=== PATIENT | female | born 1965 | race Caucasian/White ===

== ENCOUNTER → 2018-03-20 | Outpatient (CLI) | payer MEDICAID | LOC: RAD 13:14 | PROVIDERS: ATTEND Nurse Practitioner Primary Care | DX: Z12.31 Encounter for screening mammogram for malignant neoplasm of breast (principal) ==

== ENCOUNTER → 2019-02-23 | Outpatient (CLI) | payer MEDICAID ==
[2019-02-23 11:13] LABS: ABG BASE EXCESS 1.2 MMOL/L (-2.5-2.5); ABG OXYGEN SATURATION 97 % (94-100); ABG PCO2 44 MMHG (35-45); ABG PH 7.38 (7.37-7.43); ABG PO2 76 MMHG (79-93); ABG TCO2 26.9 MMOL/L (21.0-31.0)
[2019-02-23 11:16] LABS: ALLENS TEST YES-POS; INSPIRED O2 ROOM AIR; PATIENT TEMP 99.2; VENTILATOR NO
== END ==
LOC: RT 10:48
PROVIDERS: ATTEND Nurse Practitioner Family
DX: J45.909 Unspecified asthma, uncomplicated (principal); J42 Unspecified chronic bronchitis; G47.34 Idiopathic sleep related nonobstructive alveolar hypoventilation; K76.89 Other specified diseases of liver; G47.50 Parasomnia, unspecified; F17.200 Nicotine dependence, unspecified, uncomplicated
CPT/HCPCS: 36600; 82805

== ENCOUNTER → 2019-04-16 | Outpatient (CLI) | payer MEDICAID ==
[~2019-04-16] MED LIST: RT-ALBUTEROL SULF 2.5 MG/3 ML PRE-MIX VIAL INH ONE; RT-ALBUTEROL SULF 2.5 MG/3 ML PRE-MIX VIAL ONE
--- NOTE | 2019-04-16 15:05 | Diagnostic Imaging Report ---
INDICATION: Chronic low back pain. FINDINGS: AP and lateral views of the lumbar spine are obtained. There is slight left convexity curvature of the upper lumbar spine. There is mild disc space narrowing at the L1-L2 level with associated endplate spurring. Otherwise, vertebral body heights are maintained. There is no evidence of an acute fracture or subluxation. Sclerosis is noted about the L4-L5 and L5-S1 facets. IMPRESSION: Localized L1-L2 degenerative disc disease without other evidence of acute abnormality seen in the lumbar spine. There is mild degenerative facet arthropathy at L4-L5 and L5-S1. Dictated by: Dictated on workstation # [id number]
== END ==
LOC: RT 13:47
PROVIDERS: ATTEND Surgery
DX: Z02.71 Encounter for disability determination (principal); M51.36 Other intervertebral disc degeneration, lumbar region; M46.97 Unspecified inflammatory spondylopathy, lumbosacral region
CPT/HCPCS: 72100; 94060

== ENCOUNTER 2019-12-17 15:35 | Emergency (ER) | payer MEDICAID ==
[~2019-12-17] VITALS: Ht 170 cm; Wt 89.8 kg
--- NOTE | 2019-12-17 15:50 | ED Dyspnea ---
General Stated Complaint: SOB Source of Information: Patient History of Present Illness Date Seen by Provider: Dec 17, 2019 Time Seen by Provider: 15:45 Initial Comments 54-year-old female presents with chest pain and shortness of breath. She reports that is on and off for at least a week. She is complaining of some generalized malaise and fatigue. She denies any chest pain at this time. She denies any nausea or vomiting. She denies any cough. Patient reports she has a history of "angina" and takes nitroglycerin. Patient will not elaborate on this diagnosis and states she was diagnosed in [place] prior to moving here. She will not elaborate how long ago that was or if she has ever had a heart catheter. Patient symptoms with the very vague with no reports of fever or chills. She does complain of some occasional nausea but not at this time. Allergies and Home Medications Allergies Coded Allergies: No Allergy Information Available (Unverified , 02/13/18) Patient Home Medication List Home Medication List Reviewed: Yes Review of Systems Review of Systems Constitutional: No chills, No fever; malaise, weakness EENTM: no symptoms reported Respiratory: short of breath Cardiovascular: chest pain Gastrointestinal: no symptoms reported, abdominal pain; No nausea, No vomiting Musculoskeletal: no symptoms reported Skin: no symptoms reported Psychiatric/Neurological: No Symptoms Reported Endocrine: No Symptoms Reported Past Uryztdg-Enczgu-Inkhyq Hx Past Med/Social Hx: Reviewed Nursing Past Med/Soc Hx Physical Exam Vital Signs Vital Signs - First Documented 12/17/19 15:45 Temp 36.6 Pulse 71 Resp 12 B/P (MAP) 117/71 (86) Pulse Ox 96 O2 Delivery Room Air Capillary Refill : Height, Weight, BMI Height: '" Weight: lbs. oz. 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 Norm as Tested Skin: Normal Color, Warm/Dry Lymphatic: No Adenopathy Progress/Results/Core Measures Results/Orders Lab Results Laboratory Tests Test 12/17/19 15:45 Range/Units White Blood Count 8.3 4.3-11.0 10^3/uL Red Blood Count 5.11 4.35-5.85 10^6/uL Hemoglobin 16.0 11.5-16.0 G/DL Hematocrit 47 35-52 % Mean Corpuscular Volume 92 80-99 FL Mean Corpuscular Hemoglobin 31 25-34 PG Mean Corpuscular Hemoglobin Concent 34 32-36 G/DL Red Cell Distribution Width 12.6 10.0-14.5 % Platelet Count 270 130-400 10^3/uL Mean Platelet Volume 9.5 7.4-10.4 FL Neutrophils (%) (Auto) 60 42-75 % Lymphocytes (%) (Auto) 34 12-44 % Monocytes (%) (Auto) 5 0-12 % Eosinophils (%) (Auto) 1 0-10 % Basophils (%) (Auto) 0 0-10 % Neutrophils # (Auto) 5.0 1.8-7.8 X 10^3 Lymphocytes # (Auto) 2.8 1.0-4.0 X 10^3 Monocytes # (Auto) 0.4 0.0-1.0 X 10^3 Eosinophils # (Auto) 0.1 0.0-0.3 10^3/uL Basophils # (Auto) 0.0 0.0-0.1 10^3/uL Prothrombin Time 13.4 12.2-14.7 SEC INR Comment 1.0 0.8-1.4 Activated Partial Thromboplast Time 31 24-35 SEC D-Dimer < 0.27 0.00-0.49 UG/ML Sodium Level 139 135-145 MMOL/L Potassium Level 4.0 3.6-5.0 MMOL/L Chloride Level 102 98-107 MMOL/L Carbon Dioxide Level 25 21-32 MMOL/L Anion Gap 12 5-14 MMOL/L Blood Urea Nitrogen 5 L 7-18 MG/DL Creatinine 0.85 0.60-1.30 MG/DL Estimat Glomerular Filtration Rate > 60 BUN/Creatinine Ratio 6 Glucose Level 104 70-105 MG/DL Calcium Level 10.2 H 8.5-10.1 MG/DL Corrected Calcium 9.9 8.5-10.1 MG/DL Magnesium Level 2.3 1.6-2.4 MG/DL Total Bilirubin 0.3 0.1-1.0 MG/DL Aspartate Amino Transf (AST/SGOT) 9 5-34 U/L Alanine Aminotransferase (ALT/SGPT) 10 0-55 U/L Alkaline Phosphatase 115 40-136 U/L Myoglobin 31.1 10.0-92.0 NG/ML Troponin I < 0.028 <0.028 NG/ML B-Type Natriuretic Peptide 22.5 <100.0 PG/ML Total Protein 7.4 6.4-8.2 GM/DL Albumin 4.4 3.2-4.5 GM/DL Lipase 47 8-78 U/L My Orders Orders - PRICE,DAMON L DO Cbc With Automated Diff (12/17/19 15:57) Magnesium (12/17/19 15:57) Chest 1 View, Ap/Pa Only (12/17/19 15:57) Ekg Tracing (12/17/19 15:57) Comprehensive Metabolic Panel (12/17/19 15:57) Myoglobin Serum (12/17/19 15:57) Protime With Inr (12/17/19 15:57) Partial Thromboplastin Time (12/17/19 15:57) Monitor-Rhythm Ecg Trace Only (12/17/19 15:57) Ed Iv/Invasive Line Start (12/17/19 15:57) Lipase (12/17/19 15:57) BNP (12/17/19 15:57) Fibrin Degradation Products (12/17/19 15:57) Troponin I (12/17/19 15:57) Aspirin Chewable Tablet (Baby Aspirin Ch (12/17/19 16:00) Medications Given in ED Current Medications Medications Dose Ordered Sig/Zulema Route Start Time Stop Time Status Last Admin Dose Admin Aspirin 324 mg ONCE ONCE PO 12/17/19 16:00 12/17/19 16:01 DC 12/17/19 16:11 324 MG Vital Signs/I&O 12/17/19 12/17/19 12/17/19 12/17/19 15:45 15:45 16:54 17:08 Temp 36.6 36.9 Pulse 71 66 73 Resp 12 20 14 B/P (MAP) 117/71 (86) 130/78 (95) 130/74 Pulse Ox 96 94 95 O2 Delivery Room Air Room Air Room Air Room Air Progress Progress Note : Time: 16:59 Progress Note Patient with normal EKG, chest x-ray, troponin, d-dimer and other lab evaluation. Patient with no acute findings on physical exam. I discussed with her that I suspect she likely has a viral illness. I recommended she use Tylenol and ibuprofen as needed, get plenty of rest, drink plenty of fluids. She also should follow-up with her primary care provider to arrange an outpatient cardiology evaluation due to her stated a history of angina. Patient is otherwise stable and will be discharged home Initial ECG Impression Date: Dec 17, 2019 Initial ECG Impression Time: 15:33 Initial ECG Rate: 65 Initial ECG Rhythm: Normal Sinus Initial ECG Intervals: Normal Initial ECG Impression: Nonspecific Changes Diagnostic Imaging Diagonstic Imaging: Xray Plain Films/CT/US/NM/MRI: chest Comments [facility] [place] NAME: PAZ GLASS [facility] REC#: [id number] PT STATUS: REG ER : 1965 PHYSICIAN: DAMON PRICE DO ADMIT DATE: 12/17/19/ER Signed Date of Exam:12/17/19 CHEST 1 VIEW, AP/PA ONLY INDICATION: Chest pain. COMPARISON: CT chest is 02/13/2018. EXAMINATION: Portable chest. FINDINGS: The lungs are well-aerated and clear. The heart is mildly enlarged. There is no pulmonary edema. No hilar adenopathy. No pneumothorax. IMPRESSION: Cardiomegaly without acute changes. Departure Impression Primary Impression: Viral syndrome Disposition: 01 HOME, SELF-CARE Condition: Stable Departure-Patient Inst. Referrals: [facility] (PCP) Primary Care Physician DEVEN MCKEON (Family) Primary Care Physician Patient Instructions: Viral Syndrome (DC), Chest Pain That Is Not Caused by the Heart (DC) Add. Discharge Instructions: Please follow-up with your primary care provider in 2-3 days for reevaluation, they can also help arrange an outpatient cardiology evaluation due to year history of angina. Return to the ER as needed Emergency department focuses on treating and ruling out life-threatening diseases. Whenever possible, a diagnosis is given. However, most patients are given an impression based on their history, physical exam, and workup during your brief time in the ER. Information about probable diagnosis and other educational material has been provided. Please take the time to read and understand this information. It is very important that you follow up with a physician as discussed during the visit today. Failure to adhere to your follow-up instructions may lead to severe disability, injury, or so please make sure to keep your appointments or obtain one as requested. Please keep in mind the emergency department is not designed to your primary care or "family doctor" and nonurgent issues are best evaluated by an outpatient physician DAMON PRICE DO Dec 17, 2019 15:50
[2019-12-17] MEDS ORDERED: ASPIRIN 81 MG CHEW (CHILDREN'S ASA) PO ONE (16:00)
[2019-12-17 16:06] LABS: BASOPHILS % (AUTO) 0 % (0-10); EOSINOPHILS # (AUTO) 0.1 10^3/uL (0.0-0.3); EOSINOPHILS % (AUTO) 1 % (0-10); HEMATOCRIT 47 % (35-52); LYMPHOCYTES # (AUTO) 2.8 X 10^3 (1.0-4.0); LYMPHOCYTES % (AUTO) 34 % (12-44); MEAN CORPUSCULAR HEMOGLOBIN 31 PG (25-34); MEAN CORPUSCULAR HGB CONC 34 G/DL (32-36); MEAN CORPUSCULAR VOLUME 92 FL (80-99); MEAN PLATELET VOLUME 9.5 FL (7.4-10.4); MONOCYTES # (AUTO) 0.4 X 10^3 (0.0-1.0); MONOCYTES % (AUTO) 5 % (0-12); NEUTROPHILS % (AUTO) 60 % (42-75); PLATELET COUNT 270 10^3/uL (130-400); RED CELL DISTRIBUTION WIDTH 12.6 % (10.0-14.5); WHITE BLOOD COUNT 8.3 10^3/uL (4.3-11.0)
--- OUTSIDE RECORDS SUMMARY | 2019-12-17 16:07 | XMS REPORT ---
Author Author Pepper MCKEON Organization [facility] Address [address] [place] [address] Care Team Providers Care Checking Department Supervisor Name Role Phone DEVEN MCKEON Unavailable PROBLEMS Type Condition ICD9-CM Code [id number] Code Onset Dates Condition S tatus SNOMED Code Problem Panlobular emphysema J43.1 Active 5664856 Problem Functional constipation K59.04 Active 540487749 Problem Lumbago with sciatica, right side M54.41 Active 181076547062370 Problem Lumbago with sciatica, left side M54.42 Active 767870954 Problem Acute right-sided low back pain with right-sided sciatica M54.41 Active 934483647 Problem Other chronic pain G89.29 Active 8 7294638 Problem Stable angina pectoris I20.8 Active 781580843 Problem Chronic fatigue R53.82 Active 8422 9001 Problem Hypertension, benign I10 Active 28891276 Problem Tremor, essential G25.0 Active 60 0775505 Problem COPD exacerbation J44.1 Active 29 2076282303789 Problem Hypothyroidism (acquired) E03.9 Acti ve 98433602 Problem Anxiety F41.9 Active 19212167 Problem 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 [id number] [address] [place] [phone] Sep, [facility] [address] [facility] [id number] [address] [place] [phone] Aug, [facility] [address] [facility] [id number] [address] [place] [id number] Aug, Acute non-recurrent maxillar y sinusitis J01.00 [facility] [address] [id number] [address] [place] [id number] Jul, [facility] [address] [id number] [address] [place] [id number] Jul, Acute non-recurrent maxillar y sinusitis J01.00 [facility] [address] [facility] [id number] [address] [place] [id number] Jun, [facility] [address] [id number] [address] [place] [id number] Jun, Acute non-recurrent maxillar y sinusitis J01.00 [facility] [address] [id number] [address] [place] [id number] May, Acute non-recurrent maxillar y sinusitis J01.00 [facility] [address] [id number] [address] [place] [id number] Apr, Acute non-recurrent maxillar y sinusitis J01.00 [facility] [address] [id number] [address] [place] [phone] Mar, [facility] [address] [facility] [id number] [address] [place] [id number] Mar, Acute non-recurrent maxillar y sinusitis J01.00 [facility] [address] [facility] [id number] [address] [place] [id number] Mar, Acute frontal sinusitis J01. 10 and Pain, dental K08.89 [facility] [address] [facility] [id number] [address] [place] [id number] Mar, Breast mass, right N63.10 [facility] [address] [facility] [id number] [address] [place] [id number] Mar, Screening for breast cancer Z12.31 [facility] [address] [facility] [id number] [address] [place] [id number] Feb, Anxiety F41.9 ; Tremor, esse ntial G25.0 ; Other chronic pain G89.29 and Pain in right hip M25.551 [place] [address] [address] Feb, Acute non-recurrent maxillar y sinusitis J01.00 and Thoracic neuritis M54.14 [place] [address] [address] Feb, [place] [address] [id number] 17 Feb, 2018 Screening for breast cancer Z12.31 and Screening for colon cancer Z12.11 [place] [address] [address] Feb, [place] [address] [address] Feb, [place] [address] [address] Jan, Breast lump N63.0 [place] [address] [address] Jan, Hypothyroidism (acquired) E0 3.9 [place] [address] [address] Jan, Acute non-recurrent maxillar y sinusitis J01.00 [place] [address] [id number] Jan, Benign head tremor G25.0 and Tick bite, initial encounter W57.XXXA [place] [address] [address] Jan, [place] [address] [address] Dec, Thoracic neuritis M54.14 ; B reast lump N63.0 and Tinea corporis B35.4 [place] [address] [id number] [address] [place] [id number] Dec, Acute non-recurrent maxillar y sinusitis J01.00 [facility] [address] [id number] [address] [place] [phone] Dec, [facility] [address] [id number] [address] [place] [phone] Dec, [facility] [address] [id number] [address] [place] [id number] Dec, [facility] [address] [id number] [address] [place] [phone] Dec, Panlobular emphysema J43.1 [facility] [address] [id number] [address] [place] [id number] Nov, [facility] [address] [id number] [address] [place] [id number] Nov, Acute non-recurrent maxillar y sinusitis J01.00 [facility] [address] [id number] [address] [place] [phone] Nov, [facility] [address] [id number] [address] [place] [address] Nov, Thoracic neuritis M54.14 ; A cute pain of right shoulder M25.511 ; Mood disorder F39 ; Pain in right ankle and joints of right foot M25.571 and Other chronic pain G89.29 [facility] [address] [id number] [address] [place] [id number] Nov, [facility] [address] [id number] [address] [place] [id number] Nov, Injury of right shoulder, in itial encounter S49.91XA [facility] [address] [id number] [address] [place] [address] Nov, Panlobular emphysema J43.1 [facility] [address] [id number] [address] [place] [id number] Nov, Acute non-recurrent maxillar y sinusitis J01.00 [facility] [address] [facility] [id number] [address] [place] [id number] October, Acute non-recurrent maxillar y sinusitis J01.00 [facility] [address] [id number] [address] [place] [id number] Sep, Contusion of right upper ext remity, initial encounter S40.021A [facility] [address] [id number] [address] [place] [id number] Sep, Right forearm pain M79.631 [facility] [address] [facility] [id number] [address] [place] [id number] Sep, Acute non-recurrent maxillar y sinusitis J01.00 [facility] [address] [facility] [id number] [address] [place] [id number] Aug, Stable angina pectoris I20.8 [facility] [address] [id number] [address] [place] [id number] Aug, Chronic fatigue R53.82 [facility] [address] [facility] [id number] [address] [place] [id number] Aug, [facility] [address] [facility] [id number] [address] [place] [id number] Aug, Stable angina pectoris I20.8 and Chronic fatigue R53.82 [facility] [address] [facility] [id number] [address] [place] [id number] Aug, Acute non-recurrent maxillar y sinusitis J01.00 [facility] [address] [facility] [id number] [address] [place] [id number] Jul, Chronic fatigue R53.82 ; Hyp ertension, benign I10 ; Family history of early CAD Z82.49 and Coronary artery disease of [place] artery of [place] heart with stable angina pectoris I25.118 [facility] [address] [id number] [address] [place] [id number] Jul, Family history of early CAD Z82.49 [facility] [address] [facility] [id number] [address] [place] [id number] 16 Jul, 2017 Family history of early CAD Z82.49 [facility] [address] [facility] [id number] [address] [place] [id number] Jul, Chronic fatigue R53.82 ; Hyp ertension, benign I10 ; Family history of early CAD Z82.49 and Coronary artery disease of [place] artery of [place] heart with stable angina pectoris I25.118 [facility] [address] [facility] [id number] [address] [place] [id number] 15 Jul, 2017 Chronic fatigue R53.82 [facility] [address] [facility] [id number] [address] [place] [id number] 15 Jul, 2017 Chronic fatigue R53.82 ; Hyp ertension, benign I10 ; Family history of early CAD Z82.49 and Coronary artery disease of [place] artery of [place] heart with stable angina pectoris I25.118 [facility] [address] [id number] [address] [place] [id number] Jul, Dental examination Z01.20 an d Dental caries K02.9 [facility] [address] [facility] [id number] [address] [place] [phone] Jul, [facility] [address] [facility] [id number] [address] [place] [phone] Jul, [facility] [address] [facility] [id number] [address] [place] [id number] Jul, Acute non-recurrent maxillar y sinusitis J01.00 [facility] [address] [facility] [id number] [address] [place] [id number] Jul, [facility] [address] [facility] [id number] [address] [place] [id number] Jun, [facility] [id number] [place] [id number] 16 Jun, 2017 [facility] [address] [place] [id number] [address] [place] [phone] Jun, Acute non-recurrent maxillar y sinusitis J01.00 [facility] [address] [place] [id number] [address] [place] [id number] Jun, Anxiety F41.9 ; Bronchitis J 40 ; Tobacco abuse Z72.0 ; Tobacco abuse counseling Z71.6 and Acute left ankle pain M25.572 [facility] [address] [place] [id number] [address] [place] [id number] 30 May, 2017 Cough R05 and COPD exacerbat ion J44.1 [facility] [address] [id number] 15 May, 2017 [place] [address] [address] May, [facility] [address] [address] May, Acute non-recurrent maxillar y sinusitis J01.00 [place] [address] [place] [id number] [place] [id number] 17 Apr, 2017 Acute non-recurrent maxillar y sinusitis J01.00 ; Anxiety F41.9 ; Acute right-sided low back pain with right-sided sciatica M54.41 and Thoracic neuritis M54.14 IMMUNIZATIONS No Known Immunizations SOCIAL HISTORY Never Assessed REASON FOR VISIT Requests return call PLAN OF CARE VITAL SIGNS MEDICATIONS Unknown Medications RESULTS No Results PROCEDURES No Known procedures INSTRUCTIONS MEDICATIONS ADMINISTERED No Known Medications MEDICAL (GENERAL) HISTORY Type Description Date Medical History COPD Surgical History mass removed from right breast Hospitalization History No know Hospitalization history
--- OUTSIDE RECORDS SUMMARY | 2019-12-17 16:07 | XMS REPORT ---
Author Author Pepper MCKEON Organization [facility] Address [address] [place] [address] Care Team Providers Care Ice Crusher Name Role Phone DEVEN MCKEON Unavailable PROBLEMS Type Condition ICD9-CM Code [id number] Code Onset Dates Condition S tatus SNOMED Code Problem Panlobular emphysema J43.1 Active 8362068 Problem Functional constipation K59.04 Active 421713697 Problem Lumbago with sciatica, right side M54.41 Active 091318746809259 Problem Lumbago with sciatica, left side M54.42 Active 673746972 Problem Acute right-sided low back pain with right-sided sciatica M54.41 Active 635115191 Problem Other chronic pain G89.29 Active 8 4814443 Problem Stable angina pectoris I20.8 Active 103726455 Problem Chronic fatigue R53.82 Active 8422 9001 Problem Hypertension, benign I10 Active 33472360 Problem Tremor, essential G25.0 Active 60 2690632 Problem COPD exacerbation J44.1 Active 29 4282459465637 Problem Hypothyroidism (acquired) E03.9 Acti ve 48606103 Problem Anxiety F41.9 Active 40410569 Problem 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 Active 435009542878 7 Problem Injury of right shoulder, initial encounter S49.91 XA Active 158253846 Problem Mood disorder F39 Active 492864 05 Problem Benign head tremor G25.0 Active 6 07010952 ALLERGIES No Information ENCOUNTERS Encounter Location Date Diagnosis [facility] [address] [facility] [id number] [address] [place] [address] Sep, [facility] [address] [facility] [id number] [address] [place] [address] Aug, [facility] [address] [facility] [id number] [address] [place] [address] Aug, Acute non-recurrent maxillar y sinusitis J01.00 [facility] [address] [id number] [address] [place] [address] Jul, [facility] [address] [id number] [address] [place] [address] Jul, Acute non-recurrent maxillar y sinusitis J01.00 [facility] [address] [facility] [id number] [address] [place] [address] Jun, [facility] [address] [id number] [address] [place] [address] Jun, Acute non-recurrent maxillar y sinusitis J01.00 [facility] [address] [id number] [address] [place] [address] May, Acute non-recurrent maxillar y sinusitis J01.00 [facility] [address] [id number] [address] [place] [address] Apr, Acute non-recurrent maxillar y sinusitis J01.00 [facility] [address] [id number] [address] [place] [address] Mar, [facility] [address] [facility] [id number] [address] [place] [address] Mar, Acute non-recurrent maxillar y sinusitis J01.00 [facility] [address] [facility] [id number] [address] [place] [address] Mar, Acute frontal sinusitis J01. 10 and Pain, dental K08.89 [facility] [address] [facility] [id number] [address] [place] [address] Mar, Breast mass, right N63.10 [facility] [address] [facility] [id number] [address] [place] [address] Mar, Screening for breast cancer Z12.31 [facility] [address] [facility] [id number] [address] [place] [address] Feb, Anxiety F41.9 ; Tremor, esse ntial G25.0 ; Other chronic pain G89.29 and Pain in right hip M25.551 [place] [address] [address] Feb, Acute non-recurrent maxillar y sinusitis J01.00 and Thoracic neuritis M54.14 [place] [address] [address] Feb, [place] [address] [address] 17 Feb, 2018 Screening for breast cancer Z12.31 and Screening for colon cancer Z12.11 [place] [address] [address] Feb, [place] [address] [address] Feb, [place] [address] [address] Jan, Breast lump N63.0 [place] [address] [address] Jan, Hypothyroidism (acquired) E0 3.9 [place] [address] [address] Jan, Acute non-recurrent maxillar y sinusitis J01.00 [place] [address] [address] Jan, Benign head tremor G25.0 and Tick bite, initial encounter W57.XXXA [place] [address] [address] Jan, [place] [address] [address] Dec, Thoracic neuritis M54.14 ; B reast lump N63.0 and Tinea corporis B35.4 [place] [address] [id number] [address] [place] [address] Dec, Acute non-recurrent maxillar y sinusitis J01.00 [facility] [address] [id number] [address] [place] [address] Dec, [facility] [address] [id number] [address] [place] [address] Dec, [facility] [address] [id number] [address] [place] [address] Dec, [facility] [address] [id number] [address] [place] [address] Dec, Panlobular emphysema J43.1 [facility] [address] [id number] [address] [place] [address] Nov, [facility] [address] [id number] [address] [place] [address] Nov, Acute non-recurrent maxillar y sinusitis J01.00 [facility] [address] [id number] [address] [place] [address] Nov, [facility] [address] [id number] [address] [place] [address] Nov, Thoracic neuritis M54.14 ; A cute pain of right shoulder M25.511 ; Mood disorder F39 ; Pain in right ankle and joints of right foot M25.571 and Other chronic pain G89.29 [facility] [address] [id number] [address] [place] [address] Nov, [facility] [address] [id number] [address] [place] [address] Nov, Injury of right shoulder, in itial encounter S49.91XA [facility] [address] [id number] [address] [place] [address] Nov, Panlobular emphysema J43.1 [facility] [address] [id number] [address] [place] [address] Nov, Acute non-recurrent maxillar y sinusitis J01.00 [facility] [address] [facility] [id number] [address] [place] [address] October, Acute non-recurrent maxillar y sinusitis J01.00 [facility] [address] [id number] [address] [place] [address] Sep, Contusion of right upper ext remity, initial encounter S40.021A [facility] [address] [id number] [address] [place] [address] Sep, Right forearm pain M79.631 [facility] [address] [facility] [id number] [address] [place] [address] Sep, Acute non-recurrent maxillar y sinusitis J01.00 [facility] [address] [facility] [id number] [address] [place] [address] Aug, Stable angina pectoris I20.8 [facility] [address] [id number] [address] [place] [address] Aug, Chronic fatigue R53.82 [facility] [address] [facility] [id number] [address] [place] [phone] Aug, [facility] [address] [facility] [id number] [address] [place] [address] Aug, Stable angina pectoris I20.8 and Chronic fatigue R53.82 [facility] [address] [facility] [id number] [address] [place] [address] Aug, Acute non-recurrent maxillar y sinusitis J01.00 [facility] [address] [facility] [id number] [address] [place] [address] Jul, Chronic fatigue R53.82 ; Hyp ertension, benign I10 ; Family history of early CAD Z82.49 and 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.118 [facility] [address] [id number] [address] [place] [address] Jul, Family history of early CAD Z82.49 [facility] [address] [facility] [id number] [address] [place] [address] 16 Jul, 2017 Family history of early CAD Z82.49 [facility] [address] [facility] [id number] [address] [place] [address] Jul, Chronic fatigue R53.82 ; Hyp ertension, benign I10 ; Family history of early CAD Z82.49 and 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.118 [facility] [address] [facility] [id number] [address] [place] [address] 15 Jul, 2017 Chronic fatigue R53.82 [facility] [address] [facility] [id number] [address] [place] [address] 15 Jul, 2017 Chronic fatigue R53.82 ; Hyp ertension, benign I10 ; Family history of early CAD Z82.49 and 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.118 [facility] [address] [id number] [address] [place] [id number] Jul, Dental examination Z01.20 an d Dental caries K02.9 [facility] [address] [facility] [id number] [address] [place] [address] Jul, [facility] [address] [facility] [id number] [address] [place] [address] Jul, [facility] [address] [facility] [id number] [address] [place] [address] Jul, Acute non-recurrent maxillar y sinusitis J01.00 [facility] [address] [facility] [id number] [address] [place] [address] Jul, [facility] [address] [facility] [id number] [address] [place] [address] Jun, [facility] [address] [place] [id number] [address] [place] [address] Jun, [facility] [address] [place] [id number] [address] [place] [address] Jun, Acute non-recurrent maxillar y sinusitis J01.00 [facility] [address] [place] [id number] [address] [place] [address] Jun, Anxiety F41.9 ; Bronchitis J 40 ; Tobacco abuse Z72.0 ; Tobacco abuse counseling Z71.6 and Acute left ankle pain M25.572 [facility] [address] [place] [id number] [address] [place] [address] May, Cough R05 and COPD exacerbat ion J44.1 [place] [address] [place] [id number] [address] [place] [address] May, [place] [address] [address] May, [place] [address] [place] [id number] [address] [place] [address] May, Acute non-recurrent maxillar y sinusitis J01.00 [place] [address] [place] [id number] [address] [place] [address] Apr, Acute non-recurrent maxillar y sinusitis J01.00 ; Anxiety F41.9 ; Acute right-sided low back pain with right-sided sciatica M54.41 and Thoracic neuritis M54.14 IMMUNIZATIONS No Known Immunizations SOCIAL HISTORY Never Assessed REASON FOR VISIT Controlled 08/27 PLAN OF CARE VITAL SIGNS MEDICATIONS Medication Instructions Dosage Frequency Start Date End Date Duration S tatus Hydrocodone-Acetaminophen 10-325 MG Orally every 6 hrs 1 tablet as needed 6h Aug, 28 days Active Xanax 0.5 MG Orally Twice a day 1 tablet 12h 28 days Active RESULTS No Results PROCEDURES No Known procedures INSTRUCTIONS MEDICATIONS ADMINISTERED No Known Medications MEDICAL (GENERAL) HISTORY Type Description Date Medical History COPD Surgical History mass removed from right breast Hospitalization History No know Hospitalization history
--- OUTSIDE RECORDS SUMMARY | 2019-12-17 16:08 | XMS REPORT ---
Author Author Pepper DEL ROSARIO [facility] Address [address] [place] [address] Care Team Providers Care Associate Merchandiser Name Role Phone JERAMY DEL ROSARIO Unavailable PROBLEMS Type Condition ICD9-CM Code BEC61-TV Code Onset Dates Condition S tatus SNOMED Code Problem Stable angina pectoris I20.8 Active 204387644 Problem Hypertension, benign I10 Active 34993720 Problem Chronic fatigue R53.82 Active 8422 9001 Problem Hypothyroidism (acquired) E03.9 Acti ve 06741370 Problem Tremor, essential G25.0 Active 60 3636512 Problem Injury of right shoulder, initial encounter S49.91 XA Active 251349210 Problem Coronary artery disease of n ative artery of [place] heart with stable angina pectoris I25.118 Active 301406782423 7 Problem Benign head tremor G25.0 Active 6 87374075 Problem Mood disorder F39 Active 072568 05 Problem Functional constipation K59.04 Active 506243155 Problem Panlobular emphysema J43.1 Active 4868664 Problem Other chronic pain G89.29 Active 8 3017415 Problem Acute right-sided low back pain with right-sided sciatica M54.41 Active 704978669 Problem Lumbago with sciatica, left side M54.42 Active 621008952 Problem Anxiety F41.9 Active 55750044 Problem Lumbago with sciatica, right side M54.41 Active 536791580166280 Problem COPD exacerbation J44.1 Active 29 [id number] ALLERGIES Substance Reaction Event Type Date Status PredniSONE Unknown Drug Allergy Feb, Active Lyrica Unknown Drug Allergy Feb, Active ENCOUNTERS Encounter Location Date Diagnosis [facility] [address] [facility] [id number] [address] [place] [phone] Mar, Breast mass, right N63.10 [facility] [address] [facility] [id number] [address] [place] [phone] Mar, Screening for breast cancer Z12.31 [facility] [address] [id number] [address] [place] [phone] Feb, Anxiety F41.9 ; Tremor, esse ntial G25.0 ; Other chronic pain G89.29 and Pain in right hip M25.551 [place] [address] [facility] [id number] [address] [place] [address] Feb, Acute non-recurrent maxillar y sinusitis J01.00 and Thoracic neuritis M54.14 [place] [address] [id number] [address] [place] [phone] Feb, [place] [address] [facility] [id number] [address] [place] [phone] Feb, Screening for breast cancer Z12.31 and Screening for colon cancer Z12.11 [place] [address] [facility] [id number] [address] [place] [phone] Feb, [place] [address] [facility] [id number] [address] [place] [phone] Feb, [place] [address] [place] [id number] [address] [place] [phone] Jan, Breast lump N63.0 [place] [address] [place] [id number] [address] [place] [id number] Jan, Hypothyroidism (acquired) E0 3.9 [place] [address] [facility] [id number] [address] [place] [phone] Jan, Acute non-recurrent maxillar y sinusitis J01.00 [place] [address] [facility] [id number] [address] [place] [id number] Jan, Benign head tremor G25.0 and Tick bite, initial encounter W57.XXXA [place] [address] [place] [id number] [address] [place] [phone] Jan, [place] [address] [place] [id number] [address] [place] [phone] Dec, Thoracic neuritis M54.14 ; B reast lump N63.0 and Tinea corporis B35.4 [facility] [address] [facility] [id number] [address] [place] [phone] Dec, Acute non-recurrent maxillar y sinusitis J01.00 [facility] [address] [facility] [id number] [address] [place] [phone] Dec, [facility] [address] [facility] [id number] [address] [place] [phone] Dec, [facility] [address] [facility] [id number] [place] [phone] Dec, [facility] [address] [place] [id number] [place] [phone] Dec, Panlobular emphysema J43.1 [facility] [address] [place] [id number] [address] [place] [phone] Nov, [facility] [address] [facility] [id number] [address] [place] [id number] Nov, Acute non-recurrent maxillar y sinusitis J01.00 [facility] [address] [facility] [id number] [address] [place] [phone] Nov, [facility] [address] [place] [id number] [place] [phone] Nov, Thoracic neuritis M54.14 ; A cute pain of right shoulder M25.511 ; Mood disorder F39 ; Pain in right ankle and joints of right foot M25.571 and Other chronic pain G89.29 [facility] [address] [facility] [id number] [address] [place] [phone] Nov, [facility] [address] [facility] [id number] [address] [place] [address] Nov, Injury of right shoulder, in itial encounter S49.91XA [facility] [address] [id number] [address] [place] [phone] Nov, Panlobular emphysema J43.1 [facility] [address] [facility] [id number] [address] [place] [phone] Nov, Acute non-recurrent maxillar y sinusitis J01.00 [facility] [address] [facility] [id number] [address] [place] [phone] October, Acute non-recurrent maxillar y sinusitis J01.00 [facility] [address] [id number] [address] [place] [phone] Sep, Contusion of right upper ext remity, initial encounter S40.021A [facility] [address] [facility] [id number] [address] [place] [address] Sep, Right forearm pain M79.631 [place] [address] [facility] [id number] [address] [place] [phone] Sep, Acute non-recurrent maxillar y sinusitis J01.00 [facility] [address] [id number] [address] [place] [phone] Aug, Stable angina pectoris I20.8 [facility] [address] [facility] [id number] [address] [place] [id number] Aug, Chronic fatigue R53.82 [facility] [address] [facility] [id number] [address] [place] [phone] Aug, [facility] [address] [facility] [id number] [address] [place] [phone] Aug, Stable angina pectoris I20.8 and Chronic fatigue R53.82 [facility] [address] [facility] [id number] [address] [place] [phone] Aug, Acute non-recurrent maxillar y sinusitis J01.00 [facility] [address] [facility] [id number] [address] [place] [phone] Jul, Chronic fatigue R53.82 ; Hyp ertension, benign I10 ; Family history of early CAD Z82.49 and Coronary artery disease of [place] artery of [place] heart with stable angina pectoris I25.118 [place] [address] [address] [facility] [id number] [address] [place] [id number] 26 Jul, 2017 Family history of early CAD Z82.49 [place] [address] [facility] [id number] [address] [place] [id number] 16 Jul, 2017 Family history of early CAD Z82.49 [place] [address] [id number] [address] [place] [id number] 16 Jul, 2017 Chronic fatigue R53.82 ; Hyp ertension, benign I10 ; Family history of early CAD Z82.49 and Coronary artery disease of [place] artery of [place] heart with stable angina pectoris I25.118 [place] [address] [facility] [id number] [address] [place] [phone] 15 Jul, 2017 Chronic fatigue R53.82 [place] [address] [facility] [id number] [address] [place] [id number] 15 Jul, 2017 Chronic fatigue R53.82 ; Hyp ertension, benign I10 ; Family history of early CAD Z82.49 and Coronary artery disease of [place] artery of [place] heart with stable angina pectoris I25.118 [facility] [address] [id number] [address] [place] [id number] 12 Jul, 2017 Dental examination Z01.20 an d Dental caries K02.9 [place] [address] [facility] [id number] [address] [place] [phone] Jul, [place] [address] [facility] [id number] [address] [place] [phone] Jul, [place] [address] [facility] [id number] [address] [place] [phone] Jul, Acute non-recurrent maxillar y sinusitis J01.00 [place] [address] [facility] [id number] [address] [place] [id number] Jul, [facility] [address] [place] [id number] [address] [place] [phone] Jun, [facility] [address] [address] Jun, [facility] [address] [address] Jun, Acute non-recurrent maxillar y sinusitis J01.00 [facility] [address] [address] Jun, Anxiety F41.9 ; Bronchitis J 40 ; Tobacco abuse Z72.0 ; Tobacco abuse counseling Z71.6 and Acute left ankle pain M25.572 [facility] [address] [address] May, Cough R05 and COPD exacerbat ion J44.1 [facility] [address] [phone] May, [place] [address] [address] May, [place] [address] [phone] May, Acute non-recurrent maxillar y sinusitis J01.00 [place] [address] [address] Apr, Acute non-recurrent maxillar y sinusitis J01.00 ; Anxiety F41.9 ; Acute right-sided low back pain with right-sided sciatica M54.41 and Thoracic neuritis M54.14 IMMUNIZATIONS No Known Immunizations SOCIAL HISTORY Never Assessed REASON FOR VISIT Breast exam-[facility] PLAN OF CARE Activity Details Follow Up prn with PCP Reason: Pending Test COLOGUARD (OUTSIDE ORDER) VITAL SIGNS Height 67 in 2018-03-09 Weight 184 lbs 2018-03-09 Temperature 97.1 degrees Fahrenheit 2018-03-09 Heart Rate 81 bpm 2018-03-09 Respiratory Rate 20 2018-03-09 BMI 28.82 kg/m2 2018-03-09 Blood pressure systolic 118 mmHg 2018-03-09 Blood pressure diastolic 72 mmHg 2018-03-09 MEDICATIONS Medication Instructions Dosage Frequency Start Date End Date Duration S evelyne Terbinafine HCl 1 % Externally Twice a day 1 application to affecte d area 12h Dec, Active Hydrocodone-Acetaminophen 10-325 MG Orally every 6 hrs 1 tablet as needed 6h Jan, 28 days Active Ibuprofen 600 MG Orally 4 times a day 1 tablet with food or milk as needed 6h Nov, Active Albuterol Sulfate (2.5 MG/3ML) 0.083% IN GARCIA 1 VIAL VIA NEBULIZER EVERY 6 HOURS NEEDED 12 Active Cyanocobalamin 1000 MCG/ML Injection once monthly 1 ml Aug, 30 day(s) Active Advair Diskus 250-50 MCG/DOSE Inhalation Twice a day 1 puff 12h Active Levothyroxine Sodium 50 mcg Orally Once a day 1 tablet on an empty stomach in the morning 24h Jan, 30 day(s) Active Spiriva HandiHaler 18 MCG Inhalation Once a day 1 capsule 24h Nov Active Zanaflex 4 MG Orally 2 times a day 1 tablet as needed 12h 28 Active Xanax 0.5 MG Orally Twice a day 1 tablet 12h 28 days Active Baclofen 20 mg Orally 2 times a day 1 tablet with food or milk 12h Dec, Active Prozac 20 mg Orally Once a day 1 capsule in the morning 24h 25 2017 30 day(s) Active ProAir HFA 108 (90 Base) MCG/ACT Inhalation every 6 hrs 2 puffs as needed 6h May, Active Sinemet 25-100 MG Orally Once a day 1 tablet 24h Jan, 30 day(s) Active Nitroglycerin 0.4 MG Sublingual Once a day prn, m ay repeat every 5 minutes until resolution. if taken 3 doses report to er immediately. 1 tablet Active RESULTS No Results PROCEDURES No Known procedures INSTRUCTIONS MEDICATIONS ADMINISTERED No Known Medications MEDICAL (GENERAL) HISTORY Type Description Date Medical History COPD Surgical History mass removed from right breast Hospitalization History No know Hospitalization history
--- OUTSIDE RECORDS SUMMARY | 2019-12-17 16:08 | XMS REPORT ---
Author Author Pepper MCKEON Organization [facility] Address [address] [place] [address] Care Team Providers Care Oiler Helper Name Role Phone MIKE DEVEN Unavailable PROBLEMS Type Condition ICD9-CM Code PDT33-GV Code Onset Dates Condition S tatus SNOMED Code Problem Stable angina pectoris I20.8 Active 903627123 Problem Hypertension, benign I10 Active 03917611 Problem Chronic fatigue R53.82 Active 8422 9001 Problem Hypothyroidism (acquired) E03.9 Acti ve 58496167 Problem Tremor, essential G25.0 Active 60 2107891 Problem Injury of right shoulder, initial encounter S49.91 XA Active 605024805 Problem 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 Active 618990691336 7 Problem Benign head tremor G25.0 Active 6 80527390 Problem Mood disorder F39 Active 812062 05 Problem Functional constipation K59.04 Active 593109187 Problem Panlobular emphysema J43.1 Active 1545373 Problem Other chronic pain G89.29 Active 8 5503405 Problem Acute right-sided low back pain with right-sided sciatica M54.41 Active 236155882 Problem Lumbago with sciatica, left side M54.42 Active 944773166 Problem Anxiety F41.9 Active 90051765 Problem Lumbago with sciatica, right side M54.41 Active 046644421359414 Problem COPD exacerbation J44.1 Active 29 [id number] ALLERGIES No Information ENCOUNTERS Encounter Location Date Diagnosis [facility] [address] [facility] [id number] [address] [place] [id number] Mar, Breast mass, right N63.10 [facility] [address] [facility] [id number] [address] [place] [address] Mar, Screening for breast cancer Z12.31 [facility] [address] [place] [id number] [address] [place] [phone] Feb, Anxiety F41.9 ; Tremor, esse ntial G25.0 ; Other chronic pain G89.29 and Pain in right hip M25.551 [place] [place] [id number] [address] [place] [address] Feb, Acute non-recurrent maxillar y sinusitis J01.00 and Thoracic neuritis M54.14 [place] [id number] [place] [phone] Feb, [place] [address] [address] 17 Feb, 2018 Screening for breast cancer Z12.31 and Screening for colon cancer Z12.11 [place] [address] [place] [id number] [place] [phone] Feb, [place] [address] [address] Feb, [place] [address] [address] Jan, Breast lump N63.0 [place] [address] [address] Jan, Hypothyroidism (acquired) E0 3.9 [place] [address] [place] [id number] [place] [address] Jan, Acute non-recurrent maxillar y sinusitis J01.00 [place] [address] [place] [id number] [address] [place] [id number] Jan, Benign head tremor G25.0 and Tick bite, initial encounter W57.XXXA [place] [address] [place] [id number] [address] [place] [phone] Jan, [place] [address] [place] [id number] [address] [place] [address] Dec, Thoracic neuritis M54.14 ; B reast lump N63.0 and Tinea corporis B35.4 [facility] [address] [id number] [address] [place] [id number] Dec, Acute non-recurrent maxillar y sinusitis J01.00 [facility] [address] [id number] [address] [place] [id number] Dec, [facility] [address] [facility] [id number] [address] [place] [id number] Dec, [facility] [address] [id number] [address] [place] [phone] Dec, [facility] [address] [facility] [id number] [address] [place] [id number] Dec, Panlobular emphysema J43.1 [facility] [address] [facility] [id number] [address] [place] [phone] Nov, [facility] [address] [id number] [address] [place] [id number] Nov, Acute non-recurrent maxillar y sinusitis J01.00 [facility] [address] [facility] [id number] [address] [place] [id number] Nov, [facility] [address] [facility] [id number] [address] [place] [id number] Nov, Thoracic neuritis M54.14 ; A cute pain of right shoulder M25.511 ; Mood disorder F39 ; Pain in right ankle and joints of right foot M25.571 and Other chronic pain G89.29 [facility] [address] [facility] [id number] [address] [place] [id number] Nov, [facility] [address] [facility] [id number] [address] [place] [id number] Nov, Injury of right shoulder, in itial encounter S49.91XA [facility] [address] [facility] [id number] [address] [place] [phone] Nov, Panlobular emphysema J43.1 [facility] [address] [id number] [address] [place] [phone] Nov, Acute non-recurrent maxillar y sinusitis J01.00 [facility] [address] [id number] [address] [place] [id number] October, Acute non-recurrent maxillar y sinusitis J01.00 [facility] [address] [id number] [address] [place] [address] Sep, Contusion of right upper ext remity, initial encounter S40.021A [facility] [address] [id number] [address] [place] [id number] Sep, Right forearm pain M79.631 [facility] [address] [id number] [address] [place] [id number] Sep, Acute non-recurrent maxillar y sinusitis J01.00 [facility] [address] [id number] [address] [place] [address] Aug, Stable angina pectoris I20.8 [facility] [address] [id number] [address] [place] [address] Aug, Chronic fatigue R53.82 [facility] [address] [id number] [address] [place] [id number] Aug, [facility] [address] [id number] [address] [place] [id number] Aug, Stable angina pectoris I20.8 and Chronic fatigue R53.82 [facility] [address] [id number] [address] [place] [id number] Aug, Acute non-recurrent maxillar y sinusitis J01.00 [facility] [address] [id number] [address] [place] [id number] Jul, Chronic fatigue R53.82 ; Hyp ertension, benign I10 ; Family history of early CAD Z82.49 and Coronary artery disease of [place] artery of [place] heart with stable angina pectoris I25.118 [facility] [address] [facility] [id number] [address] [place] [id number] 26 Jul, 2017 Family history of early CAD Z82.49 [facility] [address] [facility] [id number] [address] [place] [id number] 16 Jul, 2017 Family history of early CAD Z82.49 [facility] [address] [facility] [id number] [address] [place] [id number] 16 Jul, 2017 Chronic fatigue R53.82 ; Hyp ertension, benign I10 ; Family history of early CAD Z82.49 and Coronary artery disease of [place] artery of [place] heart with stable angina pectoris I25.118 [place] [address] [facility] [id number] [address] [place] [id number] 15 Jul, 2017 Chronic fatigue R53.82 [place] [address] [facility] [id number] [address] [place] [phone] 15 Jul, 2017 Chronic fatigue R53.82 ; Hyp ertension, benign I10 ; Family history of early CAD Z82.49 and Coronary artery disease of [place] artery of [place] heart with stable angina pectoris I25.118 [facility] [address] [id number] [address] [place] [id number] 12 Jul, 2017 Dental examination Z01.20 an d Dental caries K02.9 [place] [address] [facility] [id number] [address] [place] [id number] Jul, [facility] [address] [facility] [id number] [address] [place] [id number] Jul, [facility] [address] [facility] [id number] [address] [place] [id number] Jul, Acute non-recurrent maxillar y sinusitis J01.00 [facility] [address] [facility] [id number] [address] [place] [phone] Jul, [facility] [address] [place] [id number] [address] [place] [phone] Jun, [facility] [address] [facility] [id number] [address] [place] [id number] Jun, [facility] [address] [facility] [id number] [address] [place] [id number] Jun, Acute non-recurrent maxillar y sinusitis J01.00 [facility] [address] [facility] [id number] [address] [place] [address] Jun, Anxiety F41.9 ; Bronchitis J 40 ; Tobacco abuse Z72.0 ; Tobacco abuse counseling Z71.6 and Acute left ankle pain M25.572 [facility] [address] [facility] [id number] [address] [place] [phone] May, Cough R05 and COPD exacerbat ion J44.1 [facility] [address] [facility] [id number] [address] [place] [id number] 15 May, 2017 [facility] [address] [facility] [id number] [address] [place] [id number] May, [facility] [address] [facility] [id number] [address] [place] [id number] May, Acute non-recurrent maxillar y sinusitis J01.00 [facility] [address] [facility] [id number] [address] [place] [id number] Apr, Acute non-recurrent maxillar y sinusitis J01.00 ; Anxiety F41.9 ; Acute right-sided low back pain with right-sided sciatica M54.41 and Thoracic neuritis M54.14 IMMUNIZATIONS No Known Immunizations SOCIAL HISTORY Never Assessed REASON FOR VISIT Controlled Med Refill PLAN OF CARE VITAL SIGNS MEDICATIONS Medication Instructions Dosage Frequency Start Date End Date Duration S tatus Hydrocodone-Acetaminophen 10-325 MG Orally every 6 hrs 1 tablet as needed 6h Feb, 28 days Active Zanaflex 4 mg Orally 2 times a day 1 tablet as needed 12h 28 Active Baclofen 20 mg Orally 2 times a day 1 tablet with food or milk 12h Dec, Active Xanax 0.5 MG Orally Twice a day 1 tablet 12h 28 days Active RESULTS No Results PROCEDURES No Known procedures INSTRUCTIONS MEDICATIONS ADMINISTERED No Known Medications MEDICAL (GENERAL) HISTORY Type Description Date Medical History COPD Surgical History mass removed from right breast Hospitalization History No know Hospitalization history
--- OUTSIDE RECORDS SUMMARY | 2019-12-17 16:08 | XMS REPORT ---
Author Author Pepper DEL ROSARIO [facility] Address [address] [place] [address] Care Team Providers Care Supervisor Electronics Inspection Name Role Phone JERAMY DEL ROSARIO Unavailable PROBLEMS Type Condition ICD9-CM Code DJN07-LX Code Onset Dates Condition S tatus SNOMED Code Problem Stable angina pectoris I20.8 Active 771515800 Problem Hypertension, benign I10 Active 22461867 Problem Chronic fatigue R53.82 Active 8422 9001 Problem Hypothyroidism (acquired) E03.9 Acti ve 33366087 Problem Tremor, essential G25.0 Active 60 2391363 Problem Injury of right shoulder, initial encounter S49.91 XA Active 670982435 Problem 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 Active 191960853395 7 Problem Benign head tremor G25.0 Active 6 03441841 Problem Mood disorder F39 Active 635905 05 Problem Functional constipation K59.04 Active 332375421 Problem Panlobular emphysema J43.1 Active 4171664 Problem Other chronic pain G89.29 Active 8 9057588 Problem Acute right-sided low back pain with right-sided sciatica M54.41 Active 480814094 Problem Lumbago with sciatica, left side M54.42 Active 125213970 Problem Anxiety F41.9 Active 91037250 Problem Lumbago with sciatica, right side M54.41 Active 086656198523392 Problem COPD exacerbation J44.1 Active 29 [id number] ALLERGIES No Information ENCOUNTERS Encounter Location Date Diagnosis [facility] [address] [facility] [id number] [address] [place] [id number] Mar, Breast mass, right N63.10 [facility] [address] [facility] [id number] [address] [place] [id number] Mar, Screening for breast cancer Z12.31 [place] [address] [id number] [address] [place] [id number] 26 Feb, 2018 Anxiety F41.9 ; Tremor, esse ntial G25.0 ; Other chronic pain G89.29 and Pain in right hip M25.551 [place] [address] [id number] [address] [place] [id number] 19 Feb, 2018 Acute non-recurrent maxillar y sinusitis J01.00 and Thoracic neuritis M54.14 [place] [address] [id number] [address] [place] [id number] Feb, [place] [address] [facility] [id number] [address] [place] [id number] 17 Feb, 2018 Screening for breast cancer Z12.31 and Screening for colon cancer Z12.11 [place] [address] [facility] [id number] [address] [place] [phone] Feb, [place] [address] [facility] [id number] [address] [place] [phone] Feb, [place] [address] [facility] [id number] [address] [place] [phone] Jan, Breast lump N63.0 [place] [address] [facility] [id number] [address] [place] [id number] Jan, Hypothyroidism (acquired) E0 3.9 [place] [address] [facility] [id number] [address] [place] [id number] Jan, Acute non-recurrent maxillar y sinusitis J01.00 [place] [address] [facility] [id number] [address] [place] [address] Jan, Benign head tremor G25.0 and Tick bite, initial encounter W57.XXXA [place] [address] [facility] [id number] [address] [place] [phone] Jan, [place] [address] [facility] [id number] [address] [place] [address] Dec, Thoracic neuritis M54.14 ; B reast lump N63.0 and Tinea corporis B35.4 [facility] [address] [id number] [address] [place] [id number] Dec, Acute non-recurrent maxillar y sinusitis J01.00 [facility] [address] [id number] [address] [place] [id number] Dec, [facility] [address] [facility] [id number] [address] [place] [phone] Dec, [facility] [address] [id number] [address] [place] [id number] Dec, [facility] [address] [facility] [id number] [address] [place] [id number] Dec, Panlobular emphysema J43.1 [facility] [address] [facility] [id number] [address] [place] [phone] Nov, [facility] [address] [id number] [address] [place] [id number] Nov, Acute non-recurrent maxillar y sinusitis J01.00 [facility] [address] [facility] [id number] [address] [place] [address] Nov, [facility] [address] [facility] [id number] [address] [place] [address] Nov, Thoracic neuritis M54.14 ; A cute pain of right shoulder M25.511 ; Mood disorder F39 ; Pain in right ankle and joints of right foot M25.571 and Other chronic pain G89.29 [facility] [address] [id number] [address] [place] [phone] Nov, [facility] [address] [facility] [id number] [address] [place] [address] Nov, Injury of right shoulder, in itial encounter S49.91XA [facility] [address] [place] [id number] [address] [place] [address] Nov, Panlobular emphysema J43.1 [facility] [address] [id number] [address] [place] [address] Nov, Acute non-recurrent maxillar y sinusitis J01.00 [facility] [address] [id number] [address] [place] [id number] October, Acute non-recurrent maxillar y sinusitis J01.00 [facility] [address] [id number] [address] [place] [address] Sep, Contusion of right upper ext remity, initial encounter S40.021A [facility] [address] [id number] [address] [place] [address] Sep, Right forearm pain M79.631 [facility] [address] [facility] [id number] [address] [place] [id number] Sep, Acute non-recurrent maxillar y sinusitis J01.00 [facility] [address] [id number] [address] [place] [address] Aug, Stable angina pectoris I20.8 [place] [address] [id number] [address] [place] [address] Aug, Chronic fatigue R53.82 [facility] [address] [facility] [id number] [address] [place] [id number] Aug, [facility] [address] [id number] [address] [place] [address] Aug, Stable angina pectoris I20.8 and Chronic fatigue R53.82 [facility] [address] [id number] [address] [place] [id number] Aug, Acute non-recurrent maxillar y sinusitis J01.00 [facility] [address] [id number] [address] [place] [phone] Jul, Chronic fatigue R53.82 ; Hyp ertension, benign I10 ; Family history of early CAD Z82.49 and Coronary artery disease of [place] artery of [place] heart with stable angina pectoris I25.118 [facility] [address] [facility] [id number] [address] [place], [place] [address] 26 Jul, 2017 Family history of early CAD Z82.49 [facility] [address] [facility] [id number] [address] [place] [address] 16 Jul, 2017 Family history of early CAD Z82.49 [facility] [address] [facility] [id number] [address] [place] [id number] 16 Jul, 2017 Chronic fatigue R53.82 ; Hyp ertension, benign I10 ; Family history of early CAD Z82.49 and Coronary artery disease of [place] artery of [place] heart with stable angina pectoris I25.118 [place] [address] [facility] [id number] [address] [place] [address] 15 Jul, 2017 Chronic fatigue R53.82 [place] [address] [facility] [id number] [address] [place], [place] [address] 15 Jul, 2017 Chronic fatigue R53.82 ; Hyp ertension, benign I10 ; Family history of early CAD Z82.49 and Coronary artery disease of [place] artery of [place] heart with stable angina pectoris I25.118 [facility] [address] [id number] [address] [place] [id number] 12 Jul, 2017 Dental examination Z01.20 an d Dental caries K02.9 [facility] [address] [facility] [id number] [address] [place] [phone] Jul, [facility] [address] [facility] [id number] [address] [place] [id number] Jul, [place] [address] [place] [id number] [address] [place] [phone] Jul, Acute non-recurrent maxillar y sinusitis J01.00 [facility] [address] [facility] [id number] [address] [place] [id number] Jul, [facility] [address] [facility] [id number] [address] [place] [phone] Jun, [facility] [address] [place] [id number] [address] [place] [phone] Jun, [facility] [address] [place] [id number] [place] [address] Jun, Acute non-recurrent maxillar y sinusitis J01.00 [facility] [address] [address] Jun, Anxiety F41.9 ; Bronchitis J 40 ; Tobacco abuse Z72.0 ; Tobacco abuse counseling Z71.6 and Acute left ankle pain M25.572 [facility] [address] [address] May, Cough R05 and COPD exacerbat ion J44.1 [place] [address] [address] May, [facility] [address] [address] May, [place] [address] [address] May, Acute non-recurrent maxillar y sinusitis J01.00 [facility] [address] [address] Apr, Acute non-recurrent maxillar y sinusitis J01.00 ; Anxiety F41.9 ; Acute right-sided low back pain with right-sided sciatica M54.41 and Thoracic neuritis M54.14 IMMUNIZATIONS No Known Immunizations SOCIAL HISTORY Never Assessed REASON FOR VISIT Corrected Mammogram Order PLAN OF CARE VITAL SIGNS MEDICATIONS Unknown Medications RESULTS No Results PROCEDURES No Known procedures INSTRUCTIONS MEDICATIONS ADMINISTERED No Known Medications MEDICAL (GENERAL) HISTORY Type Description Date Medical History COPD Surgical History mass removed from right breast Hospitalization History No know Hospitalization history
--- OUTSIDE RECORDS SUMMARY | 2019-12-17 16:08 | XMS REPORT ---
Author Author Pepper MCKEON Organization [facility] Address [address] [place] [address] Care Team Providers Care Driving Teacher Name Role Phone DEVEN MCKEON Unavailable PROBLEMS Type Condition ICD9-CM Code TZK77-CP Code Onset Dates Condition S tatus SNOMED Code Problem Stable angina pectoris I20.8 Active 318430445 Problem Hypertension, benign I10 Active 07634280 Problem Chronic fatigue R53.82 Active 8422 9001 Problem Hypothyroidism (acquired) E03.9 Acti ve 16672838 Problem Tremor, essential G25.0 Active 60 0662530 Problem Injury of right shoulder, initial encounter S49.91 XA Active 649515973 Problem 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 Active 762141524630 7 Problem Benign head tremor G25.0 Active 6 88699776 Problem Mood disorder F39 Active 580104 05 Problem Functional constipation K59.04 Active 711505708 Problem Panlobular emphysema J43.1 Active 5232362 Problem Other chronic pain G89.29 Active 8 6322188 Problem Acute right-sided low back pain with right-sided sciatica M54.41 Active 973536330 Problem Lumbago with sciatica, left side M54.42 Active 588008914 Problem Anxiety F41.9 Active 63901034 Problem Lumbago with sciatica, right side M54.41 Active 669481634841581 Problem COPD exacerbation J44.1 Active 29 [id number] ALLERGIES No Information ENCOUNTERS Encounter Location Date Diagnosis [facility] [address] [facility] [id number] [address] [place] [phone] Mar, [facility] [address] [facility] [id number] [address] [place] [phone] 16 Mar, 2018 Acute non-recurrent maxillar y sinusitis J01.00 [facility] [address] [facility] [id number] [address] [place] [phone] 14 Mar, 2018 Acute frontal sinusitis J01. 10 and Pain, dental K08.89 [place] [address] [place] [id number] [place] [phone] 03 Mar, 2018 Breast mass, right N63.10 [place] [address] [place] [id number] [place] [phone] 01 Mar, 2018 Screening for breast cancer Z12.31 [place] [address] [place] [id number] [place] [phone] 26 Feb, 2018 Anxiety F41.9 ; Tremor, esse ntial G25.0 ; Other chronic pain G89.29 and Pain in right hip M25.551 [place] [address] [place] [id number] [place] [phone] 19 Feb, 2018 Acute non-recurrent maxillar y sinusitis J01.00 and Thoracic neuritis M54.14 [place] [address] [place] [phone] Feb, [place] [address] [place] [id number] [place] [phone] 17 Feb, 2018 Screening for breast cancer Z12.31 and Screening for colon cancer Z12.11 [place] [address] [place] [id number] [address] [place] [phone] Feb, [place] [address] [place] [id number] [address] [place] [phone] Feb, [place] [address] [place] [id number] [address] [place] [phone] Jan, Breast lump N63.0 [place] [address] [place] [id number] [address] [place] [phone] Jan, Hypothyroidism (acquired) E0 3.9 [place] [address] [place] [id number] [address] [place] [phone] Jan, Acute non-recurrent maxillar y sinusitis J01.00 [facility] [address] [id number] [address] [place] [phone] Jan, Benign head tremor G25.0 and Tick bite, initial encounter W57.XXXA [facility] [address] [id number] [address] [place] [phone] Jan, [facility] [address] [facility] [id number] [address] [place] [phone] Dec, Thoracic neuritis M54.14 ; B reast lump N63.0 and Tinea corporis B35.4 [facility] [address] [id number] [address] [place] [phone] Dec, Acute non-recurrent maxillar y sinusitis J01.00 [facility] [address] [id number] [address] [place] [phone] Dec, [facility] [address] [facility] [id number] [address] [place] [phone] Dec, [facility] [address] [id number] [address] [place] [phone] Dec, [facility] [address] [id number] [address] [place] [phone] Dec, Panlobular emphysema J43.1 [facility] [address] [id number] [address] [place] [phone] Nov, [facility] [address] [id number] [address] [place] [phone] Nov, Acute non-recurrent maxillar y sinusitis J01.00 [facility] [address] [id number] [address] [place] [phone] Nov, [facility] [address] [facility] [id number] [address] [place] [phone] Nov, Thoracic neuritis M54.14 ; A cute pain of right shoulder M25.511 ; Mood disorder F39 ; Pain in right ankle and joints of right foot M25.571 and Other chronic pain G89.29 [facility] [address] [id number] [address] [place] [phone] Nov, [facility] [address] [id number] [address] [place] [phone] Nov, Injury of right shoulder, in itial encounter S49.91XA [facility] [address] [id number] [address] [place] [phone] Nov, Panlobular emphysema J43.1 [place] [address] [id number] [address] [place] [phone] Nov, Acute non-recurrent maxillar y sinusitis J01.00 [place] [address] [id number] [address] [place] [phone] October, Acute non-recurrent maxillar y sinusitis J01.00 [place] [address] [id number] [address] [place] [phone] Sep, Contusion of right upper ext remity, initial encounter S40.021A [facility] [address] [id number] [address] [place] [phone] Sep, Right forearm pain M79.631 [place] [address] [id number] [address] [place] [phone] Sep, Acute non-recurrent maxillar y sinusitis J01.00 [facility] [address] [id number] [address] [place] [phone] Aug, Stable angina pectoris I20.8 [place] [address] [id number] [address] [place] [phone] Aug, Chronic fatigue R53.82 [facility] [address] [id number] [address] [place] [phone] Aug, [facility] [address] [facility] [id number] [address] [place] [phone] Aug, Stable angina pectoris I20.8 and Chronic fatigue R53.82 [facility] [address] [facility] [id number] [address] [place] [phone] 09 Aug, 2017 Acute non-recurrent maxillar y sinusitis J01.00 [facility] [address] [facility] [id number] [address] [place] [phone] 26 Jul, 2017 Chronic fatigue R53.82 ; Hyp ertension, benign I10 ; Family history of early CAD Z82.49 and Coronary artery disease of [place] artery of [place] heart with stable angina pectoris I25.118 [place] [address] [facility] [id number] [address] [place] [phone] 26 Jul, 2017 Family history of early CAD Z82.49 [place] [address] [facility] [id number] [address] [place] [id number] 16 Jul, 2017 Family history of early CAD Z82.49 [place] [address] [facility] [id number] [address] [place] [phone] 16 Jul, 2017 Chronic fatigue R53.82 ; Hyp ertension, benign I10 ; Family history of early CAD Z82.49 and Coronary artery disease of [place] artery of [place] heart with stable angina pectoris I25.118 [place] [address] [place] [id number] [address] [place] [phone] 15 Jul, 2017 Chronic fatigue R53.82 [place] [address] [facility] [id number] [address] [place] [phone] 15 Jul, 2017 Chronic fatigue R53.82 ; Hyp ertension, benign I10 ; Family history of early CAD Z82.49 and Coronary artery disease of [place] artery of [place] heart with stable angina pectoris I25.118 [facility] [address] [id number] [address] [place] [id number] 12 Jul, 2017 Dental examination Z01.20 an d Dental caries K02.9 [facility] [address] [facility] [id number] [address] [place] [phone] Jul, [place] [address] [place] [id number] [address] [place] [phone] Jul, [facility] [address] [facility] [id number] [address] [place] [phone] Jul, Acute non-recurrent maxillar y sinusitis J01.00 [facility] [address] [facility] [id number] [address] [place] [phone] Jul, [facility] [address] [place] [id number] [place] [phone] Jun, [facility] [address] [facility] [id number] [address] [place] [phone] Jun, [facility] [address] [place] [id number] [place] [phone] Jun, Acute non-recurrent maxillar y sinusitis J01.00 [facility] [address] [address] Jun, Anxiety F41.9 ; Bronchitis J 40 ; Tobacco abuse Z72.0 ; Tobacco abuse counseling Z71.6 and Acute left ankle pain M25.572 [facility] [address] [place] [id number] [address] [place] [phone] May, Cough R05 and COPD exacerbat ion J44.1 [facility] [address] [place] [id number] [address] [place] [phone] May, [facility] [address] [place] [id number] [address] [place] [phone] May, [facility] [address] [place] [phone] May, Acute non-recurrent maxillar y sinusitis J01.00 [facility] [address] [place] [id number] [address] [place] [phone] Apr, Acute non-recurrent maxillar y sinusitis J01.00 ; Anxiety F41.9 ; Acute right-sided low back pain with right-sided sciatica M54.41 and Thoracic neuritis M54.14 IMMUNIZATIONS No Known Immunizations SOCIAL HISTORY Never Assessed REASON FOR VISIT Medication question PLAN OF CARE VITAL SIGNS MEDICATIONS Unknown Medications RESULTS No Results PROCEDURES No Known procedures INSTRUCTIONS MEDICATIONS ADMINISTERED No Known Medications MEDICAL (GENERAL) HISTORY Type Description Date Medical History COPD Surgical History mass removed from right breast Hospitalization History No know Hospitalization history
--- OUTSIDE RECORDS SUMMARY | 2019-12-17 16:08 | XMS REPORT ---
Author Author Pepper MCKEON Organization 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 Active 064964409667 7 Problem Hypertension, benign I10 Active 81407092 Problem Mood disorder F39 Active 238987 05 Problem Injury of right shoulder, initial encounter S49.91 XA Active 740770833 Problem Functional constipation K59.04 Active 770988439 Problem Lumbago with sciatica, right side M54.41 Active 743234160365652 Problem Other chronic pain G89.29 Active 8 8177893 Problem Panlobular emphysema J43.1 Active 8139613 Problem Acute right-sided low back pain with right-sided sciatica M54.41 Active 404968843 Problem Lumbago with sciatica, left side M54.42 Active 304612392 Problem Anxiety F41.9 Active 57898843 ALLERGIES No Information ENCOUNTERS Encounter Location Date Diagnosis [facility] [address] [facility] [id number] [address] [place] [phone] Feb, [facility] [address] [facility] [id number] [address] [place] [phone] Feb, Acute non-recurrent maxillar y sinusitis J01.[address]itis M54.14 [facility] [address] [facility] [id number] [address] [place] [phone] Feb, [facility] [address] [facility] [id number] [address] [place] [phone] 17 Feb, 2018 Screening for breast cancer Z12.31 and Screening for colon cancer Z12.11 [facility] [address] [facility] [id number] [address] [place] [phone] Feb, [facility] [address] [facility] [id number] [address] [place] [phone] Feb, [facility] [address] [facility] [id number] [address] [place] [phone] Jan, Breast lump N63.0 [place] [address] [facility] [id number] [address] [place] [phone] Jan, Hypothyroidism (acquired) E0 3.9 [place] [address] [place] [id number] [address] [place] [phone] Jan, Acute non-recurrent maxillar y sinusitis J01.00 [place] [address] [facility] [id number] [address] [place] [phone] Jan, Benign head tremor G25.0 and Tick bite, initial encounter W57.XXXA [place] [address] [facility] [id number] [address] [place] [phone] Jan, [place] [address] [facility] [id number] [address] [place] [phone] Dec, Thoracic neuritis M54.14 ; B reast lump N63.[address] [facility] [address] [facility] [id number] [address] [place] [phone] Dec, Acute non-recurrent maxillar y sinusitis J01.00 [facility] [address] [facility] [id number] [address] [place] [phone] Dec, [facility] [address] [facility] [id number] [address] [place] [phone] Dec, [place] [address] [id number] [address] [place] [phone] Dec, [facility] [address] [id number] [address] [place] [phone] Dec, Panlobular emphysema J43.1 [facility] [address] [facility] [id number] [address] [place] [phone] Nov, [facility] [address] [id number] [address] [place] [phone] Nov, Acute non-recurrent maxillar y sinusitis J01.00 [place] [address] [facility] [id number] [address] [place] [phone] Nov, [facility] [address] [facility] [id number] [address] [place] [phone] Nov, Thoracic neuritis M54.14 ; A cute pain of right shoulder M25.511 ; Mood disorder F39 ; Pain in right ankle and joints of right foot M25.571 and Other chronic pain G89.29 [facility] [address] [facility] [id number] [address] [place] [phone] Nov, [facility] [address] [facility] [id number] [address] [place] [phone] Nov, Injury of right shoulder, in itial encounter S49.91XA [facility] [address] [facility] [id number] [address] [place] [phone] Nov, Panlobular emphysema J43.1 [facility] [address] [facility] [id number] [address] [place] [phone] Nov, Acute non-recurrent maxillar y sinusitis J01.00 [facility] [address] [facility] [id number] [address] [place] [phone] October, Acute non-recurrent maxillar y sinusitis J01.00 [facility] [address] [facility] [id number] [address] [place] [phone] Sep, Contusion of right upper ext remity, initial encounter S40.021A [facility] [address] [id number] [address] [place] [phone] Sep, Right forearm pain M79.631 [facility] [address] [id number] [address] [place] [phone] Sep, Acute non-recurrent maxillar y sinusitis J01.00 [facility] [address] [id number] [address] [place] [phone] Aug, Stable angina pectoris I20.8 [facility] [address] [id number] [address] [place] [phone] Aug, Chronic fatigue R53.82 [facility] [address] [facility] [id number] [address] [place] [phone] Aug, [facility] [address] [facility] [id number] [address] [place] [phone] Aug, Stable angina pectoris I20.8 and Chronic fatigue R53.82 [facility] [address] [facility] [id number] [address] [place] [phone] Aug, Acute non-recurrent maxillar y sinusitis J01.00 [facility] [address] [facility] [id number] [address] [place] [phone] Jul, Chronic fatigue R53.82 ; Hyp ertension, benign I10 ; Family history of early CAD Z82.49 and Coronary artery disease of [place] artery of [place] heart with stable angina pectoris I25.118 [facility] [address] [facility] [id number] [address] [place] [phone] Jul, Family history of early CAD Z82.49 [facility] [address] [facility] [id number] [address] [place] [address] Jul, Family history of early CAD Z82.49 [facility] [address] [facility] [id number] [address] [place] [phone] Jul, Chronic fatigue R53.82 ; Hyp ertension, benign I10 ; Family history of early CAD Z82.49 and Coronary artery disease of [place] artery of [place] heart with stable angina pectoris I25.118 [facility] [address] [id number] [address] [place] [id number] 15 Jul, [address] [facility] [address] [id number] [address] [place] [phone] 15 Jul, 2017 Chronic fatigue R53.82 ; Hyp ertension, benign I10 ; Family history of early CAD Z82.49 and Coronary artery disease of [place] artery of [place] heart with stable angina pectoris I25.118 [facility] [address] [id number] [address] [place] [id number] 12 Jul, 2017 Dental examination Z01.20 an d Dental caries K02.9 [facility] [address] [id number] [address] [place] [phone] Jul, [facility] [address] [facility] [id number] [address] [place] [phone] Jul, [facility] [address] [id number] [address] [place] [phone] Jul, Acute non-recurrent maxillar y sinusitis J01.00 [facility] [address] [id number] [address] [place] [phone] Jul, [facility] [address] [id number] [address] [place] [phone] Jun, [facility] [address] [id number] [address] [place] [phone] Jun, [facility] [address] [facility] [id number] [address] [place] [phone] Jun, Acute non-recurrent maxillar y sinusitis J01.00 [facility] [address] [facility] [id number] [address] [place] [phone] Jun, Anxiety F41.9 ; Bronchitis J 40 ; Tobacco abuse Z72.0 ; Tobacco abuse counseling Z71.6 and Acute left ankle pain M25.572 [facility] [address] [place] [phone] May, Cough R05 and COPD exacerbat ion J44.1 [facility] [address] [place] [phone] May, [facility] [address] [address] May, [facility] [address] [place] [id number] [address] [place] [address] May, Acute non-recurrent maxillar y sinusitis J01.00 [facility] [address] [place] [address] Apr, Acute non-recurrent maxillar y sinusitis J01.00 ; Anxiety F41.9 ; Acute right-sided low back pain with right-sided sciatica M54.41 and Thoracic neuritis M54.14 IMMUNIZATIONS No Known Immunizations SOCIAL HISTORY Never Assessed REASON FOR VISIT note for disbility PLAN OF CARE VITAL SIGNS MEDICATIONS Unknown Medications RESULTS No Results PROCEDURES No Known procedures INSTRUCTIONS MEDICATIONS ADMINISTERED No Known Medications MEDICAL (GENERAL) HISTORY Type Description Date Medical History COPD Surgical History mass removed from right breast Hospitalization History No Hospitalization history informati on
--- OUTSIDE RECORDS SUMMARY | 2019-12-17 16:08 | XMS REPORT ---
Author Author Pepper DEL ROSARIO [facility] Address [address] [place] [address] Care Team Providers Care Vehicle Service Attendant Name Role Phone JERAMY DEL ROSARIO Unavailable PROBLEMS Type Condition ICD9-CM Code RMU23-UG Code Onset Dates Condition S tatus SNOMED Code Problem Stable angina pectoris I20.8 Active 472507628 Problem Hypertension, benign I10 Active 60911053 Problem Chronic fatigue R53.82 Active 8422 9001 Problem Hypothyroidism (acquired) E03.9 Acti ve 68152930 Problem Tremor, essential G25.0 Active 60 8190246 Problem Injury of right shoulder, initial encounter S49.91 XA Active 350801430 Problem 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 Active 093370655522 7 Problem Benign head tremor G25.0 Active 6 30290812 Problem Mood disorder F39 Active 923328 05 Problem Functional constipation K59.04 Active 582948696 Problem Panlobular emphysema J43.1 Active 1798451 Problem Other chronic pain G89.29 Active 8 2972838 Problem Acute right-sided low back pain with right-sided sciatica M54.41 Active 677666940 Problem Lumbago with sciatica, left side M54.42 Active 555264971 Problem Anxiety F41.9 Active 88155261 Problem Lumbago with sciatica, right side M54.41 Active 849803904366543 Problem COPD exacerbation J44.1 Active 29 [id number] ALLERGIES No Information ENCOUNTERS Encounter Location Date Diagnosis [facility] [address] [facility] [id number] [address] [place] [address] Mar, Breast mass, right N63.10 [facility] [address] [facility] [id number] [address] [place] [address] Mar, Screening for breast cancer Z12.31 [place] [address] [id number] [address] [place] [address] 26 Feb, 2018 Anxiety F41.9 ; Tremor, esse ntial G25.0 ; Other chronic pain G89.29 and Pain in right hip M25.551 [place] [address] [id number] [address] [place] [id number] 19 Feb, 2018 Acute non-recurrent maxillar y sinusitis J01.00 and Thoracic neuritis M54.14 [place] [address] [id number] [address] [place] [phone] Feb, [place] [address] [facility] [id number] [address] [place] [id number] 17 Feb, 2018 Screening for breast cancer Z12.31 and Screening for colon cancer Z12.11 [place] [address] [facility] [id number] [address] [place] [phone] Feb, [place] [address] [facility] [id number] [address] [place] [address] Feb, [place] [address] [facility] [id number] [address] [place] [phone] Jan, Breast lump N63.0 [place] [address] [facility] [id number] [address] [place] [address] Jan, Hypothyroidism (acquired) E0 3.9 [place] [address] [facility] [id number] [address] [place] [address] Jan, Acute non-recurrent maxillar y sinusitis J01.00 [place] [address] [facility] [id number] [address] [place] [address] Jan, Benign head tremor G25.0 and Tick bite, initial encounter W57.XXXA [place] [address] [facility] [id number] [address] [place] [address] Jan, [place] [address] [facility] [id number] [address] [place] [address] Dec, Thoracic neuritis M54.14 ; B reast lump N63.0 and Tinea corporis B35.4 [facility] [address] [id number] [address] [place] [id number] Dec, Acute non-recurrent maxillar y sinusitis J01.00 [facility] [address] [id number] [address] [place] [phone] Dec, [facility] [address] [facility] [id number] [address] [place] [phone] Dec, [facility] [address] [id number] [address] [place] [phone] Dec, [facility] [address] [facility] [id number] [address] [place] [phone] Dec, Panlobular emphysema J43.1 [facility] [address] [facility] [id number] [address] [place] [address] Nov, [facility] [address] [id number] [address] [place] [address] Nov, Acute non-recurrent maxillar y sinusitis J01.00 [facility] [address] [facility] [id number] [address] [place] [address] Nov, [facility] [address] [facility] [id number] [address] [place] [address] Nov, Thoracic neuritis M54.14 ; A cute pain of right shoulder M25.511 ; Mood disorder F39 ; Pain in right ankle and joints of right foot M25.571 and Other chronic pain G89.29 [facility] [address] [id number] [address] [place] [address] Nov, [facility] [address] [facility] [id number] [address] [place] [address] Nov, Injury of right shoulder, in itial encounter S49.91XA [facility] [address] [place] [id number] [address] [place] [address] Nov, Panlobular emphysema J43.1 [facility] [address] [id number] [address] [place] [address] Nov, Acute non-recurrent maxillar y sinusitis J01.00 [facility] [address] [id number] [address] [place] [address] October, Acute non-recurrent maxillar y sinusitis J01.00 [facility] [address] [id number] [address] [place] [address] Sep, Contusion of right upper ext remity, initial encounter S40.021A [facility] [address] [id number] [address] [place] [address] Sep, Right forearm pain M79.631 [facility] [address] [facility] [id number] [address] [place] [address] Sep, Acute non-recurrent maxillar y sinusitis J01.00 [facility] [address] [id number] [address] [place] [address] Aug, Stable angina pectoris I20.8 [place] [address] [id number] [address] [place] [phone] Aug, Chronic fatigue R53.82 [facility] [address] [facility] [id number] [address] [place] [address] Aug, [facility] [address] [id number] [address] [place] [address] Aug, Stable angina pectoris I20.8 and Chronic fatigue R53.82 [facility] [address] [id number] [address] [place] [address] Aug, Acute non-recurrent maxillar y sinusitis J01.00 [facility] [address] [id number] [address] [place] [phone] Jul, Chronic fatigue R53.82 ; Hyp ertension, benign I10 ; Family history of early CAD Z82.49 and Coronary artery disease of [place] artery of [place] heart with stable angina pectoris I25.118 [facility] [address] [facility] [id number] [address] [place], [place] [address] 26 Jul, 2017 Family history of early CAD Z82.49 [facility] [address] [facility] [id number] [address] [place] [address] 16 Jul, 2017 Family history of early CAD Z82.49 [facility] [address] [facility] [id number] [address] [place] [id number] 16 Jul, 2017 Chronic fatigue R53.82 ; Hyp ertension, benign I10 ; Family history of early CAD Z82.49 and Coronary artery disease of [place] artery of [place] heart with stable angina pectoris I25.118 [place] [address] [facility] [id number] [address] [place] [address] 15 Jul, 2017 Chronic fatigue R53.82 [place] [address] [facility] [id number] [address] [place] [address] 15 Jul, 2017 Chronic fatigue R53.82 ; Hyp ertension, benign I10 ; Family history of early CAD Z82.49 and Coronary artery disease of [place] artery of [place] heart with stable angina pectoris I25.118 [facility] [address] [id number] [address] [place] [id number] 12 Jul, 2017 Dental examination Z01.20 an d Dental caries K02.9 [facility] [address] [facility] [id number] [address] [place] [phone] Jul, [facility] [address] [facility] [id number] [address] [place] [address] Jul, [place] [address] [place] [id number] [address] [place] [address] Jul, Acute non-recurrent maxillar y sinusitis J01.00 [facility] [address] [facility] [id number] [address] [place] [phone] Jul, [facility] [address] [facility] [id number] [address] [place] [address] Jun, [facility] [address] [place] [id number] [address] [place] [phone] Jun, [facility] [address] [place] [id number] [place] [address] Jun, Acute non-recurrent maxillar y sinusitis J01.00 [facility] [address] [address] Jun, Anxiety F41.9 ; Bronchitis J 40 ; Tobacco abuse Z72.0 ; Tobacco abuse counseling Z71.6 and Acute left ankle pain M25.572 [facility] [address] [place] [id number] [place] [address] May, Cough R05 and COPD exacerbat ion J44.1 [place] [address] [address] May, [facility] [address] [address] May, [place] [address] [address] May, Acute non-recurrent maxillar y sinusitis J01.00 [facility] [address] [place] [id number] [address] [place] [address] Apr, Acute non-recurrent maxillar y sinusitis J01.00 ; Anxiety F41.9 ; Acute right-sided low back pain with right-sided sciatica M54.41 and Thoracic neuritis M54.14 IMMUNIZATIONS No Known Immunizations SOCIAL HISTORY Never Assessed REASON FOR VISIT Mammogram Order PLAN OF CARE Activity Details Pending Test Mammogram Dx, Bilateral VITAL SIGNS MEDICATIONS Unknown Medications RESULTS No Results PROCEDURES No Known procedures INSTRUCTIONS MEDICATIONS ADMINISTERED No Known Medications MEDICAL (GENERAL) HISTORY Type Description Date Medical History COPD Surgical History mass removed from right breast Hospitalization History No know Hospitalization history
--- OUTSIDE RECORDS SUMMARY | 2019-12-17 16:08 | XMS REPORT ---
Author Author Pepper MCKEON Organization [facility] Address [address] [place] [address] Care Team Providers Care Nursing Manager Name Role Phone MIKE DEVEN Unavailable PROBLEMS Type Condition ICD9-CM Code ZNX92-YG Code Onset Dates Condition S tatus SNOMED Code Problem Stable angina pectoris I20.8 Active 093933170 Problem Hypertension, benign I10 Active 39434584 Problem Chronic fatigue R53.82 Active 8422 9001 Problem Hypothyroidism (acquired) E03.9 Acti ve 96703343 Problem Tremor, essential G25.0 Active 60 5213617 Problem Injury of right shoulder, initial encounter S49.91 XA Active 893326726 Problem 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 Active 124329713332 7 Problem Benign head tremor G25.0 Active 6 92421134 Problem Mood disorder F39 Active 914611 05 Problem Functional constipation K59.04 Active 791064726 Problem Panlobular emphysema J43.1 Active 1178401 Problem Other chronic pain G89.29 Active 8 1318816 Problem Acute right-sided low back pain with right-sided sciatica M54.41 Active 200581781 Problem Lumbago with sciatica, left side M54.42 Active 076282023 Problem Anxiety F41.9 Active 37370673 Problem Lumbago with sciatica, right side M54.41 Active 486115972690912 Problem COPD exacerbation J44.1 Active 29 [id number] ALLERGIES No Information ENCOUNTERS Encounter Location Date Diagnosis [facility] [address] [facility] [id number] [address] [place] [phone] 14 Apr, 2018 Acute non-recurrent maxillar y sinusitis J01.00 [facility] [address] [facility] [id number] [address] [place] [phone] 23 Mar, 2018 [facility] [address] [facility] [id number] [address] [place] [address] 16 Mar, 2018 Acute non-recurrent maxillar y sinusitis J01.00 [facility] [address] [facility] [id number] [address] [place] [address] 14 Mar, 2018 Acute frontal sinusitis J01. 10 and Pain, dental K08.89 [facility] [address] [place] [id number] [address] [place] [address] 03 Mar, 2018 Breast mass, right N63.10 [facility] [address] [place] [id number] [address] [place] [address] Mar, Screening for breast cancer Z12.31 [place] [address] [place] [id number] [place] [address] 26 Feb, 2018 Anxiety F41.9 ; Tremor, esse ntial G25.0 ; Other chronic pain G89.29 and Pain in right hip M25.551 [place] [address] [place] [id number] [address] [place] [address] Feb, Acute non-recurrent maxillar y sinusitis J01.00 and Thoracic neuritis M54.14 [place] [address] [address] Feb, [facility] [address] [place] [id number] [address] [place] [address] 17 Feb, 2018 Screening for breast cancer Z12.31 and Screening for colon cancer Z12.11 [place] [address] [place] [id number] [address] [place] [address] Feb, [place] [address] [place] [id number] [address] [place] [address] Feb, [place] [address] [place] [id number] [place] [address] Jan, Breast lump N63.0 [place] [address] [place] [id number] [address] [place] [phone] Jan, Hypothyroidism (acquired) E0 3.9 [facility] [address] [id number] [address] [place] [address] Jan, Acute non-recurrent maxillar y sinusitis J01.00 [facility] [address] [facility] [id number] [address] [place] [address] Jan, Benign head tremor G25.0 and Tick bite, initial encounter W57.XXXA [facility] [address] [facility] [id number] [address] [place] [address] Jan, [facility] [address] [facility] [id number] [address] [place] [address] Dec, Thoracic neuritis M54.14 ; B reast lump N63.0 and Tinea corporis B35.4 [facility] [address] [facility] [id number] [address] [place] [address] Dec, Acute non-recurrent maxillar y sinusitis J01.00 [facility] [address] [facility] [id number] [address] [place] [address] Dec, [facility] [address] [id number] [address] [place] [address] Dec, [facility] [address] [facility] [id number] [address] [place] [address] Dec, [facility] [address] [facility] [id number] [address] [place] [address] Dec, Panlobular emphysema J43.1 [facility] [address] [id number] [address] [place] [address] Nov, [facility] [address] [id number] [address] [place] [address] Nov, Acute non-recurrent maxillar y sinusitis J01.00 [facility] [address] [facility] [id number] [address] [place] [address] Nov, [facility] [address] [facility] [id number] [address] [place] [address] Nov, Thoracic neuritis M54.14 ; A cute pain of right shoulder M25.511 ; Mood disorder F39 ; Pain in right ankle and joints of right foot M25.571 and Other chronic pain G89.29 [facility] [address] [id number] [address] [place] [address] Nov, [facility] [address] [id number] [address] [place] [address] Nov, Injury of right shoulder, in itial encounter S49.91XA [place] [address] [id number] [address] [place] [address] Nov, Panlobular emphysema J43.1 [place] [address] [facility] [id number] [address] [place] [address] Nov, Acute non-recurrent maxillar y sinusitis J01.00 [place] [address] [id number] [address] [place] [address] October, Acute non-recurrent maxillar y sinusitis J01.00 [place] [address] [facility] [id number] [address] [place] [address] Sep, Contusion of right upper ext remity, initial encounter S40.021A [facility] [address] [facility] [id number] [address] [place] [address] Sep, Right forearm pain M79.631 [place] [address] [facility] [id number] [address] [place] [address] Sep, Acute non-recurrent maxillar y sinusitis J01.00 [place] [address] [id number] [address] [place] [address] Aug, Stable angina pectoris I20.8 [place] [address] [id number] [address] [place] [address] Aug, Chronic fatigue R53.82 [place] [address] [facility] [id number] [address] [place] [address] 14 Aug, 2017 [facility] [address] [facility] [id number] [address] [place] [address] 14 Aug, 2017 Stable angina pectoris I20.8 and Chronic fatigue R53.82 [facility] [address] [facility] [id number] [address] [place] [address] 09 Aug, 2017 Acute non-recurrent maxillar y sinusitis J01.00 [place] [address] [facility] [id number] [address] [place] [address] 26 Jul, 2017 Chronic fatigue R53.82 ; Hyp ertension, benign I10 ; Family history of early CAD Z82.49 and Coronary artery disease of [place] artery of [place] heart with stable angina pectoris I25.118 [place] [address] [facility] [id number] [address] [place] [address] 26 Jul, 2017 Family history of early CAD Z82.49 [place] [address] [facility] [id number] [address] [place] [address] 16 Jul, 2017 Family history of early CAD Z82.49 [place] [address] [facility] [id number] [address] [place] [address] 16 Jul, 2017 Chronic fatigue R53.82 ; Hyp ertension, benign I10 ; Family history of early CAD Z82.49 and Coronary artery disease of [place] artery of [place] heart with stable angina pectoris I25.118 [place] [address] [facility] [id number] [address] [place] [address] 15 Jul, 2017 Chronic fatigue R53.82 [place] [address] [facility] [id number] [address] [place] [address] 15 Jul, 2017 Chronic fatigue R53.82 ; Hyp ertension, benign I10 ; Family history of early CAD Z82.49 and Coronary artery disease of [place] artery of [place] heart with stable angina pectoris I25.118 [facility] [address] [id number] [address] [place] [id number] 12 Jul, 2017 Dental examination Z01.20 an d Dental caries K02.9 [facility] [address] [id number] [address] [place] [address] Jul, [facility] [address] [facility] [id number] [address] [place] [address] Jul, [facility] [address] [facility] [id number] [address] [place] [address] Jul, Acute non-recurrent maxillar y sinusitis J01.00 [facility] [address] [facility] [id number] [address] [place] [address] Jul, [facility] [address] [facility] [id number] [address] [place] [address] Jun, [facility] [address] [facility] [id number] [address] [place] [address] Jun, [facility] [address] [facility] [id number] [address] [place] [address] Jun, Acute non-recurrent maxillar y sinusitis J01.00 [facility] [address] [facility] [id number] [address] [place] [address] Jun, Anxiety F41.9 ; Bronchitis J 40 ; Tobacco abuse Z72.0 ; Tobacco abuse counseling Z71.6 and Acute left ankle pain M25.572 [facility] [address] [facility] [id number] [address] [place] [address] May, Cough R05 and COPD exacerbat ion J44.1 [facility] [address] [facility] [id number] [address] [place] [phone] May, [facility] [address] [facility] [id number] [address] [place] [id number] 14 May, 2017 [facility] [address] [facility] [id number] [address] [place] [id number] 13 May, 2017 Acute non-recurrent maxillar y sinusitis J01.00 [facility] [address] [place] [id number] [address] [place] [id number] Apr, Acute non-recurrent maxillar y sinusitis J01.00 [...] 6 hrs 1 tablet as needed 6h Apr, 28 days Active Xanax 0.5 MG Orally Twice a day 1 tablet 12h 28 days Active RESULTS No Results PROCEDURES No Known procedures INSTRUCTIONS MEDICATIONS ADMINISTERED No Known Medications MEDICAL (GENERAL) HISTORY Type Description Date Medical History COPD Surgical History mass removed from right breast Hospitalization History No know Hospitalization history
--- OUTSIDE RECORDS SUMMARY | 2019-12-17 16:08 | XMS REPORT ---
Author Author Pepper MCKEON Organization [facility] Address [address] [place] [address] Care Team Providers Care Family Practice Physician Name Role Phone MIKE DEVEN Unavailable PROBLEMS Type Condition ICD9-CM Code WIF76-SG Code Onset Dates Condition S tatus SNOMED Code Problem Stable angina pectoris I20.8 Active 356040154 Problem Hypertension, benign I10 Active 47818661 Problem Chronic fatigue R53.82 Active 8422 9001 Problem Hypothyroidism (acquired) E03.9 Acti ve 22658178 Problem Tremor, essential G25.0 Active 60 4876132 Problem Injury of right shoulder, initial encounter S49.91 XA Active 958134594 Problem 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 Active 427608979811 7 Problem Benign head tremor G25.0 Active 6 82329925 Problem Mood disorder F39 Active 744994 05 Problem Functional constipation K59.04 Active 956182492 Problem Panlobular emphysema J43.1 Active 8905310 Problem Other chronic pain G89.29 Active 8 6889812 Problem Acute right-sided low back pain with right-sided sciatica M54.41 Active 846115393 Problem Lumbago with sciatica, left side M54.42 Active 676842475 Problem Anxiety F41.9 Active 71394223 Problem Lumbago with sciatica, right side M54.41 Active 070671398860765 Problem COPD exacerbation J44.1 Active 29 [id number] ALLERGIES No Information ENCOUNTERS Encounter Location Date Diagnosis [facility] [address] [facility] [place] [id number] [address] [place] [address] Feb, Anxiety F41.9 ; Tremor, esse ntial G25.0 ; Other chronic pain G89.29 and Pain in right hip M25.551 [facility] [address] [facility] [place] [id number] [address] [place] [address] Feb, Acute non-recurrent maxillar y sinusitis J01.00 and Thoracic neuritis M54.14 [place] [address] [address] Feb, [place] [address] [place] [id number] [address] [place] [address] Feb, Screening for breast cancer Z12.31 and Screening for colon cancer Z12.11 [place] [address] [address] Feb, [place] [address] [place] [id number] [place] [address] Feb, [place] [address] [address] Jan, Breast lump N63.0 [place] [address] [address] Jan, Hypothyroidism (acquired) E0 3.9 [place] [address] [address] Jan, Acute non-recurrent maxillar y sinusitis J01.00 [place] [address] [address] Jan, Benign head tremor G25.0 and Tick bite, initial encounter W57.XXXA [place] [address] [address] Jan, [place] [address] [address] Dec, Thoracic neuritis M54.14 ; B reast lump N63.0 and Tinea corporis B35.4 [place] [address] [place] [id number] [place] [address] Dec, Acute non-recurrent maxillar y sinusitis J01.00 [place] [address] [address] Dec, [facility] [address] [id number] [address] [place] [address] Dec, [facility] [address] [id number] [address] [place] [address] Dec, [facility] [address] [id number] [address] [place] [address] Dec, Panlobular emphysema J43.1 [facility] [address] [id number] [address] [place] [address] Nov, [facility] [address] [id number] [address] [place] [address] Nov, Acute non-recurrent maxillar y sinusitis J01.00 [place] [id number] [facility] [place] [id number] [address] [place] [address] Nov, [facility] [address] [facility] [place] [id number] [address] [place] [address] Nov, Thoracic neuritis M54.14 ; A cute pain of right shoulder M25.511 ; Mood disorder F39 ; Pain in right ankle and joints of right foot M25.571 and Other chronic pain G89.29 [facility] [address] [id number] [address] [place] [address] Nov, [facility] [address] [facility] [place] [id number] [address] [place] [address] Nov, Injury of right shoulder, in itial encounter S49.91XA [facility] [address] [id number] [address] [place] [address] Nov, Panlobular emphysema J43.1 [facility] [address] [facility] [place] [id number] [address] [place] [address] Nov, Acute non-recurrent maxillar y sinusitis J01.00 [facility] [address] [facility] [place] [id number] [address] [place] [address] October, Acute non-recurrent maxillar y sinusitis J01.00 [facility] [address] [id number] [address] [place] [address] Sep, Contusion of right upper ext remity, initial encounter S40.021A [facility] [address] [id number] [address] [place] [address] Sep, Right forearm pain M79.631 [facility] [address] [facility] [place] [id number] [address] [place] [address] Sep, Acute non-recurrent maxillar y sinusitis J01.00 [facility] [address] [facility] [place] [id number] [address] [place] [address] Aug, Stable angina pectoris I20.8 [facility] [address] [facility] [place] [id number] [address] [place] [address] Aug, Chronic fatigue R53.82 [facility] [address] [facility] [place] [id number] [address] [place] [address] Aug, [facility] [address] [facility] [place] [id number] [address] [place] [address] Aug, Stable angina pectoris I20.8 and Chronic fatigue R53.82 [place] [address] [facility] [place] [id number] [address] [place] [address] Aug, Acute non-recurrent maxillar y sinusitis J01.00 [facility] [address] [facility] [place] [id number] [address] [place] [address] Jul, Chronic fatigue R53.82 ; Hyp ertension, benign I10 ; Family history of early CAD Z82.49 and Coronary artery disease of northway artery of northway heart with stable angina pectoris I25.118 [facility] [address] [facility] [place] [id number] [address] [place] [address] Jul, Family history of early CAD Z82.49 [facility] [address] [place] [id number] [address] [place] [address] Jul, Family history of early CAD Z82.49 [facility] [address] [id number] [address] [place] [address] 16 Jul, 2017 Chronic fatigue R53.82 ; Hyp ertension, benign I10 ; Family history of early CAD Z82.49 and Coronary artery disease of northway artery of northway heart with stable angina pectoris I25.118 [facility] [address] [id number] [address] [place] [address] 15 Jul, 2017 Chronic fatigue R53.82 [facility] [address] [id number] [address] [place] [address] 15 Jul, 2017 Chronic fatigue R53.82 ; Hyp ertension, benign I10 ; Family history of early CAD Z82.49 and Coronary artery disease of northway artery of northway heart with stable angina pectoris I25.118 [facility] [address] [id number] [address] [place] [id number] 12 Jul, 2017 Dental examination Z01.20 an d Dental caries K02.9 [facility] [address] [id number] [address] [place] [address] Jul, [facility] [address] [id number] [address] [place] [address] Jul, [facility] [address] [id number] [address] [place] [address] Jul, Acute non-recurrent maxillar y sinusitis J01.00 [facility] [address] [id number] [address] [place] [address] Jul, [facility] [address] [id number] [address] [place] [address] Jun, [facility] [address] [facility] [place] [id number] [address] [place] [address] Jun, [facility] [address] [facility] [place] [id number] [address] [place] [address] Jun, Acute non-recurrent maxillar y sinusitis J01.00 [facility] [address] [place] [address] Jun, Anxiety F41.9 ; Bronchitis J 40 ; Tobacco abuse Z72.0 ; Tobacco abuse counseling Z71.6 and Acute left ankle pain M25.572 [facility] [address] [place] [id number] [address] [place] [address] May, Cough R05 and COPD exacerbat ion J44.1 [facility] [address] [address] May, [place] [address] [address] May, [place] [address] [address] May, Acute non-recurrent maxillar y sinusitis J01.00 [facility] [address] [place] [id number] [address] [place] [address] Apr, Acute non-recurrent maxillar y sinusitis J01.00 [...]
--- OUTSIDE RECORDS SUMMARY | 2019-12-17 16:08 | XMS REPORT ---
Author Author Pepper MCKEON Organization [facility] Address [address] [place] [address] Care Team Providers Care Restoration Ecologist Name Role Phone MIKE DEVEN Unavailable PROBLEMS Type Condition ICD9-CM Code GXL10-RL Code Onset Dates Condition S tatus SNOMED Code Problem Stable angina pectoris I20.8 Active 398183482 Problem Hypertension, benign I10 Active 14893762 Problem Chronic fatigue R53.82 Active 8422 9001 Problem Hypothyroidism (acquired) E03.9 Acti ve 98428173 Problem Tremor, essential G25.0 Active 60 1413198 Problem Injury of right shoulder, initial encounter S49.91 XA Active 443111350 Problem Coronary artery disease of n ative artery of diomede heart with stable angina pectoris I25.118 Active 806690191118 7 Problem Benign head tremor G25.0 Active 6 72217082 Problem Mood disorder F39 Active 977926 05 Problem Functional constipation K59.04 Active 155400225 Problem Panlobular emphysema J43.1 Active 8090730 Problem Other chronic pain G89.29 Active 8 1294873 Problem Acute right-sided low back pain with right-sided sciatica M54.41 Active 438237221 Problem Lumbago with sciatica, left side M54.42 Active 296750451 Problem Anxiety F41.9 Active 71969316 Problem Lumbago with sciatica, right side M54.41 Active 507098111534006 Problem COPD exacerbation J44.1 Active 29 [id number] ALLERGIES No Information ENCOUNTERS Encounter Location Date Diagnosis [facility] [address] [facility] [id number] [address] [place] [phone] 12 May, 2018 Acute non-recurrent maxillar y sinusitis J01.00 [facility] [address] [facility] [id number] [address] [place] [address] Apr, Acute non-recurrent maxillar y sinusitis J01.00 [facility] [address] [id number] [address] [place] [address] Mar, [facility] [address] [facility] [id number] [address] [place] [address] Mar, Acute non-recurrent maxillar y sinusitis J01.00 [facility] [address] [id number] [address] [place] [address] Mar, Acute frontal sinusitis J01. 10 and Pain, dental K08.89 [facility] [address] [id number] [address] [place] [address] Mar, Breast mass, right N63.10 [place] [address] [facility] [id number] [address] [place] [address] Mar, Screening for breast cancer Z12.31 [place] [address] [facility] [id number] [address] [place] [address] Feb, Anxiety F41.9 ; Tremor, esse ntial G25.0 ; Other chronic pain G89.29 and Pain in right hip M25.551 [place] [address] [facility] [id number] [address] [place] [address] Feb, Acute non-recurrent maxillar y sinusitis J01.00 and Thoracic neuritis M54.14 [place] [address] [facility] [id number] [address] [place] [address] Feb, [facility] [address] [facility] [id number] [address] [place] [address] 17 Feb, 2018 Screening for breast cancer Z12.31 and Screening for colon cancer Z12.11 [place] [address] [facility] [id number] [address] [place] [address] Feb, [place] [address] [facility] [id number] [address] [place] [address] Feb, [place] [address] [facility] [id number] [address] [place] [address] Jan, Breast lump N63.0 [facility] [address] [facility] [id number] [address] [place] [address] Jan, Hypothyroidism (acquired) E0 3.9 [facility] [address] [facility] [id number] [address] [place] [phone] Jan, Acute non-recurrent maxillar y sinusitis J01.00 [facility] [address] [place] [id number] [address] [place] [address] Jan, Benign head tremor G25.0 and Tick bite, initial encounter W57.XXXA [facility] [address] [facility] [id number] [place] [address] Jan, [facility] [address] [place] [id number] [place] [address] Dec, Thoracic neuritis M54.14 ; B reast lump N63.0 and Tinea corporis B35.4 [facility] [address] [facility] [id number] [address] [place] [address] Dec, Acute non-recurrent maxillar y sinusitis J01.00 [facility] [address] [facility] [id number] [address] [place] [address] Dec, [facility] [address] [place] [id number] [place] [address] Dec, [facility] [address] [place] [id number] [address] [place] [id number] Dec, [facility] [address] [facility] [id number] [address] [place] [address] Dec, Panlobular emphysema J43.1 [facility] [address] [facility] [id number] [address] [place] [address] Nov, [facility] [address] [place] [id number] [address] [place] [address] Nov, Acute non-recurrent maxillar y sinusitis J01.00 [facility] [address] [id number] [address] [place] [address] Nov, [place] [address] [id number] [address] [place] [address] Nov, Thoracic neuritis M54.14 ; A cute pain of right shoulder M25.511 ; Mood disorder F39 ; Pain in right ankle and joints of right foot M25.571 and Other chronic pain G89.29 [place] [address] [id number] [address] [place] [address] Nov, [facility] [address] [facility] [id number] [address] [place] [address] Nov, Injury of right shoulder, in itial encounter S49.91XA [place] [address] [place] [id number] [address] [place] [address] Nov, Panlobular emphysema J43.1 [place] [address] [place] [id number] [address] [place] [address] Nov, Acute non-recurrent maxillar y sinusitis J01.00 [place] [address] [place] [id number] [address] [place] [address] October, Acute non-recurrent maxillar y sinusitis J01.00 [place] [address] [place] [id number] [address] [place] [address] Sep, Contusion of right upper ext remity, initial encounter S40.021A [facility] [address] [facility] [id number] [address] [place] [address] Sep, Right forearm pain M79.631 [place] [address] [facility] [id number] [address] [place] [address] Sep, Acute non-recurrent maxillar y sinusitis J01.00 [place] [address] [facility] [id number] [address] [place] [address] Aug, Stable angina pectoris I20.8 [place] [address] [facility] [id number] [address] [place] [address] 14 Aug, 2017 Chronic fatigue R53.82 [place] [address] [place] [id number] [place] [address] 14 Aug, 2017 [place] [address] [place] [id number] [place] [address] 14 Aug, 2017 Stable angina pectoris I20.8 and Chronic fatigue R53.82 [place] [address] [place] [id number] [place] [address] 09 Aug, 2017 Acute non-recurrent maxillar y sinusitis J01.00 [place] [address] [place] [id number] [place] [address] 26 Jul, 2017 Chronic fatigue R53.82 ; Hyp ertension, benign I10 ; Family history of early CAD Z82.49 and Coronary artery disease of diomede artery of diomede heart with stable angina pectoris I25.118 [place] [address] [place] [id number] [address] [place] [address] 26 Jul, 2017 Family history of early CAD Z82.49 [place] [address] [place] [id number] [address] [place] [address] 16 Jul, 2017 Family history of early CAD Z82.49 [place] [address] [place] [id number] [address] [place] [address] 16 Jul, 2017 Chronic fatigue R53.82 ; Hyp ertension, benign I10 ; Family history of early CAD Z82.49 and Coronary artery disease of diom[place] artery of diomede heart with stable angina pectoris I25.118 [place] [address] [place] [id number] [address] [place] [address] 15 Jul, 2017 Chronic fatigue R53.82 [place] [address] [place] [id number] [place] [address] 15 Jul, 2017 Chronic fatigue R53.82 ; Hyp ertension, benign I10 ; Family history of early CAD Z82.49 and Coronary artery disease of diomede artery of diomede heart with stable angina pectoris I25.118 [facility] [address] [id number] [address] [place] [id number] Jul, Dental examination Z01.20 an d Dental caries K02.9 [facility] [address] [facility] [id number] [address] [place] [address] Jul, [facility] [address] [facility] [id number] [address] [place] [address] Jul, [facility] [address] [place] [id number] [address] [place] [address] Jul, Acute non-recurrent maxillar y sinusitis J01.00 [facility] [address] [facility] [id number] [address] [place] [phone] Jul, [facility] [address] [place] [id number] [address] [place] [address] Jun, [facility] [id number] [place] [address] Jun, [facility] [address] [place] [id number] [address] [place] [address] Jun, Acute non-recurrent maxillar y sinusitis J01.00 [facility] [address] [place] [address] Jun, Anxiety F41.9 ; Bronchitis J 40 ; Tobacco abuse Z72.0 ; Tobacco abuse counseling Z71.6 and Acute left ankle pain M25.572 [facility] [address] [facility] [id number] [address] [place] [address] May, Cough R05 and COPD exacerbat ion J44.1 [facility] [address] [place] [phone] May, [facility] [address] [facility] [id number] [address] [place] [id number] 14 May, 2017 [facility] [address] [place] [id number] [address] [place] [address] May, Acute non-recurrent maxillar y sinusitis J01.00 [facility] [address] [facility] [id number] [address] [place] [address] Apr, Acute non-recurrent maxillar y sinusitis J01.00 ; Anxiety F41.9 ; Acute right-sided low back pain with right-sided sciatica M54.41 and Thoracic neuritis M54.14 IMMUNIZATIONS No Known Immunizations SOCIAL HISTORY Never Assessed REASON FOR VISIT Controlled Med Refill 06/04/18 PLAN OF CARE VITAL SIGNS MEDICATIONS Medication Instructions Dosage Frequency Start Date End Date Duration S tatus Xanax 0.5 MG Orally Twice a day 1 tablet 12h 28 days Active Hydrocodone-Acetaminophen 10-325 MG Orally every 6 hrs 1 tablet as needed 6h May, 28 days Active RESULTS No Results PROCEDURES No Known procedures INSTRUCTIONS MEDICATIONS ADMINISTERED No Known Medications MEDICAL (GENERAL) HISTORY Type Description Date Medical History COPD Surgical History mass removed from right breast Hospitalization History No know Hospitalization history
[2019-12-17 16:09] LABS: ALBUMIN 4.4 GM/DL (3.2-4.5); CHLORIDE 102 MMOL/L (98-107); PROTHROMBIN TIME PATIENT 13.4 SEC (12.2-14.7); SODIUM 139 MMOL/L (135-145)
--- OUTSIDE RECORDS SUMMARY | 2019-12-17 16:09 | XMS REPORT ---
Author Author Pepper MCKEON Organization [facility] Address [address] [place] [address] Care Team Providers Care Broth Setter Name Role Phone DEVEN MCKEON Unavailable PROBLEMS Type Condition ICD9-CM Code RXV59-OP Code Onset Dates Condition S tatus SNOMED Code Problem COPD exacerbation J44.1 Active 29 1064355042372 Problem Chronic fatigue R53.82 Active 8422 9001 Problem Stable angina pectoris I20.8 Active 029603247 Problem Hypothyroidism (acquired) E03.9 Acti ve 74826238 Problem Benign head tremor G25.0 Active 6 54277593 Problem Coronary artery disease of n ative artery of [place] heart with stable angina pectoris I25.118 Active 464355273021 7 Problem Hypertension, benign I10 Active 50903143 Problem Mood disorder F39 Active 395152 05 Problem Injury of right shoulder, initial encounter S49.91 XA Active 132806163 Problem Functional constipation K59.04 Active 110605502 Problem Lumbago with sciatica, right side M54.41 Active 726592654794553 Problem Other chronic pain G89.29 Active 8 9350212 Problem Panlobular emphysema J43.1 Active 5585101 Problem Acute right-sided low back pain with right-sided sciatica M54.41 Active 106333230 Problem Lumbago with sciatica, left side M54.42 Active 154809360 Problem Anxiety F41.9 Active 72439042 ALLERGIES No Information ENCOUNTERS Encounter Location Date Diagnosis [facility] [address] [facility] [id number] [address] [place] [phone] Feb, [facility] [address] [facility] [id number] [address] [place] [phone] Feb, [facility] [address] [facility] [id number] [address] [place] [phone] Feb, [facility] [address] [place] [id number] [address] [place] [address] Feb, [facility] [address] [place] [id number] [place] [phone] Jan, Breast lump N63.0 [facility] [address] [place] [id number] [place] [phone] Jan, Hypothyroidism (acquired) E0 3.9 [facility] [address] [place] [id number] [place] [address] Jan, Acute non-recurrent maxillar y sinusitis J01.00 [place] [address] [address] Jan, Benign head tremor G25.0 and Tick bite, initial encounter W57.XXXA [place] [address] [address] Jan, [place] [address] [address] Dec, Thoracic neuritis M54.14 ; B reast lump N63.0 and Tinea corporis B35.4 [place] [address] [place] [id number] [place] [phone] Dec, Acute non-recurrent maxillar y sinusitis J01.00 [facility] [address] [place] [id number] [address] [place] [address] Dec, [facility] [address] [address] Dec, [facility] [address] [address] Dec, [place] [address] [address] Dec, Panlobular emphysema J43.1 [facility] [address] [address] Nov, [place] [id number] [id number] [address] [place] [address] Nov, Acute non-recurrent maxillar y sinusitis J01.00 [place] [address] [facility] [id number] [address] [place] [phone] Nov, [place] [address] [facility] [id number] [address] [place] [address] Nov, Thoracic neuritis M54.14 ; A cute pain of right shoulder M25.511 ; Mood disorder F39 ; Pain in right ankle and joints of right foot M25.571 and Other chronic pain G89.29 [place] [address] [facility] [id number] [address] [place] [phone] Nov, [facility] [address] [facility] [id number] [address] [place] [address] Nov, Injury of right shoulder, in itial encounter S49.91XA [place] [address] [facility] [id number] [address] [place] [phone] Nov, Panlobular emphysema J43.1 [place] [address] [facility] [id number] [address] [place] [phone] Nov, Acute non-recurrent maxillar y sinusitis J01.00 [place] [address] [facility] [id number] [address] [place] [address] October, Acute non-recurrent maxillar y sinusitis J01.00 [place] [address] [facility] [id number] [address] [place] [address] Sep, Contusion of right upper ext remity, initial encounter S40.021A [facility] [address] [facility] [id number] [address] [place] [phone] Sep, Right forearm pain M79.631 [place] [address] [facility] [id number] [address] [place] [address] Sep, Acute non-recurrent maxillar y sinusitis J01.00 [facility] [address] [id number] [address] [place] [phone] 19 Aug, 2017 Stable angina pectoris I20.8 [facility] [address] [id number] [address] [place] [phone] 14 Aug, 2017 Chronic fatigue R53.82 [facility] [address] [id number] [address] [place] [phone] 14 Aug, 2017 [facility] [address] [id number] [address] [place] [phone] 14 Aug, 2017 Stable angina pectoris I20.8 and Chronic fatigue R53.82 [facility] [address] [id number] [address] [place] [phone] 09 Aug, 2017 Acute non-recurrent maxillar y sinusitis J01.00 [facility] [address] [id number] [address] [place] [address] 26 Jul, 2017 Chronic fatigue R53.82 ; Hyp ertension, benign I10 ; Family history of early CAD Z82.49 and Coronary artery disease of [place] artery of [place] heart with stable angina pectoris I25.118 [place] [address] [id number] [address] [place] [phone] 26 Jul, 2017 Family history of early CAD Z82.49 [place] [address] [id number] [address] [place] [id number] 16 Jul, 2017 Family history of early CAD Z82.49 [place] [address] [id number] [address] [place] [address] 16 Jul, 2017 Chronic fatigue R53.82 ; Hyp ertension, benign I10 ; Family history of early CAD Z82.49 and Coronary artery disease of [place] artery of [place] heart with stable angina pectoris I25.118 [facility] [address] [id number] [address] [place] [phone] 15 Jul, 2017 Chronic fatigue R53.82 [facility] [address] [id number] [address] [place] [address] Jul, Chronic fatigue R53.82 ; Hyp ertension, benign I10 ; Family history of early CAD Z82.49 and Coronary artery disease of [place] artery of [place] heart with stable angina pectoris I25.118 [facility] [address] [id number] [address] [place] [phone] Jul, Dental examination Z01.20 an d Dental caries K02.9 [facility] [address] [facility] [id number] [address] [place] [phone] Jul, [facility] [address] [address] Jul, [facility] [address] [address] Jul, Acute non-recurrent maxillar y sinusitis J01.00 [facility] [address] [place] [id number] [address] [place] [phone] Jul, [facility] [address] [place] [id number] [address] [place] [phone] Jun, [facility] [address] [address] Jun, [facility] [address] [place] [id number] [address] [place] [address] Jun, Acute non-recurrent maxillar y sinusitis J01.00 [facility] [address] [place] [id number] [address] [place] [phone] Jun, Anxiety F41.9 ; Bronchitis J 40 ; Tobacco abuse Z72.0 ; Tobacco abuse counseling Z71.6 and Acute left ankle pain M25.572 [facility] [address] [place] [id number] [address] [place] [phone] May, Cough R05 and COPD exacerbat ion J44.1 [facility] [id number] [place] [phone] May, [facility] [address] [facility] [id number] [address] [place] [phone] May, [facility] [address] [facility] [id number] [address] [place] [address] May, Acute non-recurrent maxillar y sinusitis J01.00 [facility] [address] [facility] [id number] [address] [place] [address] Apr, Acute non-recurrent maxillar y sinusitis J01.00 [...]
--- OUTSIDE RECORDS SUMMARY | 2019-12-17 16:09 | XMS REPORT ---
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 Active 939553742010 7 Problem Hypertension, benign I10 Active 90109640 Problem Mood disorder F39 Active 865524 05 Problem Injury of right shoulder, initial encounter S49.91 XA Active 690452347 Problem Functional constipation K59.04 Active 429830793 Problem Lumbago with sciatica, right side M54.41 Active 241744468187936 Problem Other chronic pain G89.29 Active 8 6658495 Problem Panlobular emphysema J43.1 Active 7663689 Problem Acute right-sided low back pain with right-sided sciatica M54.41 Active 864774691 Problem Lumbago with sciatica, left side M54.42 Active 767702783 Problem Anxiety F41.9 Active 63408568 ALLERGIES No Information ENCOUNTERS Encounter Location Date Diagnosis [facility] [address] [facility] [id number] [address] [place] [phone] Feb, [facility] [address] [facility] [id number] [address] [place] [phone] Feb, Acute non-recurrent maxillar y sinusitis J01.00 and Thoracic neuritis M54.14 [facility] [address] [facility] [id number] [address] [place] [phone] Feb, [facility] [address] [facility] [id number] [address] [place] [phone] 17 Feb, 2018 Screening for breast cancer Z12.31 and Screening for colon cancer Z12.11 [facility] [address] [facility] [id number] [address] [place] [phone] Feb, [facility] [address] [facility] [id number] [address] [place] [phone] Feb, [facility] [address] [facility] [id number] [address] [place] [phone] Jan, Breast lump N63.0 [place] [address] [facility] [id number] [address] [place] [phone] Jan, Hypothyroidism (acquired) E0 3.9 [place] [address] [place] [id number] [address] [place] [address] Jan, Acute non-recurrent maxillar y sinusitis J01.00 [place] [address] [facility] [id number] [address] [place] [address] Jan, Benign head tremor G25.0 and Tick bite, initial encounter W57.XXXA [place] [address] [facility] [id number] [address] [place] [address] Jan, [place] [address] [facility] [id number] [address] [place] [address] Dec, Thoracic neuritis M54.14 ; B reast lump N63.0 and Tinea corporis B35.4 [facility] [address] [facility] [id number] [address] [place] [address] Dec, Acute non-recurrent maxillar y sinusitis J01.00 [facility] [address] [facility] [id number] [address] [place] [address] Dec, [facility] [address] [facility] [id number] [address] [place] [address] Dec, [place] [address] [id number] [address] [place] [phone] Dec, [facility] [address] [id number] [address] [place] [address] Dec, Panlobular emphysema J43.1 [facility] [address] [facility] [id number] [address] [place] [address] Nov, [facility] [address] [id number] [address] [place] [phone] Nov, Acute non-recurrent maxillar y sinusitis J01.00 [place] [address] [facility] [id number] [address] [place] [phone] Nov, [facility] [address] [facility] [id number] [address] [place] [phone] Nov, Thoracic neuritis M54.14 ; A cute pain of right shoulder M25.511 ; Mood disorder F39 ; Pain in right ankle and joints of right foot M25.571 and Other chronic pain G89.29 [facility] [address] [facility] [id number] [address] [place] [address] Nov, [facility] [address] [facility] [id number] [address] [place] [address] Nov, Injury of right shoulder, in itial encounter S49.91XA [facility] [address] [facility] [id number] [address] [place] [address] Nov, Panlobular emphysema J43.1 [facility] [address] [facility] [id number] [address] [place] [phone] Nov, Acute non-recurrent maxillar y sinusitis J01.00 [facility] [address] [facility] [id number] [address] [place] [address] October, Acute non-recurrent maxillar y sinusitis J01.00 [facility] [address] [facility] [id number] [address] [place] [phone] Sep, Contusion of right upper ext remity, initial encounter S40.021A [facility] [address] [id number] [address] [place] [address] Sep, Right forearm pain M79.631 [facility] [address] [id number] [address] [place] [address] Sep, Acute non-recurrent maxillar y sinusitis J01.00 [facility] [address] [id number] [address] [place] [address] Aug, Stable angina pectoris I20.8 [facility] [address] [id number] [address] [place] [address] Aug, Chronic fatigue R53.82 [facility] [address] [facility] [id number] [address] [place] [phone] Aug, [facility] [address] [facility] [id number] [address] [place] [phone] Aug, Stable angina pectoris I20.8 and Chronic fatigue R53.82 [facility] [address] [facility] [id number] [address] [place] [address] Aug, Acute non-recurrent maxillar y sinusitis J01.00 [facility] [address] [facility] [id number] [address] [place] [address] Jul, Chronic fatigue R53.82 ; Hyp ertension, benign I10 ; Family history of early CAD Z82.49 and Coronary artery disease of [place] artery of [place] heart with stable angina pectoris I25.118 [facility] [address] [facility] [id number] [address] [place] [address] Jul, Family history of early CAD Z82.49 [facility] [address] [facility] [id number] [address] [place] [address] Jul, Family history of early CAD Z82.49 [facility] [address] [facility] [id number] [address] [place] [address] Jul, Chronic fatigue R53.82 ; Hyp ertension, benign I10 ; Family history of early CAD Z82.49 and Coronary artery disease of [place] artery of [place] heart with stable angina pectoris I25.118 [facility] [address] [id number] [address] [place] [phone] 15 Jul, 2017 Chronic fatigue R53.82 [facility] [address] [id number] [address] [place] [phone] 15 Jul, 2017 Chronic fatigue R53.82 ; Hyp ertension, benign I10 ; Family history of early CAD Z82.49 and Coronary artery disease of [place] artery of [place] heart with stable angina pectoris I25.118 [facility] [address] [id number] [address] [place] [id number] 12 Jul, 2017 Dental examination Z01.20 an d Dental caries K02.9 [facility] [address] [id number] [address] [place] [phone] Jul, [facility] [address] [facility] [id number] [address] [place] [phone] Jul, [facility] [address] [id number] [address] [place] [address] Jul, Acute non-recurrent maxillar y sinusitis J01.00 [facility] [address] [id number] [address] [place] [phone] Jul, [facility] [address] [id number] [address] [place] [phone] Jun, [facility] [address] [id number] [address] [place] [phone] Jun, [facility] [address] [facility] [id number] [address] [place] [address] Jun, Acute non-recurrent maxillar y sinusitis J01.00 [facility] [address] [facility] [id number] [address] [place] [address] Jun, Anxiety F41.9 ; Bronchitis J 40 ; Tobacco abuse Z72.0 ; Tobacco abuse counseling Z71.6 and Acute left ankle pain M25.572 [facility] [address] [facility] [id number] [address] [place] [address] May, Cough R05 and COPD exacerbat ion J44.1 [facility] [address] [facility] [id number] [address] [place] [phone] May, [facility] [address] [facility] [id number] [address] [place] [address] May, [facility] [address] [place] [address] May, Acute non-recurrent maxillar y sinusitis J01.00 [facility] [address] [place] [address] Apr, Acute non-recurrent maxillar y sinusitis J01.00 ; Anxiety F41.9 ; Acute right-sided low back pain with right-sided sciatica M54.41 and Thoracic neuritis M54.14 IMMUNIZATIONS No Known Immunizations SOCIAL HISTORY Never Assessed REASON FOR VISIT Controlled Med Refill 02/13/18 PLAN OF CARE VITAL SIGNS MEDICATIONS Medication Instructions Dosage Frequency Start Date End Date Duration S tatus Hydrocodone-Acetaminophen 10-325 MG Orally every 6 hrs 1 tablet as needed 6h Jan, 28 days Active Xanax 0.5 MG Orally Twice a day 1 tablet 12h 28 days Active RESULTS No Results PROCEDURES No Known procedures INSTRUCTIONS MEDICATIONS ADMINISTERED No Known Medications MEDICAL (GENERAL) HISTORY Type Description Date Medical History COPD Surgical History mass removed from right breast Hospitalization History No Hospitalization history informati on
--- OUTSIDE RECORDS SUMMARY | 2019-12-17 16:09 | XMS REPORT ---
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 Active 737578097323 7 Problem Hypertension, benign I10 Active 30063023 Problem Mood disorder F39 Active 372114 05 Problem Injury of right shoulder, initial encounter S49.91 XA Active 653206469 Problem Functional constipation K59.04 Active 809753143 Problem Lumbago with sciatica, right side M54.41 Active 521543435209589 Problem Other chronic pain G89.29 Active 8 4458054 Problem Panlobular emphysema J43.1 Active 0660093 Problem Acute right-sided low back pain with right-sided sciatica M54.41 Active 391277415 Problem Lumbago with sciatica, left side M54.42 Active 172191729 Problem Anxiety F41.9 Active 42362057 ALLERGIES Substance Reaction Event Type Date Status PredniSONE Unknown Drug Allergy Jan, Active Lyrica Unknown Drug Allergy Jan, Active ENCOUNTERS Encounter Location Date Diagnosis [facility] [address] [facility] [id number] [address] [place] [address] Feb, [facility] [address] [facility] [id number] [address] [place] [address] Feb, Acute non-recurrent maxillar y sinusitis J01.00 and Thoracic neuritis M54.14 [place] [address] [place] [id number] [address] [place] [address] Feb, [place] [address] [address] Feb, Screening for breast cancer Z12.31 and Screening for colon cancer Z12.11 [place] [address] [address] Feb, [place] [address] [place] [id number] [place] [address] Feb, [place] [address] [address] Jan, Breast lump N63.0 [place] [address] [address] Jan, Hypothyroidism (acquired) E0 3.9 [place] [address] [address] Jan, Acute non-recurrent maxillar y sinusitis J01.00 [place] [address] [address] Jan, Benign head tremor G25.0 and Tick bite, initial encounter W57.XXXA [place] [address] [address] Jan, [place] [address] [address] Dec, Thoracic neuritis M54.14 ; B reast lump N63.0 and Tinea corporis B35.4 [place] [address] [address] Dec, Acute non-recurrent maxillar y sinusitis J01.00 [place] [address] [address] Dec, [place] [address] [place] [address] [place] [address] Dec, [facility] [address] [id number] [address] [place] [address] Dec, [facility] [address] [facility] [id number] [address] [place] [address] Dec, Panlobular emphysema J43.1 [facility] [address] [facility] [id number] [address] [place] [address] Nov, [facility] [address] [facility] [id number] [address] [place] [address] Nov, Acute non-recurrent maxillar y sinusitis J01.00 [place] [address] [facility] [id number] [address] [place] [address] Nov, [place] [address] [facility] [id number] [address] [place] [address] Nov, Thoracic neuritis M54.14 ; A cute pain of right shoulder M25.511 ; Mood disorder F39 ; Pain in right ankle and joints of right foot M25.571 and Other chronic pain G89.29 [facility] [address] [facility] [id number] [address] [place] [address] Nov, [facility] [address] [facility] [id number] [address] [place] [address] Nov, Injury of right shoulder, in itial encounter S49.91XA [facility] [address] [facility] [id number] [address] [place] [address] Nov, Panlobular emphysema J43.1 [facility] [address] [facility] [id number] [address] [place] [address] Nov, Acute non-recurrent maxillar y sinusitis J01.00 [facility] [address] [facility] [id number] [address] [place] [address] October, Acute non-recurrent maxillar y sinusitis J01.00 [facility] [address] [facility] [id number] [address] [place] [address] Sep, Contusion of right upper ext remity, initial encounter S40.021A [facility] [address] [facility] [id number] [address] [place] [address] Sep, Right forearm pain M79.631 [facility] [address] [facility] [id number] [address] [place] [address] Sep, Acute non-recurrent maxillar y sinusitis J01.00 [facility] [address] [facility] [id number] [address] [place] [address] Aug, Stable angina pectoris I20.8 [place] [address] [place] [id number] [address] [place] [address] Aug, Chronic fatigue R53.82 [place] [address] [place] [id number] [address] [place] [address] Aug, [facility] [address] [place] [id number] [place] [address] Aug, Stable angina pectoris I20.8 and Chronic fatigue R53.82 [place] [address] [place] [id number] [place] [address] Aug, Acute non-recurrent maxillar y sinusitis J01.00 [place] [address] [place] [id number] [address] [place] [address] Jul, Chronic fatigue R53.82 ; Hyp ertension, benign I10 ; Family history of early CAD Z82.49 and Coronary artery disease of [place] artery of [place] heart with stable angina pectoris I25.118 [place] [address] [place] [id number] [address] [place] [address] Jul, Family history of early CAD Z82.49 [place] [address] [place] [id number] [address] [place] [address] Jul, Family history of early CAD Z82.49 [place] [address] [place] [id number] [address] [place] [address] 16 Jul, 2017 Chronic fatigue R53.82 ; Hyp ertension, benign I10 ; Family history of early CAD Z82.49 and Coronary artery disease of [place] artery of [place] heart with stable angina pectoris I25.118 [facility] [address] [id number] [address] [place] [address] 15 Jul, 2017 Chronic fatigue R53.82 [facility] [address] [id number] [address] [place] [address] 15 Jul, 2017 Chronic fatigue R53.82 ; Hyp ertension, benign I10 ; Family history of early CAD Z82.49 and Coronary artery disease of [place] artery of [place] heart with stable angina pectoris I25.118 [facility] [address] [id number] [address] [place] [id number] Jul, 2017 Dental examination Z01.20 an d Dental caries K02.9 [facility] [address] [id number] [address] [place] [address] Jul, [facility] [address] [id number] [address] [place] [phone] Jul, [facility] [address] [facility] [id number] [address] [place] [address] Jul, Acute non-recurrent maxillar y sinusitis J01.00 [facility] [address] [id number] [address] [place] [phone] Jul, [facility] [address] [id number] [address] [place] [address] Jun, [facility] [address] [id number] [address] [place] [phone] Jun, [facility] [address] [facility] [id number] [address] [place] [address] Jun, Acute non-recurrent maxillar y sinusitis J01.00 [facility] [address] [facility] [id number] [address] [place] [address] Jun, Anxiety F41.9 ; Bronchitis J 40 ; Tobacco abuse Z72.0 ; Tobacco abuse counseling Z71.6 and Acute left ankle pain M25.572 [facility] [address] [place] [id number] [address] [place] [id number] 30 May, 2017 Cough R05 and COPD exacerbat ion J44.1 [facility] [address] [address] May, [facility] [address] [address] May, [facility] [address] [address] May, Acute non-recurrent maxillar y sinusitis J01.00 [facility] [address] [place] [id number] [address] [place] [address] Apr, Acute non-recurrent maxillar y sinusitis J01.00 ; Anxiety F41.9 ; Acute right-sided low back pain with right-sided sciatica M54.41 and Thoracic neuritis M54.14 IMMUNIZATIONS No Known Immunizations SOCIAL HISTORY Never Assessed REASON FOR VISIT head shaking involuntaryly, reports occuring for approc [address] ress. Has had a couple of episodes of right side of face feels like tingling and tight. 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 She reports w as seen last week. She was taken off the seravent and started on Advair. Had sev eral test done. , back hurting more, can't wear a bra because of the pain in he r back. CBrumbackRN PLAN OF CARE VITAL SIGNS Height 67 in 2018-02-12 Weight 184.4 lbs 2018-02-12 Temperature 98.0 degrees Fahrenheit 2018-02-12 Heart Rate 80 bpm 2018-02-12 Respiratory Rate 18 2018-02-12 BMI 28.88 kg/m2 2018-02-12 Blood pressure systolic 114 mmHg 2018-02-12 Blood pressure diastolic 76 mmHg 2018-02-12 MEDICATIONS Medication Instructions Dosage Frequency Start Date End Date Duration S tatus Baclofen 20 mg Orally 2 times a day 1 tablet with food or milk 12h Dec, Active Spiriva HandiHaler 18 MCG Inhalation Once a day 1 capsule 24h Nov Active Ibuprofen 200 MG Orally Three times a day 1 tablet with food or milk as needed 8h Active Sinemet 25-100 MG Orally Once a day 1 tablet 24h Jan, 30 day(s) Active Prozac 20 mg Orally Once a day 1 capsule in the morning 24h 2017 30 day(s) Active Albuterol Sulfate (2.5 MG/3ML) 0.083% IN GARCIA 1 VIAL VIA NEBULIZER EVERY 6 HOURS NEEDED 12 Active Advair Diskus 250-50 MCG/DOSE Inhalation Twice a day 1 puff 12h Active Ibuprofen 600 MG Orally 4 times a day 1 tablet with food or milk as needed 6h Nov, Active Serevent Diskus 50 MCG/DOSE Inhalation Twice a day 1 puff 12h Dec, 30 days Not-Taking Cyanocobalamin 1000 MCG/ML Injection once monthly 1 ml Aug, 30 day(s) Active Zanaflex 4 MG Orally 2 times a day 1 tablet as needed 12h 28 Active Nitroglycerin 0.4 MG Sublingual Once a day prn, m ay repeat every 5 minutes until resolution. if taken 3 doses report to er immediately. 1 tablet Not-Taking ProAir HFA 108 (90 Base) MCG/ACT Inhalation every 6 hrs 2 puffs as needed 6h 15 May, 2017 Active Hydrocodone-Acetaminophen 10-325 MG Orally every 6 hrs 1 tablet as needed 6h Dec, 28 days Active Terbinafine HCl 1 % Externally Twice a day 1 application to affecte d area 12h Dec, Active Xanax 0.5 MG Orally Twice a day 1 tablet 12h 28 days Active RESULTS No Results PROCEDURES Procedure Date Ordered Result [facility] Feb 12, 2018 INSTRUCTIONS MEDICATIONS ADMINISTERED No Known Medications MEDICAL (GENERAL) HISTORY Type Description Date Medical History COPD Surgical History mass removed from right breast Hospitalization History No Hospitalization history informati on
--- OUTSIDE RECORDS SUMMARY | 2019-12-17 16:09 | XMS REPORT ---
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 Active 069820379829 7 Problem Hypertension, benign I10 Active 74396314 Problem Mood disorder F39 Active 972178 05 Problem Injury of right shoulder, initial encounter S49.91 XA Active 287503484 Problem Functional constipation K59.04 Active 861154045 Problem Lumbago with sciatica, right side M54.41 Active 394339917977781 Problem Other chronic pain G89.29 Active 8 5541100 Problem Panlobular emphysema J43.1 Active 8571703 Problem Acute right-sided low back pain with right-sided sciatica M54.41 Active 647771215 Problem Lumbago with sciatica, left side M54.42 Active 572877258 Problem Anxiety F41.9 Active 40815498 ALLERGIES No Information ENCOUNTERS Encounter Location Date Diagnosis [facility] [address] [facility] [id number] [address] [place] [id number] Feb, [facility] [address] [facility] [id number] [address] [place] [address] Feb, [facility] [address] [facility] [id number] [address] [place] [address] Jan, Breast lump N63.0 [place] [address] [facility] [id number] [address] [place] [phone] Jan, Hypothyroidism (acquired) E0 3.9 [facility] [address] [facility] [id number] [address] [place] [address] Jan, Acute non-recurrent maxillar y sinusitis J01.00 [facility] [address] [facility] [id number] [address] [place] [address] Jan, Benign head tremor G25.0 and Tick bite, initial encounter W57.XXXA [facility] [address] [facility] [id number] [address] [place] [address] Jan, [place] [address] [facility] [id number] [address] [place] [address] Dec, Thoracic neuritis M54.14 ; B reast lump N63.0 and Tinea corporis B35.4 [place] [address] [facility] [id number] [address] [place] [address] Dec, Acute non-recurrent maxillar y sinusitis J01.00 [facility] [address] [facility] [id number] [address] [place] [address] Dec, [facility] [address] [facility] [id number] [address] [place] [address] Dec, [facility] [address] [facility] [id number] [address] [place] [address] Dec, [facility] [address] [place] [id number] [address] [place] [phone] Dec, Panlobular emphysema J43.1 [facility] [address] [facility] [id number] [address] [place] [phone] Nov, [facility] [address] [facility] [id number] [address] [place] [address] Nov, Acute non-recurrent maxillar y sinusitis J01.00 [facility] [address] [facility] [id number] [address] [place] [phone] Nov, [place] [address] [id number] [address] [place] [address] Nov, Thoracic neuritis M54.14 ; A cute pain of right shoulder M25.511 ; Mood disorder F39 ; Pain in right ankle and joints of right foot M25.571 and Other chronic pain G89.29 [place] [address] [facility] [id number] [address] [place] [address] Nov, [facility] [address] [id number] [address] [place] [address] Nov, Injury of right shoulder, in itial encounter S49.91XA [place] [address] [facility] [id number] [address] [place] [address] Nov, Panlobular emphysema J43.1 [place] [address] [place] [id number] [address] [place] [address] Nov, Acute non-recurrent maxillar y sinusitis J01.00 [place] [address] [facility] [id number] [address] [place] [address] October, Acute non-recurrent maxillar y sinusitis J01.00 [place] [address] [facility] [id number] [address] [place] [address] Sep, Contusion of right upper ext remity, initial encounter S40.021A [facility] [address] [id number] [address] [place] [address] Sep, Right forearm pain M79.631 [place] [address] [id number] [address] [place] [address] Sep, Acute non-recurrent maxillar y sinusitis J01.00 [place] [address] [facility] [id number] [address] [place] [address] Aug, Stable angina pectoris I20.8 [place] [address] [facility] [id number] [address] [place] [address] 14 Aug, 2017 Chronic fatigue R53.82 [facility] [address] [facility] [id number] [address] [place] [address] 14 Aug, 2017 [place] [address] [place] [id number] [address] [place] [address] 14 Aug, 2017 Stable angina pectoris I20.8 and Chronic fatigue R53.82 [place] [address] [place] [id number] [address] [place], [place] [address] 09 Aug, 2017 Acute non-recurrent maxillar y sinusitis J01.00 [place] [address] [facility] [id number] [address] [place] [address] 26 Jul, 2017 Chronic fatigue R53.82 ; Hyp ertension, benign I10 ; Family history of early CAD Z82.49 and Coronary artery disease of wain[place] artery of wainwright heart with stable angina pectoris I25.118 [place] [address] [place] [id number] [address] [place], [place] [address] 26 Jul, 2017 Family history of early CAD Z82.49 [place] [address] [place] [id number] [address] [place] [address] 16 Jul, 2017 Family history of early CAD Z82.49 [place] [address] [place] [id number] [address] [place] [address] 16 Jul, 2017 Chronic fatigue R53.82 ; Hyp ertension, benign I10 ; Family history of early CAD Z82.49 and Coronary artery disease of w[place] artery of [place]ain[place] heart with stable angina pectoris I25.118 [place] [address] [facility] [id number] [address] [place] [address] 15 Jul, 2017 Chronic fatigue R53.82 [place] [address] [place] [id number] [address] [place] [address] 15 Jul, 2017 Chronic fatigue R53.82 ; Hyp ertension, benign I10 ; Family history of early CAD Z82.49 and Coronary artery disease of wain[place] artery of wainwright heart with stable angina pectoris I25.118 [facility] [address] [facility] [id number] [address] [place] [id number] Jul, Dental examination Z01.20 an d Dental caries K02.9 [facility] [address] [place] [address] Jul, [facility] [address] [place] [id number] [address] [place] [address] Jul, [facility] [address] [address] Jul, Acute non-recurrent maxillar y sinusitis J01.00 [facility] [address] [place] [id number] [address] [place] [address] Jul, [facility] [address] [place] [id number] [address] [place] [address] Jun, [facility] [address] [address] Jun, [facility] [address] [place] [id number] [address] [place] [address] Jun, Acute non-recurrent maxillar y sinusitis J01.00 [facility] [address] [place] [address] Jun, Anxiety F41.9 ; Bronchitis J 40 ; Tobacco abuse Z72.0 ; Tobacco abuse counseling Z71.6 and Acute left ankle pain M25.572 [facility] [address] [place] [address] May, Cough R05 and COPD exacerbat ion J44.1 [facility] [address] [place] [address] May, [facility] [address] [place] [id number] [address] [place] [address] May, [facility] [address] [place] [address] May, Acute non-recurrent maxillar y sinusitis J01.00 [facility] [address] [facility] [id number] [address] [place] [address] 17 Apr, 2017 Acute non-recurrent maxillar y sinusitis J01.00 ; Anxiety F41.9 ; Acute right-sided low back pain with right-sided sciatica M54.41 and Thoracic neuritis M54.14 IMMUNIZATIONS No Known Immunizations SOCIAL HISTORY Never Assessed REASON FOR VISIT nebulizer machine PLAN OF CARE VITAL SIGNS MEDICATIONS Unknown Medications RESULTS No Results PROCEDURES No Known procedures INSTRUCTIONS MEDICATIONS ADMINISTERED No Known Medications MEDICAL (GENERAL) HISTORY Type Description Date Medical History COPD Surgical History mass removed from right breast
--- OUTSIDE RECORDS SUMMARY | 2019-12-17 16:09 | XMS REPORT ---
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 Active 361986321565 7 Problem Hypertension, benign I10 Active 50557086 Problem Mood disorder F39 Active 490847 05 Problem Injury of right shoulder, initial encounter S49.91 XA Active 228140941 Problem Functional constipation K59.04 Active 067571659 Problem Lumbago with sciatica, right side M54.41 Active 847026536307352 Problem Other chronic pain G89.29 Active 8 3421109 Problem Panlobular emphysema J43.1 Active 2490279 Problem Acute right-sided low back pain with right-sided sciatica M54.41 Active 748576101 Problem Lumbago with sciatica, left side M54.42 Active 077406258 Problem Anxiety F41.9 Active 07453380 ALLERGIES Substance Reaction Event Type Date Status PredniSONE Unknown Drug Allergy Dec, Active Lyrica Unknown Drug Allergy Dec, Active ENCOUNTERS Encounter Location Date Diagnosis [facility] [address] [facility] [id number] [address] [place] [address] Feb, [facility] [address] [facility] [id number] [address] [place] [address] Feb, [facility] [address] [facility] [id number] [address] [place] [address] Feb, [facility] [address] [facility] [id number] [address] [place] [address] Jan, Breast lump N63.0 [facility] [address] [facility] [id number] [address] [place] [phone] Jan, Hypothyroidism (acquired) E0 3.9 [facility] [address] [facility] [id number] [address] [place] [address] Jan, Acute non-recurrent maxillar y sinusitis J01.00 [facility] [address] [facility] [id number] [address] [place] [address] Jan, Benign head tremor G25.0 and Tick bite, initial encounter W57.XXXA [facility] [address] [place] [id number] [address] [place] [address] Jan, [facility] [address] [facility] [id number] [address] [place] [address] Dec, Thoracic neuritis M54.14 ; B reast lump N63.0 and Tinea corporis B35.4 [facility] [address] [facility] [id number] [address] [place] [address] Dec, Acute non-recurrent maxillar y sinusitis J01.00 [facility] [address] [facility] [id number] [address] [place] [address] Dec, [facility] [address] [facility] [id number] [address] [place] [address] Dec, [facility] [address] [facility] [id number] [address] [place] [address] Dec, [facility] [address] [place] [id number] [address] [place] [address] Dec, Panlobular emphysema J43.1 [facility] [address] [facility] [id number] [address] [place] [address] Nov, [facility] [address] [id number] [address] [place] [address] Nov, Acute non-recurrent maxillar y sinusitis J01.00 [facility] [address] [id number] [address] [place] [address] Nov, [facility] [address] [facility] [id number] [address] [place] [address] Nov, Thoracic neuritis M54.14 ; A cute pain of right shoulder M25.511 ; Mood disorder F39 ; Pain in right ankle and joints of right foot M25.571 and Other chronic pain G89.29 [place] [address] [facility] [id number] [address] [place] [address] Nov, [facility] [address] [facility] [id number] [address] [place] [address] Nov, Injury of right shoulder, in itial encounter S49.91XA [place] [address] [facility] [id number] [address] [place] [address] Nov, Panlobular emphysema J43.1 [place] [address] [facility] [id number] [address] [place] [address] Nov, Acute non-recurrent maxillar y sinusitis J01.00 [place] [address] [facility] [id number] [address] [place] [address] October, Acute non-recurrent maxillar y sinusitis J01.00 [place] [address] [facility] [id number] [address] [place] [address] Sep, Contusion of right upper ext remity, initial encounter S40.021A [facility] [address] [facility] [id number] [address] [place] [address] Sep, Right forearm pain M79.631 [place] [address] [facility] [id number] [address] [place] [address] Sep, Acute non-recurrent maxillar y sinusitis J01.00 [place] [address] [id number] [address] [place] [phone] 19 Aug, 2017 Stable angina pectoris I20.8 [place] [address] [facility] [id number] [address] [place] [address] 14 Aug, 2017 Chronic fatigue R53.82 [place] [address] [facility] [id number] [address] [place] [address] 14 Aug, 2017 [place] [address] [facility] [id number] [address] [place] [address] 14 Aug, 2017 Stable angina pectoris I20.8 and Chronic fatigue R53.82 [place] [address] [facility] [id number] [address] [place] [address] 09 Aug, 2017 Acute non-recurrent maxillar y sinusitis J01.00 [place] [address] [facility] [id number] [address] [place] [address] 26 Jul, 2017 Chronic fatigue R53.82 ; Hyp ertension, benign I10 ; Family history of early CAD Z82.49 and Coronary artery disease of [place] artery of [place] heart with stable angina pectoris I25.118 [place] [address] [facility] [id number] [address] [place] [address] 26 Jul, 2017 Family history of early CAD Z82.49 [place] [address] [facility] [id number] [address] [place] [address] 16 Jul, 2017 Family history of early CAD Z82.49 [place] [address] [facility] [id number] [address] [place] [address] 16 Jul, 2017 Chronic fatigue R53.82 ; Hyp ertension, benign I10 ; Family history of early CAD Z82.49 and Coronary artery disease of [place] artery of [place] heart with stable angina pectoris I25.118 [place] [address] [facility] [id number] [address] [place] [address] 15 Jul, 2017 Chronic fatigue R53.82 [place] [address] [facility] [id number] [address] [place] [address] Jul, Chronic fatigue R53.82 ; Hyp ertension, benign I10 ; Family history of early CAD Z82.49 and Coronary artery disease of [place] artery of [place] heart with stable angina pectoris I25.118 [facility] [address] [id number] [address] [place] [id number] Jul, Dental examination Z01.20 an d Dental caries K02.9 [facility] [address] [address] Jul, [facility] [address] [address] Jul, [place] [address] [address] Jul, Acute non-recurrent maxillar y sinusitis J01.00 [facility] [address] [address] Jul, [facility] [address] [address] Jun, [facility] [address] [address] Jun, [facility] [address] [address] Jun, Acute non-recurrent maxillar y sinusitis J01.00 [facility] [address] [address] Jun, Anxiety F41.9 ; Bronchitis J 40 ; Tobacco abuse Z72.0 ; Tobacco abuse counseling Z71.6 and Acute left ankle pain M25.572 [facility] [address] [address] May, Cough R05 and COPD exacerbat ion J44.1 [facility] [address] [address] May, [facility] [address] [place] [id number] [address] [place] [address] 14 May, 2017 [facility] [address] [facility] [id number] [address] [place] [address] 13 May, 2017 Acute non-recurrent maxillar y sinusitis J01.00 [facility] [address] [facility] [id number] [address] [place] [address] 17 Apr, 2017 Acute non-recurrent maxillar y sinusitis J01.00 ; Anxiety F41.9 ; Acute right-sided low back pain with right-sided sciatica M54.41 and Thoracic neuritis M54.14 IMMUNIZATIONS No Known Immunizations SOCIAL HISTORY Never Assessed REASON FOR VISIT COPD, and MRI as well as a lump located under the right arm[place] PLAN OF CARE VITAL SIGNS Height 67 in 2018-01-16 Weight 193.2 lbs 2018-01-16 Temperature 97.5 degrees Fahrenheit 2018-01-16 Heart Rate 81 bpm 2018-01-16 Respiratory Rate 18 2018-01-16 Oximetry on room air:95 % 2018-01-16 BMI 30.26 kg/m2 2018-01-16 Blood pressure systolic 104 mmHg 2018-01-16 Blood pressure diastolic 66 mmHg 2018-01-16 MEDICATIONS Medication Instructions Dosage Frequency Start Date End Date Duration S tatus Ibuprofen 600 MG Orally 4 times a day 1 tablet with food or milk as needed 6h Nov, Active Xanax 0.5 MG Orally Twice a day 1 tablet 12h 28 days Active Spiriva HandiHaler 18 MCG Inhalation Once a day 1 capsule 24h Nov Active Prozac 20 mg Orally Once a day 1 capsule in the morning 24h 2017 30 day(s) Active Hydrocodone-Acetaminophen 10-325 MG Orally every 6 hrs 1 tablet as needed 6h Dec, 28 days Active ProAir HFA 108 (90 Base) MCG/ACT Inhalation every 6 hrs 2 puffs as needed 6h May, Active Ibuprofen 200 MG Orally Three times a day 1 tablet with food or milk as needed 8h Active Terbinafine HCl 1 % Externally Twice a day 1 application to affecte d area 12h Dec, Active Albuterol Sulfate (2.5 MG/3ML) 0.083% IN GARCIA 1 VIAL VIA NEBULIZER EVERY 6 HOURS NEEDED 12 Active Zanaflex 4 MG Orally 2 times a day 1 tablet as needed 12h 28 Active Nitroglycerin 0.4 MG Sublingual Once a day prn, m ay repeat every 5 minutes until resolution. if taken 3 doses report to er immediately. 1 tablet Active Serevent Diskus 50 MCG/DOSE Inhalation Twice a day 1 puff 12h Dec, 30 days Active Cyanocobalamin 1000 MCG/ML Injection once monthly 1 ml Aug, 30 day(s) Active Baclofen 20 mg Orally 2 times a day 1 tablet with food or milk 12h Dec, Active Chantix 1 MG Orally Twice a day 1 tablet 12h Jun, 14 2017 30 day(s) Active RESULTS No Results PROCEDURES No Known procedures INSTRUCTIONS MEDICATIONS ADMINISTERED No Known Medications MEDICAL (GENERAL) HISTORY Type Description Date Medical History COPD Surgical History mass removed from right breast Hospitalization History No know Hospitalization history
--- OUTSIDE RECORDS SUMMARY | 2019-12-17 16:09 | XMS REPORT ---
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 Active 664759001859 7 Problem Hypertension, benign I10 Active 93626887 Problem Mood disorder F39 Active 352957 05 Problem Injury of right shoulder, initial encounter S49.91 XA Active 388926606 Problem Functional constipation K59.04 Active 084297220 Problem Lumbago with sciatica, right side M54.41 Active 236464959043869 Problem Other chronic pain G89.29 Active 8 2664755 Problem Panlobular emphysema J43.1 Active 8175450 Problem Acute right-sided low back pain with right-sided sciatica M54.41 Active 997755895 Problem Lumbago with sciatica, left side M54.42 Active 189294424 Problem Anxiety F41.9 Active 24284248 ALLERGIES No Information ENCOUNTERS Encounter Location Date Diagnosis [facility] [address] [facility] [id number] [address] [place] [address] Feb, [facility] [address] [facility] [id number] [address] [place] [address] Feb, Acute non-recurrent maxillar y sinusitis J01.00 and Thoracic neuritis M54.14 [facility] [address] [facility] [id number] [address] [place] [address] Feb, [facility] [address] [facility] [id number] [address] [place] [phone] 17 Feb, 2018 Screening for breast cancer Z12.31 and Screening for colon cancer Z12.11 [facility] [address] [facility] [id number] [address] [place] [phone] Feb, [facility] [address] [facility] [id number] [address] [place] [address] Feb, [facility] [address] [facility] [id number] [address] [place] [address] Jan, Breast lump N63.0 [place] [address] [facility] [id number] [address] [place] [address] Jan, Hypothyroidism (acquired) E0 3.9 [place] [address] [place] [id number] [address] [place] [address] Jan, Acute non-recurrent maxillar y sinusitis J01.00 [place] [address] [facility] [id number] [address] [place] [address] Jan, Benign head tremor G25.0 and Tick bite, initial encounter W57.XXXA [place] [address] [facility] [id number] [address] [place] [address] Jan, [place] [address] [facility] [id number] [address] [place] [address] Dec, Thoracic neuritis M54.14 ; B reast lump N63.0 and Tinea corporis B35.4 [facility] [address] [facility] [id number] [address] [place] [address] Dec, Acute non-recurrent maxillar y sinusitis J01.00 [facility] [address] [facility] [id number] [address] [place] [address] Dec, [facility] [address] [facility] [id number] [address] [place] [address] Dec, [place] [address] [id number] [address] [place] [address] Dec, [facility] [address] [id number] [address] [place] [phone] Dec, Panlobular emphysema J43.1 [facility] [address] [facility] [id number] [address] [place] [phone] Nov, [facility] [address] [id number] [address] [place] [address] Nov, Acute non-recurrent maxillar y sinusitis J01.00 [place] [address] [facility] [id number] [address] [place] [address] Nov, [facility] [address] [facility] [id number] [address] [place] [address] Nov, Thoracic neuritis M54.14 ; A cute pain of right shoulder M25.511 ; Mood disorder F39 ; Pain in right ankle and joints of right foot M25.571 and Other chronic pain G89.29 [facility] [address] [facility] [id number] [address] [place] [address] Nov, [facility] [address] [facility] [id number] [address] [place] [address] Nov, Injury of right shoulder, in itial encounter S49.91XA [facility] [address] [facility] [id number] [address] [place] [address] Nov, Panlobular emphysema J43.1 [facility] [address] [facility] [id number] [address] [place] [address] Nov, Acute non-recurrent maxillar y sinusitis J01.00 [facility] [address] [facility] [id number] [address] [place] [address] October, Acute non-recurrent maxillar y sinusitis J01.00 [facility] [address] [facility] [id number] [address] [place] [address] Sep, Contusion of right upper ext remity, initial encounter S40.021A [facility] [address] [id number] [address] [place] [address] Sep, Right forearm pain M79.631 [facility] [address] [id number] [address] [place] [address] Sep, Acute non-recurrent maxillar y sinusitis J01.00 [facility] [address] [id number] [address] [place] [address] Aug, Stable angina pectoris I20.8 [facility] [address] [id number] [address] [place] [address] Aug, Chronic fatigue R53.82 [facility] [address] [facility] [id number] [address] [place] [address] Aug, [facility] [address] [facility] [id number] [address] [place] [address] Aug, Stable angina pectoris I20.8 and Chronic fatigue R53.82 [facility] [address] [facility] [id number] [address] [place] [address] Aug, Acute non-recurrent maxillar y sinusitis J01.00 [facility] [address] [facility] [id number] [address] [place] [address] Jul, Chronic fatigue R53.82 ; Hyp ertension, benign I10 ; Family history of early CAD Z82.49 and Coronary artery disease of [place] artery of [place] heart with stable angina pectoris I25.118 [facility] [address] [facility] [id number] [address] [place] [address] Jul, Family history of early CAD Z82.49 [facility] [address] [facility] [id number] [address] [place] [phone] Jul, Family history of early CAD Z82.49 [facility] [address] [facility] [id number] [address] [place] [address] Jul, Chronic fatigue R53.82 ; Hyp ertension, benign I10 ; Family history of early CAD Z82.49 and Coronary artery disease of [place] artery of [place] heart with stable angina pectoris I25.118 [facility] [address] [id number] [address] [place] [address] 15 Jul, 2017 Chronic fatigue R53.82 [facility] [address] [id number] [address] [place] [phone] 15 Jul, 2017 Chronic fatigue R53.82 ; Hyp ertension, benign I10 ; Family history of early CAD Z82.49 and Coronary artery disease of [place] artery of [place] heart with stable angina pectoris I25.118 [facility] [address] [id number] [address] [place] [id number] Jul, 2017 Dental examination Z01.20 an d Dental caries K02.9 [facility] [address] [id number] [address] [place] [phone] Jul, [facility] [address] [facility] [id number] [address] [place] [address] Jul, [facility] [address] [id number] [address] [place] [phone] Jul, Acute non-recurrent maxillar y sinusitis J01.00 [facility] [address] [id number] [address] [place] [phone] Jul, [facility] [address] [id number] [address] [place] [phone] Jun, [facility] [address] [id number] [address] [place] [phone] Jun, [facility] [address] [facility] [id number] [address] [place] [address] Jun, Acute non-recurrent maxillar y sinusitis J01.00 [facility] [address] [facility] [id number] [address] [place] [address] Jun, Anxiety F41.9 ; Bronchitis J 40 ; Tobacco abuse Z72.0 ; Tobacco abuse counseling Z71.6 and Acute left ankle pain M25.572 [facility] [id number] [place] [address] May, Cough R05 and COPD exacerbat ion J44.1 [facility] [address] [place] [id number] [address] [place] [phone] May, [facility] [address] [place] [id number] [address] [place] [phone] May, [facility] [address] [place] [id number] [address] [place] [address] May, Acute non-recurrent maxillar y sinusitis J01.00 [facility] [id number] [place] [address] Apr, Acute non-recurrent maxillar y sinusitis J01.00 ; Anxiety F41.9 ; Acute right-sided low back pain with right-sided sciatica M54.41 and Thoracic neuritis M54.14 IMMUNIZATIONS No Known Immunizations SOCIAL HISTORY Never Assessed REASON FOR VISIT Lab results PLAN OF CARE VITAL SIGNS MEDICATIONS Medication Instructions Dosage Frequency Start Date End Date Duration S tatus Levothyroxine Sodium 50 mcg Orally Once a day 1 tablet on an empty stomach in the morning 24h Jan, 30 day(s) Active RESULTS No Results PROCEDURES No Known procedures INSTRUCTIONS MEDICATIONS ADMINISTERED No Known Medications MEDICAL (GENERAL) HISTORY Type Description Date Medical History COPD Surgical History mass removed from right breast Hospitalization History No Hospitalization history informati on
--- OUTSIDE RECORDS SUMMARY | 2019-12-17 16:09 | XMS REPORT ---
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 Active 448500421836 7 Problem Hypertension, benign I10 Active 62876991 Problem Mood disorder F39 Active 247186 05 Problem Injury of right shoulder, initial encounter S49.91 XA Active 098959633 Problem Functional constipation K59.04 Active 273204806 Problem Lumbago with sciatica, right side M54.41 Active 845865634353068 Problem Other chronic pain G89.29 Active 8 3958551 Problem Panlobular emphysema J43.1 Active 1532735 Problem Acute right-sided low back pain with right-sided sciatica M54.41 Active 782193642 Problem Lumbago with sciatica, left side M54.42 Active 443960436 Problem Anxiety F41.9 Active 56028904 ALLERGIES No Information ENCOUNTERS Encounter Location Date Diagnosis [facility] [address] [facility] [id number] [address] [place] [address] Feb, [facility] [address] [facility] [id number] [address] [place] [address] Feb, [facility] [address] [facility] [id number] [address] [place] [address] Jan, Breast lump N63.0 [place] [address] [facility] [id number] [address] [place] [address] Jan, Hypothyroidism (acquired) E0 3.9 [facility] [address] [facility] [id number] [address] [place] [address] Jan, Acute non-recurrent maxillar y sinusitis J01.00 [facility] [address] [facility] [id number] [address] [place] [address] Jan, Benign head tremor G25.0 and Tick bite, initial encounter W57.XXXA [facility] [address] [facility] [id number] [address] [place] [address] Jan, [place] [address] [facility] [id number] [address] [place] [address] Dec, Thoracic neuritis M54.14 ; B reast lump N63.0 and Tinea corporis B35.4 [place] [address] [facility] [id number] [address] [place] [address] Dec, Acute non-recurrent maxillar y sinusitis J01.00 [facility] [address] [facility] [id number] [address] [place] [address] Dec, [facility] [address] [facility] [id number] [address] [place] [address] Dec, [facility] [address] [facility] [id number] [address] [place] [address] Dec, [facility] [address] [place] [id number] [address] [place] [address] Dec, Panlobular emphysema J43.1 [facility] [address] [facility] [id number] [address] [place] [address] Nov, [facility] [address] [facility] [id number] [address] [place] [address] Nov, Acute non-recurrent maxillar y sinusitis J01.00 [facility] [address] [facility] [id number] [address] [place] [address] Nov, [place] [address] [id number] [address] [place] [address] Nov, Thoracic neuritis M54.14 ; A cute pain of right shoulder M25.511 ; Mood disorder F39 ; Pain in right ankle and joints of right foot M25.571 and Other chronic pain G89.29 [place] [address] [facility] [id number] [address] [place] [address] Nov, [facility] [address] [id number] [address] [place] [address] Nov, Injury of right shoulder, in itial encounter S49.91XA [place] [address] [facility] [id number] [address] [place] [address] Nov, Panlobular emphysema J43.1 [place] [address] [place] [id number] [address] [place] [address] Nov, Acute non-recurrent maxillar y sinusitis J01.00 [place] [address] [facility] [id number] [address] [place] [address] October, Acute non-recurrent maxillar y sinusitis J01.00 [place] [address] [facility] [id number] [address] [place] [address] Sep, Contusion of right upper ext remity, initial encounter S40.021A [facility] [address] [id number] [address] [place] [address] Sep, Right forearm pain M79.631 [place] [address] [id number] [address] [place] [address] Sep, Acute non-recurrent maxillar y sinusitis J01.00 [place] [address] [facility] [id number] [address] [place] [address] Aug, Stable angina pectoris I20.8 [place] [address] [facility] [id number] [address] [place] [address] 14 Aug, 2017 Chronic fatigue R53.82 [facility] [address] [facility] [id number] [address] [place] [address] 14 Aug, 2017 [place] [address] [place] [id number] [address] [place] [address] 14 Aug, 2017 Stable angina pectoris I20.8 and Chronic fatigue R53.82 [place] [address] [place] [id number] [address] [place], [place] [address] 09 Aug, 2017 Acute non-recurrent maxillar y sinusitis J01.00 [place] [address] [facility] [id number] [address] [place] [address] 26 Jul, 2017 Chronic fatigue R53.82 ; Hyp ertension, benign I10 ; Family history of early CAD Z82.49 and Coronary artery disease of [place] artery of [place] heart with stable angina pectoris I25.118 [place] [address] [place] [id number] [address] [place], [place] [address] 26 Jul, 2017 Family history of early CAD Z82.49 [place] [address] [place] [id number] [address] [place] [address] 16 Jul, 2017 Family history of early CAD Z82.49 [place] [address] [place] [id number] [address] [place] [address] 16 Jul, 2017 Chronic fatigue R53.82 ; Hyp ertension, benign I10 ; Family history of early CAD Z82.49 and Coronary artery disease of [place] artery of [place] heart with stable angina pectoris I25.118 [place] [address] [facility] [id number] [address] [place] [address] 15 Jul, 2017 Chronic fatigue R53.82 [place] [address] [place] [id number] [address] [place] [address] 15 Jul, 2017 Chronic fatigue R53.82 ; Hyp ertension, benign I10 ; Family history of early CAD Z82.49 and Coronary artery disease of [place] artery of [place] heart with stable angina pectoris I25.118 [facility] [address] [facility] [id number] [address] [place] [id number] Jul, Dental examination Z01.20 an d Dental caries K02.9 [facility] [address] [place] [address] Jul, [facility] [address] [place] [id number] [address] [place] [address] Jul, [facility] [address] [address] Jul, Acute non-recurrent maxillar y sinusitis J01.00 [facility] [address] [place] [id number] [address] [place] [address] Jul, [facility] [address] [place] [id number] [address] [place] [address] Jun, [facility] [address] [address] Jun, [facility] [address] [place] [id number] [address] [place] [address] Jun, Acute non-recurrent maxillar y sinusitis J01.00 [facility] [address] [place] [address] Jun, Anxiety F41.9 ; Bronchitis J 40 ; Tobacco abuse Z72.0 ; Tobacco abuse counseling Z71.6 and Acute left ankle pain M25.572 [facility] [address] [place] [address] May, Cough R05 and COPD exacerbat ion J44.1 [facility] [address] [place] [address] May, [facility] [address] [place] [id number] [address] [place] [address] May, [facility] [address] [place] [address] May, Acute non-recurrent maxillar y sinusitis J01.00 [facility] [address] [facility] [id number] [address] [place] [address] 17 Apr, 2017 Acute non-recurrent maxillar y [...]
--- OUTSIDE RECORDS SUMMARY | 2019-12-17 16:09 | XMS REPORT ---
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 Active 939096560029 7 Problem Hypertension, benign I10 Active 98353637 Problem Mood disorder F39 Active 206673 05 Problem Injury of right shoulder, initial encounter S49.91 XA Active 797271716 Problem Functional constipation K59.04 Active 298017834 Problem Lumbago with sciatica, right side M54.41 Active 739661076509387 Problem Other chronic pain G89.29 Active 8 8855147 Problem Panlobular emphysema J43.1 Active 1825092 Problem Acute right-sided low back pain with right-sided sciatica M54.41 Active 045644113 Problem Lumbago with sciatica, left side M54.42 Active 755220497 Problem Anxiety F41.9 Active 93776461 ALLERGIES No Information ENCOUNTERS Encounter Location Date Diagnosis [facility] [address] [facility] [id number] [address] [place] [address] Feb, [facility] [address] [facility] [id number] [address] [place] [address] Feb, [facility] [address] [facility] [id number] [address] [place] [address] Jan, Breast lump N63.0 [place] [id number] [facility] [id number] [address] [place] [address] Jan, Hypothyroidism (acquired) E0 3.9 [facility] [address] [facility] [id number] [address] [place] [address] Jan, Acute non-recurrent maxillar y sinusitis J01.00 [facility] [address] [facility] [id number] [address] [place] [address] Jan, Benign head tremor G25.0 and Tick bite, initial encounter W57.XXXA [facility] [address] [facility] [id number] [address] [place] [address] Jan, [place] [address] [facility] [id number] [address] [place] [address] Dec, Thoracic neuritis M54.14 ; B reast lump N63.0 and Tinea corporis B35.4 [place] [address] [facility] [id number] [address] [place] [address] Dec, Acute non-recurrent maxillar y sinusitis J01.00 [facility] [address] [facility] [id number] [address] [place] [address] Dec, [facility] [address] [facility] [id number] [address] [place] [address] Dec, [facility] [address] [facility] [id number] [address] [place] [address] Dec, [facility] [address] [place] [id number] [address] [place] [address] Dec, Panlobular emphysema J43.1 [facility] [address] [facility] [id number] [address] [place] [address] Nov, [facility] [address] [facility] [id number] [address] [place] [address] Nov, Acute non-recurrent maxillar y sinusitis J01.00 [facility] [address] [facility] [id number] [address] [place] [address] Nov, [place] [address] [id number] [address] [place] [address] Nov, Thoracic neuritis M54.14 ; A cute pain of right shoulder M25.511 ; Mood disorder F39 ; Pain in right ankle and joints of right foot M25.571 and Other chronic pain G89.29 [place] [address] [facility] [id number] [address] [place] [address] Nov, [facility] [address] [id number] [address] [place] [address] Nov, Injury of right shoulder, in itial encounter S49.91XA [place] [address] [facility] [id number] [address] [place] [address] Nov, Panlobular emphysema J43.1 [place] [address] [place] [id number] [address] [place] [address] Nov, Acute non-recurrent maxillar y sinusitis J01.00 [place] [address] [facility] [id number] [address] [place] [address] October, Acute non-recurrent maxillar y sinusitis J01.00 [place] [address] [facility] [id number] [address] [place] [address] Sep, Contusion of right upper ext remity, initial encounter S40.021A [facility] [address] [id number] [address] [place] [address] Sep, Right forearm pain M79.631 [place] [address] [id number] [address] [place] [address] Sep, Acute non-recurrent maxillar y sinusitis J01.00 [place] [address] [facility] [id number] [address] [place] [address] Aug, Stable angina pectoris I20.8 [place] [address] [facility] [id number] [address] [place] [address] 14 Aug, 2017 Chronic fatigue R53.82 [facility] [address] [facility] [id number] [address] [place] [address] 14 Aug, 2017 [place] [address] [place] [id number] [address] [place] [address] 14 Aug, 2017 Stable angina pectoris I20.8 and Chronic fatigue R53.82 [place] [address] [place] [id number] [address] [place] [address] 09 Aug, 2017 Acute non-recurrent maxillar y sinusitis J01.00 [place] [address] [facility] [id number] [address] [place] [address] 26 Jul, 2017 Chronic fatigue R53.82 ; Hyp ertension, benign I10 ; Family history of early CAD Z82.49 and Coronary artery disease of [place] artery of [place] heart with stable angina pectoris I25.118 [place] [address] [place] [id number] [address] [place] [address] 26 Jul, 2017 Family history of early CAD Z82.49 [place] [address] [place] [id number] [address] [place] [address] 16 Jul, 2017 Family history of early CAD Z82.49 [place] [address] [place] [id number] [address] [place] [address] 16 Jul, 2017 Chronic fatigue R53.82 ; Hyp ertension, benign I10 ; Family history of early CAD Z82.49 and Coronary artery disease of [place] artery of [place] heart with stable angina pectoris I25.118 [place] [address] [facility] [id number] [address] [place] [address] 15 Jul, 2017 Chronic fatigue R53.82 [place] [address] [place] [id number] [address] [place] [address] 15 Jul, 2017 Chronic fatigue R53.82 ; Hyp ertension, benign I10 ; Family history of early CAD Z82.49 and Coronary artery disease of [place] artery of [place] heart with stable angina pectoris I25.118 [facility] [address] [facility] [id number] [address] [place] [id number] Jul, Dental examination Z01.20 an d Dental caries K02.9 [facility] [address] [place] [address] Jul, [facility] [address] [place] [id number] [address] [place] [address] Jul, [facility] [address] [address] Jul, Acute non-recurrent maxillar y sinusitis J01.00 [facility] [address] [place] [id number] [address] [place] [address] Jul, [facility] [address] [place] [id number] [address] [place] [address] Jun, [facility] [address] [address] Jun, [facility] [address] [place] [id number] [address] [place] [address] Jun, Acute non-recurrent maxillar y sinusitis J01.00 [facility] [address] [place] [address] Jun, Anxiety F41.9 ; Bronchitis J 40 ; Tobacco abuse Z72.0 ; Tobacco abuse counseling Z71.6 and Acute left ankle pain M25.572 [facility] [address] [place] [address] May, Cough R05 and COPD exacerbat ion J44.1 [facility] [address] [place] [address] May, [facility] [address] [place] [id number] [address] [place] [address] May, [facility] [address] [place] [address] May, Acute non-recurrent maxillar y sinusitis J01.00 [facility] [address] [facility] [id number] [address] [place] [address] 17 Apr, 2017 Acute non-recurrent maxillar y sinusitis J01.00 ; Anxiety F41.9 ; Acute right-sided low back pain with right-sided sciatica M54.41 and Thoracic neuritis M54.14 IMMUNIZATIONS No Known Immunizations SOCIAL HISTORY Never Assessed REASON FOR VISIT Prior Authorization Request// PLAN OF CARE VITAL SIGNS MEDICATIONS Unknown Medications RESULTS No Results PROCEDURES No Known procedures INSTRUCTIONS MEDICATIONS ADMINISTERED No Known Medications MEDICAL (GENERAL) HISTORY Type Description Date Medical History COPD Surgical History mass removed from right breast
--- OUTSIDE RECORDS SUMMARY | 2019-12-17 16:09 | XMS REPORT ---
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 Active 840552069212 7 Problem Hypertension, benign I10 Active 36866683 Problem Mood disorder F39 Active 635919 05 Problem Injury of right shoulder, initial encounter S49.91 XA Active 472433261 Problem Functional constipation K59.04 Active 624480878 Problem Lumbago with sciatica, right side M54.41 Active 134782357571708 Problem Other chronic pain G89.29 Active 8 3140031 Problem Panlobular emphysema J43.1 Active 3753929 Problem Acute right-sided low back pain with right-sided sciatica M54.41 Active 174439104 Problem Lumbago with sciatica, left side M54.42 Active 124331214 Problem Anxiety F41.9 Active [id number] ALLERGIES No Information ENCOUNTERS Encounter Location Date Diagnosis [facility] [address] [facility] [id number] [address] [place] [address] Feb, [facility] [address] [facility] [id number] [address] [place] [address] Feb, [facility] [address] [facility] [id number] [address] [place] [address] Jan, Breast lump N63.0 [place] [address] [facility] [id number] [address] [place] [address] Jan, Hypothyroidism (acquired) E0 3.9 [facility] [address] [facility] [id number] [address] [place] [address] Jan, Acute non-recurrent maxillar y sinusitis J01.00 [facility] [address] [facility] [id number] [address] [place] [address] Jan, Benign head tremor G25.0 and Tick bite, initial encounter W57.XXXA [facility] [address] [facility] [id number] [address] [place] [address] Jan, [place] [address] [facility] [id number] [address] [place] [address] Dec, Thoracic neuritis M54.14 ; B reast lump N63.0 and Tinea corporis B35.4 [place] [address] [facility] [id number] [address] [place] [address] Dec, Acute non-recurrent maxillar y sinusitis J01.00 [facility] [address] [facility] [id number] [address] [place] [address] Dec, [facility] [address] [facility] [id number] [address] [place] [address] Dec, [facility] [address] [facility] [id number] [address] [place] [address] Dec, [facility] [address] [place] [id number] [address] [place] [address] Dec, Panlobular emphysema J43.1 [facility] [address] [facility] [id number] [address] [place] [address] Nov, [facility] [address] [facility] [id number] [address] [place] [address] Nov, Acute non-recurrent maxillar y sinusitis J01.00 [facility] [address] [facility] [id number] [address] [place] [address] Nov, [place] [address] [id number] [address] [place] [address] Nov, Thoracic neuritis M54.14 ; A cute pain of right shoulder M25.511 ; Mood disorder F39 ; Pain in right ankle and joints of right foot M25.571 and Other chronic pain G89.29 [place] [address] [facility] [id number] [address] [place] [address] Nov, [facility] [address] [id number] [address] [place] [address] Nov, Injury of right shoulder, in itial encounter S49.91XA [place] [address] [facility] [id number] [address] [place] [address] Nov, Panlobular emphysema J43.1 [place] [address] [place] [id number] [address] [place] [address] Nov, Acute non-recurrent maxillar y sinusitis J01.00 [place] [address] [facility] [id number] [address] [place] [address] October, Acute non-recurrent maxillar y sinusitis J01.00 [place] [address] [facility] [id number] [address] [place] [address] Sep, Contusion of right upper ext remity, initial encounter S40.021A [facility] [address] [id number] [address] [place] [address] Sep, Right forearm pain M79.631 [place] [address] [id number] [address] [place] [address] Sep, Acute non-recurrent maxillar y sinusitis J01.00 [place] [address] [facility] [id number] [address] [place] [address] Aug, Stable angina pectoris I20.8 [place] [address] [facility] [id number] [address] [place] [address] 14 Aug, 2017 Chronic fatigue R53.82 [facility] [address] [facility] [id number] [address] [place] [address] 14 Aug, 2017 [place] [address] [facility] [id number] [address] [place] [address] 14 Aug, 2017 Stable angina pectoris I20.8 and Chronic fatigue R53.82 [place] [address] [facility] [id number] [address] [place] [address] 09 Aug, 2017 Acute non-recurrent maxillar y sinusitis J01.00 [place] [address] [facility] [id number] [address] [place] [address] 26 Jul, 2017 Family history of early CAD Z82.49 [place] [address] [place] [id number] [address] [place] [address] 26 Jul, 2017 Chronic fatigue R53.82 ; Hyp ertension, benign I10 ; Family history of early CAD Z82.49 and Coronary artery disease of [place] artery of [place] heart with stable angina pectoris I25.118 [place] [address] [facility] [id number] [address] [place] [address] 16 Jul, 2017 Family history of early CAD Z82.49 [place] [address] [place] [id number] [address] [place] [address] 16 Jul, 2017 Chronic fatigue R53.82 ; Hyp ertension, benign I10 ; Family history of early CAD Z82.49 and Coronary artery disease of [place] artery of [place] heart with stable angina pectoris I25.118 [place] [address] [facility] [id number] [address] [place] [address] 15 Jul, 2017 Chronic fatigue R53.82 [place] [address] [facility] [id number] [address] [place] [address] 15 Jul, 2017 Chronic fatigue R53.82 ; Hyp ertension, benign I10 ; Family history of early CAD Z82.49 and Coronary artery disease of [place] artery of [place] heart with stable angina pectoris I25.118 [facility] [address] [facility] [id number] [address] [place] [id number] Jul, Dental examination Z01.20 an d Dental caries K02.9 [facility] [address] [place] [address] Jul, [facility] [address] [place] [id number] [address] [place] [address] Jul, [facility] [address] [address] Jul, Acute non-recurrent maxillar y sinusitis J01.00 [facility] [address] [place] [id number] [address] [place] [address] Jul, [facility] [address] [place] [id number] [address] [place] [address] Jun, [facility] [address] [address] Jun, [facility] [address] [place] [id number] [address] [place] [address] Jun, Acute non-recurrent maxillar y sinusitis J01.00 [facility] [address] [place] [address] Jun, Anxiety F41.9 ; Bronchitis J 40 ; Tobacco abuse Z72.0 ; Tobacco abuse counseling Z71.6 and Acute left ankle pain M25.572 [facility] [address] [place] [address] May, Cough R05 and COPD exacerbat ion J44.1 [facility] [address] [place] [address] May, [facility] [address] [place] [id number] [address] [place] [address] May, [facility] [address] [place] [address] May, Acute non-recurrent maxillar y sinusitis J01.[address] [facility] [address] [facility] [id number] [address] [place] [address] Apr, Acute non-recurrent maxillar y sinusitis J01.00 ; Anxiety F41.9 ; Acute right-sided low back pain with right-sided sciatica M54.41 and Thoracic neuritis M54.14 IMMUNIZATIONS No Known Immunizations SOCIAL HISTORY Never Assessed REASON FOR VISIT Controlled Med Refill 01/16/18 PLAN OF CARE VITAL SIGNS MEDICATIONS Medication Instructions Dosage Frequency Start Date End Date Duration S tatus Hydrocodone-Acetaminophen 10-325 MG Orally every 6 hrs 1 tablet as needed 6h Dec, 28 days Active Xanax 0.5 MG Orally Twice a day 1 tablet 12h 28 days Active RESULTS No Results PROCEDURES No Known procedures INSTRUCTIONS MEDICATIONS ADMINISTERED No Known Medications MEDICAL (GENERAL) HISTORY Type Description Date Medical History COPD Surgical History mass removed from right breast Hospitalization History No know Hospitalization history
[2019-12-17 16:10] LABS: CALCIUM 10.2 MG/DL (8.5-10.1)
--- OUTSIDE RECORDS SUMMARY | 2019-12-17 16:10 | XMS REPORT ---
Author Author Pepper MCKEON Organization [facility] [facility] Address [address] [place] [address] Care Team Providers Care Coding Technician Name Role Phone DEVEN MCKEON Unavailable PROBLEMS Type Condition ICD9-CM Code SWO11-QT Code Onset Dates Condition S tatus SNOMED Code Problem Acute right-sided low back pain with right-sided sciatica M54.41 Active 492983554 Problem COPD exacerbation J44.1 Active 29 6955377392722 Problem Anxiety F41.9 Active 31412939 Problem Mood disorder F39 Active 489285 05 Problem Injury of right shoulder, initial encounter S49.91 XA Active 767823874 Problem Chronic fatigue R53.82 Active 8422 9001 Problem Stable angina pectoris I20.8 Active 240614754 Problem 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 Active 960361966430 7 Problem Hypertension, benign I10 Active 04398826 Problem Panlobular emphysema J43.1 Active 1414084 Problem Lumbago with sciatica, left side M54.42 Active 460533403 Problem Lumbago with sciatica, right side M54.41 Active 868829033578378 Problem Functional constipation K59.04 Active 004654331 Problem Other chronic pain G89.29 Active 8 [id number] ALLERGIES No Information ENCOUNTERS Encounter Location Date Diagnosis [facility] [facility] [address] [facility] [id number] [address] [place] [address] Jan, [facility] [facility] [address] [facility] [id number] [address] [place] [address] Jan, [facility] [facility] [address] [place] [id number] [address] [place] [address] Dec, Thoracic neuritis M54.14 ; B reast lump N63.0 and Tinea corporis B35.4 [facility] [facility] [address] [id number] [address] [place] [address] Dec, Acute non-recurrent maxillar y sinusitis J01.00 [facility] [facility] [address] [id number] [address] [place] [address] Dec, [facility] [facility] [address] [id number] [address] [place] [address] Dec, [facility] [facility] [address] [id number] [address] [place] [address] Dec, [facility] [facility] [address] [id number] [address] [place] [address] Dec, Panlobular emphysema J43.1 [facility] [facility] [address] [id number] [address] [place] [address] Nov, [facility] [facility] [address] [id number] [address] [place] [address] Nov, Acute non-recurrent maxillar y sinusitis J01.00 [facility] [facility] [address] [id number] [address] [place] [address] Nov, [facility] [facility] [address] [id number] [address] [place] [address] Nov, Thoracic neuritis M54.14 ; A cute pain of right shoulder M25.511 ; Mood disorder F39 ; Pain in right ankle and joints of right foot M25.571 and Other chronic pain G89.29 [facility] [facility] [address] [id number] [address] [place] [address] Nov, [facility] [address] [id number] [address] [place] [address] Nov, Injury of right shoulder, in itial encounter S49.91XA [facility] [facility] [address] [facility] [id number] [address] [place] [address] Nov, Panlobular emphysema J43.1 [facility] [facility] [address] [id number] [address] [place] [address] Nov, Acute non-recurrent maxillar y sinusitis J01.00 [facility] [facility] [address] [id number] [address] [place] [address] October, Acute non-recurrent maxillar y sinusitis J01.00 [facility] [address] [id number] [address] [place] [address] Sep, Contusion of right upper ext remity, initial encounter S40.021A [facility] [address] [id number] [address] [place] [address] Sep, Right forearm pain M79.631 [facility] [address] [facility] [id number] [address] [place] [address] Sep, Acute non-recurrent maxillar y sinusitis J01.00 [facility] [address] [id number] [address] [place] [address] Aug, Stable angina pectoris I20.8 [facility] [address] [id number] [address] [place] [address] Aug, Chronic fatigue R53.82 [facility] [address] [id number] [address] [place] [address] Aug, [facility] [address] [facility] [id number] [address] [place] [address] Aug, Stable angina pectoris I20.8 and Chronic fatigue R53.82 [facility] [address] [facility] [id number] [address] [place] [address] Aug, Acute non-recurrent maxillar y sinusitis J01.00 [facility] [facility] [address] [facility] [id number] [address] [place] [address] Jul, Family history of early CAD Z82.49 [facility] [facility] [address] [facility] [id number] [address] [place] [address] Jul, Chronic fatigue R53.82 ; Hyp ertension, benign I10 ; Family history of early CAD Z82.49 and Coronary artery disease of [place] artery of [place] heart with stable angina pectoris I25.118 [facility] [address] [id number] [address] [place] [address] 16 Jul, 2017 Family history of early CAD Z82.49 [facility] [address] [id number] [address] [place] [address] 16 Jul, 2017 Chronic fatigue R53.82 ; Hyp ertension, benign I10 ; Family history of early CAD Z82.49 and Coronary artery disease of [place] artery of [place] heart with stable angina pectoris I25.118 [facility] [address] [facility] [id number] [address] [place] [address] 15 Jul, 2017 Chronic fatigue R53.82 [facility] [address] [facility] [id number] [address] [place] [address] 15 Jul, 2017 Chronic fatigue R53.82 ; Hyp ertension, benign I10 ; Family history of early CAD Z82.49 and Coronary artery disease of [place] artery of [place] heart with stable angina pectoris I25.118 [facility] [address] [id number] [address] [place] [id number] Jul, Dental examination Z01.20 an d Dental caries K02.9 [facility] [address] [facility] [id number] [address] [place] [address] Jul, [facility] [address] [facility] [id number] [address] [place] [address] Jul, [facility] [address] [facility] [id number] [address] [place] [address] Jul, Acute non-recurrent maxillar y sinusitis J01.00 [facility] [address] [facility] [id number] [address] [place] [address] Jul, [facility] [address] [facility] [id number] [address] [place] [address] Jun, [facility] [address] [facility] [id number] [address] [place] [address] Jun, [facility] [address] [place] [id number] [address] [place] [address] Jun, Acute non-recurrent maxillar y sinusitis J01.00 [facility] [address] [place] [id number] [address] [place] [address] Jun, Anxiety F41.9 ; Bronchitis J 40 ; Tobacco abuse Z72.0 ; Tobacco abuse counseling Z71.6 and Acute left ankle pain M25.572 [facility] [address] [facility] [id number] [address] [place] [address] May, Cough R05 and COPD exacerbat ion J44.1 [place] [address] [place] [id number] [address] [place] [address] May, [place] [address] [address] May, [place] [address] [place] [id number] [address] [place] [address] May, Acute non-recurrent maxillar y sinusitis J01.00 [place] [address] [place] [id number] [address] [place] [address] Apr, Acute non-recurrent maxillar y sinusitis J01.00 ; Anxiety F41.9 ; Acute right-sided low back pain with right-sided sciatica M54.41 and Thoracic neuritis M54.14 IMMUNIZATIONS No Known Immunizations SOCIAL HISTORY Never Assessed REASON FOR VISIT Controlled Med Refill 11/24/17 PLAN OF CARE VITAL SIGNS MEDICATIONS Medication Instructions Dosage Frequency Start Date End Date Duration S tatus Hydrocodone-Acetaminophen 10-325 MG Orally every 6 hrs 1 tablet as needed 6h Nov, 28 days Active Xanax 0.5 MG Orally Twice a day 1 tablet 12h 28 days Active RESULTS No Results PROCEDURES No Known procedures INSTRUCTIONS MEDICATIONS ADMINISTERED No Known Medications MEDICAL (GENERAL) HISTORY Type Description Date Medical History COPD Surgical History mass removed from right breast
--- OUTSIDE RECORDS SUMMARY | 2019-12-17 16:10 | XMS REPORT ---
Author Author Pepper MCKEON Organization [facility] Address [address] [place] [address] Care Team Providers Care Chief Engineer Waterworks Name Role Phone DEVEN MCKEON Unavailable PROBLEMS Type Condition ICD9-CM Code VPI77-AD Code Onset Dates Condition S tatus SNOMED Code Problem COPD exacerbation J44.1 Active 29 [id number] Problem Chronic fatigue R53.82 Active 8422 9001 Problem Stable angina pectoris I20.8 Active 947414669 Problem Hypothyroidism (acquired) E03.9 Acti ve 36481192 Problem Benign head tremor G25.0 Active 6 88647437 Problem Coronary artery disease of n ative artery of chilkat heart with stable angina pectoris I25.118 Active 691014640805 7 Problem Hypertension, benign I10 Active 68408837 Problem Mood disorder F39 Active 729768 05 Problem Injury of right shoulder, initial encounter S49.91 XA Active 882454169 Problem Functional constipation K59.04 Active 208336531 Problem Lumbago with sciatica, right side M54.41 Active 293036049398763 Problem Other chronic pain G89.29 Active 8 4852346 Problem Panlobular emphysema J43.1 Active 8894788 Problem Acute right-sided low back pain with right-sided sciatica M54.41 Active 674073342 Problem Lumbago with sciatica, left side M54.42 Active 434171997 Problem Anxiety F41.9 Active 13216468 ALLERGIES Substance Reaction Event Type Date Status PredniSONE Unknown Drug Allergy Dec, Active Lyrica Unknown Drug Allergy Dec, Active ENCOUNTERS Encounter Location Date Diagnosis [facility] [address] [facility] [id number] [address] [place] [phone] Feb, [facility] [address] [facility] [id number] [address] [place] [phone] Feb, [facility] [address] [facility] [id number] [address] [place] [address] Jan, Breast lump N63.0 [facility] [address] [facility] [id number] [address] [place] [address] Jan, Hypothyroidism (acquired) E0 3.9 [facility] [address] [facility] [id number] [address] [place] [address] Jan, Acute non-recurrent maxillar y sinusitis J01.00 [facility] [address] [facility] [id number] [address] [place] [address] Jan, Benign head tremor G25.0 and Tick bite, initial encounter W57.XXXA [place] [address] [place] [id number] [place] [address] Jan, [place] [address] [place] [id number] [place] [address] Dec, Thoracic neuritis M54.14 ; B reast lump N63.0 and Tinea corporis B35.4 [place] [address] [facility] [id number] [address] [place] [address] Dec, Acute non-recurrent maxillar y sinusitis J01.00 [place] [address] [facility] [id number] [address] [place] [phone] Dec, [facility] [address] [facility] [id number] [address] [place] [phone] Dec, [facility] [address] [facility] [id number] [address] [place] [phone] Dec, [facility] [address] [facility] [id number] [address] [place] [address] Dec, Panlobular emphysema J43.1 [facility] [address] [facility] [id number] [address] [place] [phone] Nov, [facility] [address] [facility] [id number] [address] [place] [address] Nov, Acute non-recurrent maxillar y sinusitis J01.00 [place] [address] [facility] [id number] [address] [place] [address] Nov, [place] [address] [facility] [id number] [address] [place] [address] Nov, Thoracic neuritis M54.14 ; A cute pain of right shoulder M25.511 ; Mood disorder F39 ; Pain in right ankle and joints of right foot M25.571 and Other chronic pain G89.29 [place] [address] [facility] [id number] [address] [place] [address] Nov, [facility] [address] [facility] [id number] [address] [place] [address] Nov, Injury of right shoulder, in itial encounter S49.91XA [place] [address] [place] [id number] [address] [place] [phone] Nov, Panlobular emphysema J43.1 [place] [address] [place] [id number] [address] [place] [address] Nov, Acute non-recurrent maxillar y sinusitis J01.00 [place] [address] [facility] [id number] [address] [place] [address] October, Acute non-recurrent maxillar y sinusitis J01.00 [place] [address] [facility] [id number] [address] [place] [address] Sep, Contusion of right upper ext remity, initial encounter S40.021A [facility] [address] [facility] [id number] [address] [place] [address] Sep, Right forearm pain M79.631 [place] [address] [facility] [id number] [address] [place] [address] Sep, Acute non-recurrent maxillar y sinusitis J01.00 [place] [address] [facility] [id number] [address] [place] [phone] Aug, Stable angina pectoris I20.8 [place] [address] [facility] [id number] [address] [place] [phone] 14 Aug, 2017 Chronic fatigue R53.82 [place] [address] [facility] [id number] [address] [place] [phone] 14 Aug, 2017 [place] [address] [place] [id number] [place] [address] 14 Aug, 2017 Stable angina pectoris I20.8 and Chronic fatigue R53.82 [place] [address] [facility] [id number] [address] [place] [address] 09 Aug, 2017 Acute non-recurrent maxillar y sinusitis J01.00 [place] [address] [facility] [id number] [address] [place] [address] 26 Jul, 2017 Chronic fatigue R53.82 ; Hyp ertension, benign I10 ; Family history of early CAD Z82.49 and Coronary artery disease of chilkat artery of chilkat heart with stable angina pectoris I25.118 [place] [address] [place] [id number] [address] [place] [phone] 26 Jul, 2017 Family history of early CAD Z82.49 [place] [address] [facility] [id number] [address] [place] [phone] 16 Jul, 2017 Family history of early CAD Z82.49 [place] [address] [facility] [id number] [address] [place] [phone] 16 Jul, 2017 Chronic fatigue R53.82 ; Hyp ertension, benign I10 ; Family history of early CAD Z82.49 and Coronary artery disease of chilkat artery of chilkat heart with stable angina pectoris I25.118 [place] [address] [facility] [id number] [address] [place] [phone] 15 Jul, 2017 Chronic fatigue R53.82 [place] [address] [facility] [id number] [address] [place] [phone] 15 Jul, 2017 Chronic fatigue R53.82 ; Hyp ertension, benign I10 ; Family history of early CAD Z82.49 and Coronary artery disease of chilkat artery of chilkat heart with stable angina pectoris I25.118 [facility] [address] [id number] [address] [place] [phone] Jul, Dental examination Z01.20 an d Dental caries K02.9 [facility] [address] [facility] [id number] [address] [place] [phone] Jul, [facility] [address] [phone] Jul, [facility] [address] [address] Jul, Acute non-recurrent maxillar y sinusitis J01.00 [facility] [address] [place] [id number] [address] [place] [phone] Jul, [facility] [address] [address] Jun, [facility] [address] [place] [id number] [address] [place] [address] Jun, [facility] [address] [address] Jun, Acute non-recurrent maxillar y sinusitis J01.00 [facility] [address] [place] [id number] [address] [place] [address] Jun, Anxiety F41.9 ; Bronchitis J 40 ; Tobacco abuse Z72.0 ; Tobacco abuse counseling Z71.6 and Acute left ankle pain M25.572 [facility] [address] [facility] [id number] [address] [place] [address] May, Cough R05 and COPD exacerbat ion J44.1 [facility] [address] [place] [id number] [address] [place] [phone] May, [facility] [address] [place] [id number] [address] [place] [phone] May, [facility] [address] [place] [id number] [address] [place] [phone] May, Acute non-recurrent maxillar y sinusitis J01.00 [facility] [address] [facility] [id number] [address] [place] [phone] Apr, Acute non-recurrent maxillar y sinusitis J01.00 ; Anxiety F41.9 ; Acute right-sided low back pain with right-sided sciatica M54.41 and Thoracic neuritis M54.14 IMMUNIZATIONS No Known Immunizations SOCIAL HISTORY Never Assessed REASON FOR VISIT breathing problems/ PLAN OF CARE VITAL SIGNS MEDICATIONS Medication Instructions Dosage Frequency Start Date End Date Duration S tatus Serevent Diskus 50 MCG/DOSE Inhalation Twice a day 1 puff 12h Dec, 30 days Active RESULTS No Results PROCEDURES No Known procedures INSTRUCTIONS MEDICATIONS ADMINISTERED No Known Medications MEDICAL (GENERAL) HISTORY Type Description Date Medical History COPD Surgical History mass removed from right breast
--- OUTSIDE RECORDS SUMMARY | 2019-12-17 16:10 | XMS REPORT ---
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 Active 890009210418 7 Problem Hypertension, benign I10 Active 15492107 Problem Mood disorder F39 Active 311109 05 Problem Injury of right shoulder, initial encounter S49.91 XA Active 233924460 Problem Functional constipation K59.04 Active 696215641 Problem Lumbago with sciatica, right side M54.41 Active 768746613225933 Problem Other chronic pain G89.29 Active 8 7512387 Problem Panlobular emphysema J43.1 Active 2987519 Problem Acute right-sided low back pain with right-sided sciatica M54.41 Active 027702778 Problem Lumbago with sciatica, left side M54.42 Active 087410601 Problem Anxiety F41.9 Active 83477390 ALLERGIES Substance Reaction Event Type Date Status PredniSONE Unknown Drug Allergy Nov, Active Lyrica Unknown Drug Allergy Nov, Active ENCOUNTERS Encounter Location Date Diagnosis [facility] [address] [facility] [id number] [address] [place] [phone] Feb, [facility] [address] [facility] [id number] [address] [place] [phone] Feb, [facility] [address] [facility] [id number] [address] [place] [phone] Jan, Breast lump N63.0 [facility] [address] [facility] [id number] [address] [place] [address] Jan, Hypothyroidism (acquired) E0 3.9 [facility] [address] [facility] [id number] [address] [place] [address] Jan, Acute non-recurrent maxillar y sinusitis J01.00 [facility] [address] [facility] [id number] [address] [place] [address] Jan, Benign head tremor G25.0 and Tick bite, initial encounter W57.XXXA [place] [address] [place] [id number] [place] [phone] Jan, [place] [address] [place] [id number] [place] [phone] Dec, Thoracic neuritis M54.14 ; B reast lump N63.0 and Tinea corporis B35.4 [place] [address] [facility] [id number] [address] [place] [address] Dec, Acute non-recurrent maxillar y sinusitis J01.00 [place] [address] [facility] [id number] [address] [place] [phone] Dec, [facility] [address] [facility] [id number] [address] [place] [address] Dec, [facility] [address] [facility] [id number] [address] [place] [phone] Dec, [facility] [address] [facility] [id number] [address] [place] [address] Dec, Panlobular emphysema J43.1 [facility] [address] [facility] [id number] [address] [place] [address] Nov, [facility] [address] [facility] [id number] [address] [place] [address] Nov, Acute non-recurrent maxillar y sinusitis J01.00 [place] [address] [facility] [id number] [address] [place] [address] Nov, [place] [address] [facility] [id number] [address] [place] [address] Nov, Thoracic neuritis M54.14 ; A cute pain of right shoulder M25.511 ; Mood disorder F39 ; Pain in right ankle and joints of right foot M25.571 and Other chronic pain G89.29 [place] [address] [facility] [id number] [address] [place] [address] Nov, [facility] [address] [facility] [id number] [address] [place] [address] Nov, Injury of right shoulder, in itial encounter S49.91XA [place] [address] [place] [id number] [address] [place] [address] Nov, Panlobular emphysema J43.1 [place] [address] [place] [id number] [address] [place] [address] Nov, Acute non-recurrent maxillar y sinusitis J01.00 [place] [address] [facility] [id number] [address] [place] [address] October, Acute non-recurrent maxillar y sinusitis J01.00 [place] [address] [facility] [id number] [address] [place] [address] Sep, Contusion of right upper ext remity, initial encounter S40.021A [facility] [address] [facility] [id number] [address] [place] [address] Sep, Right forearm pain M79.631 [place] [address] [facility] [id number] [address] [place] [address] Sep, Acute non-recurrent maxillar y sinusitis J01.00 [place] [address] [facility] [id number] [address] [place] [address] Aug, Stable angina pectoris I20.8 [place] [address] [facility] [id number] [address] [place] [address] 14 Aug, 2017 Chronic fatigue R53.82 [place] [address] [facility] [id number] [address] [place] [address] 14 Aug, 2017 [place] [address] [place] [id number] [place] [address] 14 Aug, 2017 Stable angina pectoris I20.8 and Chronic fatigue R53.82 [place] [address] [facility] [id number] [address] [place] [address] 09 Aug, 2017 Acute non-recurrent maxillar y sinusitis J01.00 [place] [address] [facility] [id number] [address] [place] [address] 26 Jul, 2017 Chronic fatigue R53.82 ; Hyp ertension, benign I10 ; Family history of early CAD Z82.49 and Coronary artery disease of [place] artery of [place] heart with stable angina pectoris I25.118 [place] [address] [place] [id number] [address] [place] [address] 26 Jul, 2017 Family history of early CAD Z82.49 [place] [address] [facility] [id number] [address] [place] [address] 16 Jul, 2017 Family history of early CAD Z82.49 [place] [address] [facility] [id number] [address] [place] [address] 16 Jul, 2017 Chronic fatigue R53.82 ; Hyp ertension, benign I10 ; Family history of early CAD Z82.49 and Coronary artery disease of [place] artery of [place] heart with stable angina pectoris I25.118 [place] [address] [facility] [id number] [address] [place] [address] 15 Jul, 2017 Chronic fatigue R53.82 [place] [address] [facility] [id number] [address] [place] [address] 15 Jul, 2017 Chronic fatigue R53.82 ; Hyp ertension, benign I10 ; Family history of early CAD Z82.49 and Coronary artery disease of [place] artery of [place] heart with stable angina pectoris I25.118 [facility] [address] [id number] [address] [place] [id number] Jul, Dental examination Z01.20 an d Dental caries K02.9 [facility] [address] [facility] [id number] [address] [place] [address] Jul, [facility] [address] [address] Jul, [facility] [address] [address] Jul, Acute non-recurrent maxillar y sinusitis J01.00 [facility] [address] [place] [id number] [address] [place] [address] Jul, [facility] [address] [address] Jun, [facility] [address] [place] [id number] [address] [place] [address] Jun, [facility] [address] [address] Jun, Acute non-recurrent maxillar y sinusitis J01.00 [facility] [address] [place] [id number] [address] [place] [address] Jun, Anxiety F41.9 ; Bronchitis J 40 ; Tobacco abuse Z72.0 ; Tobacco abuse counseling Z71.6 and Acute left ankle pain M25.572 [facility] [address] [facility] [id number] [address] [place] [address] May, Cough R05 and COPD exacerbat ion J44.1 [facility] [address] [place] [id number] [address] [place] [address] May, [facility] [address] [place] [id number] [address] [place] [address] May, [facility] [address] [place] [id number] [address] 13 May, 2017 Acute non-recurrent maxillar y sinusitis J01.00 [facility] [address] [facility] [id number] [address] [address] 17 Apr, 2017 Acute non-recurrent maxillar y sinusitis J01.00 ; Anxiety F41.9 ; Acute right-sided low back pain with right-sided sciatica M54.41 and Thoracic neuritis M54.14 IMMUNIZATIONS No Known Immunizations SOCIAL HISTORY Never Assessed REASON FOR VISIT shoulder pain f/u-Dennis GODWIN PLAN OF CARE Activity Details Follow Up 4 Weeks Reason:depression VITAL SIGNS Height 67 in 2017-12-15 Weight 190.1 lbs 2017-12-15 Temperature 97.8 degrees Fahrenheit 2017-12-15 Heart Rate 76 bpm 2017-12-15 Respiratory Rate 18 2017-12-15 BMI 29.77 kg/m2 2017-12-15 Blood pressure systolic 126 mmHg 2017-12-15 Blood pressure diastolic 72 mmHg 2017-12-15 MEDICATIONS Medication Instructions Dosage Frequency Start Date End Date Duration S tatus Prozac 20 mg Orally Once a day 1 capsule in the morning 24h 2017 30 day(s) Active Linzess 290 MCG Orally Once a day 1 capsule 24h Aug, Dec, 30 day(s) Active Spiriva HandiHaler 18 MCG Inhalation Once a day 1 capsule 24h Nov Active Cyanocobalamin 1000 MCG/ML Injection once monthly 1 ml Aug, 30 day(s) Active Nitroglycerin 0.4 MG Sublingual Once a day prn, m ay repeat every 5 minutes until resolution. if taken 3 doses report to er immediately. 1 tablet Active Xanax 0.5 MG Orally Twice a day 1 tablet 12h 28 days Active Hydrocodone-Acetaminophen 10-325 MG Orally every 6 hrs 1 tablet as needed 6h Nov, 28 days Active Albuterol Sulfate (2.5 MG/3ML) 0.083% IN GARCIA 1 VIAL VIA NEBULIZER EVERY 6 HOURS NEEDED 12 Active ProAir HFA 108 (90 Base) MCG/ACT Inhalation every 6 hrs 2 puffs as needed 6h May, Active Chantix 1 MG Orally Twice a day 1 tablet 12h Jun,2017 30 day(s) Active Stiolto Respimat 2.5-2.5 MCG/ACT Inhalation Once a day 2 puffs 24h 08 Nov, 2017 30 days Active Ibuprofen 600 MG Orally 4 times a day 1 tablet with food or milk as needed 6h Nov, Active Zanaflex 4 MG Orally 2 times a day 1 tablet as needed 12h 28 Active Ibuprofen 200 MG Orally Three times a day 1 tablet with food or milk as needed 8h Active RESULTS Name Result Date Reference Range Xray : Ankle, Right 2 views (IN HOUSE) 2017-11-22 5 PROCEDURES Procedure Date Ordered Result Body Site X-RAY EXAM OF ANKLE December 15, 2017 INSTRUCTIONS MEDICATIONS ADMINISTERED No Known Medications MEDICAL (GENERAL) HISTORY Type Description Date Medical History COPD Surgical History mass removed from right breast
--- OUTSIDE RECORDS SUMMARY | 2019-12-17 16:10 | XMS REPORT ---
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 of tribal heart with stable angina pectoris I25.118 Active 059946201832 7 Problem Hypertension, benign I10 Active 98219932 Problem Mood disorder F39 Active 219156 05 Problem Injury of right shoulder, initial encounter S49.91 XA Active 720812385 Problem Functional constipation K59.04 Active 086337915 Problem Lumbago with sciatica, right side M54.41 Active 100513499331049 Problem Other chronic pain G89.29 Active 8 9777952 Problem Panlobular emphysema J43.1 Active 4183746 Problem Acute right-sided low back pain with right-sided sciatica M54.41 Active 237322302 Problem Lumbago with sciatica, left side M54.42 Active 909019028 Problem Anxiety F41.9 Active 58970617 ALLERGIES No Information ENCOUNTERS Encounter Location Date Diagnosis [facility] [address] [facility] [id number] [address] [place] [address] Feb, [facility] [address] [facility] [id number] [address] [place] [address] Feb, [facility] [address] [facility] [id number] [address] [place] [address] Jan, Breast lump N63.0 [place] [address] [facility] [id number] [address] [place] [address] Jan, Hypothyroidism (acquired) E0 3.9 [facility] [address] [facility] [id number] [address] [place] [address] Jan, Acute non-recurrent maxillar y sinusitis J01.00 [facility] [address] [facility] [id number] [address] [place] [address] Jan, Benign head tremor G25.0 and Tick bite, initial encounter W57.XXXA [facility] [address] [facility] [id number] [address] [place] [address] Jan, [place] [address] [facility] [id number] [address] [place] [address] Dec, Thoracic neuritis M54.14 ; B reast lump N63.0 and Tinea corporis B35.4 [place] [address] [facility] [id number] [address] [place] [address] Dec, Acute non-recurrent maxillar y sinusitis J01.00 [facility] [address] [facility] [id number] [address] [place] [address] Dec, [facility] [address] [facility] [id number] [address] [place] [phone] Dec, [facility] [address] [facility] [id number] [address] [place] [address] Dec, [facility] [address] [place] [id number] [address] [place] [address] Dec, Panlobular emphysema J43.1 [facility] [address] [facility] [id number] [address] [place] [address] Nov, [facility] [address] [facility] [id number] [address] [place] [address] Nov, Acute non-recurrent maxillar y sinusitis J01.00 [facility] [address] [facility] [id number] [address] [place] [address] Nov, [place] [address] [id number] [address] [place] [address] Nov, Thoracic neuritis M54.14 ; A cute pain of right shoulder M25.511 ; Mood disorder F39 ; Pain in right ankle and joints of right foot M25.571 and Other chronic pain G89.29 [place] [address] [facility] [id number] [address] [place] [address] Nov, [facility] [address] [id number] [address] [place] [address] Nov, Injury of right shoulder, in itial encounter S49.91XA [place] [address] [facility] [id number] [address] [place] [address] Nov, Panlobular emphysema J43.1 [place] [address] [place] [id number] [address] [place] [address] Nov, Acute non-recurrent maxillar y sinusitis J01.00 [place] [address] [facility] [id number] [address] [place] [address] October, Acute non-recurrent maxillar y sinusitis J01.00 [place] [address] [facility] [id number] [address] [place] [address] Sep, Contusion of right upper ext remity, initial encounter S40.021A [facility] [address] [id number] [address] [place] [address] Sep, Right forearm pain M79.631 [place] [address] [id number] [address] [place] [address] Sep, Acute non-recurrent maxillar y sinusitis J01.00 [place] [address] [facility] [id number] [address] [place] [address] Aug, Stable angina pectoris I20.8 [place] [address] [facility] [id number] [address] [place] [address] 14 Aug, 2017 Chronic fatigue R53.82 [facility] [address] [facility] [id number] [address] [place] [address] 14 Aug, 2017 [place] [address] [place] [id number] [address] [place] [address] 14 Aug, 2017 Stable angina pectoris I20.8 and Chronic fatigue R53.82 [place] [address] [place] [id number] [address] [place] [address] 09 Aug, 2017 Acute non-recurrent maxillar y sinusitis J01.00 [place] [address] [facility] [id number] [address] [place] [address] 26 Jul, 2017 Chronic fatigue R53.82 ; Hyp ertension, benign I10 ; Family history of early CAD Z82.49 and Coronary artery disease of tribal artery of tribal heart with stable angina pectoris I25.118 [place] [address] [place] [id number] [address] [place] [address] 26 Jul, 2017 Family history of early CAD Z82.49 [place] [address] [place] [id number] [address] [place] [address] 16 Jul, 2017 Family history of early CAD Z82.49 [place] [address] [place] [id number] [address] [place] [address] 16 Jul, 2017 Chronic fatigue R53.82 ; Hyp ertension, benign I10 ; Family history of early CAD Z82.49 and Coronary artery disease of tribal artery of tribal heart with stable angina pectoris I25.118 [place] [address] [facility] [id number] [address] [place] [address] 15 Jul, 2017 Chronic fatigue R53.82 [place] [address] [place] [id number] [address] [place] [address] 15 Jul, 2017 Chronic fatigue R53.82 ; Hyp ertension, benign I10 ; Family history of early CAD Z82.49 and Coronary artery disease of tribal artery of tribal heart with stable angina pectoris I25.118 [facility] [address] [facility] [id number] [address] [place] [id number] Jul, Dental examination Z01.20 an d Dental caries K02.9 [facility] [address] [place] [address] Jul, [facility] [address] [place] [id number] [address] [place] [address] Jul, [facility] [address] [address] Jul, Acute non-recurrent maxillar y sinusitis J01.00 [facility] [address] [place] [id number] [address] [place] [address] Jul, [facility] [address] [place] [id number] [address] [place] [address] Jun, [facility] [address] [address] Jun, [facility] [address] [place] [id number] [address] [place] [address] Jun, Acute non-recurrent maxillar y sinusitis J01.00 [facility] [address] [place] [address] Jun, Anxiety F41.9 ; Bronchitis J 40 ; Tobacco abuse Z72.0 ; Tobacco abuse counseling Z71.6 and Acute left ankle pain M25.572 [facility] [address] [place] [address] May, Cough R05 and COPD exacerbat ion J44.1 [facility] [address] [place] [address] May, [facility] [address] [place] [id number] [address] [place] [address] May, [facility] [address] [place] [address] May, Acute non-recurrent maxillar y sinusitis J01.00 [facility] [address] [facility] [id number] [address] [place] [address] Apr, Acute non-recurrent maxillar y sinusitis J01.00 ; Anxiety F41.9 ; Acute right-sided low back pain with right-sided sciatica M54.41 and Thoracic neuritis M54.14 IMMUNIZATIONS No Known Immunizations SOCIAL HISTORY Never Assessed REASON FOR VISIT Controlled Med Refill 12/19/17 PLAN OF CARE VITAL SIGNS MEDICATIONS Medication Instructions Dosage Frequency Start Date End Date Duration S tatus Xanax 0.5 MG Orally Twice a day 1 tablet 12h 28 days Active Hydrocodone-Acetaminophen 10-325 MG Orally every 6 hrs 1 tablet as needed 6h Nov, 28 days Active RESULTS No Results PROCEDURES No Known procedures INSTRUCTIONS MEDICATIONS ADMINISTERED No Known Medications MEDICAL (GENERAL) HISTORY Type Description Date Medical History COPD Surgical History mass removed from right breast
--- OUTSIDE RECORDS SUMMARY | 2019-12-17 16:10 | XMS REPORT ---
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 Active 893757847069 7 Problem Hypertension, benign I10 Active 67927060 Problem Mood disorder F39 Active 522953 05 Problem Injury of right shoulder, initial encounter S49.91 XA Active 581408310 Problem Functional constipation K59.04 Active 206045975 Problem Lumbago with sciatica, right side M54.41 Active 873870695981387 Problem Other chronic pain G89.29 Active 8 1190816 Problem Panlobular emphysema J43.1 Active 8409563 Problem Acute right-sided low back pain with right-sided sciatica M54.41 Active 548851979 Problem Lumbago with sciatica, left side M54.42 Active 999669828 Problem Anxiety F41.9 Active 61273732 ALLERGIES Substance Reaction Event Type Date Status PredniSONE Unknown Drug Allergy Nov, Active Lyrica Unknown Drug Allergy Nov, Active ENCOUNTERS Encounter Location Date Diagnosis [facility] [address] [facility] [id number] [address] [place] [address] Feb, [facility] [address] [facility] [id number] [address] [place] [address] Feb, [facility] [address] [facility] [id number] [address] [place] [address] Jan, Breast lump N63.0 [facility] [address] [facility] [id number] [address] [place] [address] Jan, Hypothyroidism (acquired) E0 3.9 [facility] [address] [facility] [id number] [address] [place] [address] Jan, Acute non-recurrent maxillar y sinusitis J01.00 [facility] [address] [facility] [id number] [address] [place] [address] Jan, Benign head tremor G25.0 and Tick bite, initial encounter W57.XXXA [facility] [address] [place] [id number] [address] [place] [address] Jan, [facility] [address] [place] [id number] [place] [address] Dec, Thoracic neuritis M54.14 ; B reast lump N63.0 and Tinea corporis B35.4 [facility] [address] [place] [id number] [address] [place] [address] Dec, Acute non-recurrent maxillar y sinusitis J01.00 [facility] [address] [facility] [id number] [address] [place] [address] Dec, [facility] [address] [facility] [id number] [address] [place] [address] Dec, [facility] [address] [place] [id number] [address] [place] [address] Dec, [facility] [address] [facility] [id number] [address] [place] [address] Dec, Panlobular emphysema J43.1 [facility] [address] [facility] [id number] [address] [place] [address] Nov, [facility] [address] [place] [id number] [address] [place] [address] Nov, Acute non-recurrent maxillar y sinusitis J01.00 [facility] [address] [id number] [address] [place] [address] Nov, [place] [address] [facility] [id number] [address] [place] [address] Nov, Thoracic neuritis M54.14 ; A cute pain of right shoulder M25.511 ; Mood disorder F39 ; Pain in right ankle and joints of right foot M25.571 and Other chronic pain G89.29 [place] [address] [id number] [address] [place] [address] Nov, [facility] [address] [facility] [id number] [address] [place] [address] Nov, Injury of right shoulder, in itial encounter S49.91XA [place] [address] [facility] [id number] [address] [place] [address] Nov, Panlobular emphysema J43.1 [place] [address] [facility] [id number] [address] [place] [address] Nov, Acute non-recurrent maxillar y sinusitis J01.00 [place] [address] [facility] [id number] [address] [place] [address] October, Acute non-recurrent maxillar y sinusitis J01.00 [place] [address] [facility] [id number] [address] [place] [address] Sep, Contusion of right upper ext remity, initial encounter S40.021A [facility] [address] [id number] [address] [place] [address] Sep, Right forearm pain M79.631 [place] [address] [facility] [id number] [address] [place] [address] Sep, Acute non-recurrent maxillar y sinusitis J01.00 [place] [address] [facility] [id number] [address] [place] [address] Aug, Stable angina pectoris I20.8 [place] [id number] [facility] [id number] [address] [place] [address] 14 Aug, 2017 Chronic fatigue R53.82 [facility] [address] [facility] [id number] [address] [place] [address] 14 Aug, 2017 [facility] [address] [facility] [id number] [address] [place] [address] Aug, Stable angina pectoris I20.8 and Chronic fatigue R53.82 [place] [address] [facility] [id number] [address] [place] [address] 09 Aug, 2017 Acute non-recurrent maxillar y sinusitis J01.00 [place] [address] [facility] [id number] [address] [place] [address] 26 Jul, 2017 Chronic fatigue R53.82 ; Hyp ertension, benign I10 ; Family history of early CAD Z82.49 and Coronary artery disease of eklutna artery of eklutna heart with stable angina pectoris I25.118 [place] [address] [facility] [id number] [address] [place] [address] 26 Jul, 2017 Family history of early CAD Z82.49 [place] [address] [facility] [id number] [address] [place] [address] 16 Jul, 2017 Family history of early CAD Z82.49 [place] [address] [facility] [id number] [address] [place] [address] 16 Jul, 2017 Chronic fatigue R53.82 ; Hyp ertension, benign I10 ; Family history of early CAD Z82.49 and Coronary artery disease of eklutna artery of eklutna heart with stable angina pectoris I25.118 [place] [address] [facility] [id number] [address] [place] [address] 15 Jul, 2017 Chronic fatigue R53.82 [place] [address] [facility] [id number] [address] [place] [address] 15 Jul, 2017 Chronic fatigue R53.82 ; Hyp ertension, benign I10 ; Family history of early CAD Z82.49 and Coronary artery disease of eklutna artery of eklutna heart with stable angina pectoris I25.118 [facility] [address] [id number] [address] [place] [id number] Jul, Dental examination Z01.20 an d Dental caries K02.9 [facility] [address] [facility] [id number] [address] [place] [phone] Jul, [facility] [address] [facility] [id number] [address] [place] [address] Jul, [facility] [address] [place] [id number] [address] [place] [address] Jul, Acute non-recurrent maxillar y sinusitis J01.00 [facility] [address] [facility] [id number] [address] [place] [address] Jul, [facility] [address] [place] [id number] [address] [place] [phone] Jun, [facility] [address] [facility] [id number] [address] [place] [address] Jun, [facility] [address] [address] Jun, Acute non-recurrent maxillar y sinusitis J01.00 [facility] [address] [place] [id number] [address] [place] [address] Jun, Anxiety F41.9 ; Bronchitis J 40 ; Tobacco abuse Z72.0 ; Tobacco abuse counseling Z71.6 and Acute left ankle pain M25.572 [facility] [address] [facility] [id number] [address] [place] [address] May, Cough R05 and COPD exacerbat ion J44.1 [facility] [address] [facility] [id number] [address] [place] [address] May, [facility] [address] [place] [id number] [place] [address] May, [facility] [address] [facility] [id number] [place] [address] May, Acute non-recurrent maxillar y sinusitis J01.00 [facility] [address] [facility] [id number] [address] [place] [address] Apr, Acute non-recurrent maxillar y sinusitis J01.00 ; Anxiety F41.9 ; Acute right-sided low back pain with right-sided sciatica M54.41 and Thoracic neuritis M54.14 IMMUNIZATIONS Vaccine Route Administration Date Status TORADOL (IM) 60 MG/2ML (UP TO 15 MG) IM Intramuscular December 10 018 Administered SOCIAL HISTORY Never Assessed REASON FOR VISIT Right neck/shoulder pain started after a fall today JStrasserRN PLAN OF CARE Activity Details Follow Up 1 Week, prn, pending bernice baltazar w/PCP Reason:right shoulder injury VITAL SIGNS Height 67 in 2017-12-10 Weight 187.6 lbs 2017-12-10 Temperature 97.8 degrees Fahrenheit 2017-12-10 Heart Rate 80 bpm 2017-12-10 Respiratory Rate 20 2017-12-10 BMI 29.38 kg/m2 2017-12-10 Blood pressure systolic 110 mmHg 2017-12-10 Blood pressure diastolic 70 mmHg 2017-12-10 MEDICATIONS Medication Instructions Dosage Frequency Start Date End Date Duration S tatus Ibuprofen 200 MG Orally Three times a day 1 tablet with food or milk as needed 8h Active Stiolto Respimat 2.5-2.5 MCG/ACT Inhalation Once a day 2 puffs 24h Nov, 30 days Active Hydrocodone-Acetaminophen 10-325 MG Orally every 6 hrs 1 tablet as needed 6h Nov, 28 days Active Zanaflex 4 MG Orally 2 times a day 1 tablet as needed 12h 28 Active ProAir HFA 108 (90 Base) MCG/ACT Inhalation every 6 hrs 2 puffs as needed 6h May, Active Albuterol Sulfate (2.5 MG/3ML) 0.083% IN GARCIA 1 VIAL VIA NEBULIZER EVERY 6 HOURS NEEDED 12 Active Xanax 0.5 MG Orally Twice a day 1 tablet 12h 28 days Active Chantix 1 MG Orally Twice a day 1 tablet 12h Jun, 14 2017 30 day(s) Active Cyanocobalamin 1000 MCG/ML Injection once monthly 1 ml Aug, 30 day(s) Active Diclofenac Sodium 75 MG Orally Twice a day 1 tablet with food or mi lk 12h Sep, Dec, 30 day(s) Active Linzess 290 MCG Orally Once a day 1 capsule 24h Aug, Dec, 30 day(s) Active Nitroglycerin 0.4 MG Sublingual Once a day prn, m ay repeat every 5 minutes until resolution. if taken 3 doses report to er immediately. 1 tablet Active RESULTS Name Result Date Reference Range Xray : Shoulder, Right 2 view (IN HOUSE) 2017-11 PROCEDURES Procedure Date Ordered Result Body Site X-RAY EXAM OF SHOULDER December 10, 2017 TORADOL (IM) 60 MG/2ML (UP TO 15 MG) December 10, 2017 THER/PROPH/DIAG INJ, SC/IM December 10, 2017 INSTRUCTIONS MEDICATIONS ADMINISTERED No Known Medications MEDICAL (GENERAL) HISTORY Type Description Date Medical History COPD Surgical History mass removed from right breast
--- OUTSIDE RECORDS SUMMARY | 2019-12-17 16:10 | XMS REPORT ---
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 Name Role Phone DEVEN MCKEON Unavailable PROBLEMS Type Condition ICD9-CM Code QQP43-GG Code Onset Dates Condition S tatus SNOMED Code Problem COPD exacerbation J44.1 Active 29 6558089112329 Problem Chronic fatigue R53.82 Active 8422 9001 Problem Stable angina pectoris I20.8 Active 106536072 Problem Hypothyroidism (acquired) E03.9 Acti ve 68932824 Problem Benign head tremor G25.0 Active 6 12248341 Problem Coronary artery disease of n ative artery of [place] heart with stable angina pectoris I25.118 Active 341028005539 7 Problem Hypertension, benign I10 Active 30178027 Problem Mood disorder F39 Active 196428 05 Problem Injury of right shoulder, initial encounter S49.91 XA Active 320075430 Problem Functional constipation K59.04 Active 424837478 Problem Lumbago with sciatica, right side M54.41 Active 998004983160163 Problem Other chronic pain G89.29 Active 8 0741165 Problem Panlobular emphysema J43.1 Active 6966896 Problem Acute right-sided low back pain with right-sided sciatica M54.41 Active 947109797 Problem Lumbago with sciatica, left side M54.42 Active 229776587 Problem Anxiety F41.9 Active 78952610 ALLERGIES No Information ENCOUNTERS Encounter Location Date Diagnosis [facility] [address] [facility] [id number] [address] [place] [phone] Feb, [facility] [address] [facility] [id number] [address] [place] [phone] Feb, [facility] [address] [facility] [id number] [address] [place] [phone] Jan, Breast lump N63.0 [place] [id number] [facility] [id number] [address] [place] [address] Jan, Hypothyroidism (acquired) E0 3.9 [facility] [address] [facility] [id number] [address] [place] [address] Jan, Acute non-recurrent maxillar y sinusitis J01.00 [facility] [address] [facility] [id number] [address] [place] [id number] Jan, Benign head tremor G25.0 and Tick bite, initial encounter W57.XXXA [facility] [address] [facility] [id number] [address] [place] [address] Jan, [place] [address] [facility] [id number] [address] [place] [phone] Dec, Thoracic neuritis M54.14 ; B reast lump N63.0 and Tinea corporis B35.4 [place] [address] [facility] [id number] [address] [place] [phone] Dec, Acute non-recurrent maxillar y sinusitis J01.00 [facility] [address] [facility] [id number] [address] [place] [phone] Dec, [facility] [address] [facility] [id number] [address] [place] [phone] Dec, [facility] [address] [facility] [id number] [address] [place] [phone] Dec, [facility] [address] [place] [id number] [address] [place] [phone] Dec, Panlobular emphysema J43.1 [facility] [address] [facility] [id number] [address] [place] [id number] Nov, [facility] [address] [facility] [id number] [address] [place] [address] Nov, Acute non-recurrent maxillar y sinusitis J01.00 [facility] [address] [facility] [id number] [address] [place] [phone] Nov, [place] [address] [id number] [address] [place] [address] Nov, Thoracic neuritis M54.14 ; A cute pain of right shoulder M25.511 ; Mood disorder F39 ; Pain in right ankle and joints of right foot M25.571 and Other chronic pain G89.29 [place] [address] [facility] [id number] [address] [place] [address] Nov, [facility] [address] [id number] [address] [place] [address] Nov, Injury of right shoulder, in itial encounter S49.91XA [place] [address] [facility] [id number] [address] [place] [address] Nov, Panlobular emphysema J43.1 [place] [address] [place] [id number] [address] [place] [address] Nov, Acute non-recurrent maxillar y sinusitis J01.00 [place] [address] [facility] [id number] [address] [place] [address] October, Acute non-recurrent maxillar y sinusitis J01.00 [place] [address] [facility] [id number] [address] [place] [address] Sep, Contusion of right upper ext remity, initial encounter S40.021A [facility] [address] [id number] [address] [place] [address] Sep, Right forearm pain M79.631 [place] [address] [id number] [address] [place] [address] Sep, Acute non-recurrent maxillar y sinusitis J01.00 [place] [address] [facility] [id number] [address] [place] [address] Aug, Stable angina pectoris I20.8 [place] [address] [facility] [id number] [address] [place] [address] 14 Aug, 2017 Chronic fatigue R53.82 [facility] [address] [facility] [id number] [address] [place] [phone] 14 Aug, 2017 [place] [address] [place] [id number] [address] [place] [address] 14 Aug, 2017 Stable angina pectoris I20.8 and Chronic fatigue R53.82 [place] [address] [place] [id number] [address] [place] [address] 09 Aug, 2017 Acute non-recurrent maxillar y sinusitis J01.00 [place] [address] [facility] [id number] [address] [place] [address] 26 Jul, 2017 Chronic fatigue R53.82 ; Hyp ertension, benign I10 ; Family history of early CAD Z82.49 and Coronary artery disease of [place] artery of [place] slough heart with stable angina pectoris I25.118 [place] [address] [place] [id number] [address] [place] [address] 26 Jul, 2017 Family history of early CAD Z82.49 [place] [address] [place] [id number] [address] [place] [id number] 16 Jul, 2017 Family history of early CAD Z82.49 [place] [address] [place] [id number] [address] [place] [address] 16 Jul, 2017 Chronic fatigue R53.82 ; Hyp ertension, benign I10 ; Family history of early CAD Z82.49 and Coronary artery disease of [place] artery of [place] slough heart with stable angina pectoris I25.118 [place] [address] [facility] [id number] [address] [place] [address] 15 Jul, 2017 Chronic fatigue R53.82 [place] [address] [place] [id number] [address] [place] [address] 15 Jul, 2017 Chronic fatigue R53.82 ; Hyp ertension, benign I10 ; Family history of early CAD Z82.49 and Coronary artery disease of [place] artery of [place] slough heart with stable angina pectoris I25.118 [facility] [address] [facility] [id number] [address] [place] [id number] Jul, Dental examination Z01.20 an d Dental caries K02.9 [facility] [id number] [place] [address] Jul, [facility] [address] [place] [id number] [address] [place] [address] Jul, [facility] [address] [address] Jul, Acute non-recurrent maxillar y sinusitis J01.00 [facility] [address] [place] [id number] [address] [place] [address] Jul, [facility] [address] [place] [id number] [address] [place] [phone] Jun, [facility] [address] [address] Jun, [facility] [address] [place] [id number] [address] [place] [address] Jun, Acute non-recurrent maxillar y sinusitis J01.00 [facility] [address] [place] [address] Jun, Anxiety F41.9 ; Bronchitis J 40 ; Tobacco abuse Z72.0 ; Tobacco abuse counseling Z71.6 and Acute left ankle pain M25.572 [facility] [address] [place] [address] May, Cough R05 and COPD exacerbat ion J44.1 [facility] [address] [place] [phone] May, [facility] [address] [place] [id number] [address] [place] [address] May, [facility] [address] [place] [address] May, Acute non-recurrent maxillar y sinusitis J01.00 [facility] [address] [facility] [id number] [address] [place] [address] 17 Apr, 2017 Acute non-recurrent maxillar y [...]
--- OUTSIDE RECORDS SUMMARY | 2019-12-17 16:10 | XMS REPORT ---
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 Name Role Phone DEVEN MCKEON Unavailable PROBLEMS Type Condition ICD9-CM Code LHS00-XU Code Onset Dates Condition S tatus SNOMED Code Problem COPD exacerbation J44.1 Active 29 4338681354179 Problem Chronic fatigue R53.82 Active 8422 9001 Problem Stable angina pectoris I20.8 Active 794885536 Problem Hypothyroidism (acquired) E03.9 Acti ve 65375747 Problem Benign head tremor G25.0 Active 6 35191325 Problem Coronary artery disease of n ative artery of [place] heart with stable angina pectoris I25.118 Active 351644593112 7 Problem Hypertension, benign I10 Active 29610562 Problem Mood disorder F39 Active 513310 05 Problem Injury of right shoulder, initial encounter S49.91 XA Active 476949539 Problem Functional constipation K59.04 Active 407836072 Problem Lumbago with sciatica, right side M54.41 Active 612400711294680 Problem Other chronic pain G89.29 Active 8 5202225 Problem Panlobular emphysema J43.1 Active 3583547 Problem Acute right-sided low back pain with right-sided sciatica M54.41 Active 717349284 Problem Lumbago with sciatica, left side M54.42 Active 077893249 Problem Anxiety F41.9 Active 14697091 ALLERGIES No Information ENCOUNTERS Encounter Location Date Diagnosis [facility] [address] [facility] [id number] [address] [place] [phone] Feb, [facility] [address] [facility] [id number] [address] [place] [phone] Jan, Hypothyroidism (acquired) E0 3.9 [facility] [address] [facility] [id number] [address] [place] [address] Jan, Acute non-recurrent maxillar y sinusitis J01.00 [facility] [address] [id number] [address] [place] [address] Jan, Benign head tremor G25.0 and Tick bite, initial encounter W57.XXXA [facility] [address] [id number] [address] [place] [phone] Jan, [facility] [address] [facility] [id number] [address] [place] [phone] Dec, Thoracic neuritis M54.14 ; B reast lump N63.0 and Tinea corporis B35.4 [facility] [address] [id number] [address] [place] [phone] Dec, Acute non-recurrent maxillar y sinusitis J01.00 [facility] [address] [facility] [id number] [address] [place] [address] Dec, [facility] [address] [facility] [id number] [address] [place] [phone] Dec, [facility] [address] [id number] [address] [place] [phone] Dec, [facility] [address] [facility] [id number] [address] [place] [address] Dec, Panlobular emphysema J43.1 [facility] [address] [facility] [id number] [address] [place] [address] Nov, [facility] [address] [id number] [address] [place] [phone] Nov, Acute non-recurrent maxillar y sinusitis J01.00 [facility] [address] [id number] [address] [place] [address] Nov, [facility] [address] [facility] [id number] [address] [place] [address] Nov, Thoracic neuritis M54.14 ; A cute pain of right shoulder M25.511 ; Mood disorder F39 ; Pain in right ankle and joints of right foot M25.571 and Other chronic pain G89.29 [facility] [address] [id number] [address] [place] [phone] Nov, [facility] [address] [id number] [address] [place] [address] Nov, Injury of right shoulder, in itial encounter S49.91XA [facility] [address] [id number] [address] [place] [address] Nov, Panlobular emphysema J43.1 [place] [address] [id number] [address] [place] [phone] Nov, Acute non-recurrent maxillar y sinusitis J01.00 [place] [address] [id number] [address] [place] [address] October, Acute non-recurrent maxillar y sinusitis J01.00 [facility] [address] [id number] [address] [place] [address] Sep, Contusion of right upper ext remity, initial encounter S40.021A [facility] [address] [id number] [address] [place] [address] Sep, Right forearm pain M79.631 [place] [address] [id number] [address] [place] [address] Sep, Acute non-recurrent maxillar y sinusitis J01.00 [facility] [address] [id number] [address] [place] [phone] Aug, Stable angina pectoris I20.8 [place] [address] [id number] [address] [place] [phone] Aug, Chronic fatigue R53.82 [facility] [address] [id number] [address] [place] [phone] Aug, [facility] [address] [facility] [id number] [address] [place] [phone] 14 Aug, 2017 Stable angina pectoris I20.8 and Chronic fatigue R53.82 [place] [address] [facility] [id number] [address] [place] [address] 09 Aug, 2017 Acute non-recurrent maxillar y sinusitis J01.00 [facility] [address] [facility] [id number] [address] [place] [address] 26 Jul, 2017 Chronic fatigue R53.82 ; Hyp ertension, benign I10 ; Family history of early CAD Z82.49 and Coronary artery disease of [place] artery of [place] heart with stable angina pectoris I25.118 [place] [address] [facility] [id number] [address] [place] [address] 26 Jul, 2017 Family history of early CAD Z82.49 [place] [address] [facility] [id number] [address] [place] [address] 16 Jul, 2017 Family history of early CAD Z82.49 [place] [address] [facility] [id number] [address] [place] [address] 16 Jul, 2017 Chronic fatigue R53.82 ; Hyp ertension, benign I10 ; Family history of early CAD Z82.49 and Coronary artery disease of [place] artery of [place] heart with stable angina pectoris I25.118 [place] [address] [facility] [id number] [address] [place] [address] 15 Jul, 2017 Chronic fatigue R53.82 [place] [address] [facility] [id number] [address] [place] [address] 15 Jul, 2017 Chronic fatigue R53.82 ; Hyp ertension, benign I10 ; Family history of early CAD Z82.49 and Coronary artery disease of [place] artery of [place] heart with stable angina pectoris I25.118 [facility] [address] [id number] [address] [place] [id number] 12 Jul, 2017 Dental examination Z01.20 an d Dental caries K02.9 [place] [address] [facility] [id number] [address] [place] [address] Jul, [facility] [address] [facility] [id number] [address] [place] [phone] Jul, [facility] [address] [place] [id number] [place] [address] Jul, Acute non-recurrent maxillar y sinusitis J01.00 [facility] [address] [place] [id number] [address] [place] [address] Jul, [facility] [address] [place] [id number] [place] [address] Jun, [facility] [address] [facility] [id number] [place] [phone] Jun, [facility] [address] [address] Jun, Acute non-recurrent maxillar y sinusitis J01.00 [facility] [address] [address] Jun, Anxiety F41.9 ; Bronchitis J 40 ; Tobacco abuse Z72.0 ; Tobacco abuse counseling Z71.6 and Acute left ankle pain M25.572 [facility] [address] [place] [id number] [address] [place] [address] May, Cough R05 and COPD exacerbat ion J44.1 [facility] [address] [address] May, [facility] [address] [phone] May, [facility] [address] [address] May, Acute non-recurrent maxillar y sinusitis J01.00 [facility] [address] [place] [id number] [address] [place] [phone] Apr, Acute non-recurrent maxillar y sinusitis J01.00 ; Anxiety F41.9 ; Acute right-sided low back pain with right-sided sciatica M54.41 and Thoracic neuritis M54.14 IMMUNIZATIONS No Known Immunizations SOCIAL HISTORY Never Assessed REASON FOR VISIT PLAN OF CARE VITAL SIGNS MEDICATIONS Unknown Medications RESULTS No Results PROCEDURES No Known procedures INSTRUCTIONS MEDICATIONS ADMINISTERED No Known Medications MEDICAL (GENERAL) HISTORY Type Description Date Medical History COPD Surgical History mass removed from right breast
--- OUTSIDE RECORDS SUMMARY | 2019-12-17 16:10 | XMS REPORT ---
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 Active 121393833308 7 Problem Hypertension, benign I10 Active 80343143 Problem Mood disorder F39 Active 990862 05 Problem Injury of right shoulder, initial encounter S49.91 XA Active 505145021 Problem Functional constipation K59.04 Active 916430567 Problem Lumbago with sciatica, right side M54.41 Active 782796958214046 Problem Other chronic pain G89.29 Active 8 3426208 Problem Panlobular emphysema J43.1 Active 0483103 Problem Acute right-sided low back pain with right-sided sciatica M54.41 Active 199687083 Problem Lumbago with sciatica, left side M54.42 Active 581565976 Problem Anxiety F41.9 Active 52583609 ALLERGIES No Information ENCOUNTERS Encounter Location Date Diagnosis [facility] [address] [facility] [id number] [address] [place] [phone] Feb, [facility] [address] [facility] [id number] [address] [place] [phone] Feb, [facility] [address] [facility] [id number] [address] [place] [address] Jan, Breast lump N63.0 [place] [address] [facility] [id number] [address] [place] [address] Jan, Hypothyroidism (acquired) E0 3.9 [facility] [address] [facility] [id number] [address] [place] [address] Jan, Acute non-recurrent maxillar y sinusitis J01.00 [facility] [address] [facility] [id number] [address] [place] [address] Jan, Benign head tremor G25.0 and Tick bite, initial encounter W57.XXXA [facility] [address] [facility] [id number] [address] [place] [address] Jan, [place] [address] [facility] [id number] [address] [place] [address] Dec, Thoracic neuritis M54.14 ; B reast lump N63.0 and Tinea corporis B35.4 [place] [address] [facility] [id number] [address] [place] [address] Dec, Acute non-recurrent maxillar y sinusitis J01.00 [facility] [address] [facility] [id number] [address] [place] [phone] Dec, [facility] [address] [facility] [id number] [address] [place] [phone] Dec, [facility] [address] [facility] [id number] [address] [place] [phone] Dec, [facility] [address] [place] [id number] [address] [place] [phone] Dec, Panlobular emphysema J43.1 [facility] [address] [facility] [id number] [address] [place] [phone] Nov, [facility] [address] [facility] [id number] [address] [place] [phone] Nov, Acute non-recurrent maxillar y sinusitis J01.00 [facility] [address] [facility] [id number] [address] [place] [phone] Nov, [place] [address] [id number] [address] [place] [phone] Nov, Thoracic neuritis M54.14 ; A cute pain of right shoulder M25.511 ; Mood disorder F39 ; Pain in right ankle and joints of right foot M25.571 and Other chronic pain G89.29 [place] [address] [facility] [id number] [address] [place] [phone] Nov, [facility] [address] [id number] [address] [place] [address] Nov, Injury of right shoulder, in itial encounter S49.91XA [place] [address] [facility] [id number] [address] [place] [phone] Nov, Panlobular emphysema J43.1 [place] [address] [place] [id number] [address] [place] [address] Nov, Acute non-recurrent maxillar y sinusitis J01.00 [place] [address] [facility] [id number] [address] [place] [phone] October, Acute non-recurrent maxillar y sinusitis J01.00 [place] [address] [facility] [id number] [address] [place] [phone] Sep, Contusion of right upper ext remity, initial encounter S40.021A [facility] [address] [id number] [address] [place] [address] Sep, Right forearm pain M79.631 [place] [address] [id number] [address] [place] [address] Sep, Acute non-recurrent maxillar y sinusitis J01.00 [place] [address] [facility] [id number] [address] [place] [phone] Aug, Stable angina pectoris I20.8 [place] [address] [facility] [id number] [address] [place] [phone] 14 Aug, 2017 Chronic fatigue R53.82 [facility] [address] [facility] [id number] [address] [place] [address] 14 Aug, 2017 [place] [address] [place] [id number] [address] [place] [address] 14 Aug, 2017 Stable angina pectoris I20.8 and Chronic fatigue R53.82 [place] [address] [place] [id number] [address] [place] [address] 09 Aug, 2017 Acute non-recurrent maxillar y sinusitis J01.00 [place] [address] [facility] [id number] [address] [place] [address] 26 Jul, 2017 Chronic fatigue R53.82 ; Hyp ertension, benign I10 ; Family history of early CAD Z82.49 and Coronary artery disease of pok[place] artery of pokagon heart with stable angina pectoris I25.118 [place] [address] [place] [id number] [address] [place] [address] 26 Jul, 2017 Family history of early CAD Z82.49 [place] [address] [place] [id number] [address] [place] [address] 16 Jul, 2017 Family history of early CAD Z82.49 [place] [address] [place] [id number] [address] [place] [address] 16 Jul, 2017 Chronic fatigue R53.82 ; Hyp ertension, benign I10 ; Family history of early CAD Z82.49 and Coronary artery disease of pok[place] artery of pokagon heart with stable angina pectoris I25.118 [place] [address] [facility] [id number] [address] [place] [address] 15 Jul, 2017 Chronic fatigue R53.82 [place] [address] [place] [id number] [address] [place] [address] 15 Jul, 2017 Chronic fatigue R53.82 ; Hyp ertension, benign I10 ; Family history of early CAD Z82.49 and Coronary artery disease of pok[place] artery of pokagon heart with stable angina pectoris I25.118 [facility] [address] [facility] [id number] [address] [place] [id number] Jul, Dental examination Z01.20 an d Dental caries K02.9 [facility] [address] [place] [phone] Jul, [facility] [address] [place] [id number] [address] [place] [address] Jul, [facility] [address] [address] Jul, Acute non-recurrent maxillar y sinusitis J01.00 [facility] [address] [place] [id number] [address] [place] [address] Jul, [facility] [address] [place] [id number] [address] [place] [address] Jun, [facility] [address] [address] Jun, [facility] [address] [place] [id number] [address] [place] [address] Jun, Acute non-recurrent maxillar y sinusitis J01.00 [facility] [address] [place] [address] Jun, Anxiety F41.9 ; Bronchitis J 40 ; Tobacco abuse Z72.0 ; Tobacco abuse counseling Z71.6 and Acute left ankle pain M25.572 [facility] [address] [place] [address] May, Cough R05 and COPD exacerbat ion J44.1 [facility] [address] [place] [address] May, [facility] [address] [place] [id number] [address] [place] [address] May, [facility] [address] [place] [address] May, Acute non-recurrent maxillar y sinusitis J01.00 [facility] [address] [facility] [id number] [address] [place] [address] 17 Apr, 2017 Acute non-recurrent maxillar y sinusitis J01.00 ; Anxiety F41.9 ; Acute right-sided low back pain with right-sided sciatica M54.41 and Thoracic neuritis M54.14 IMMUNIZATIONS No Known Immunizations SOCIAL HISTORY Never Assessed REASON FOR VISIT nebulizer correction PLAN OF CARE VITAL SIGNS MEDICATIONS Unknown Medications RESULTS No Results PROCEDURES No Known procedures INSTRUCTIONS MEDICATIONS ADMINISTERED No Known Medications MEDICAL (GENERAL) HISTORY Type Description Date Medical History COPD Surgical History mass removed from right breast
--- OUTSIDE RECORDS SUMMARY | 2019-12-17 16:10 | XMS REPORT ---
Author Author Pepper MCKEON Organization [facility] Address [address] [place] [address] Care Team Providers Care Applications Scientist Name Role Phone DEVEN MCKEON Unavailable PROBLEMS Type Condition ICD9-CM Code KPQ21-LV Code Onset Dates Condition S tatus SNOMED Code Problem COPD exacerbation J44.1 Active 29 [id number] Problem Chronic fatigue R53.82 Active 8422 9001 Problem Stable angina pectoris I20.8 Active 213969612 Problem Hypothyroidism (acquired) E03.9 Acti ve 54753640 Problem Benign head tremor G25.0 Active 6 80899743 Problem Coronary artery disease of n ative artery of [place] heart with stable angina pectoris I25.118 Active 743756250797 7 Problem Hypertension, benign I10 Active 11823866 Problem Mood disorder F39 Active 578044 05 Problem Injury of right shoulder, initial encounter S49.91 XA Active 580701669 Problem Functional constipation K59.04 Active 399350372 Problem Lumbago with sciatica, right side M54.41 Active 508800910072041 Problem Other chronic pain G89.29 Active 8 1730301 Problem Panlobular emphysema J43.1 Active 4397682 Problem Acute right-sided low back pain with right-sided sciatica M54.41 Active 888920997 Problem Lumbago with sciatica, left side M54.42 Active 873520340 Problem Anxiety F41.9 Active 50257631 ALLERGIES No Information ENCOUNTERS Encounter Location Date Diagnosis [facility] [address] [facility] [id number] [address] [place] [phone] Feb, [facility] [address] [facility] [id number] [address] [place] [phone] Feb, [facility] [address] [facility] [id number] [address] [place] [phone] Jan, Breast lump N63.0 [place] [address] [facility] [id number] [address] [place] [phone] Jan, Hypothyroidism (acquired) E0 3.9 [facility] [address] [facility] [id number] [address] [place] [address] Jan, Acute non-recurrent maxillar y sinusitis J01.00 [facility] [address] [facility] [id number] [address] [place] [phone] Jan, Benign head tremor G25.0 and Tick bite, initial encounter W57.XXXA [facility] [address] [facility] [id number] [address] [place] [address] Jan, [place] [address] [facility] [id number] [address] [place] [address] Dec, Thoracic neuritis M54.14 ; B reast lump N63.0 and Tinea corporis B35.4 [place] [address] [facility] [id number] [address] [place] [address] Dec, Acute non-recurrent maxillar y sinusitis J01.00 [facility] [address] [facility] [id number] [address] [place] [phone] Dec, [facility] [address] [facility] [id number] [address] [place] [phone] Dec, [facility] [address] [facility] [id number] [address] [place] [phone] Dec, [facility] [address] [place] [id number] [address] [place] [phone] Dec, Panlobular emphysema J43.1 [facility] [address] [facility] [id number] [address] [place] [phone] Nov, [facility] [address] [facility] [id number] [address] [place] [phone] Nov, Acute non-recurrent maxillar y sinusitis J01.00 [facility] [address] [facility] [id number] [address] [place] [phone] Nov, [place] [address] [id number] [address] [place] [address] Nov, Thoracic neuritis M54.14 ; A cute pain of right shoulder M25.511 ; Mood disorder F39 ; Pain in right ankle and joints of right foot M25.571 and Other chronic pain G89.29 [place] [address] [facility] [id number] [address] [place] [phone] Nov, [facility] [address] [id number] [address] [place] [phone] Nov, Injury of right shoulder, in itial encounter S49.91XA [place] [address] [facility] [id number] [address] [place] [phone] Nov, Panlobular emphysema J43.1 [place] [address] [place] [id number] [address] [place] [phone] Nov, Acute non-recurrent maxillar y sinusitis J01.00 [place] [address] [facility] [id number] [address] [place] [phone] October, Acute non-recurrent maxillar y sinusitis J01.00 [place] [address] [facility] [id number] [address] [place] [address] Sep, Contusion of right upper ext remity, initial encounter S40.021A [facility] [address] [id number] [address] [place] [address] Sep, Right forearm pain M79.631 [place] [address] [id number] [address] [place] [address] Sep, Acute non-recurrent maxillar y sinusitis J01.00 [place] [address] [facility] [id number] [address] [place] [phone] Aug, Stable angina pectoris I20.8 [place] [address] [facility] [id number] [address] [place] [phone] 14 Aug, [address] [facility] [address] [facility] [id number] [address] [place] [phone] 14 Aug, 2017 [place] [address] [place] [id number] [address] [place] [address] 14 Aug, 2017 Stable angina pectoris I20.8 and Chronic fatigue R53.82 [place] [address] [place] [id number] [address] [place] [address] 09 Aug, 2017 Acute non-recurrent maxillar y sinusitis J01.00 [place] [address] [facility] [id number] [address] [place] [address] 26 Jul, 2017 Chronic fatigue R53.82 ; Hyp ertension, benign I10 ; Family history of early CAD Z82.49 and Coronary artery disease of [place] artery of [place] heart with stable angina pectoris I25.118 [place] [address] [place] [id number] [address] [place] [address] 26 Jul, 2017 Family history of early CAD Z82.49 [place] [address] [place] [id number] [address] [place] [address] 16 Jul, 2017 Family history of early CAD Z82.49 [place] [address] [place] [id number] [address] [place] [address] 16 Jul, 2017 Chronic fatigue R53.82 ; Hyp ertension, benign I10 ; Family history of early CAD Z82.49 and Coronary artery disease of [place] artery of [place] heart with stable angina pectoris I25.118 [place] [address] [facility] [id number] [address] [place] [address] 15 Jul, 2017 Chronic fatigue R53.82 [place] [address] [place] [id number] [address] [place] [address] 15 Jul, 2017 Chronic fatigue R53.82 ; Hyp ertension, benign I10 ; Family history of early CAD Z82.49 and Coronary artery disease of [place] artery of [place] heart with stable angina pectoris I25.118 [facility] [address] [facility] [id number] [address] [place] [id number] Jul, Dental examination Z01.20 an d Dental caries K02.9 [facility] [address] [place] [phone] Jul, [facility] [address] [place] [id number] [address] [place] [address] Jul, [facility] [address] [address] Jul, Acute non-recurrent maxillar y sinusitis J01.00 [facility] [address] [place] [id number] [address] [place] [address] Jul, [facility] [address] [place] [id number] [address] [place] [address] Jun, [facility] [address] [address] Jun, [facility] [address] [place] [id number] [address] [place] [phone] Jun, Acute non-recurrent maxillar y sinusitis J01.00 [facility] [address] [place] [address] Jun, Anxiety F41.9 ; Bronchitis J 40 ; Tobacco abuse Z72.0 ; Tobacco abuse counseling Z71.6 and Acute left ankle pain M25.572 [facility] [address] [place] [address] May, Cough R05 and COPD exacerbat ion J44.1 [facility] [address] [place] [phone] May, [facility] [address] [place] [id number] [address] [place] [address] May, [facility] [address] [place] [address] May, Acute non-recurrent maxillar y sinusitis J01.00 [facility] [address] [facility] [id number] [address] [place] [address] 17 Apr, 2017 Acute non-recurrent maxillar y sinusitis J01.00 ; Anxiety F41.9 ; Acute right-sided low back pain with right-sided sciatica M54.41 and Thoracic neuritis M54.14 IMMUNIZATIONS No Known Immunizations SOCIAL HISTORY Never Assessed REASON FOR VISIT Prior Authorization Request PLAN OF CARE VITAL SIGNS MEDICATIONS Unknown Medications RESULTS No Results PROCEDURES No Known procedures INSTRUCTIONS MEDICATIONS ADMINISTERED No Known Medications MEDICAL (GENERAL) HISTORY Type Description Date Medical History COPD Surgical History mass removed from right breast
--- OUTSIDE RECORDS SUMMARY | 2019-12-17 16:10 | XMS REPORT ---
Author Author Pepper MCKEON Organization [facility] Address [address] [place] [address] Care Team Providers Care Data Management Specialist Name Role Phone DEVEN MCKEON Unavailable PROBLEMS Type Condition ICD9-CM Code PGS89-OL Code Onset Dates Condition S tatus SNOMED Code Problem COPD exacerbation J44.1 Active 29 5728596085325 Problem Chronic fatigue R53.82 Active 8422 9001 Problem Stable angina pectoris I20.8 Active 190662695 Problem Hypothyroidism (acquired) E03.9 Acti ve 80258494 Problem Benign head tremor G25.0 Active 6 00997678 Problem Coronary artery disease of n ative artery of [place] heart with stable angina pectoris I25.118 Active 827948293431 7 Problem Hypertension, benign I10 Active 07642588 Problem Mood disorder F39 Active 966179 05 Problem Injury of right shoulder, initial encounter S49.91 XA Active 981214969 Problem Functional constipation K59.04 Active 562682355 Problem Lumbago with sciatica, right side M54.41 Active 509147955562068 Problem Other chronic pain G89.29 Active 8 1758805 Problem Panlobular emphysema J43.1 Active 6814417 Problem Acute right-sided low back pain with right-sided sciatica M54.41 Active 864701036 Problem Lumbago with sciatica, left side M54.42 Active 875380971 Problem Anxiety F41.9 Active 87881463 ALLERGIES Substance Reaction Event Type Date Status PredniSONE Unknown Drug Allergy Nov, Active Lyrica Unknown Drug Allergy Nov, Active ENCOUNTERS Encounter Location Date Diagnosis [facility] [address] [facility] [id number] [address] [place] [phone] Feb, [facility] [address] [facility] [id number] [address] [place] [address] Jan, Hypothyroidism (acquired) E0 3.9 [facility] [address] [facility] [id number] [address] [place] [address] Jan, Acute non-recurrent maxillar y sinusitis J01.00 [facility] [address] [facility] [id number] [address] [place] [address] Jan, Benign head tremor G25.0 and Tick bite, initial encounter W57.XXXA [facility] [address] [facility] [id number] [address] [place] [address] Jan, [facility] [address] [facility] [id number] [address] [place] [address] Dec, Thoracic neuritis M54.14 ; B reast lump N63.0 and Tinea corporis B35.4 [facility] [address] [facility] [id number] [address] [place] [address] Dec, Acute non-recurrent maxillar y sinusitis J01.00 [facility] [address] [facility] [id number] [address] [place] [phone] Dec, [facility] [address] [facility] [id number] [address] [place] [phone] Dec, [facility] [address] [facility] [id number] [address] [place] [phone] Dec, [facility] [address] [facility] [id number] [address] [place] [address] Dec, Panlobular emphysema J43.1 [facility] [address] [facility] [id number] [address] [place] [phone] Nov, [facility] [address] [facility] [id number] [address] [place] [address] Nov, Acute non-recurrent maxillar y sinusitis J01.00 [facility] [address] [facility] [id number] [address] [place] [phone] Nov, [facility] [address] [facility] [id number] [address] [place] [address] Nov, Thoracic neuritis M54.14 ; A cute pain of right shoulder M25.511 ; Mood disorder F39 ; Pain in right ankle and joints of right foot M25.571 and Other chronic pain G89.29 [place] [address] [facility] [id number] [address] [place] [address] Nov, [facility] [address] [facility] [id number] [address] [place] [address] Nov, Injury of right shoulder, in itial encounter S49.91XA [place] [address] [facility] [id number] [address] [place] [address] Nov, Panlobular emphysema J43.1 [place] [address] [facility] [id number] [address] [place] [address] Nov, Acute non-recurrent maxillar y sinusitis J01.00 [place] [address] [place] [id number] [address] [place] [address] October, Acute non-recurrent maxillar y sinusitis J01.00 [place] [address] [facility] [id number] [address] [place] [address] Sep, Contusion of right upper ext remity, initial encounter S40.021A [facility] [address] [facility] [id number] [address] [place] [address] Sep, Right forearm pain M79.631 [place] [address] [facility] [id number] [address] [place] [address] Sep, Acute non-recurrent maxillar y sinusitis J01.00 [place] [address] [facility] [id number] [address] [place] [address] Aug, Stable angina pectoris I20.8 [place] [address] [facility] [id number] [address] [place] [address] Aug, Chronic fatigue R53.82 [place] [address] [facility] [id number] [address] [place] [address] Aug, [place] [address] [facility] [id number] [address] [place] [address] 14 Aug, 2017 Stable angina pectoris I20.8 and Chronic fatigue R53.82 [place] [address] [place] [id number] [address] [place] [address] 09 Aug, 2017 Acute non-recurrent maxillar y sinusitis J01.00 [place] [address] [place] [id number] [place] [address] 26 Jul, 2017 Chronic fatigue R53.82 ; Hyp ertension, benign I10 ; Family history of early CAD Z82.49 and Coronary artery disease of [place] artery of [place] heart with stable angina pectoris I25.118 [place] [address] [place] [id number] [place] [address] 26 Jul, 2017 Family history of early CAD Z82.49 [place] [address] [address] 16 Jul, 2017 Family history of early CAD Z82.49 [place] [address] [place] [id number] [address] [place] [address] 16 Jul, 2017 Chronic fatigue R53.82 ; Hyp ertension, benign I10 ; Family history of early CAD Z82.49 and Coronary artery disease of [place] artery of [place] heart with stable angina pectoris I25.118 [place] [address] [place] [id number] [address] [place] [address] 15 Jul, 2017 Chronic fatigue R53.82 [place] [address] [facility] [id number] [address] [place] [address] 15 Jul, 2017 Chronic fatigue R53.82 ; Hyp ertension, benign I10 ; Family history of early CAD Z82.49 and Coronary artery disease of [place] artery of [place] heart with stable angina pectoris I25.118 [facility] [address] [id number] [address] [place] [id number] 12 Jul, 2017 Dental examination Z01.20 an d Dental caries K02.9 [place] [id number] [place] [phone] Jul, [facility] [address] [id number] [address] [place] [address] Jul, [facility] [address] [facility] [id number] [address] [place] [address] Jul, Acute non-recurrent maxillar y sinusitis J01.00 [facility] [address] [facility] [id number] [address] [place] [phone] Jul, [facility] [address] [facility] [id number] [address] [place] [phone] Jun, [facility] [address] [facility] [id number] [address] [place] [phone] Jun, [facility] [address] [facility] [id number] [address] [place] [address] Jun, Acute non-recurrent maxillar y sinusitis J01.00 [facility] [address] [facility] [id number] [address] [place] [address] Jun, Anxiety F41.9 ; Bronchitis J 40 ; Tobacco abuse Z72.0 ; Tobacco abuse counseling Z71.6 and Acute left ankle pain M25.572 [facility] [address] [facility] [id number] [address] [place] [phone] May, Cough R05 and COPD exacerbat ion J44.1 [facility] [address] [facility] [id number] [address] [place] [phone] May, [facility] [address] [facility] [id number] [address] [place] [phone] May, [facility] [address] [facility] [id number] [address] [place] [address] May, Acute non-recurrent maxillar y sinusitis J01.00 [facility] [address] [facility] [id number] [address] [place] [phone] 17 Nov, 2017 Acute non-recurrent maxillar y sinusitis J01.00 ; Anxiety F41.9 ; Acute right-sided low back pain with right-sided sciatica M54.41 and Thoracic neuritis M54.14 IMMUNIZATIONS No Known Immunizations SOCIAL HISTORY Never Assessed REASON FOR VISIT Requests return call/ PLAN OF CARE VITAL SIGNS MEDICATIONS Medication Instructions Dosage Frequency Start Date End Date Duration S tat Stiolto Respimat 2.5-2.5 MCG/ACT Inhalation Once a day 2 puffs 24h Nov, 30 days Active RESULTS No Results PROCEDURES No Known procedures INSTRUCTIONS MEDICATIONS ADMINISTERED No Known Medications MEDICAL (GENERAL) HISTORY Type Description Date Medical History COPD Surgical History mass removed from right breast
[2019-12-17 16:11] LABS: GLUCOSE 104 MG/DL (70-105); TOTAL PROTEIN 7.4 GM/DL (6.4-8.2)
--- OUTSIDE RECORDS SUMMARY | 2019-12-17 16:11 | XMS REPORT ---
Author Author Pepper MCKEON Organization [facility] Address [address] [place] [address] Care Team Providers Care Chief Digital Officer Name Role Phone DEVEN MCKEON Unavailable PROBLEMS Type Condition ICD9-CM Code XYU08-AC Code Onset Dates Condition S tatus SNOMED Code Problem Acute right-sided low back pain with right-sided sciatica M54.41 Active 766199761 Problem COPD exacerbation J44.1 Active 29 7587996928560 Problem Anxiety F41.9 Active 00344655 Problem Mood disorder F39 Active 337199 05 Problem Injury of right shoulder, initial encounter S49.91 XA Active 524226345 Problem Chronic fatigue R53.82 Active 8422 9001 Problem Stable angina pectoris I20.8 Active 910226165 Problem 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 Active 540713102518 7 Problem Hypertension, benign I10 Active 28469493 Problem Panlobular emphysema J43.1 Active 7582995 Problem Lumbago with sciatica, left side M54.42 Active 697560208 Problem Lumbago with sciatica, right side M54.41 Active 865255398995444 Problem Functional constipation K59.04 Active 320300252 Problem Other chronic pain G89.29 Active 8 8897530 ALLERGIES No Information ENCOUNTERS Encounter Location Date Diagnosis [facility] [address] [facility] [id number] [address] [place] [phone] Dec, [facility] [address] [facility] [id number] [address] [place] [address] Dec, [facility] [address] [facility] [id number] [address] [place] [address] Dec, [facility] [address] [facility] [id number] [address] [place] [address] Dec, [facility] [address] [facility] [id number] [address] [place] [address] Dec, Panlobular emphysema J43.1 [place] [address] [id number] [address] [place] [address] Nov, [place] [address] [facility] [id number] [address] [place] [address] Nov, Acute non-recurrent maxillar y sinusitis J01.00 [place] [address] [facility] [id number] [address] [place] [address] Nov, [place] [address] [facility] [id number] [address] [place] [address] Nov, Thoracic neuritis M54.14 ; A cute pain of right shoulder M25.511 ; Mood disorder F39 ; Pain in right ankle and joints of right foot M25.571 and Other chronic pain G89.29 [place] [address] [facility] [id number] [address] [place] [phone] Nov, [facility] [address] [facility] [id number] [address] [place] [address] Nov, Injury of right shoulder, in itial encounter S49.91XA [place] [address] [facility] [id number] [address] [place] [address] Nov, Panlobular emphysema J43.1 [place] [address] [facility] [id number] [address] [place] [address] Nov, Acute non-recurrent maxillar y sinusitis J01.00 [place] [address] [facility] [id number] [address] [place] [address] October, Acute non-recurrent maxillar y sinusitis J01.00 [place] [address] [facility] [id number] [address] [place] [address] Sep, Contusion of right upper ext remity, initial encounter S40.021A [facility] [address] [facility] [id number] [address] [place] [address] Sep, Right forearm pain M79.631 [place] [address] [id number] [address] [place] [address] Sep, Acute non-recurrent maxillar y sinusitis J01.00 [facility] [address] [id number] [address] [place] [address] Aug, Stable angina pectoris I20.8 [place] [address] [id number] [address] [place] [address] Aug, Chronic fatigue R53.82 [place] [address] [id number] [address] [place] [address] Aug, [place] [address] [facility] [id number] [address] [place] [address] Aug, Stable angina pectoris I20.8 and Chronic fatigue R53.82 [place] [address] [facility] [id number] [address] [place] [address] Aug, Acute non-recurrent maxillar y sinusitis J01.00 [place] [address] [facility] [id number] [address] [place] [address] Jul, Family history of early CAD Z82.49 [place] [address] [facility] [id number] [address] [place] [address] Jul, Chronic fatigue R53.82 ; Hyp ertension, benign I10 ; Family history of early CAD Z82.49 and Coronary artery disease of [place] artery of [place] heart with stable angina pectoris I25.118 [place] [address] [id number] [address] [place] [address] Jul, Family history of early CAD Z82.49 [place] [address] [facility] [id number] [address] [place] [address] Jul, Chronic fatigue R53.82 ; Hyp ertension, benign I10 ; Family history of early CAD Z82.49 and Coronary artery disease of [place] artery of [place] heart with stable angina pectoris I25.118 [facility] [address] [facility] [id number] [address] [place] [address] 15 Jul, 2017 Chronic fatigue R53.82 [facility] [address] [facility] [id number] [address] [place] [address] 15 Jul, 2017 Chronic fatigue R53.82 ; Hyp ertension, benign I10 ; Family history of early CAD Z82.49 and Coronary artery disease of [place] artery of [place] heart with stable angina pectoris I25.118 [facility] [address] [id number] [address] [place] [id number] 12 Jul, 2017 Dental examination Z01.20 an d Dental caries K02.9 [facility] [address] [facility] [id number] [address] [place] [address] Jul, [facility] [address] [facility] [id number] [address] [place] [address] Jul, [facility] [address] [facility] [id number] [address] [place] [address] Jul, Acute non-recurrent maxillar y sinusitis J01.00 [facility] [address] [facility] [id number] [address] [place] [address] Jul, [facility] [address] [place] [id number] [address] [place] [address] Jun, [facility] [address] [facility] [id number] [address] [place] [address] Jun, [facility] [address] [facility] [id number] [address] [place] [address] Jun, Acute non-recurrent maxillar y sinusitis J01.00 [facility] [address] [facility] [id number] [address] [place] [address] Jun, Anxiety F41.9 ; Bronchitis J 40 ; Tobacco abuse Z72.0 ; Tobacco abuse counseling Z71.6 and Acute left ankle pain M25.572 [facility] [address] [place] [id number] [address] [place] [address] 30 May, 2017 Cough R05 and COPD exacerbat ion J44.1 [place] [address] [place] [id number] [address] [place] [address] 15 May, 2017 [place] [address] [place] [id number] [address] [place] [address] 14 May, 2017 [place] [address] [address] May, Acute non-recurrent maxillar y sinusitis J01.00 [place] [address] [place] [id number] [address] [place] [address] Apr, Acute non-recurrent maxillar y sinusitis J01.00 ; Anxiety F41.9 ; Acute right-sided low back pain with right-sided sciatica M54.41 and Thoracic neuritis M54.14 IMMUNIZATIONS No Known Immunizations SOCIAL HISTORY Never Assessed REASON FOR VISIT Lab PLAN OF CARE VITAL SIGNS MEDICATIONS Unknown Medications RESULTS No Results PROCEDURES Procedure Date Ordered Result Body Site LAB NOT BILLED BY [facility] September 08, 2017 INSTRUCTIONS MEDICATIONS ADMINISTERED No Known Medications MEDICAL (GENERAL) HISTORY Type Description Date Medical History COPD Surgical History mass removed from right breast
--- OUTSIDE RECORDS SUMMARY | 2019-12-17 16:11 | XMS REPORT ---
Author Author Pepper MCKEON Organization [facility] Address [address] [place] [address] Care Team Providers Care Mattress And Foundation Sewer Name Role Phone DEVEN MCKEON Unavailable PROBLEMS Type Condition ICD9-CM Code [id number] Code Onset Dates Condition S tatus SNOMED Code Problem Other chronic pain G89.29 Active 8 5108701 Problem Anxiety F41.9 Active 04931528 Problem Acute right-sided low back pain with right-sided sciatica M54.41 Active 490234168 Problem Functional constipation K59.04 Active 064245058 Problem Panlobular emphysema J43.1 Active 5559229 Problem Lumbago with sciatica, left side M54.42 Active 533327786 Problem Lumbago with sciatica, right side M54.41 Active 314670103675814 Problem Injury of right shoulder, initial encounter S49.91 XA Active 483676417 Problem 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 [id number] [address] [place] [address] Dec, [facility] [address] [facility] [id number] [address] [place] [address] Nov, Injury of right shoulder, in itial encounter S49.91XA [facility] [address] [facility] [id number] [address] [place] [address] Nov, Panlobular emphysema J43.1 [facility] [address] [facility] [id number] [address] [place] [address] Nov, Acute non-recurrent maxillar y sinusitis J01.00 [facility] [address] [id number] [address] [place] [address] October, Acute non-recurrent maxillar y sinusitis J01.00 [facility] [address] [id number] [address] [place] [address] Sep, Contusion of right upper ext remity, initial encounter S40.021A [facility] [address] [id number] [address] [place] [address] Sep, Right forearm pain M79.631 [facility] [address] [id number] [address] [place] [address] Sep, Acute non-recurrent maxillar y sinusitis J01.00 [facility] [address] [id number] [address] [place] [address] Aug, Stable angina pectoris I20.8 [facility] [address] [id number] [address] [place] [address] Aug, Chronic fatigue R53.82 [facility] [address] [facility] [id number] [address] [place] [address] Aug, [facility] [address] [id number] [address] [place] [address] Aug, Stable angina pectoris I20.8 and Chronic fatigue R53.82 [facility] [address] [facility] [id number] [address] [place] [phone] Aug, Acute non-recurrent maxillar y sinusitis J01.00 [facility] [address] [id number] [address] [place] [address] Jul, Chronic fatigue R53.82 ; Hyp ertension, benign I10 ; Family history of early CAD Z82.49 and Coronary artery disease of [place] artery of [place] heart with stable angina pectoris I25.118 [facility] [address] [facility] [id number] [address] [place] [address] Jul, Family history of early CAD Z82.49 [facility] [address] [id number] [address] [place] [address] Jul, Family history of early CAD Z82.49 [facility] [address] [id number] [address] [place] [id number] 16 Jul, 2017 Chronic fatigue R53.82 ; Hyp ertension, benign I10 ; Family history of early CAD Z82.49 and Coronary artery disease of [place] artery of [place] heart with stable angina pectoris I25.118 [facility] [address] [facility] [id number] [address] [place] [id number] 15 Jul, 2017 Chronic fatigue R53.82 [facility] [address] [facility] [id number] [address] [place] [address] 15 Jul, 2017 Chronic fatigue R53.82 ; Hyp ertension, benign I10 ; Family history of early CAD Z82.49 and Coronary artery disease of [place] artery of [place] heart with stable angina pectoris I25.118 [facility] [address] [id number] [address] [place] [id number] Jul, Dental examination Z01.20 an d Dental caries K02.9 [facility] [address] [facility] [id number] [address] [place] [phone] Jul, [facility] [address] [facility] [id number] [address] [place] [phone] Jul, [facility] [address] [facility] [id number] [address] [place] [address] Jul, Acute non-recurrent maxillar y sinusitis J01.00 [facility] [address] [facility] [id number] [address] [place] [phone] Jul, [facility] [address] [facility] [id number] [address] [place] [address] Jun, [facility] [address] [facility] [id number] [address] [place] [address] Jun, [facility] [id number] [place] [address] Jun, Acute non-recurrent maxillar y sinusitis J01.00 [facility] [address] [place] [address] Jun, Anxiety F41.9 ; Bronchitis J 40 ; Tobacco abuse Z72.0 ; Tobacco abuse counseling Z71.6 and Acute left ankle pain M25.572 [facility] [address] [place] [id number] [address] [place] [address] 30 May, 2017 Cough R05 and COPD exacerbat ion J44.1 [place] [address] [address] May, [place] [address] [address] May, [place] [address] [address] May, Acute non-recurrent maxillar y sinusitis J01.00 [place] [address] [address] Apr, Acute non-recurrent maxillar y sinusitis J01.00 ; Anxiety F41.9 ; Acute right-sided low back pain with right-sided sciatica M54.41 and Thoracic neuritis M54.14 IMMUNIZATIONS No Known Immunizations SOCIAL HISTORY Never Assessed REASON FOR VISIT PLAN OF CARE VITAL SIGNS MEDICATIONS Medication Instructions Dosage Frequency Start Date End Date Duration S tatus Spiriva HandiHaler 18 MCG Inhalation Once a day 1 capsule 24h Jun Active RESULTS No Results PROCEDURES No Known procedures INSTRUCTIONS MEDICATIONS ADMINISTERED No Known Medications MEDICAL (GENERAL) HISTORY Type Description Date Medical History COPD Surgical History mass removed from right breast
--- OUTSIDE RECORDS SUMMARY | 2019-12-17 16:11 | XMS REPORT ---
Author Author Pepper MCKEON Organization [facility] Address [address] [place] [address] Care Team Providers Care Program/Music Director Name Role Phone DEVEN MCKEON Unavailable PROBLEMS Type Condition ICD9-CM Code [id number] Code Onset Dates Condition S tatus SNOMED Code Problem Acute right-sided low back pain with right-sided sciatica M54.41 Active 302324753 Problem COPD exacerbation J44.1 Active 29 2447305606467 Problem Anxiety F41.9 Active 69840025 Problem Mood disorder F39 Active 953997 05 Problem Injury of right shoulder, initial encounter S49.91 XA Active 081109680 Problem Chronic fatigue R53.82 Active 8422 9001 Problem Stable angina pectoris I20.8 Active 215341685 Problem 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 Active 189581763078 7 Problem Hypertension, benign I10 Active 24747936 Problem Panlobular emphysema J43.1 Active 3179150 Problem Lumbago with sciatica, left side M54.42 Active 612221208 Problem Lumbago with sciatica, right side M54.41 Active 816134180170134 Problem Functional constipation K59.04 Active 863929992 Problem Other chronic pain G89.29 Active 8 1392170 ALLERGIES Substance Reaction Event Type Date Status PredniSONE Unknown Drug Allergy Aug, Active Lyrica Unknown Drug Allergy Aug, Active ENCOUNTERS Encounter Location Date Diagnosis [facility] [address] [facility] [id number] [address] [place] [phone] Dec, [facility] [address] [facility] [id number] [address] [place] [address] Dec, [facility] [address] [facility] [id number] [address] [place] [address] Dec, [facility] [address] [facility] [id number] [address] [place] [address] Dec, Panlobular emphysema J43.1 [place] [address] [facility] [id number] [address] [place] [address] Nov, [place] [address] [facility] [id number] [address] [place] [address] Nov, Acute non-recurrent maxillar y sinusitis J01.00 [place] [address] [place] [id number] [address] [place] [address] Nov, [place] [address] [place] [id number] [place] [address] Nov, Thoracic neuritis M54.14 ; A cute pain of right shoulder M25.511 ; Mood disorder F39 ; Pain in right ankle and joints of right foot M25.571 and Other chronic pain G89.29 [place] [address] [address] Nov, [facility] [address] [place] [id number] [place] [address] Nov, Injury of right shoulder, in itial encounter S49.91XA [place] [address] [place] [id number] [address] [place] [address] Nov, Panlobular emphysema J43.1 [place] [address] [place] [id number] [address] [place] [address] Nov, Acute non-recurrent maxillar y sinusitis J01.00 [place] [address] [place] [id number] [address] [place] [address] October, Acute non-recurrent maxillar y sinusitis J01.00 [place] [address] [place] [id number] [address] [place] [address] Sep, Contusion of right upper ext remity, initial encounter S40.021A [facility] [address] [place] [id number] [address] [place] [address] Sep, Right forearm pain M79.631 [facility] [address] [id number] [address] [place] [phone] Sep, Acute non-recurrent maxillar y sinusitis J01.00 [facility] [address] [id number] [address] [place] [address] Aug, Stable angina pectoris I20.8 [place] [address] [id number] [address] [place] [address] Aug, Chronic fatigue R53.82 [place] [address] [id number] [address] [place] [address] Aug, [place] [address] [facility] [id number] [address] [place] [address] Aug, Stable angina pectoris I20.8 and Chronic fatigue R53.82 [place] [address] [facility] [id number] [address] [place] [address] Aug, Acute non-recurrent maxillar y sinusitis J01.00 [facility] [address] [id number] [address] [place] [address] Jul, Family history of early CAD Z82.49 [place] [address] [facility] [id number] [address] [place] [address] Jul, Chronic fatigue R53.82 ; Hyp ertension, benign I10 ; Family history of early CAD Z82.49 and Coronary artery disease of [place] artery of [place] heart with stable angina pectoris I25.118 [place] [id number] [id number] [address] [place] [address] 16 Jul, 2017 Family history of early CAD Z82.49 [place] [address] [facility] [id number] [address] [place] [address] 16 Jul, 2017 Chronic fatigue R53.82 ; Hyp ertension, benign I10 ; Family history of early CAD Z82.49 and Coronary artery disease of [place] artery of [place] heart with stable angina pectoris I25.118 [facility] [address] [facility] [id number] [address] [place] [address] 15 Jul, 2017 Chronic fatigue R53.82 [facility] [address] [facility] [id number] [address] [place] [address] Jul, Chronic fatigue R53.82 ; Hyp ertension, benign I10 ; Family history of early CAD Z82.49 and Coronary artery disease of [place] artery of [place] heart with stable angina pectoris I25.118 [facility] [address] [id number] [address] [place] [id number] 12 Jul, 2017 Dental examination Z01.20 an d Dental caries K02.9 [facility] [address] [address] Jul, [facility] [address] [address] Jul, [facility] [address] [address] Jul, Acute non-recurrent maxillar y sinusitis J01.00 [facility] [address] [place] [id number] [address] [place] [address] Jul, [facility] [address] [place] [id number] [address] [place] [address] Jun, [facility] [address] [place] [id number] [address] [place] [address] Jun, [facility] [address] [place] [id number] [address] [place] [address] Jun, Acute non-recurrent maxillar y sinusitis J01.00 [facility] [address] [address] Jun, Anxiety F41.9 ; Bronchitis J 40 ; Tobacco abuse Z72.0 ; Tobacco abuse counseling Z71.6 and Acute left ankle pain M25.572 [facility] [address] [place] [id number] [address] [place] [address] May, Cough R05 and COPD exacerbat ion J44.1 [place] [address] [facility] [id number] [address] [place] [address] 15 May, 2017 [facility] [address] [facility] [id number] [address] [place] [address] May, [place] [address] [facility] [id number] [address] [place] [address] May, Acute non-recurrent maxillar y sinusitis J01.00 [place] [address] [facility] [id number] [address] [place] [address] Apr, Acute non-recurrent maxillar y sinusitis J01.00 ; Anxiety F41.9 ; Acute right-sided low back pain with right-sided sciatica M54.41 and Thoracic neuritis M54.14 IMMUNIZATIONS No Known Immunizations SOCIAL HISTORY Never Assessed REASON FOR VISIT BP, Last night PY felt as if she had a knot in her chest with sever chest pain t he dropped her to the floor with sweats. PT felt completly drained after wards a nd BP was 182/98 an hour after-[place] MA PLAN OF CARE VITAL SIGNS Height 67 in 2017-09-03 Weight 186.7 lbs 2017-09-03 Temperature 98.3 degrees Fahrenheit 2017-09-03 Heart Rate 78 bpm 2017-09-03 Respiratory Rate 20 2017-09-03 BMI 29.24 kg/m2 2017-09-03 Blood pressure systolic 100 mmHg 2017-09-03 Blood pressure diastolic 70 mmHg 2017-09-03 MEDICATIONS Medication Instructions Dosage Frequency Start Date End Date Duration S tatus Linzess 290 MCG Orally Once a day 1 capsule 24h 14 Aug, 2017 Dec, 30 day(s) Active Zanaflex 4 MG Orally 2 times a day 1 tablet as needed 12h 30 Active Albuterol Sulfate (2.5 MG/3ML) 0.083% Inhalation every 6 hrs 3 ml a s needed 6h 30 May, 2017 0 days Active Nitroglycerin 0.4 MG Sublingual Once a day prn, m ay repeat every 5 minutes until resolution. if taken 3 doses report to er immediately. 1 tablet Active Chantix 1 MG Orally Twice a day 1 tablet 12h 04 Jun, 2017 14 Au g, 2017 30 day(s) Active Detrol LA 4 MG Orally Once a day 1 capsule 24h 14 Aug, 2017 12 J un2017 30 day(s) Active ProAir HFA 108 (90 Base) MCG/ACT Inhalation every 6 hrs 2 puffs as needed 6h 15 May, 2017 Active Hydrocodone-Acetaminophen 10-325 MG Orally every 6 hrs 1 tablet as needed 6h 12 Aug, 2017 28 days Active Xanax 0.5 MG Orally Twice a day 1 tablet 12h 28 days Active RESULTS Name Result Date Reference Range Xray : Chest 2 View (IN HOUSE) 2017-09-03 PROCEDURES Procedure Date Ordered Result Body Site EKG, TRACING (IN-HOUSE) 2017-09-03 Normal X-RAY EXAM CHEST 2 VIEWS September 03, 2017 ELECTROCARDIOGRAM, TRACING September 03, 2017 LAB NOT BILLED BY [facility] September 03, 2017 INSTRUCTIONS MEDICATIONS ADMINISTERED No Known Medications MEDICAL (GENERAL) HISTORY Type Description Date Medical History COPD Surgical History mass removed from right breast
--- OUTSIDE RECORDS SUMMARY | 2019-12-17 16:11 | XMS REPORT ---
Author Author Pepper MCKEON Organization [facility] Address [address] [place] [address] Care Team Providers Care Hair Dresser Name Role Phone DEVEN MCKEON Unavailable PROBLEMS Type Condition ICD9-CM Code [id number] Code Onset Dates Condition S tatus SNOMED Code Problem Acute right-sided low back pain with right-sided sciatica M54.41 Active 575958367 Problem COPD exacerbation J44.1 Active 29 0812385255727 Problem Anxiety F41.9 Active 81544363 Problem Mood disorder F39 Active 298743 05 Problem Injury of right shoulder, initial encounter S49.91 XA Active 696914887 Problem Chronic fatigue R53.82 Active 8422 9001 Problem Stable angina pectoris I20.8 Active 300919680 Problem 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 Active 297397701426 7 Problem Hypertension, benign I10 Active 60320475 Problem Panlobular emphysema J43.1 Active 5115594 Problem Lumbago with sciatica, left side M54.42 Active 789344763 Problem Lumbago with sciatica, right side M54.41 Active 733163152635625 Problem Functional constipation K59.04 Active 306381596 Problem Other chronic pain G89.29 Active 8 9375151 ALLERGIES Substance Reaction Event Type Date Status PredniSONE Unknown Drug Allergy Aug, Active Lyrica Unknown Drug Allergy Aug, Active ENCOUNTERS Encounter Location Date Diagnosis [facility] [address] [facility] [id number] [address] [place] [phone] Dec, [facility] [address] [facility] [id number] [address] [place] [phone] Dec, [facility] [address] [facility] [id number] [address] [place] [phone] Dec, [facility] [address] [facility] [id number] [address] [place] [phone] Dec, Panlobular emphysema J43.1 [place] [address] [facility] [id number] [address] [place] [phone] Nov, [place] [address] [facility] [id number] [address] [place] [phone] Nov, Acute non-recurrent maxillar y sinusitis J01.00 [place] [address] [place] [id number] [address] [place] [phone] Nov, [place] [address] [place] [id number] [place] [phone] Nov, Thoracic neuritis M54.14 ; A cute pain of right shoulder M25.511 ; Mood disorder F39 ; Pain in right ankle and joints of right foot M25.571 and Other chronic pain G89.29 [place] [address] [phone] Nov, [facility] [address] [place] [id number] [place] [phone] Nov, Injury of right shoulder, in itial encounter S49.91XA [place] [address] [place] [id number] [address] [place] [phone] Nov, Panlobular emphysema J43.1 [place] [address] [place] [id number] [address] [place] [phone] Nov, Acute non-recurrent maxillar y sinusitis J01.00 [place] [address] [place] [id number] [address] [place] [phone] October, Acute non-recurrent maxillar y sinusitis J01.00 [place] [address] [place] [id number] [address] [place] [address] Sep, Contusion of right upper ext remity, initial encounter S40.021A [facility] [address] [place] [id number] [address] [place] [phone] Sep, Right forearm pain M79.631 [facility] [address] [id number] [address] [place] [phone] Sep, Acute non-recurrent maxillar y sinusitis J01.00 [facility] [address] [id number] [address] [place] [phone] Aug, Stable angina pectoris I20.8 [place] [address] [id number] [address] [place] [phone] Aug, Chronic fatigue R53.82 [place] [address] [id number] [address] [place] [phone] Aug, [place] [address] [facility] [id number] [address] [place] [phone] Aug, Stable angina pectoris I20.8 and Chronic fatigue R53.82 [place] [address] [facility] [id number] [address] [place] [phone] Aug, Acute non-recurrent maxillar y sinusitis J01.00 [place] [address] [id number] [address] [place] [phone] Jul, Chronic fatigue R53.82 ; Hyp ertension, benign I10 ; Family history of early CAD Z82.49 and Coronary artery disease of [place] artery of [place] tribe heart with stable angina pectoris I25.118 [place] [address] [facility] [id number] [address] [place] [phone] Jul, Family history of early CAD Z82.49 [place] [address] [facility] [id number] [address] [place] [id number] 16 Jul, 2017 Family history of early CAD Z82.49 [place] [address] [facility] [id number] [address] [place] [phone] 16 Jul, 2017 Chronic fatigue R53.82 ; Hyp ertension, benign I10 ; Family history of early CAD Z82.49 and Coronary artery disease of [place] artery of [place] heart with stable angina pectoris I25.118 [facility] [address] [facility] [id number] [address] [place] [phone] 15 Jul, 2017 Chronic fatigue R53.82 [facility] [address] [facility] [id number] [address] [place] [address] Jul, Chronic fatigue R53.82 ; Hyp ertension, benign I10 ; Family history of early CAD Z82.49 and Coronary artery disease of [place] tribe artery of [place] tribe heart with stable angina pectoris I25.118 [facility] [address] [id number] [address] [place] [id number] Jul, 2017 Dental examination Z01.20 an d Dental caries K02.9 [facility] [address] [phone] Jul, [facility] [address] [address] Jul, [facility] [address] [phone] Jul, Acute non-recurrent maxillar y sinusitis J01.00 [facility] [address] [place] [id number] [address] [place] [phone] Jul, [facility] [address] [place] [id number] [address] [place] [phone] Jun, [facility] [address] [place] [id number] [address] [place] [phone] Jun, [facility] [address] [place] [id number] [address] [place] [phone] Jun, Acute non-recurrent maxillar y sinusitis J01.00 [facility] [address] [address] Jun, Anxiety F41.9 ; Bronchitis J 40 ; Tobacco abuse Z72.0 ; Tobacco abuse counseling Z71.6 and Acute left ankle pain M25.572 [facility] [address] [place] [id number] [address] [place] [phone] May, Cough R05 and COPD exacerbat ion J44.1 [facility] [address] [facility] [id number] [address] [place] [phone] May, [facility] [address] [facility] [id number] [address] [place] [phone] May, [place] [address] [facility] [id number] [address] [place] [phone] May, Acute non-recurrent maxillar y sinusitis J01.00 [place] [address] [facility] [id number] [address] [place] [phone] Apr, Acute non-recurrent maxillar y sinusitis J01.00 ; Anxiety F41.9 ; Acute right-sided low back pain with right-sided sciatica M54.41 and Thoracic neuritis M54.14 IMMUNIZATIONS No Known Immunizations SOCIAL HISTORY Never Assessed REASON FOR VISIT B12 question PLAN OF CARE VITAL SIGNS MEDICATIONS Medication Instructions Dosage Frequency Start Date End Date Duration S tatus Cyanocobalamin 1000 MCG/ML Injection once monthly 1 ml Aug, 30 day(s) Active RESULTS No Results PROCEDURES No Known procedures INSTRUCTIONS MEDICATIONS ADMINISTERED No Known Medications MEDICAL (GENERAL) HISTORY Type Description Date Medical History COPD Surgical History mass removed from right breast
--- OUTSIDE RECORDS SUMMARY | 2019-12-17 16:11 | XMS REPORT ---
Author Author Pepper MCKEON Organization [facility] Address [address] [place] [address] Care Team Providers Care Medical Driver Name Role Phone DEVEN MCKEON Unavailable PROBLEMS Type Condition ICD9-CM Code AFG37-FS Code Onset Dates Condition S tatus SNOMED Code Problem Acute right-sided low back pain with right-sided sciatica M54.41 Active 316041619 Problem COPD exacerbation J44.1 Active 29 8029534907987 Problem Anxiety F41.9 Active 05099773 Problem Mood disorder F39 Active 256814 05 Problem Injury of right shoulder, initial encounter S49.91 XA Active 016771959 Problem Chronic fatigue R53.82 Active 8422 9001 Problem Stable angina pectoris I20.8 Active 422304300 Problem 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 [id number] [address] [place] [phone] Dec, [facility] [address] [facility] [id number] [address] [place] [phone] Dec, [facility] [address] [facility] [id number] [address] [place] [phone] Dec, [facility] [address] [facility] [id number] [address] [place] [phone] Dec, Panlobular emphysema J43.1 [facility] [address] [id number] [address] [place] [phone] Nov, [facility] [address] [facility] [id number] [address] [place] [phone] Nov, Acute non-recurrent maxillar y sinusitis J01.00 [facility] [address] [facility] [id number] [address] [place] [phone] Nov, [facility] [address] [facility] [id number] [address] [place] [address] Nov, Thoracic neuritis M54.14 ; A cute pain of right shoulder M25.511 ; Mood disorder F39 ; Pain in right ankle and joints of right foot M25.571 and Other chronic pain G89.29 [place] [address] [place] [id number] [address] [place] [phone] Nov, [facility] [address] [facility] [id number] [address] [place] [phone] Nov, Injury of right shoulder, in itial encounter S49.91XA [place] [address] [place] [id number] [address] [place] [phone] Nov, Panlobular emphysema J43.1 [place] [address] [place] [id number] [address] [place] [phone] Nov, Acute non-recurrent maxillar y sinusitis J01.00 [facility] [address] [facility] [id number] [address] [place] [phone] October, Acute non-recurrent maxillar y sinusitis J01.00 [place] [address] [facility] [id number] [address] [place] [phone] Sep, Contusion of right upper ext remity, initial encounter S40.021A [facility] [address] [facility] [id number] [address] [place] [address] Sep, Right forearm pain M79.631 [place] [address] [facility] [id number] [address] [place] [phone] Sep, Acute non-recurrent maxillar y sinusitis J01.00 [place] [address] [facility] [id number] [address] [place] [phone] Aug, Stable angina pectoris I20.8 [place] [address] [facility] [id number] [address] [place] [phone] 14 Aug, 2017 Chronic fatigue R53.82 [place] [address] [facility] [id number] [address] [place] [phone] Aug, [place] [address] [facility] [id number] [address] [place] [address] Aug, Stable angina pectoris I20.8 and Chronic fatigue R53.82 [place] [address] [facility] [id number] [address] [place] [phone] Aug, Acute non-recurrent maxillar y sinusitis J01.00 [place] [address] [facility] [id number] [address] [place] [address] 26 Jul, 2017 Family history of early CAD Z82.49 [place] [address] [place] [id number] [address] [place] [phone] 26 Jul, 2017 Chronic fatigue R53.82 ; Hyp ertension, benign I10 ; Family history of early CAD Z82.49 and Coronary artery disease of [place] artery of [place] heart with stable angina pectoris I25.118 [place] [address] [facility] [id number] [address] [place] [address] 16 Jul, 2017 Family history of early CAD Z82.49 [place] [address] [facility] [id number] [address] [place] [address] 16 Jul, 2017 Chronic fatigue R53.82 ; Hyp ertension, benign I10 ; Family history of early CAD Z82.49 and Coronary artery disease of [place] artery of [place] heart with stable angina pectoris I25.118 [place] [address] [place] [id number] [address] [place] [address] Jul, Chronic fatigue R53.82 [facility] [address] [facility] [id number] [address] [place] [address] Jul, Chronic fatigue R53.82 ; Hyp ertension, benign I10 ; Family history of early CAD Z82.49 and Coronary artery disease of [place] artery of [place] heart with stable angina pectoris I25.118 [facility] [address] [id number] [address] [place] [id number] Jul, Dental examination Z01.20 an d Dental caries K02.9 [facility] [address] [facility] [id number] [address] [place] [address] Jul, [facility] [address] [facility] [id number] [address] [place] [phone] Jul, [facility] [address] [facility] [id number] [address] [place] [phone] Jul, Acute non-recurrent maxillar y sinusitis J01.00 [facility] [address] [facility] [id number] [address] [place] [phone] Jul, [facility] [address] [facility] [id number] [address] [place] [phone] Jun, [facility] [address] [facility] [id number] [address] [place] [phone] Jun, [facility] [address] [place] [id number] [address] [place] [address] Jun, Acute non-recurrent maxillar y sinusitis J01.00 [facility] [address] [facility] [id number] [address] [place] [phone] Jun, Anxiety F41.9 ; Bronchitis J 40 ; Tobacco abuse Z72.0 ; Tobacco abuse counseling Z71.6 and Acute left ankle pain M25.572 [facility] [address] [facility] [id number] [address] [place] [address] May, Cough R05 and COPD exacerbat ion J44.1 [facility] [address] [facility] [id number] [address] [place] [phone] 15 May, 2017 [facility] [address] [facility] [id number] [address] [place] [phone] 14 May, 2017 [facility] [address] [facility] [id number] [address] [place] [phone] May, Acute non-recurrent maxillar y sinusitis J01.00 [facility] [address] [facility] [id number] [address] [place] [phone] Apr, Acute non-recurrent maxillar y sinusitis J01.00 [...]
--- OUTSIDE RECORDS SUMMARY | 2019-12-17 16:11 | XMS REPORT ---
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 Name Role Phone DEVEN MCKEON Unavailable PROBLEMS Type Condition ICD9-CM Code [id number] Code Onset Dates Condition S tatus SNOMED Code Problem Acute right-sided low back pain with right-sided sciatica M54.41 Active 704395276 Problem COPD exacerbation J44.1 Active 29 1178659705629 Problem Anxiety F41.9 Active 34575432 Problem Mood disorder F39 Active 937631 05 Problem Injury of right shoulder, initial encounter S49.91 XA Active 458853184 Problem Chronic fatigue R53.82 Active 8422 9001 Problem Stable angina pectoris I20.8 Active 421600123 Problem 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 Active 597536014546 7 Problem Hypertension, benign I10 Active 73442880 Problem Panlobular emphysema J43.1 Active 2661863 Problem Lumbago with sciatica, left side M54.42 Active 270538335 Problem Lumbago with sciatica, right side M54.41 Active 106819353002297 Problem Functional constipation K59.04 Active 318659306 Problem Other chronic pain G89.29 Active 8 3681133 ALLERGIES No Information ENCOUNTERS Encounter Location Date Diagnosis [facility] [address] [facility] [id number] [address] [place] [phone] Dec, [facility] [address] [facility] [id number] [address] [place] [phone] Dec, [facility] [address] [facility] [id number] [address] [place] [phone] Dec, [facility] [address] [facility] [id number] [address] [place] [phone] Dec, [facility] [address] [id number] [address] [place] [phone] Dec, [facility] [address] [id number] [address] [place] [phone] Dec, Panlobular emphysema J43.1 [facility] [address] [id number] [address] [place] [phone] Nov, [facility] [address] [id number] [address] [place] [phone] Nov, Acute non-recurrent maxillar y sinusitis J01.00 [facility] [address] [id number] [address] [place] [phone] Nov, [facility] [address] [id number] [address] [place] [phone] Nov, Thoracic neuritis M54.14 ; A cute pain of right shoulder M25.511 ; Mood disorder F39 ; Pain in right ankle and joints of right foot M25.571 and Other chronic pain G89.29 [facility] [address] [id number] [address] [place] [phone] Nov, [facility] [address] [facility] [id number] [address] [place] [phone] Nov, Injury of right shoulder, in itial encounter S49.91XA [facility] [address] [facility] [id number] [address] [place] [phone] Nov, Panlobular emphysema J43.1 [facility] [address] [id number] [address] [place] [phone] Nov, Acute non-recurrent maxillar y sinusitis J01.00 [facility] [address] [facility] [id number] [address] [place] [phone] October, Acute non-recurrent maxillar y sinusitis J01.00 [facility] [address] [facility] [id number] [address] [place] [phone] Sep, Contusion of right upper ext remity, initial encounter S40.021A [facility] [address] [id number] [address] [place] [phone] Sep, Right forearm pain M79.631 [facility] [address] [id number] [address] [place] [phone] Sep, Acute non-recurrent maxillar y sinusitis J01.00 [facility] [address] [id number] [address] [place] [phone] Aug, Stable angina pectoris I20.8 [place] [address] [id number] [address] [place] [phone] Aug, Chronic fatigue R53.82 [facility] [address] [id number] [address] [place] [phone] Aug, [facility] [address] [facility] [id number] [address] [place] [phone] Aug, Stable angina pectoris I20.8 and Chronic fatigue R53.82 [place] [address] [facility] [id number] [address] [place] [phone] Aug, Acute non-recurrent maxillar y sinusitis J01.00 [facility] [address] [id number] [address] [place] [phone] Jul, Family history of early CAD Z82.49 [facility] [address] [facility] [id number] [address] [place] [phone] Jul, Chronic fatigue R53.82 ; Hyp ertension, benign I10 ; Family history of early CAD Z82.49 and Coronary artery disease of [place] artery of [place] heart with stable angina pectoris I25.118 [place] [address] [id number] [address] [place] [phone] Jul, Family history of early CAD Z82.49 [facility] [address] [facility] [id number] [address] [place] [phone] Jul, Chronic fatigue R53.82 ; Hyp ertension, benign I10 ; Family history of early CAD Z82.49 and Coronary artery disease of [place] artery of [place] heart with stable angina pectoris I25.118 [facility] [address] [id number] [address] [place] [phone] 15 Jul, 2017 Chronic fatigue R53.82 [facility] [address] [id number] [address] [place] [id number] 15 Jul, 2017 Chronic fatigue R53.82 ; Hyp ertension, benign I10 ; Family history of early CAD Z82.49 and Coronary artery disease of [place] artery of [place] heart with stable angina pectoris I25.118 [facility] [address] [id number] [address] [place] [id number] 12 Jul, 2017 Dental examination Z01.20 an d Dental caries K02.9 [facility] [address] [id number] [address] [place] [phone] Jul, [facility] [address] [facility] [id number] [address] [place] [phone] Jul, [facility] [address] [id number] [address] [place] [phone] Jul, Acute non-recurrent maxillar y sinusitis J01.00 [facility] [address] [id number] [address] [place] [phone] Jul, [facility] [address] [id number] [address] [place] [phone] Jun, [facility] [address] [id number] [address] [place] [phone] Jun, [facility] [address] [facility] [id number] [address] [place] [phone] Jun, Acute non-recurrent maxillar y sinusitis J01.00 [facility] [address] [facility] [id number] [address] [place] [phone] Jun, Anxiety F41.9 ; Bronchitis J 40 ; Tobacco abuse Z72.0 ; Tobacco abuse counseling Z71.6 and Acute left ankle pain M25.572 [facility] [address] [facility] [id number] [address] [place] [phone] May, Cough R05 and COPD exacerbat ion J44.1 [facility] [address] [facility] [id number] [address] [place] [phone] May, [facility] [address] [facility] [id number] [address] [place] [phone] May, [facility] [address] [facility] [id number] [address] [place] [phone] May, Acute non-recurrent maxillar y sinusitis J01.00 [facility] [address] [facility] [id number] [address] [place] [phone] Apr, Acute non-recurrent maxillar y sinusitis J01.00 ; Anxiety F41.9 ; Acute right-sided low back pain with right-sided sciatica M54.41 and Thoracic neuritis M54.14 IMMUNIZATIONS No Known Immunizations SOCIAL HISTORY Never Assessed REASON FOR VISIT Controlled Med Refill 09/29 PLAN OF CARE VITAL SIGNS MEDICATIONS Medication Instructions Dosage Frequency Start Date End Date Duration S tatus Zanaflex 4 MG Orally 2 times a day 1 tablet as needed 12h 28 days Active Hydrocodone-Acetaminophen 10-325 MG Orally every 6 hrs 1 tablet as needed 6h Sep, 28 days Active Xanax 0.5 MG Orally Twice a day 1 tablet 12h 28 days Active RESULTS No Results PROCEDURES No Known procedures INSTRUCTIONS MEDICATIONS ADMINISTERED No Known Medications MEDICAL (GENERAL) HISTORY Type Description Date Medical History COPD Surgical History mass removed from right breast
--- OUTSIDE RECORDS SUMMARY | 2019-12-17 16:11 | XMS REPORT ---
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 Name Role Phone DEVEN MCKEON Unavailable PROBLEMS Type Condition ICD9-CM Code [id number] Code Onset Dates Condition S tatus SNOMED Code Problem Acute right-sided low back pain with right-sided sciatica M54.41 Active 370396438 Problem COPD exacerbation J44.1 Active 29 5024495772429 Problem Anxiety F41.9 Active 09095585 Problem Mood disorder F39 Active 075263 05 Problem Injury of right shoulder, initial encounter S49.91 XA Active 708190404 Problem Chronic fatigue R53.82 Active 8422 9001 Problem Stable angina pectoris I20.8 Active 075698154 Problem 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 Active 146210930116 7 Problem Hypertension, benign I10 Active 97347729 Problem Panlobular emphysema J43.1 Active 5446150 Problem Lumbago with sciatica, left side M54.42 Active 246281239 Problem Lumbago with sciatica, right side M54.41 Active 473162227639821 Problem Functional constipation K59.04 Active 989674614 Problem Other chronic pain G89.29 Active 8 8001569 ALLERGIES Substance Reaction Event Type Date Status PredniSONE Unknown Drug Allergy Sep, Active Lyrica Unknown Drug Allergy Sep, Active ENCOUNTERS Encounter Location Date Diagnosis [facility] [address] [facility] [id number] [address] [place] [phone] Dec, Thoracic neuritis M54.14 ; B reast lump N63.0 and Tinea corporis B35.4 [facility] [address] [facility] [id number] [address] [place] [address] Dec, Acute non-recurrent maxillar y sinusitis J01.00 [facility] [address] [place] [id number] [address] [place] [phone] Dec, [facility] [address] [id number] [address] [place] [phone] Dec, [facility] [address] [id number] [address] [place] [phone] Dec, [facility] [address] [id number] [address] [place] [phone] Dec, Panlobular emphysema J43.1 [facility] [address] [id number] [address] [place] [phone] Nov, [facility] [address] [id number] [address] [place] [phone] Nov, Acute non-recurrent maxillar y sinusitis J01.00 [place] [address] [facility] [id number] [address] [place] [address] Nov, [facility] [address] [facility] [id number] [address] [place] [address] Nov, Thoracic neuritis M54.14 ; A cute pain of right shoulder M25.511 ; Mood disorder F39 ; Pain in right ankle and joints of right foot M25.571 and Other chronic pain G89.29 [facility] [address] [facility] [id number] [address] [place] [address] Nov, [facility] [address] [id number] [address] [place] [address] Nov, Injury of right shoulder, in itial encounter S49.91XA [facility] [address] [facility] [id number] [address] [place] [phone] Nov, Panlobular emphysema J43.1 [facility] [address] [facility] [id number] [address] [place] [address] Nov, Acute non-recurrent maxillar y sinusitis J01.00 [facility] [address] [id number] [address] [place] [address] October, Acute non-recurrent maxillar y sinusitis J01.00 [facility] [address] [id number] [address] [place] [address] Sep, Contusion of right upper ext remity, initial encounter S40.021A [facility] [address] [id number] [address] [place] [address] Sep, Right forearm pain M79.631 [facility] [address] [id number] [address] [place] [address] Sep, Acute non-recurrent maxillar y sinusitis J01.00 [facility] [address] [id number] [address] [place] [address] Aug, Stable angina pectoris I20.8 [place] [address] [facility] [id number] [address] [place] [address] Aug, Chronic fatigue R53.82 [facility] [address] [id number] [address] [place] [address] Aug, [place] [address] [facility] [id number] [address] [place] [address] Aug, Stable angina pectoris I20.8 and Chronic fatigue R53.82 [place] [address] [facility] [id number] [address] [place] [address] Aug, Acute non-recurrent maxillar y sinusitis J01.00 [facility] [address] [id number] [address] [place] [address] Jul, Chronic fatigue R53.82 ; Hyp ertension, benign I10 ; Family history of early CAD Z82.49 and Coronary artery disease of [place] artery of [place] heart with stable angina pectoris I25.118 [place] [address] [id number] [address] [place] [address] Jul, Family history of early CAD Z82.49 [place] [address] [facility] [id number] [address] [place] [address] 16 Jul, 2017 Family history of early CAD Z82.49 [facility] [address] [facility] [id number] [address] [place] [phone] 16 Jul, 2017 Chronic fatigue R53.82 ; Hyp ertension, benign I10 ; Family history of early CAD Z82.49 and Coronary artery disease of [place] artery of [place] heart with stable angina pectoris I25.118 [facility] [address] [facility] [id number] [address] [place] [address] 15 Jul, 2017 Chronic fatigue R53.82 [facility] [address] [facility] [id number] [address] [place] [address] 15 Jul, 2017 Chronic fatigue R53.82 ; Hyp ertension, benign I10 ; Family history of early CAD Z82.49 and Coronary artery disease of [place] artery of [place] heart with stable angina pectoris I25.118 [facility] [address] [place] [id number] [place] [id number] 12 Jul, 2017 Dental examination Z01.20 an d Dental caries K02.9 [facility] [address] [place] [id number] [address] [place] [address] Jul, [facility] [address] [place] [id number] [address] [place] [address] 09 Jul, 2017 [facility] [address] [place] [id number] [address] [place] [address] Jul, Acute non-recurrent maxillar y sinusitis J01.00 [facility] [address] [facility] [id number] [address] [place] [address] Jul, [facility] [address] [place] [id number] [address] [place] [phone] Jun, [facility] [address] [facility] [id number] [address] [place] [address] Jun, [facility] [address] [place] [id number] [address] [place] [address] Jun, Acute non-recurrent maxillar y sinusitis J01.00 [facility] [address] [place] [id number] [address] [place] [address] Jun, Anxiety F41.9 ; Bronchitis J 40 ; Tobacco abuse Z72.0 ; Tobacco abuse counseling Z71.6 and Acute left ankle pain M25.572 [facility] [id number] [place] [address] May, Cough R05 and COPD exacerbat ion J44.1 [facility] [address] [place] [id number] [address] [place] [address] May, [place] [address] [address] May, [place] [address] [address] May, Acute non-recurrent maxillar y sinusitis J01.00 [facility] [address] [address] Apr, Acute non-recurrent maxillar y sinusitis J01.00 ; Anxiety F41.9 ; Acute right-sided low back pain with right-sided sciatica M54.41 and Thoracic neuritis M54.14 IMMUNIZATIONS No Known Immunizations SOCIAL HISTORY Never Assessed REASON FOR VISIT f/u injured right arm WB-MA, Sharp pain has not gone away PLAN OF CARE VITAL SIGNS Height 67 in 2017-10-20 Weight 187 lbs 2017-10-20 Temperature 97.9 degrees Fahrenheit 2017-10-20 Heart Rate 78 bpm 2017-10-20 Respiratory Rate 20 2017-10-20 BMI 29.29 kg/m2 2017-10-20 Blood pressure systolic 122 mmHg 2017-10-20 Blood pressure diastolic 80 mmHg 2017-10-20 MEDICATIONS Medication Instructions Dosage Frequency Start Date End Date Duration S tatus Chantix 1 MG Orally Twice a day 1 tablet 12h Jun, 14 Au , 2017 30 day(s) Active ProAir HFA 108 (90 Base) MCG/ACT Inhalation every 6 hrs 2 puffs as needed 6h 15 May, 2017 Active Zanaflex 4 MG Orally 2 times a day 1 tablet as needed 12h 28 days Active Cyanocobalamin 1000 MCG/ML Injection once monthly 1 ml Aug, 30 day(s) Active Hydrocodone-Acetaminophen 10-325 MG Orally every 6 hrs 1 tablet as needed 6h Sep, 28 days Active Xanax 0.5 MG Orally Twice a day 1 tablet 12h 28 days Active Nitroglycerin 0.4 MG Sublingual Once a day prn, m ay repeat every 5 minutes until resolution. if taken 3 doses report to er immediately. 1 tablet Active Detrol LA 4 MG Orally Once a day 1 capsule 24h Aug,2017 30 day(s) Active Albuterol Sulfate (2.5 MG/3ML) 0.083% Inhalation every 6 hrs 3 ml a s needed 6h May, 0 days Active Linzess 290 MCG Orally Once a day 1 capsule 24h Aug, Dec, 30 day(s) Active Diclofenac Sodium 75 MG Orally Twice a day 1 tablet with food or mi lk 12h Sep, Dec, 30 day(s) Active RESULTS No Results PROCEDURES No Known procedures INSTRUCTIONS MEDICATIONS ADMINISTERED No Known Medications MEDICAL (GENERAL) HISTORY Type Description Date Medical History COPD Surgical History mass removed from right breast
--- OUTSIDE RECORDS SUMMARY | 2019-12-17 16:11 | XMS REPORT ---
Author Author Pepper URBINA [facility] Address [address] [place] [address] Care Team Providers Care Conference Producer Name Role Phone ISHMAEL URBINA Unavailable PROBLEMS Type Condition ICD9-CM Code [id number] Code Onset Dates Condition S tatus SNOMED Code Problem Acute right-sided low back pain with right-sided sciatica M54.41 Active 735707636 Problem COPD exacerbation J44.1 Active 29 7061793325932 Problem Anxiety F41.9 Active 18987852 Problem Mood disorder F39 Active 225507 05 Problem Injury of right shoulder, initial encounter S49.91 XA Active 930549741 Problem Chronic fatigue R53.82 Active 8422 9001 Problem Stable angina pectoris I20.8 Active 396921190 Problem 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 [id number] [address] [place] [phone] Dec, Thoracic neuritis M54.14 ; B reast lump N63.0 and Tinea corporis B35.4 [facility] [address] [facility] [id number] [address] [place] [address] Dec, Acute non-recurrent maxillar y sinusitis J01.00 [facility] [address] [id number] [address] [place] [address] Dec, [facility] [address] [id number] [address] [place] [phone] Dec, [facility] [address] [id number] [address] [place] [phone] Dec, [facility] [address] [id number] [address] [place] [address] Dec, Panlobular emphysema J43.1 [facility] [address] [id number] [address] [place] [address] Nov, [facility] [address] [id number] [address] [place] [address] Nov, Acute non-recurrent maxillar y sinusitis J01.00 [facility] [address] [facility] [id number] [address] [place] [address] Nov, [facility] [address] [id number] [address] [place] [address] Nov, Thoracic neuritis M54.14 ; A cute pain of right shoulder M25.511 ; Mood disorder F39 ; Pain in right ankle and joints of right foot M25.571 and Other chronic pain G89.29 [facility] [address] [facility] [id number] [address] [place] [address] Nov, [facility] [address] [facility] [id number] [address] [place] [address] Nov, Injury of right shoulder, in itial encounter S49.91XA [facility] [address] [facility] [id number] [address] [place] [address] Nov, Panlobular emphysema J43.1 [facility] [address] [facility] [id number] [address] [place] [address] Nov, Acute non-recurrent maxillar y sinusitis J01.00 [facility] [address] [id number] [address] [place] [address] October, Acute non-recurrent maxillar y sinusitis J01.00 [facility] [address] [id number] [address] [place] [address] Sep, Contusion of right upper ext remity, initial encounter S40.021A [facility] [address] [id number] [address] [place] [address] Sep, Right forearm pain M79.631 [facility] [address] [id number] [address] [place] [address] Sep, Acute non-recurrent maxillar y sinusitis J01.00 [facility] [address] [id number] [address] [place] [address] Aug, Stable angina pectoris I20.8 [place] [address] [facility] [id number] [address] [place] [address] Aug, Chronic fatigue R53.82 [facility] [address] [facility] [id number] [address] [place] [address] Aug, [facility] [address] [facility] [id number] [address] [place] [address] Aug, Stable angina pectoris I20.8 and Chronic fatigue R53.82 [place] [address] [facility] [id number] [address] [place] [address] Aug, Acute non-recurrent maxillar y sinusitis J01.00 [facility] [address] [facility] [id number] [address] [place] [address] Jul, Chronic fatigue R53.82 ; Hyp ertension, benign I10 ; Family history of early CAD Z82.49 and Coronary artery disease of [place] artery of [place] heart with stable angina pectoris I25.118 [facility] [address] [facility] [id number] [address] [place] [address] Jul, Family history of early CAD Z82.49 [facility] [address] [facility] [id number] [address] [place] [address] 16 Jul, 2017 Family history of early CAD Z82.49 [facility] [address] [facility] [id number] [address] [place] [address] 16 Jul, 2017 Chronic fatigue R53.82 ; Hyp ertension, benign I10 ; Family history of early CAD Z82.49 and Coronary artery disease of [place] artery of [place] heart with stable angina pectoris I25.118 [facility] [address] [facility] [id number] [address] [place] [phone] 15 Jul, 2017 Chronic fatigue R53.82 [facility] [address] [facility] [id number] [address] [place] [address] 15 Jul, 2017 Chronic fatigue R53.82 ; Hyp ertension, benign I10 ; Family history of early CAD Z82.49 and Coronary artery disease of [place] artery of [place] heart with stable angina pectoris I25.118 [facility] [id number] [place] [id number] 12 Jul, 2017 Dental examination Z01.20 an d Dental caries K02.9 [facility] [address] [place] [id number] [address] [place] [phone] Jul, [facility] [address] [place] [id number] [address] [place] [address] Jul, [facility] [address] [place] [id number] [address] [place] [address] Jul, Acute non-recurrent maxillar y sinusitis J01.00 [facility] [address] [facility] [id number] [address] [place] [phone] Jul, [facility] [address] [facility] [id number] [address] [place] [phone] Jun, [facility] [address] [facility] [id number] [address] [place] [address] Jun, [facility] [address] [place] [id number] [address] [place] [address] Jun, Acute non-recurrent maxillar y sinusitis J01.00 [facility] [address] [address] Jun, Anxiety F41.9 ; Bronchitis J 40 ; Tobacco abuse Z72.0 ; Tobacco abuse counseling Z71.6 and Acute left ankle pain M25.572 [facility] [address] [address] May, Cough R05 and COPD exacerbat ion J44.1 [facility] [address] [address] May, [place] [address] [address] May, [place] [address] [address] May, Acute non-recurrent maxillar y sinusitis J01.00 [facility] [address] [address] Apr, Acute non-recurrent maxillar y sinusitis J01.00 ; Anxiety F41.9 ; Acute right-sided low back pain with right-sided sciatica M54.41 and Thoracic neuritis M54.14 IMMUNIZATIONS Vaccine Route Administration Date Status TORADOL (IM) 60 MG/2ML (UP TO 15 MG) IM Intramuscular October 10, 2017 Administered SOCIAL HISTORY Never Assessed REASON FOR VISIT was at home et trying to flip a mattress...having trouble...stepped on box sprin g...foot went thru it...she fell backwards and hurt RFA...thinks she broke it. d enies hitting head and / or LOC. [email or web address] PLAN OF CARE Activity Details Follow Up prn Reason: VITAL SIGNS Height 67 in 2017-10-10 Weight 187.6 lbs 2017-10-10 Temperature 98.0 degrees Fahrenheit 2017-10-10 Heart Rate 80 bpm 2017-10-10 Respiratory Rate 2017-10-10 BMI 29.38 kg/m2 2017-10-10 Blood pressure systolic 112 mmHg 2017-10-10 Blood pressure diastolic 76 mmHg 2017-10-10 MEDICATIONS Medication Instructions Dosage Frequency Start Date End Date Duration S tatus Albuterol Sulfate (2.5 MG/3ML) 0.083% Inhalation every 6 hrs 3 ml a s needed 6h 30 May, 2017 0 days Active Chantix 1 MG Orally Twice a day 1 tablet 12h Jun, 14 Au g2017 30 day(s) Active Detrol LA 4 MG Orally Once a day 1 capsule 24h Aug, 12 J un2017 30 day(s) Active Cyanocobalamin 1000 MCG/ML Injection once monthly 1 ml Aug, 30 day(s) Active ProAir HFA 108 (90 Base) MCG/ACT Inhalation every 6 hrs 2 puffs as needed 6h May, Active Zanaflex 4 MG Orally 2 times a day 1 tablet as needed 12h 28 days Active Hydrocodone-Acetaminophen 10-325 MG Orally every 6 hrs 1 tablet as needed 6h Sep, 28 days Active Nitroglycerin 0.4 MG Sublingual Once a day prn, m ay repeat every 5 minutes until resolution. if taken 3 doses report to er immediately. 1 tablet Active Xanax 0.5 MG Orally Twice a day 1 tablet 12h 28 days Active Linzess 290 MCG Orally Once a day 1 capsule 24h Aug, Dec, 30 day(s) Active RESULTS Name Result Date Reference Range Xray : Forearm, Right 2 views (IN HOUSE) 2017-09 PROCEDURES Procedure Date Ordered Result Body Site X-RAY EXAM OF FOREARM October 10, 2017 TORADOL (IM) 60 MG/2ML (UP TO 15 MG) October 10, 2017 THER/PROPH/DIAG INJ, SC/IM October 10, 2017 INSTRUCTIONS MEDICATIONS ADMINISTERED No Known Medications MEDICAL (GENERAL) HISTORY Type Description Date Medical History COPD Surgical History mass removed from right breast
--- OUTSIDE RECORDS SUMMARY | 2019-12-17 16:11 | XMS REPORT ---
Author Author Pepper BRYAN Organization [facility] Address [address] [place] [address] Care Team Providers Care Septic Technician Name Role Phone IRVIN, MARTA Unavailable PROBLEMS Type Condition ICD9-CM Code [id number] Code Onset Dates Condition S tatus SNOMED Code Problem Acute right-sided low back pain with right-sided sciatica M54.41 Active 664787078 Problem COPD exacerbation J44.1 Active 29 3567685267765 Problem Anxiety F41.9 Active 18475575 Problem Mood disorder F39 Active 634699 05 Problem Injury of right shoulder, initial encounter S49.91 XA Active 475700747 Problem Chronic fatigue R53.82 Active 8422 9001 Problem Stable angina pectoris I20.8 Active 870136248 Problem 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 Active 019805445806 7 Problem Hypertension, benign I10 Active 29297536 Problem Panlobular emphysema J43.1 Active 6861328 Problem Lumbago with sciatica, left side M54.42 Active 511718050 Problem Lumbago with sciatica, right side M54.41 Active 507760425980205 Problem Functional constipation K59.04 Active 230461982 Problem Other chronic pain G89.29 Active 8 7153034 ALLERGIES Substance Reaction Event Type Date Status PredniSONE Unknown Drug Allergy Jul, Active Lyrica Unknown Drug Allergy Jul, Active ENCOUNTERS Encounter Location Date Diagnosis [facility] [address] [facility] [id number] [address] [place] [phone] Dec, [facility] [address] [facility] [id number] [address] [place] [phone] Dec, [facility] [address] [facility] [id number] [address] [place] [phone] Dec, [facility] [address] [id number] [address] [place] [phone] Dec, [facility] [address] [id number] [address] [place] [phone] Dec, Panlobular emphysema J43.1 [facility] [address] [id number] [address] [place] [phone] Nov, [facility] [address] [id number] [address] [place] [phone] Nov, Acute non-recurrent maxillar y sinusitis J01.00 [facility] [address] [id number] [address] [place] [address] Nov, [facility] [address] [facility] [id number] [address] [place] [address] Nov, Thoracic neuritis M54.14 ; A cute pain of right shoulder M25.511 ; Mood disorder F39 ; Pain in right ankle and joints of right foot M25.571 and Other chronic pain G89.29 [facility] [address] [facility] [id number] [address] [place] [address] Nov, [facility] [address] [facility] [id number] [address] [place] [address] Nov, Injury of right shoulder, in itial encounter S49.91XA [facility] [address] [facility] [id number] [address] [place] [address] Nov, Panlobular emphysema J43.1 [facility] [address] [id number] [address] [place] [phone] Nov, Acute non-recurrent maxillar y sinusitis J01.00 [facility] [address] [facility] [id number] [address] [place] [address] October, Acute non-recurrent maxillar y sinusitis J01.00 [facility] [address] [facility] [id number] [address] [place] [phone] Sep, Contusion of right upper ext remity, initial encounter S40.021A [facility] [address] [id number] [address] [place] [address] Sep, Right forearm pain M79.631 [facility] [place] [address] [id number] [address] [place] [address] Sep, Acute non-recurrent maxillar y sinusitis J01.00 [facility] [place] [address] [id number] [address] [place] [phone] Aug, Stable angina pectoris I20.8 [facility] [address] [id number] [address] [place] [address] Aug, Chronic fatigue R53.82 [facility] [address] [facility] [id number] [address] [place] [phone] Aug, [facility] [address] [facility] [id number] [address] [place] [address] Aug, Stable angina pectoris I20.8 and Chronic fatigue R53.82 [facility] [address] [facility] [id number] [address] [place] [address] Aug, Acute non-recurrent maxillar y sinusitis J01.00 [facility] [address] [facility] [id number] [address] [place] [address] Jul, Chronic fatigue R53.82 ; Hyp ertension, benign I10 ; Family history of early CAD Z82.49 and Coronary artery disease of [place] artery of [place] heart with stable angina pectoris I25.118 [facility] [address] [id number] [address] [place] [address] Jul, Family history of early CAD Z82.49 [facility] [place] [address] [facility] [id number] [address] [place] [address] Jul, Family history of early CAD Z82.49 [facility] [place] [address] [facility] [id number] [address] [place] [address] Jul, Chronic fatigue R53.82 ; Hyp ertension, benign I10 ; Family history of early CAD Z82.49 and Coronary artery disease of [place] artery of [place] heart with stable angina pectoris I25.118 [facility] [place] [address] [id number] [address] [place] [phone] 15 Jul, 2017 Chronic fatigue R53.82 [facility] [address] [id number] [address] [place] [phone] 15 Jul, 2017 Chronic fatigue R53.82 ; Hyp ertension, benign I10 ; Family history of early CAD Z82.49 and Coronary artery disease of [place] artery [place] heart with stable angina pectoris I25.118 [facility] [address] [id number] [address] [place] [id number] 12 Jul, 2017 Dental examination Z01.20 an d Dental caries K02.9 [facility] [address] [id number] [address] [place] [phone] Jul, [facility] [address] [facility] [id number] [address] [place] [phone] Jul, [facility] [address] [id number] [address] [place] [id number] Jul, Acute non-recurrent maxillar y sinusitis J01.00 [facility] [address] [id number] [address] [place] [phone] Jul, [facility] [address] [id number] [address] [place] [phone] Jun, [facility] [address] [id number] [address] [place] [phone] Jun, [facility] [address] [facility] [id number] [address] [place] [id number] Jun, Acute non-recurrent maxillar y sinusitis J01.00 [facility] [place] [address] [facility] [id number] [address] [place] [phone] Jun, Anxiety F41.9 ; Bronchitis J 40 ; Tobacco abuse Z72.0 ; Tobacco abuse counseling Z71.6 and Acute left ankle pain M25.572 [facility] [address] [facility] [id number] [address] [place] [id number] 30 May, 2017 Cough R05 and COPD exacerbat ion J44.1 [facility] [place] [address] [facility] [id number] [address] [place] [phone] 15 May, 2017 [facility] [address] [facility] [id number] [address] [place] [phone] 14 May, 2017 [facility] [id number] [place] [id number] 13 May, 2017 Acute non-recurrent maxillar y sinusitis J01.00 [facility] [address] [facility] [id number] [address] [place] [id number] 17 Apr, 2017 Acute non-recurrent maxillar y sinusitis J01.00 ; Anxiety F41.9 ; Acute right-sided low back pain with right-sided sciatica M54.41 and Thoracic neuritis M54.14 IMMUNIZATIONS No Known Immunizations SOCIAL HISTORY Never Assessed REASON FOR VISIT [place] PLAN OF CARE Activity Details Follow Up prn Reason: VITAL SIGNS Height 67 in 2017-08-04 Blood pressure systolic 133 mmHg 2017-08-04 Blood pressure diastolic 91 mmHg 2017-08-04 MEDICATIONS Medication Instructions Dosage Frequency Start Date End Date Duration S tatus Chantix 1 MG Orally Twice a day 1 tablet 12h Jun, 3 Dec, 201 8 30 day(s) Active Albuterol Sulfate (2.5 MG/3ML) 0.083% Inhalation every 6 hrs 3 ml a s needed 6h 30 May, 2017 0 days Active ProAir HFA 108 (90 Base) MCG/ACT Inhalation every 6 hrs 2 puffs as needed 6h 15 May, 2017 Active Hydrocodone-Acetaminophen 10-325 MG Orally every 6 hrs 1 tablet as needed 6h 12 Jul, 2017 28 days Active Xanax 0.5 MG Orally Twice a day 1 tablet 12h 28 days Active Zanaflex 4 MG Orally 2 times a day 1 tablet as needed 12h 30 Active Spiriva HandiHaler 18 MCG Inhalation Once a day 1 capsule 24h 16 Jun Active Nitroglycerin Active RESULTS No Results PROCEDURES Procedure Date Ordered Result Body Site LTD ORAL EVALUATION - PROBLEM FOCUS Aug 04, 2017 INTRAORL-PERIAPICAL 1 FILM [id number] Aug 04, 2017 EXTRAC ERUPTED TOOTH/EXPOSED ROOT Aug 04, 2017 INTRAORL-PERIAPICAL EA ADD FILM Aug 04, 2017 EXTRAC ERUPTED TOOTH/EXPOSED ROOT Aug 04, 2017 EXTRAC ERUPTED TOOTH/EXPOSED ROOT Aug 04, 2017 INSTRUCTIONS MEDICATIONS ADMINISTERED No Known Medications MEDICAL (GENERAL) HISTORY Type Description Date Medical History COPD Surgical History mass removed from right breast
--- OUTSIDE RECORDS SUMMARY | 2019-12-17 16:11 | XMS REPORT ---
Author Author Pepper MCKEON Organization [facility] Address [address] [place] [address] Care Team Providers Care Sticker On Name Role Phone DEVEN MCKEON Unavailable PROBLEMS Type Condition ICD9-CM Code [id number] Code Onset Dates Condition S tatus SNOMED Code Problem Acute right-sided low back pain with right-sided sciatica M54.41 Active 938263662 Problem COPD exacerbation J44.1 Active 29 [id number] Problem Anxiety F41.9 Active 88383376 Problem Mood disorder F39 Active 687867 05 Problem Injury of right shoulder, initial encounter S49.91 XA Active 302183904 Problem Chronic fatigue R53.82 Active 8422 9001 Problem Stable angina pectoris I20.8 Active 411790453 Problem Coronary artery disease of n ative artery of apache heart with stable angina pectoris I25.118 Active 915582692941 7 Problem Hypertension, benign I10 Active 32809741 Problem Panlobular emphysema J43.1 Active 9043539 Problem Lumbago with sciatica, left side M54.42 Active 692575706 Problem Lumbago with sciatica, right side M54.41 Active 602888829441254 Problem Functional constipation K59.04 Active 213630054 Problem Other chronic pain G89.29 Active 8 0698436 ALLERGIES Substance Reaction Event Type Date Status PredniSONE Unknown Drug Allergy Aug, Active Lyrica Unknown Drug Allergy Aug, Active ENCOUNTERS Encounter Location Date Diagnosis [facility] [address] [facility] [id number] [address] [place] [phone] Dec, Thoracic neuritis M54.14 ; B reast lump N63.0 and Tinea corporis B35.4 [facility] [address] [facility] [id number] [address] [place] [phone] Dec, Acute non-recurrent maxillar y sinusitis J01.00 [facility] [address] [place] [id number] [address] [place] [phone] Dec, [facility] [address] [id number] [address] [place] [phone] Dec, [facility] [address] [id number] [address] [place] [phone] Dec, [facility] [address] [id number] [address] [place] [phone] Dec, Panlobular emphysema J43.1 [facility] [address] [id number] [address] [place] [phone] Nov, [facility] [address] [id number] [address] [place] [phone] Nov, Acute non-recurrent maxillar y sinusitis J01.00 [place] [address] [facility] [id number] [address] [place] [phone] Nov, [facility] [address] [facility] [id number] [address] [place] [phone] Nov, Thoracic neuritis M54.14 ; A cute pain of right shoulder M25.511 ; Mood disorder F39 ; Pain in right ankle and joints of right foot M25.571 and Other chronic pain G89.29 [facility] [address] [facility] [id number] [address] [place] [phone] Nov, [facility] [address] [id number] [address] [place] [phone] Nov, Injury of right shoulder, in itial encounter S49.91XA [facility] [address] [facility] [id number] [address] [place] [phone] Nov, Panlobular emphysema J43.1 [facility] [address] [facility] [id number] [address] [place] [id number] Nov, Acute non-recurrent maxillar y sinusitis J01.00 [facility] [address] [id number] [address] [place] [phone] October, Acute non-recurrent maxillar y sinusitis J01.00 [facility] [address] [id number] [address] [place] [phone] Sep, Contusion of right upper ext remity, initial encounter S40.021A [facility] [address] [id number] [address] [place] [phone] Sep, Right forearm pain M79.631 [facility] [address] [id number] [address] [place] [phone] Sep, Acute non-recurrent maxillar y sinusitis J01.00 [facility] [address] [id number] [address] [place] [phone] Aug, Stable angina pectoris I20.8 [place] [address] [facility] [id number] [address] [place] [address] Aug, Chronic fatigue R53.82 [facility] [address] [id number] [address] [place] [phone] Aug, [place] [address] [facility] [id number] [address] [place] [phone] Aug, Stable angina pectoris I20.8 and Chronic fatigue R53.82 [place] [address] [facility] [id number] [address] [place] [phone] Aug, Acute non-recurrent maxillar y sinusitis J01.00 [facility] [address] [id number] [address] [place] [address] Jul, Chronic fatigue R53.82 ; Hyp ertension, benign I10 ; Family history of early CAD Z82.49 and Coronary artery disease of apache artery of apache heart with stable angina pectoris I25.118 [place] [address] [id number] [address] [place] [address] Jul, Family history of early CAD Z82.49 [place] [address] [facility] [id number] [address] [place] [phone] 16 Jul, 2017 Family history of early CAD Z82.49 [facility] [address] [facility] [id number] [address] [place] [phone] 16 Jul, 2017 Chronic fatigue R53.82 ; Hyp ertension, benign I10 ; Family history of early CAD Z82.49 and Coronary artery disease of apache artery of apache heart with stable angina pectoris I25.118 [facility] [address] [facility] [id number] [address] [place] [address] 15 Jul, 2017 Chronic fatigue R53.82 [facility] [address] [facility] [id number] [address] [place] [phone] 15 Jul, 2017 Chronic fatigue R53.82 ; Hyp ertension, benign I10 ; Family history of early CAD Z82.49 and Coronary artery disease of apache artery of apache heart with stable angina pectoris I25.118 [facility] [address] [place] [id number] [place] [id number] 12 Jul, 2017 Dental examination Z01.20 an d Dental caries K02.9 [facility] [address] [place] [id number] [address] [place] [phone] Jul, [facility] [address] [place] [id number] [address] [place] [phone] 09 Jul, 2017 [facility] [address] [place] [id number] [address] [place] [address] Jul, Acute non-recurrent maxillar y sinusitis J01.00 [facility] [address] [facility] [id number] [address] [place] [phone] Jul, [facility] [address] [place] [id number] [address] [place] [phone] Jun, [facility] [address] [facility] [id number] [address] [place] [phone] Jun, [facility] [address] [place] [id number] [address] [place] [phone] Jun, Acute non-recurrent maxillar y sinusitis J01.00 [facility] [address] [place] [id number] [address] [place] [address] Jun, Anxiety F41.9 ; Bronchitis J 40 ; Tobacco abuse Z72.0 ; Tobacco abuse counseling Z71.6 and Acute left ankle pain M25.572 [facility] [address] [place] [phone] May, Cough R05 and COPD exacerbat ion J44.1 [place] [address] [place] [id number] [address] [place] [phone] May, [place] [address] [address] May, [place] [address] [address] May, Acute non-recurrent maxillar y sinusitis J01.00 [facility] [address] [place] [id number] [address] [place] [address] Apr, Acute non-recurrent maxillar y sinusitis J01.00 ; Anxiety F41.9 ; Acute right-sided low back pain with right-sided sciatica M54.41 and Thoracic neuritis M54.14 IMMUNIZATIONS No Known Immunizations SOCIAL HISTORY Never Assessed REASON FOR VISIT Prior Authorization Request PLAN OF CARE VITAL SIGNS MEDICATIONS No Known Medications RESULTS No Results PROCEDURES No Known procedures INSTRUCTIONS MEDICATIONS ADMINISTERED No Known Medications MEDICAL (GENERAL) HISTORY Type Description Date Medical History COPD Surgical History mass removed from right breast
--- OUTSIDE RECORDS SUMMARY | 2019-12-17 16:11 | XMS REPORT ---
Author Author Pepper MCKEON Organization [facility] [place] Address [address] [place] [address] Care Team Providers Care Otolaryngology Surgeon Name Role Phone DEVEN MCKEON Unavailable PROBLEMS Type Condition ICD9-CM Code KOO21-AR Code Onset Dates Condition S tatus SNOMED Code Problem Acute right-sided low back pain with right-sided sciatica M54.41 Active 523902812 Problem COPD exacerbation J44.1 Active 29 4432316373021 Problem Anxiety F41.9 Active 33687361 Problem Mood disorder F39 Active 664711 05 Problem Injury of right shoulder, initial encounter S49.91 XA Active 289000419 Problem Chronic fatigue R53.82 Active 8422 9001 Problem Stable angina pectoris I20.8 Active 592484288 Problem 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 Active 263342037191 7 Problem Hypertension, benign I10 Active 77143331 Problem Panlobular emphysema J43.1 Active 4181451 Problem Lumbago with sciatica, left side M54.42 Active 956197073 Problem Lumbago with sciatica, right side M54.41 Active 477347702922521 Problem Functional constipation K59.04 Active 581784417 Problem Other chronic pain G89.29 Active 8 [id number] ALLERGIES No Information ENCOUNTERS Encounter Location Date Diagnosis [facility] [place] [id number] [place] [phone] Dec, Thoracic neuritis M54.14 ; B reast lump N63.0 and Tinea corporis B35.4 [place] [address] [place] [id number] [address] [place] [phone] Dec, Acute non-recurrent maxillar y sinusitis J01.00 [place] [address] [place] [id number] [address] [place] [phone] Dec, [facility] [place] [address] [id number] [address] [place] [phone] Dec, [facility] [place] [address] [id number] [address] [place] [phone] Dec, [facility] [place] [address] [id number] [address] [place] [phone] Dec, Panlobular emphysema J43.1 [facility] [place] [address] [id number] [address] [place] [phone] Nov, [facility] [place] [address] [id number] [address] [place] [phone] Nov, Acute non-recurrent maxillar y sinusitis J01.00 [place] [address] [id number] [address] [place] [phone] Nov, [facility] [place] [address] [facility] [id number] [address] [place] [phone] Nov, Thoracic neuritis M54.14 ; A cute pain of right shoulder M25.511 ; Mood disorder F39 ; Pain in right ankle and joints of right foot M25.571 and Other chronic pain G89.29 [facility] [place] [address] [id number] [address] [place] [phone] Nov, [facility] [address] [id number] [address] [place] [phone] Nov, Injury of right shoulder, in itial encounter S49.91XA [facility] [place] [address] [id number] [address] [place] [phone] Nov, Panlobular emphysema J43.1 [facility] [place] [address] [facility] [id number] [address] [place] [phone] Nov, Acute non-recurrent maxillar y sinusitis J01.00 [facility] [place] [address] [facility] [id number] [address] [place] [phone] October, Acute non-recurrent maxillar y sinusitis J01.00 [facility] [place] [address] [id number] [address] [place] [phone] Sep, Contusion of right upper ext remity, initial encounter S40.021A [facility] [address] [id number] [address] [place] [phone] Sep, Right forearm pain M79.631 [facility] [place] [address] [facility] [id number] [address] [place] [phone] Sep, Acute non-recurrent maxillar y sinusitis J01.00 [facility] [place] [address] [facility] [id number] [address] [place] [phone] Aug, Stable angina pectoris I20.8 [place] [address] [facility] [id number] [address] [place] [phone] Aug, Chronic fatigue R53.82 [facility] [place] [address] [facility] [id number] [address] [place] [phone] Aug, [facility] [place] [address] [facility] [id number] [address] [place] [phone] Aug, Stable angina pectoris I20.8 and Chronic fatigue R53.82 [place] [address] [facility] [id number] [address] [place] [phone] Aug, Acute non-recurrent maxillar y sinusitis J01.00 [facility] [place] [address] [facility] [id number] [address] [place] [phone] Jul, Chronic fatigue R53.82 ; Hyp ertension, benign I10 ; Family history of early CAD Z82.49 and Coronary artery disease of [place] artery of [place] heart with stable angina pectoris I25.118 [place] [address] [facility] [id number] [address] [place] [phone] Jul, Family history of early CAD Z82.49 [facility] [place] [address] [facility] [id number] [address] [place] [phone] 16 Jul, 2017 Family history of early CAD Z82.49 [facility] [place] [address] [id number] [address] [place] [phone] 16 Jul, 2017 Chronic fatigue R53.82 ; Hyp ertension, benign I10 ; Family history of early CAD Z82.49 and Coronary artery disease of [place] artery of [place] heart with stable angina pectoris I25.118 [facility] [place] [address] [id number] [address] [place] [phone] 15 Jul, 2017 Chronic fatigue R53.82 [facility] [place] [address] [id number] [address] [place] [phone] 15 Jul, 2017 Chronic fatigue R53.82 ; Hyp ertension, benign I10 ; Family history of early CAD Z82.49 and Coronary artery disease of [place] artery of [place] heart with stable angina pectoris I25.118 [facility] [address] [id number] [address] [place] [id number] 12 Jul, 2017 Dental examination Z01.20 an d Dental caries K02.9 [facility] [place] [address] [id number] [address] [place] [phone] Jul, [facility] [place] [address] [facility] [id number] [address] [place] [phone] Jul, [facility] [place] [address] [id number] [address] [place] [phone] Jul, Acute non-recurrent maxillar y sinusitis J01.00 [facility] [place] [address] [id number] [address] [place] [phone] Jul, [facility] [place] [address] [facility] [id number] [address] [place] [phone] Jun, [facility] [place] [address] [facility] [id number] [address] [place] [phone] Jun, [facility] [place] [address] [facility] [id number] [address] [place] [phone] Jun, Acute non-recurrent maxillar y sinusitis J01.00 [facility] [place] [address] [place] [id number] [address] [place] [phone] Jun, Anxiety F41.9 ; Bronchitis J 40 ; Tobacco abuse Z72.0 ; Tobacco abuse counseling Z71.6 and Acute left ankle pain M25.572 [facility] [address] [place] [phone] May, Cough R05 and COPD exacerbat ion J44.1 [facility] [place] [address] [phone] May, [place] [address] [phone] May, [place] [address] [phone] May, Acute non-recurrent maxillar y sinusitis J01.00 [facility] [place] [address] [phone] Apr, Acute non-recurrent maxillar y sinusitis J01.00 ; Anxiety F41.9 ; Acute right-sided low back pain with right-sided sciatica M54.41 and Thoracic neuritis M54.14 IMMUNIZATIONS No Known Immunizations SOCIAL HISTORY Never Assessed REASON FOR VISIT Controlled Med Refill 10/27/17 PLAN OF CARE VITAL SIGNS MEDICATIONS Medication Instructions Dosage Frequency Start Date End Date Duration S tatus Hydrocodone-Acetaminophen 10-325 MG Orally every 6 hrs 1 tablet as needed 6h October, 28 days Active Xanax 0.5 MG Orally Twice a day 1 tablet 12h 28 days Active RESULTS No Results PROCEDURES No Known procedures INSTRUCTIONS MEDICATIONS ADMINISTERED No Known Medications MEDICAL (GENERAL) HISTORY Type Description Date Medical History COPD Surgical History mass removed from right breast
[2019-12-17 16:12] LABS: CARBON DIOXIDE 25 MMOL/L (21-32)
--- OUTSIDE RECORDS SUMMARY | 2019-12-17 16:12 | XMS REPORT ---
Author Author Pepper MCKEON Organization [facility] Address [address] [place] [address] Care Team Providers Care Associate Professor Of Surgery Name Role Phone DEVEN MCKEON Unavailable PROBLEMS Type Condition ICD9-CM Code QEC01-JI Code Onset Dates Condition S tatus SNOMED Code Problem Lumbago with sciatica, right side M54.41 Active 007495466479994 Problem Acute right-sided low back pain with right-sided sciatica M54.41 Active 995117854 Problem Other chronic pain G89.29 Active 8 5120948 Problem Functional constipation K59.04 Active 964434138 Problem Panlobular emphysema J43.1 Active 4378518 Problem Lumbago with sciatica, left side M54.42 Active 164387626 Problem Hypertension, benign I10 Active 86661677 Problem Chronic fatigue R53.82 Active 8422 9001 Problem COPD exacerbation J44.1 Active 29 1623538685919 Problem Anxiety F41.9 Active 16283729 Problem 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 [address] [facility] [id number] [address] [place] [phone] Dec, [facility] [address] [facility] [id number] [address] [place] [phone] Nov, Panlobular emphysema J43.1 [facility] [address] [facility] [id number] [address] [place] [phone] Nov, Acute non-recurrent maxillar y sinusitis J01.00 [facility] [address] [facility] [id number] [address] [place] [phone] October, Acute non-recurrent maxillar y sinusitis J01.00 [facility] [address] [id number] [address] [place] [phone] Sep, Contusion of right upper ext remity, initial encounter S40.021A [facility] [address] [id number] [address] [place] [phone] Sep, Right forearm pain M79.631 [facility] [address] [id number] [address] [place] [phone] Sep, Acute non-recurrent maxillar y sinusitis J01.00 [facility] [address] [facility] [id number] [address] [place] [phone] Aug, Stable angina pectoris I20.8 [place] [address] [facility] [id number] [address] [place] [phone] Aug, Chronic fatigue R53.82 [facility] [address] [facility] [id number] [address] [place] [phone] Aug, [facility] [address] [facility] [id number] [address] [place] [phone] Aug, Stable angina pectoris I20.8 and Chronic fatigue R53.82 [place] [address] [facility] [id number] [address] [place] [phone] Aug, Acute non-recurrent maxillar y sinusitis J01.00 [facility] [address] [facility] [id number] [address] [place] [phone] Jul, Chronic fatigue R53.82 ; Hyp ertension, benign I10 ; Family history of early CAD Z82.49 and Coronary artery disease of [place] artery of [place]grath heart with stable angina pectoris I25.118 [facility] [address] [facility] [id number] [address] [place] [phone] Jul, Family history of early CAD Z82.49 [place] [address] [facility] [id number] [address] [place] [phone] 16 Jul, 2017 Family history of early CAD Z82.49 [facility] [address] [id number] [address] [place] [phone] 16 Jul, 2017 Chronic fatigue R53.82 ; Hyp ertension, benign I10 ; Family history of early CAD Z82.49 and Coronary artery disease of [place] artery of [place]grath heart with stable angina pectoris I25.118 [facility] [address] [id number] [address] [place] [phone] 15 Jul, [address] [facility] [address] [facility] [id number] [address] [place] [phone] 15 Jul, 2017 Chronic fatigue R53.82 ; Hyp ertension, benign I10 ; Family history of early CAD Z82.49 and Coronary artery disease of [place]ath artery of [place]grath heart with stable angina pectoris I25.118 [facility] [address] [id number] [address] [place] [id number] 12 Jul, 2017 Dental examination Z01.20 an d Dental caries K02.9 [facility] [address] [facility] [id number] [address] [place] [phone] Jul, [facility] [address] [facility] [id number] [address] [place] [phone] Jul, [facility] [address] [id number] [address] [place] [phone] Jul, Acute non-recurrent maxillar y sinusitis J01.00 [facility] [address] [id number] [address] [place] [phone] Jul, [facility] [address] [facility] [id number] [address] [place] [phone] Jun, [facility] [address] [facility] [id number] [address] [place] [phone] Jun, [facility] [address] [facility] [id number] [address] [place] [phone] Jun, Acute non-recurrent maxillar y sinusitis J01.00 [facility] [address] [place] [phone] Jun, Anxiety F41.9 ; Bronchitis J 40 ; Tobacco abuse Z72.0 ; Tobacco abuse counseling Z71.6 and Acute left ankle pain M25.572 [facility] [address] [place] [id number] [address] [place] [phone] May, Cough R05 and COPD exacerbat ion J44.1 [facility] [address] [facility] [id number] [address] [place] [phone] May, [place] [address] [address] May, [place] [address] [place] [id number] [address] [place] [phone] May, Acute non-recurrent maxillar y sinusitis J01.00 [facility] [id number] [place] [address] Apr, Acute non-recurrent maxillar y sinusitis J01.00 ; Anxiety F41.9 ; Acute right-sided low back pain with right-sided sciatica M54.41 and Thoracic neuritis M54.14 IMMUNIZATIONS No Known Immunizations SOCIAL HISTORY Never Assessed REASON FOR VISIT Lumbago/Sciatica-[facility] has been seen here for cold symptoms but still h as symptoms PLAN OF CARE VITAL SIGNS Height 67 in 2017-06-26 Weight 184.9 lbs 2017-06-26 Temperature 98.4 degrees Fahrenheit 2017-06-26 Heart Rate 81 bpm 2017-06-26 Respiratory Rate 20 2017-06-26 BMI 28.96 kg/m2 2017-06-26 Blood pressure systolic 126 mmHg 2017-06-26 Blood pressure diastolic 72 mmHg 2017-06-26 MEDICATIONS Medication Instructions Dosage Frequency Start Date End Date Duration S tatus Xanax 0.5 MG Orally Twice a day 1 tablet 12h Active Chantix 1 MG Orally Twice a day 1 tablet 12h Jun, 3 Dec, 201 8 30 day(s) Active Promethazine-Codeine 6.25-10 MG/5ML Orally every 6 hrs 5 ml as need ed 6h 30 May, 2017 9 Jun, 2017 05 days Active Hydrocodone-Acetaminophen 10-325 MG Orally every 6 hrs 1 tablet as needed 6h 14 May, 2017 Active Doxycycline Hyclate 100 mg Orally every 12 hrs 1 capsule 12h Jun, Jun, 10 days Active Zanaflex 4 MG Orally 2 times a day 1 tablet as needed 12h 17 Apr, Active ProAir HFA 108 (90 Base) MCG/ACT Inhalation every 6 hrs 2 puffs as needed 6h 15 May, 2017 Active Albuterol Sulfate (2.5 MG/3ML) 0.083% Inhalation every 6 hrs 3 ml a s needed 6h May, 0 days Active Anoro Ellipta 62.5-25 MCG/INH Inhalation Once a day 1 puff 24h 15 D 2016 Active RESULTS Name Result Date Reference Range Xray : Ankle, Left, 3 views (IN HOUSE) 4 AMERITOX 2017-06-26 PROCEDURES Procedure Date Ordered Result Body Site No Charge Jun 26, 2017 X-RAY EXAM OF ANKLE Jun 26, 2017 INSTRUCTIONS MEDICATIONS ADMINISTERED No Known Medications MEDICAL (GENERAL) HISTORY Type Description Date Medical History COPD Surgical History mass removed from right breast
--- OUTSIDE RECORDS SUMMARY | 2019-12-17 16:12 | XMS REPORT ---
Author Author Pepper MCKEON Organization [facility] Address [address] [place] [address] Care Team Providers Care Hydrology Technician Name Role Phone DEVEN MCKEON Unavailable PROBLEMS Type Condition ICD9-CM Code DNM14-YG Code Onset Dates Condition S tatus SNOMED Code Problem Acute right-sided low back pain with right-sided sciatica M54.41 Active 143821691 Problem COPD exacerbation J44.1 Active 29 1967084499324 Problem Anxiety F41.9 Active 82754590 Problem Mood disorder F39 Active 741352 05 Problem Injury of right shoulder, initial encounter S49.91 XA Active 350357479 Problem Chronic fatigue R53.82 Active 8422 9001 Problem Stable angina pectoris I20.8 Active 736384726 Problem 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 Active 122618269843 7 Problem Hypertension, benign I10 Active 84805997 Problem Panlobular emphysema J43.1 Active 7249963 Problem Lumbago with sciatica, left side M54.42 Active 947513355 Problem Lumbago with sciatica, right side M54.41 Active 659932758494363 Problem Functional constipation K59.04 Active 982857303 Problem Other chronic pain G89.29 Active 8 0425505 ALLERGIES No Information ENCOUNTERS Encounter Location Date Diagnosis [facility] [address] [facility] [id number] [address] [place] [phone] Dec, [facility] [address] [facility] [id number] [address] [place] [phone] Nov, [facility] [address] [facility] [id number] [address] [place] [phone] Nov, Acute non-recurrent maxillar y sinusitis J01.00 [facility] [address] [facility] [id number] [address] [place] [phone] Nov, [facility] [address] [facility] [id number] [address] [place] [phone] Nov, Thoracic neuritis M54.14 ; A cute pain of right shoulder M25.511 ; Mood disorder F39 ; Pain in right ankle and joints of right foot M25.571 and Other chronic pain G89.29 [place] [address] [facility] [id number] [address] [place] [phone] Nov, [facility] [address] [facility] [id number] [address] [place] [phone] Nov, Injury of right shoulder, in itial encounter S49.91XA [place] [address] [place] [id number] [address] [place] [phone] Nov, Panlobular emphysema J43.1 [place] [address] [place] [id number] [address] [place] [phone] Nov, Acute non-recurrent maxillar y sinusitis J01.00 [place] [address] [place] [id number] [address] [place] [phone] October, Acute non-recurrent maxillar y sinusitis J01.00 [place] [address] [place] [id number] [address] [place] [phone] Sep, Contusion of right upper ext remity, initial encounter S40.021A [facility] [address] [facility] [id number] [address] [place] [phone] Sep, Right forearm pain M79.631 [place] [address] [facility] [id number] [address] [place] [phone] Sep, Acute non-recurrent maxillar y sinusitis J01.00 [place] [address] [facility] [id number] [address] [place] [phone] Aug, Stable angina pectoris I20.8 [place] [address] [facility] [id number] [address] [place] [phone] Aug, Chronic fatigue R53.82 [facility] [address] [facility] [id number] [address] [place] [phone] 14 Aug, 2017 [facility] [address] [facility] [id number] [address] [place] [phone] 14 Aug, 2017 Stable angina pectoris I20.8 and Chronic fatigue R53.82 [facility] [address] [facility] [id number] [address] [place] [phone] 09 Aug, 2017 Acute non-recurrent maxillar y sinusitis J01.00 [facility] [address] [facility] [id number] [address] [place] [phone] 26 Jul, 2017 Chronic fatigue R53.82 ; Hyp ertension, benign I10 ; Family history of early CAD Z82.49 and Coronary artery disease of [place] artery of [place] heart with stable angina pectoris I25.118 [place] [address] [place] [phone] 26 Jul, 2017 Family history of early CAD Z82.49 [place] [address] [place] [id number] [address] [place] [phone] 16 Jul, 2017 Family history of early CAD Z82.49 [place] [address] [place] [id number] [address] [place] [address] 16 Jul, 2017 Chronic fatigue R53.82 ; Hyp ertension, benign I10 ; Family history of early CAD Z82.49 and Coronary artery disease of [place] artery of [place] heart with stable angina pectoris I25.118 [facility] [address] [facility] [id number] [address] [place] [phone] 15 Jul, 2017 Chronic fatigue R53.82 [place] [address] [facility] [id number] [address] [place] [phone] 15 Jul, 2017 Chronic fatigue R53.82 ; Hyp ertension, benign I10 ; Family history of early CAD Z82.49 and Coronary artery disease of [place] artery of [place] heart with stable angina pectoris I25.118 [facility] [address] [id number] [address] [place] [id number] Jul, Dental examination Z01.20 an d Dental caries K02.9 [facility] [address] [facility] [id number] [address] [place] [phone] Jul, [facility] [address] [facility] [id number] [address] [place] [phone] Jul, [facility] [address] [phone] Jul, Acute non-recurrent maxillar y sinusitis J01.00 [facility] [address] [facility] [id number] [address] [place] [phone] Jul, [facility] [address] [facility] [id number] [address] [place] [phone] Jun, [facility] [address] [place] [id number] [address] [place] [phone] Jun, [facility] [address] [place] [id number] [address] [place] [phone] Jun, Acute non-recurrent maxillar y sinusitis J01.00 [facility] [id number] [place] [phone] Jun, Anxiety F41.9 ; Bronchitis J 40 ; Tobacco abuse Z72.0 ; Tobacco abuse counseling Z71.6 and Acute left ankle pain M25.572 [facility] [address] [facility] [id number] [address] [place] [phone] May, Cough R05 and COPD exacerbat ion J44.1 [facility] [address] [facility] [id number] [address] [place] [phone] May, [facility] [address] [place] [phone] May, [facility] [address] [place] [id number] [address] [place] [phone] May, Acute non-recurrent maxillar y sinusitis J01.00 [facility] [address] [facility] [id number] [address] [place] [address] Apr, Acute non-recurrent maxillar y sinusitis J01.00 ; Anxiety F41.9 ; Acute right-sided low back pain with right-sided sciatica M54.41 and Thoracic neuritis M54.14 IMMUNIZATIONS No Known Immunizations SOCIAL HISTORY Never Assessed REASON FOR VISIT Lab (walk-in) PLAN OF CARE VITAL SIGNS MEDICATIONS Unknown Medications RESULTS No Results PROCEDURES Procedure Date Ordered Result Body Site LAB NOT BILLED BY [facility] Aug 08, 2017 VENCIRA, ROUTINE* Aug 08, 2017 INSTRUCTIONS MEDICATIONS ADMINISTERED No Known Medications MEDICAL (GENERAL) HISTORY Type Description Date Medical History COPD Surgical History mass removed from right breast
--- OUTSIDE RECORDS SUMMARY | 2019-12-17 16:12 | XMS REPORT ---
Author Author Pepper MCKEON Organization [facility] Address [address] [place] [address] Care Team Providers Care Actuarial Mathematician Name Role Phone DEVEN MCKEON Unavailable PROBLEMS Type Condition ICD9-CM Code NLS25-RO Code Onset Dates Condition S tatus SNOMED Code Problem Acute right-sided low back pain with right-sided sciatica M54.41 Active 250231159 Problem COPD exacerbation J44.1 Active 29 3833020249411 Problem Anxiety F41.9 Active 28262557 Problem Mood disorder F39 Active 516926 05 Problem Injury of right shoulder, initial encounter S49.91 XA Active 343985658 Problem Chronic fatigue R53.82 Active 8422 9001 Problem Stable angina pectoris I20.8 Active 661356978 Problem 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 Active 672995597057 7 Problem Hypertension, benign I10 Active 21423557 Problem Panlobular emphysema J43.1 Active 7832374 Problem Lumbago with sciatica, left side M54.42 Active 269780810 Problem Lumbago with sciatica, right side M54.41 Active 022009830693469 Problem Functional constipation K59.04 Active 650393853 Problem Other chronic pain G89.29 Active 8 [id number] ALLERGIES No Information ENCOUNTERS Encounter Location Date Diagnosis [facility] [address] [facility] [id number] [address] [place] [address] Dec, [facility] [address] [facility] [id number] [address] [place] [address] Dec, [facility] [address] [facility] [id number] [address] [place] [address] Dec, [facility] [address] [facility] [id number] [address] [place] [address] Dec, Panlobular emphysema J43.1 [facility] [address] [id number] [address] [place] [address] Nov, [facility] [address] [facility] [id number] [address] [place] [address] Nov, Acute non-recurrent maxillar y sinusitis J01.00 [facility] [address] [facility] [id number] [address] [place] [address] Nov, [facility] [address] [facility] [id number] [address] [place] [address] Nov, Thoracic neuritis M54.14 ; A cute pain of right shoulder M25.511 ; Mood disorder F39 ; Pain in right ankle and joints of right foot M25.571 and Other chronic pain G89.29 [place] [address] [address] [place] [id number] [address] [place] [address] Nov, [facility] [address] [facility] [id number] [address] [place] [address] Nov, Injury of right shoulder, in itial encounter S49.91XA [place] [address] [address] [place] [id number] [address] [place] [address] Nov, Panlobular emphysema J43.1 [place] [address] [address] [place] [id number] [address] [place] [address] Nov, Acute non-recurrent maxillar y sinusitis J01.00 [facility] [address] [facility] [id number] [address] [place] [address] October, Acute non-recurrent maxillar y sinusitis J01.00 [place] [address] [facility] [id number] [address] [place] [address] Sep, Contusion of right upper ext remity, initial encounter S40.021A [facility] [address] [facility] [id number] [address] [place] [address] Sep, Right forearm pain M79.631 [place] [address] [facility] [id number] [address] [place] [address] Sep, Acute non-recurrent maxillar y sinusitis J01.00 [facility] [address] [facility] [id number] [address] [place] [phone] 19 Aug, 2017 Stable angina pectoris I20.8 [place] [address] [address] [facility] [id number] [address] [place] [address] 14 Aug, 2017 Chronic fatigue R53.82 [place] [address] [facility] [id number] [address] [place] [address] 14 Aug, 2017 [place] [address] [facility] [id number] [address] [place] [address] Aug, Stable angina pectoris I20.8 and Chronic fatigue R53.82 [place] [address] [facility] [id number] [address] [place] [address] 09 Aug, 2017 Acute non-recurrent maxillar y sinusitis J01.00 [place] [address] [facility] [id number] [address] [place] [address] 26 Jul, 2017 Chronic fatigue R53.82 ; Hyp ertension, benign I10 ; Family history of early CAD Z82.49 and Coronary artery disease of [place] artery of [place] heart with stable angina pectoris I25.118 [place] [address] [facility] [id number] [address] [place] [address] 26 Jul, 2017 Family history of early CAD Z82.49 [place] [address] [address] [facility] [id number] [address] [place] [address] 16 Jul, 2017 Family history of early CAD Z82.49 [place] [address] [address] [facility] [id number] [address] [place] [address] 16 Jul, 2017 Chronic fatigue R53.82 ; Hyp ertension, benign I10 ; Family history of early CAD Z82.49 and Coronary artery disease of [place] artery of [place] heart with stable angina pectoris I25.118 [place] [address] [address] [facility] [id number] [address] [place] [address] Jul, Chronic fatigue R53.82 [facility] [address] [facility] [id number] [address] [place] [address] Jul, Chronic fatigue R53.82 ; Hyp ertension, benign I10 ; Family history of early CAD Z82.49 and Coronary artery disease of [place] artery of [place] heart with stable angina pectoris I25.118 [facility] [address] [id number] [address] [place] [id number] Jul, Dental examination Z01.20 an d Dental caries K02.9 [facility] [address] [facility] [id number] [address] [place] [address] Jul, [facility] [address] [facility] [id number] [address] [place] [address] Jul, [facility] [address] [facility] [id number] [address] [place] [address] Jul, Acute non-recurrent maxillar y sinusitis J01.00 [facility] [address] [facility] [id number] [address] [place] [address] Jul, [facility] [address] [facility] [id number] [address] [place] [address] Jun, [facility] [address] [facility] [id number] [address] [place] [address] Jun, [facility] [address] [place] [id number] [address] [place] [address] Jun, Acute non-recurrent maxillar y sinusitis J01.00 [facility] [address] [facility] [id number] [address] [place] [address] Jun, Anxiety F41.9 ; Bronchitis J 40 ; Tobacco abuse Z72.0 ; Tobacco abuse counseling Z71.6 and Acute left ankle pain M25.572 [facility] [address] [facility] [id number] [address] [place] [address] May, Cough R05 and COPD exacerbat ion J44.1 [facility] [address] [facility] [id number] [address] [place] [address] 15 May, 2017 [facility] [address] [facility] [id number] [address] [place] [address] 14 May, 2017 [facility] [address] [facility] [id number] [address] [place] [address] 13 May, 2017 Acute non-recurrent maxillar y sinusitis J01.00 [place] [address] [address] [facility] [id number] [address] [place] [address] 17 Apr, 2017 Acute non-recurrent maxillar y sinusitis J01.00 ; Anxiety F41.9 ; Acute right-sided low back pain with right-sided sciatica M54.41 and Thoracic neuritis M54.14 IMMUNIZATIONS No Known Immunizations SOCIAL HISTORY Never Assessed REASON FOR VISIT Detrol LA note/Med adjustment PLAN OF CARE VITAL SIGNS MEDICATIONS Medication Instructions Dosage Frequency Start Date End Date Duration S evelyne Ditropan XL 10 mg Orally Once a day 1 tablet 24h Jul, 2 October, 30 day(s) Active RESULTS No Results PROCEDURES No Known procedures INSTRUCTIONS MEDICATIONS ADMINISTERED No Known Medications MEDICAL (GENERAL) HISTORY Type Description Date Medical History COPD Surgical History mass removed from right breast
--- OUTSIDE RECORDS SUMMARY | 2019-12-17 16:12 | XMS REPORT ---
Author Author Pepper MCKEON Organization [facility] Address [address] [place] [address] Care Team Providers Care Laminator Name Role Phone DEVEN MCKEON Unavailable PROBLEMS Type Condition ICD9-CM Code KEP42-DL Code Onset Dates Condition S tatus SNOMED Code Problem Acute right-sided low back pain with right-sided sciatica M54.41 Active 454481346 Problem COPD exacerbation J44.1 Active 29 3433786978410 Problem Anxiety F41.9 Active 75460644 Problem Mood disorder F39 Active 640801 05 Problem Injury of right shoulder, initial encounter S49.91 XA Active 106334383 Problem Chronic fatigue R53.82 Active 8422 9001 Problem Stable angina pectoris I20.8 Active 419623275 Problem 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 Active 062277338661 7 Problem Hypertension, benign I10 Active 28283410 Problem Panlobular emphysema J43.1 Active 2423343 Problem Lumbago with sciatica, left side M54.42 Active 331250491 Problem Lumbago with sciatica, right side M54.41 Active 787236392752923 Problem Functional constipation K59.04 Active 531753358 Problem Other chronic pain G89.29 Active 8 [id number] ALLERGIES No Information ENCOUNTERS Encounter Location Date Diagnosis [facility] [address] [facility] [id number] [address] [place] [phone] Dec, [facility] [address] [facility] [id number] [address] [place] [address] Nov, [facility] [address] [facility] [id number] [address] [place] [address] Nov, Acute non-recurrent maxillar y sinusitis J01.00 [facility] [address] [facility] [id number] [address] [place] [address] Nov, [facility] [address] [facility] [id number] [address] [place] [address] Nov, Thoracic neuritis M54.14 ; A cute pain of right shoulder M25.511 ; Mood disorder F39 ; Pain in right ankle and joints of right foot M25.571 and Other chronic pain G89.29 [place] [address] [address] [facility] [id number] [address] [place] [address] Nov, [facility] [address] [facility] [id number] [address] [place] [address] Nov, Injury of right shoulder, in itial encounter S49.91XA [place] [address] [address] [place] [id number] [address] [place] [address] Nov, Panlobular emphysema J43.1 [place] [address] [address] [place] [id number] [address] [place] [address] Nov, Acute non-recurrent maxillar y sinusitis J01.00 [place] [address] [address] [place] [id number] [address] [place] [address] October, Acute non-recurrent maxillar y sinusitis J01.00 [place] [address] [address] [place] [id number] [address] [place] [address] Sep, Contusion of right upper ext remity, initial encounter S40.021A [facility] [address] [facility] [id number] [address] [place] [address] Sep, Right forearm pain M79.631 [place] [address] [address] [facility] [id number] [address] [place] [address] Sep, Acute non-recurrent maxillar y sinusitis J01.00 [place] [address] [address] [facility] [id number] [address] [place] [address] Aug, Stable angina pectoris I20.8 [place] [address] [address] [facility] [id number] [address] [place] [address] Aug, Chronic fatigue R53.82 [facility] [address] [facility] [id number] [address] [place] [phone] 14 Aug, 2017 [facility] [address] [facility] [id number] [address] [place] [address] 14 Aug, 2017 Stable angina pectoris I20.8 and Chronic fatigue R53.82 [facility] [address] [facility] [id number] [address] [place] [address] 09 Aug, 2017 Acute non-recurrent maxillar y sinusitis J01.00 [facility] [address] [facility] [id number] [address] [place] [address] 26 Jul, 2017 Chronic fatigue R53.82 ; Hyp ertension, benign I10 ; Family history of early CAD Z82.49 and Coronary artery disease of [place] artery of [place] heart with stable angina pectoris I25.118 [place] [address] [id number] [place] [address] 26 Jul, 2017 Family history of early CAD Z82.49 [place] [address] [place] [id number] [address] [place] [address] 16 Jul, 2017 Family history of early CAD Z82.49 [place] [address] [address] [place] [id number] [address] [place] [address] 16 Jul, 2017 Chronic fatigue R53.82 ; Hyp ertension, benign I10 ; Family history of early CAD Z82.49 and Coronary artery disease of [place] artery of [place] heart with stable angina pectoris I25.118 [facility] [address] [facility] [id number] [address] [place] [address] 15 Jul, 2017 Chronic fatigue R53.82 [place] [address] [address] [facility] [id number] [address] [place] [address] 15 Jul, 2017 Chronic fatigue R53.82 ; Hyp ertension, benign I10 ; Family history of early CAD Z82.49 and Coronary artery disease of [place] artery of [place] heart with stable angina pectoris I25.118 [facility] [address] [id number] [address] [place] [id number] Jul, Dental examination Z01.20 an d Dental caries K02.9 [facility] [address] [facility] [id number] [address] [place] [address] Jul, [facility] [address] [facility] [id number] [address] [place] [address] Jul, [facility] [address] [address] Jul, Acute non-recurrent maxillar y sinusitis J01.00 [facility] [address] [facility] [id number] [address] [place] [address] Jul, [facility] [address] [facility] [id number] [address] [place] [address] Jun, [facility] [address] [place] [id number] [address] [place] [address] Jun, [facility] [address] [place] [id number] [address] [place] [address] Jun, Acute non-recurrent maxillar y sinusitis J01.00 [facility] [address] [place] [address] Jun, Anxiety F41.9 ; Bronchitis J 40 ; Tobacco abuse Z72.0 ; Tobacco abuse counseling Z71.6 and Acute left ankle pain M25.572 [facility] [address] [facility] [id number] [address] [place] [address] May, Cough R05 and COPD exacerbat ion J44.1 [facility] [address] [facility] [id number] [address] [place] [address] May, [facility] [address] [place] [address] May, [facility] [address] [place] [id number] [address] [place] [address] May, Acute non-recurrent maxillar y sinusitis J01.00 [facility] [address] [facility] [id number] [address] [place] [address] Apr, Acute non-recurrent maxillar y sinusitis J01.00 ; Anxiety F41.9 ; Acute right-sided low back pain with right-sided sciatica M54.41 and Thoracic neuritis M54.14 IMMUNIZATIONS No Known Immunizations SOCIAL HISTORY Never Assessed REASON FOR VISIT Medication refill request PLAN OF CARE VITAL SIGNS MEDICATIONS Medication Instructions Dosage Frequency Start Date End Date Duration S tatus Xanax 0.5 MG Orally Twice a day 1 tablet 12h 28 days Active Hydrocodone-Acetaminophen 10-325 MG Orally every 6 hrs 1 tablet as needed 6h 12 Jul, 2017 28 days Active RESULTS No Results PROCEDURES No Known procedures INSTRUCTIONS MEDICATIONS ADMINISTERED No Known Medications MEDICAL (GENERAL) HISTORY Type Description Date Medical History COPD Surgical History mass removed from right breast
--- OUTSIDE RECORDS SUMMARY | 2019-12-17 16:12 | XMS REPORT ---
Author Author Pepper MCKEON Organization [facility] Address [address] [place] [address] Care Team Providers Care Flat Sheet Maker Name Role Phone DEVEN MCKEON Unavailable PROBLEMS Type Condition ICD9-CM Code [id number] Code Onset Dates Condition S tatus SNOMED Code Problem Acute right-sided low back pain with right-sided sciatica M54.41 Active 710242998 Problem COPD exacerbation J44.1 Active 29 7051302821175 Problem Anxiety F41.9 Active 90214160 Problem Mood disorder F39 Active 438574 05 Problem Injury of right shoulder, initial encounter S49.91 XA Active 279634473 Problem Chronic fatigue R53.82 Active 8422 9001 Problem Stable angina pectoris I20.8 Active 463704366 Problem Coronary artery disease of n ative artery of crow heart with stable angina pectoris I25.118 Active 180677901103 7 Problem Hypertension, benign I10 Active 76799594 Problem Panlobular emphysema J43.1 Active 6461071 Problem Lumbago with sciatica, left side M54.42 Active 350154035 Problem Lumbago with sciatica, right side M54.41 Active 446532898722172 Problem Functional constipation K59.04 Active 263389517 Problem Other chronic pain G89.29 Active 8 [id number] ALLERGIES No Information ENCOUNTERS Encounter Location Date Diagnosis [facility] [address] [facility] [id number] [address] [place] [phone] Dec, [facility] [address] [facility] [id number] [address] [place] [phone] Dec, [facility] [address] [facility] [id number] [address] [place] [phone] Dec, [facility] [address] [facility] [id number] [address] [place] [phone] Dec, Panlobular emphysema J43.1 [facility] [address] [id number] [address] [place] [phone] Nov, [facility] [address] [facility] [id number] [address] [place] [phone] Nov, Acute non-recurrent maxillar y sinusitis J01.00 [facility] [address] [facility] [id number] [address] [place] [phone] Nov, [facility] [address] [facility] [id number] [address] [place] [phone] Nov, Thoracic neuritis M54.14 ; A cute pain of right shoulder M25.511 ; Mood disorder F39 ; Pain in right ankle and joints of right foot M25.571 and Other chronic pain G89.29 [place] [address] [place] [id number] [address] [place] [phone] Nov, [facility] [address] [facility] [id number] [address] [place] [phone] Nov, Injury of right shoulder, in itial encounter S49.91XA [place] [address] [place] [id number] [address] [place] [phone] Nov, Panlobular emphysema J43.1 [place] [address] [place] [id number] [address] [place] [phone] Nov, Acute non-recurrent maxillar y sinusitis J01.00 [facility] [address] [facility] [id number] [address] [place] [phone] October, Acute non-recurrent maxillar y sinusitis J01.00 [place] [id number] [facility] [id number] [address] [place] [phone] Sep, Contusion of right upper ext remity, initial encounter S40.021A [facility] [address] [facility] [id number] [address] [place] [phone] Sep, Right forearm pain M79.631 [place] [address] [facility] [id number] [address] [place] [phone] Sep, Acute non-recurrent maxillar y sinusitis J01.00 [facility] [address] [facility] [id number] [address] [place] [phone] 19 Aug, 2017 Stable angina pectoris I20.8 [place] [address] [facility] [id number] [address] [place] [phone] 14 Aug, 2017 Chronic fatigue R53.82 [place] [address] [facility] [id number] [address] [place] [phone] 14 Aug, 2017 [place] [address] [facility] [id number] [address] [place] [phone] Aug, Stable angina pectoris I20.8 and Chronic fatigue R53.82 [place] [address] [facility] [id number] [address] [place] [phone] 09 Aug, 2017 Acute non-recurrent maxillar y sinusitis J01.00 [place] [address] [facility] [id number] [address] [place] [phone] 26 Jul, 2017 Chronic fatigue R53.82 ; Hyp ertension, benign I10 ; Family history of early CAD Z82.49 and Coronary artery disease of crow artery of crow heart with stable angina pectoris I25.118 [place] [address] [facility] [id number] [address] [place] [phone] 26 Jul, 2017 Family history of early CAD Z82.49 [place] [address] [facility] [id number] [address] [place] [phone] 16 Jul, 2017 Family history of early CAD Z82.49 [place] [address] [facility] [id number] [address] [place] [phone] 16 Jul, 2017 Chronic fatigue R53.82 ; Hyp ertension, benign I10 ; Family history of early CAD Z82.49 and Coronary artery disease of crow artery of crow heart with stable angina pectoris I25.118 [place] [address] [facility] [id number] [address] [place] [phone] Jul, Chronic fatigue R53.82 [facility] [address] [facility] [id number] [address] [place] [phone] Jul, Chronic fatigue R53.82 ; Hyp ertension, benign I10 ; Family history of early CAD Z82.49 and Coronary artery disease of crow artery of crow heart with stable angina pectoris I25.118 [facility] [address] [id number] [address] [place] [id number] Jul, Dental examination Z01.20 an d Dental caries K02.9 [facility] [address] [facility] [id number] [address] [place] [phone] Jul, [facility] [address] [facility] [id number] [address] [place] [phone] Jul, [facility] [address] [facility] [id number] [address] [place] [phone] Jul, Acute non-recurrent maxillar y sinusitis J01.00 [facility] [address] [facility] [id number] [address] [place] [phone] Jul, [facility] [address] [facility] [id number] [address] [place] [phone] Jun, [facility] [address] [facility] [id number] [address] [place] [phone] Jun, [facility] [address] [place] [id number] [address] [place] [phone] Jun, Acute non-recurrent maxillar y sinusitis J01.00 [facility] [address] [facility] [id number] [address] [place] [phone] Jun, Anxiety F41.9 ; Bronchitis J 40 ; Tobacco abuse Z72.0 ; Tobacco abuse counseling Z71.6 and Acute left ankle pain M25.572 [facility] [address] [facility] [id number] [address] [place] [phone] May, Cough R05 and COPD exacerbat ion J44.1 [facility] [address] [facility] [id number] [address] [place] [phone] 15 May, 2017 [facility] [address] [facility] [id number] [address] [place] [phone] 14 May, 2017 [facility] [address] [facility] [id number] [address] [place] [phone] 13 May, 2017 Acute non-recurrent maxillar y sinusitis J01.00 [facility] [address] [facility] [id number] [address] [place] [phone] 17 Apr, 2017 Acute non-recurrent maxillar y sinusitis J01.00 ; Anxiety F41.9 ; Acute right-sided low back pain with right-sided sciatica M54.41 and Thoracic neuritis M54.14 IMMUNIZATIONS No Known Immunizations SOCIAL HISTORY Never Assessed REASON FOR VISIT Lab (walk-in) PLAN OF CARE VITAL SIGNS MEDICATIONS Unknown Medications RESULTS No Results PROCEDURES Procedure Date Ordered Result Body Site EKG, TRACING (IN-HOUSE) 2017-08-18 Normal ELECTROCARDIOGRAM, TRACING Aug 18, 2017 INSTRUCTIONS MEDICATIONS ADMINISTERED No Known Medications MEDICAL (GENERAL) HISTORY Type Description Date Medical History COPD Surgical History mass removed from right breast
--- OUTSIDE RECORDS SUMMARY | 2019-12-17 16:12 | XMS REPORT ---
Author Author Pepper MCKEON Organization [facility] Address [address] [place] [address] Care Team Providers Care Half Sole Fitter Name Role Phone DEVEN MCKEON Unavailable PROBLEMS Type Condition ICD9-CM Code VGE77-UU Code Onset Dates Condition S tatus SNOMED Code Problem Acute right-sided low back pain with right-sided sciatica M54.41 Active 750295725 Problem COPD exacerbation J44.1 Active 29 8563127319558 Problem Anxiety F41.9 Active 17038015 Problem Mood disorder F39 Active 946591 05 Problem Injury of right shoulder, initial encounter S49.91 XA Active 358252866 Problem Chronic fatigue R53.82 Active 8422 9001 Problem Stable angina pectoris I20.8 Active 416612396 Problem 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 [address] [facility] [id number] [address] [place] [phone] Dec, [facility] [address] [facility] [id number] [address] [place] [phone] Dec, [facility] [address] [facility] [id number] [address] [place] [phone] Dec, [facility] [address] [facility] [id number] [address] [place] [phone] Dec, Panlobular emphysema J43.1 [facility] [address] [id number] [address] [place] [phone] Nov, [facility] [address] [facility] [id number] [address] [place] [phone] Nov, Acute non-recurrent maxillar y sinusitis J01.00 [facility] [address] [facility] [id number] [address] [place] [phone] Nov, [facility] [address] [facility] [id number] [address] [place] [phone] Nov, Thoracic neuritis M54.14 ; A cute pain of right shoulder M25.511 ; Mood disorder F39 ; Pain in right ankle and joints of right foot M25.571 and Other chronic pain G89.29 [place] [address] [place] [id number] [address] [place] [phone] Nov, [facility] [address] [facility] [id number] [address] [place] [phone] Nov, Injury of right shoulder, in itial encounter S49.91XA [place] [address] [place] [id number] [address] [place] [phone] Nov, Panlobular emphysema J43.1 [place] [address] [place] [id number] [address] [place] [phone] Nov, Acute non-recurrent maxillar y sinusitis J01.00 [facility] [address] [facility] [id number] [address] [place] [phone] October, Acute non-recurrent maxillar y sinusitis J01.00 [place] [address] [facility] [id number] [address] [place] [phone] Sep, Contusion of right upper ext remity, initial encounter S40.021A [facility] [address] [facility] [id number] [address] [place] [address] Sep, Right forearm pain M79.631 [place] [address] [facility] [id number] [address] [place] [address] Sep, Acute non-recurrent maxillar y sinusitis J01.00 [facility] [address] [facility] [id number] [address] [place] [phone] 19 Aug, 2017 Stable angina pectoris I20.8 [place] [address] [facility] [id number] [address] [place] [phone] 14 Aug, 2017 Chronic fatigue R53.82 [place] [address] [facility] [id number] [address] [place] [phone] 14 Aug, 2017 [place] [address] [facility] [id number] [address] [place] [phone] Aug, Stable angina pectoris I20.8 and Chronic fatigue R53.82 [place] [address] [facility] [id number] [address] [place] [phone] 09 Aug, 2017 Acute non-recurrent maxillar y sinusitis J01.00 [place] [address] [facility] [id number] [address] [place] [phone] 26 Jul, 2017 Chronic fatigue R53.82 ; Hyp ertension, benign I10 ; Family history of early CAD Z82.49 and Coronary artery disease of [place] artery of [place] heart with stable angina pectoris I25.118 [place] [address] [facility] [id number] [address] [place] [phone] 26 Jul, 2017 Family history of early CAD Z82.49 [place] [address] [facility] [id number] [address] [place] [id number] 16 Jul, 2017 Family history of early CAD Z82.49 [place] [address] [facility] [id number] [address] [place] [address] 16 Jul, 2017 Chronic fatigue R53.82 ; Hyp ertension, benign I10 ; Family history of early CAD Z82.49 and Coronary artery disease of [place] artery of [place] heart with stable angina pectoris I25.118 [place] [address] [facility] [id number] [address] [place] [phone] Jul, Chronic fatigue R53.82 [facility] [address] [facility] [id number] [address] [place] [address] Jul, Chronic fatigue R53.82 ; Hyp ertension, benign I10 ; Family history of early CAD Z82.49 and Coronary artery disease of [place] artery of [place] heart with stable angina pectoris I25.118 [facility] [address] [id number] [address] [place] [id number] Jul, Dental examination Z01.20 an d Dental caries K02.9 [facility] [address] [facility] [id number] [address] [place] [phone] Jul, [facility] [address] [facility] [id number] [address] [place] [phone] Jul, [facility] [address] [facility] [id number] [address] [place] [phone] Jul, Acute non-recurrent maxillar y sinusitis J01.00 [facility] [address] [facility] [id number] [address] [place] [phone] Jul, [facility] [address] [facility] [id number] [address] [place] [phone] Jun, [facility] [address] [facility] [id number] [address] [place] [phone] Jun, [facility] [address] [place] [id number] [address] [place] [address] Jun, Acute non-recurrent maxillar y sinusitis J01.00 [facility] [address] [facility] [id number] [address] [place] [address] Jun, Anxiety F41.9 ; Bronchitis J 40 ; Tobacco abuse Z72.0 ; Tobacco abuse counseling Z71.6 and Acute left ankle pain M25.572 [facility] [address] [facility] [id number] [address] [place] [phone] May, Cough R05 and COPD exacerbat ion J44.1 [facility] [address] [facility] [id number] [address] [place] [phone] 15 May, 2017 [facility] [address] [facility] [id number] [address] [place] [phone] 14 May, 2017 [facility] [address] [facility] [id number] [address] [place] [phone] May, Acute non-recurrent maxillar y sinusitis J01.00 [facility] [address] [facility] [id number] [address] [place] [phone] Apr, Acute non-recurrent maxillar y sinusitis J01.00 ; Anxiety F41.9 ; Acute right-sided low back pain with right-sided sciatica M54.41 and Thoracic neuritis M54.14 IMMUNIZATIONS No Known Immunizations SOCIAL HISTORY Never Assessed REASON FOR VISIT Refill request PLAN OF CARE VITAL SIGNS MEDICATIONS Unknown Medications RESULTS No Results PROCEDURES No Known procedures INSTRUCTIONS MEDICATIONS ADMINISTERED No Known Medications MEDICAL (GENERAL) HISTORY Type Description Date Medical History COPD Surgical History mass removed from right breast
--- OUTSIDE RECORDS SUMMARY | 2019-12-17 16:12 | XMS REPORT ---
Author Author Pepper MCKEON Organization [facility] Address [address] [place] [address] Care Team Providers Care Nursing Instructor Name Role Phone DEVEN MCKEON Unavailable PROBLEMS Type Condition ICD9-CM Code [id number] Code Onset Dates Condition S tatus SNOMED Code Problem Lumbago with sciatica, right side M54.41 Active 191062643637342 Problem Acute right-sided low back pain with right-sided sciatica M54.41 Active 327924558 Problem Other chronic pain G89.29 Active 8 0292100 Problem Functional constipation K59.04 Active 347099410 Problem Panlobular emphysema J43.1 Active 4688307 Problem Lumbago with sciatica, left side M54.42 Active 334312461 Problem Hypertension, benign I10 Active 75913535 Problem Chronic fatigue R53.82 Active 8422 9001 Problem COPD exacerbation J44.1 Active 29 7920259430466 Problem Anxiety F41.9 Active 75759417 Problem 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 Active 650729854922 7 Problem Stable angina pectoris I20.8 Active 566376570 ALLERGIES Substance Reaction Event Type Date Status PredniSONE Unknown Drug Allergy Apr, Active Lyrica Unknown Drug Allergy Apr, Active ENCOUNTERS Encounter Location Date Diagnosis [facility] [address] [place] [id number] [address] [place] [phone] October, Acute non-recurrent maxillar y sinusitis J01.00 [facility] [address] [id number] [address] [place] [address] Sep, Contusion of right upper ext remity, initial encounter S40.021A [facility] [address] [facility] [id number] [address] [place] [phone] Sep, Right forearm pain M79.631 [facility] [address] [id number] [address] [place] [phone] 06 Sep, 2017 Acute non-recurrent maxillar y sinusitis J01.00 [facility] [address] [id number] [address] [place] [phone] 19 Aug, 2017 Stable angina pectoris I20.8 [place] [address] [id number] [address] [place] [phone] Aug, Chronic fatigue R53.82 [place] [address] [id number] [address] [place] [phone] 14 Aug, 2017 [place] [address] [id number] [address] [place] [phone] Aug, Stable angina pectoris I20.8 and Chronic fatigue R53.82 [place] [address] [facility] [id number] [address] [place] [phone] Aug, Acute non-recurrent maxillar y sinusitis J01.00 [place] [address] [id number] [address] [place] [phone] 26 Jul, 2017 Chronic fatigue R53.82 ; Hyp ertension, benign I10 ; Family history of early CAD Z82.49 and Coronary artery disease of [place] artery of [place] heart with stable angina pectoris I25.118 [place] [address] [facility] [id number] [address] [place] [phone] 26 Jul, 2017 Family history of early CAD Z82.49 [place] [address] [id number] [address] [place] [phone] 16 Jul, 2017 Family history of early CAD Z82.49 [place] [address] [id number] [address] [place] [phone] 16 Jul, 2017 Chronic fatigue R53.82 ; Hyp ertension, benign I10 ; Family history of early CAD Z82.49 and Coronary artery disease of [place] artery of [place] heart with stable angina pectoris I25.118 [place] [address] [facility] [id number] [address] [place] [phone] Jul, Chronic fatigue R53.82 [facility] [address] [facility] [id number] [address] [place] [phone] Jul, Chronic fatigue R53.82 ; Hyp ertension, benign I10 ; Family history of early CAD Z82.49 and Coronary artery disease of [place] artery of [place] heart with stable angina pectoris I25.118 [facility] [address] [id number] [address] [place] [id number] Jul, Dental examination Z01.20 an d Dental caries K02.9 [facility] [address] [facility] [id number] [address] [place] [phone] Jul, [facility] [address] [id number] [address] [place] [phone] Jul, [facility] [address] [id number] [address] [place] [phone] Jul, Acute non-recurrent maxillar y sinusitis J01.00 [facility] [address] [facility] [id number] [address] [place] [phone] Jul, [facility] [address] [id number] [address] [place] [phone] Jun, [facility] [address] [facility] [id number] [address] [place] [phone] Jun, [facility] [address] [id number] [address] [place] [address] Jun, Acute non-recurrent maxillar y sinusitis J01.00 [facility] [address] [facility] [id number] [address] [place] [address] Jun, Anxiety F41.9 ; Bronchitis J 40 ; Tobacco abuse Z72.0 ; Tobacco abuse counseling Z71.6 and Acute left ankle pain M25.572 [facility] [address] [facility] [id number] [address] [place] [phone] May, Cough R05 and COPD exacerbat ion J44.1 [facility] [address] [facility] [id number] [address] [place] [phone] 15 May, 2017 [facility] [address] [facility] [id number] [address] [place] [phone] 14 May, 2017 [facility] [address] [facility] [id number] [address] [place] [phone] 13 May, 2017 Acute non-recurrent maxillar y sinusitis J01.00 [facility] [address] [facility] [id number] [address] [place] [address] 17 Apr, 2017 Acute non-recurrent maxillar y sinusitis J01.00 ; Anxiety F41.9 ; Acute right-sided low back pain with right-sided sciatica M54.41 and Thoracic neuritis M54.14 IMMUNIZATIONS No Known Immunizations SOCIAL HISTORY Never Assessed REASON FOR VISIT Establish Care for pain management, cough/congestion for a week--Lala Ryan MA PLAN OF CARE Activity Details Follow Up 4 Weeks Reason:lumbago with sciatica VITAL SIGNS Height 67 in 2017-05-09 Weight 186.8 lbs 2017-05-09 Temperature 97.9 degrees Fahrenheit 2017-05-09 Heart Rate 86 bpm 2017-05-09 Respiratory Rate 20 2017-05-09 BMI 29.25 kg/m2 2017-05-09 Blood pressure systolic 122 mmHg 2017-05-09 Blood pressure diastolic 78 mmHg 2017-05-09 MEDICATIONS Medication Instructions Dosage Frequency Start Date End Date Duration S tatus Xanax 0.5 MG Orally Twice a day 1 tablet 12h Active Hydrocodone-Acetaminophen 10-325 MG Orally every 6 hrs 1 tablet as needed 6h Apr, Active Amoxicillin 500 mg Orally 3 times a day 1 capsule 8h Apr,Apr, 10 day(s) Active Zanaflex 4 MG Orally 2 times a day 1 tablet as needed 12h Apr, Active RESULTS No Results PROCEDURES No Known procedures INSTRUCTIONS MEDICATIONS ADMINISTERED No Known Medications MEDICAL (GENERAL) HISTORY Type Description Date Medical History COPD Surgical History mass removed from right breast
--- OUTSIDE RECORDS SUMMARY | 2019-12-17 16:12 | XMS REPORT ---
Author Author Pepper MCKEON Organization [facility] Address [address] [place] [address] Care Team Providers Care Counting Machine Operator Name Role Phone DEVEN MCKEON Unavailable PROBLEMS Type Condition ICD9-CM Code [id number] Code Onset Dates Condition S tatus SNOMED Code Problem Acute right-sided low back pain with right-sided sciatica M54.41 Active 114140216 Problem COPD exacerbation J44.1 Active 29 1518015718364 Problem Anxiety F41.9 Active 13689332 Problem Mood disorder F39 Active 630256 05 Problem Injury of right shoulder, initial encounter S49.91 XA Active 317091200 Problem Chronic fatigue R53.82 Active 8422 9001 Problem Stable angina pectoris I20.8 Active 237652968 Problem Coronary artery disease of [place]ive artery of [place] heart with stable angina pectoris I25.118 Active 645049788390 7 Problem Hypertension, benign I10 Active 62522156 Problem Panlobular emphysema J43.1 Active 8897956 Problem Lumbago with sciatica, left side M54.42 Active 647892237 Problem Lumbago with sciatica, right side M54.41 Active 103371148824778 Problem Functional constipation K59.04 Active 012966631 Problem Other chronic pain G89.29 Active 8 5562855 ALLERGIES No Information ENCOUNTERS Encounter Location Date Diagnosis [facility] [address] [facility] [id number] [address] [place] [phone] Dec, [facility] [address] [facility] [id number] [address] [place] [phone] Nov, [facility] [address] [facility] [id number] [address] [place] [address] Nov, Acute non-recurrent maxillar y sinusitis J01.00 [facility] [address] [facility] [id number] [address] [place] [phone] Nov, [facility] [address] [facility] [id number] [address] [place] [address] Nov, Thoracic neuritis M54.14 ; A cute pain of right shoulder M25.511 ; Mood disorder F39 ; Pain in right ankle and joints of right foot M25.571 and Other chronic pain G89.29 [place] [address] [facility] [id number] [address] [place] [phone] Nov, [facility] [address] [facility] [id number] [address] [place] [address] Nov, Injury of right shoulder, in itial encounter S49.91XA [place] [address] [place] [id number] [address] [place] [address] Nov, Panlobular emphysema J43.1 [place] [address] [place] [id number] [address] [place] [phone] Nov, Acute non-recurrent maxillar y sinusitis J01.00 [place] [address] [place] [id number] [address] [place] [address] October, Acute non-recurrent maxillar y sinusitis J01.00 [place] [address] [place] [id number] [address] [place] [address] Sep, Contusion of right upper ext remity, initial encounter S40.021A [facility] [address] [facility] [id number] [address] [place] [address] Sep, Right forearm pain M79.631 [place] [address] [facility] [id number] [address] [place] [address] Sep, Acute non-recurrent maxillar y sinusitis J01.00 [place] [address] [facility] [id number] [address] [place] [phone] Aug, Stable angina pectoris I20.8 [place] [address] [facility] [id number] [address] [place] [address] Aug, Chronic fatigue R53.82 [facility] [address] [facility] [id number] [address] [place] [phone] 14 Aug, 2017 [facility] [address] [facility] [id number] [address] [place] [phone] 14 Aug, 2017 Stable angina pectoris I20.8 and Chronic fatigue R53.82 [facility] [address] [facility] [id number] [address] [place] [phone] 09 Aug, 2017 Acute non-recurrent maxillar y sinusitis J01.00 [facility] [address] [facility] [id number] [address] [place] [address] 26 Jul, 2017 Chronic fatigue R53.82 ; Hyp ertension, benign I10 ; Family history of early CAD Z82.49 and Coronary artery disease of [place] artery of [place] heart with stable angina pectoris I25.118 [place] [id number] [place] [address] 26 Jul, 2017 Family history of early CAD Z82.49 [place] [address] [place] [id number] [address] [place] [address] 16 Jul, 2017 Family history of early CAD Z82.49 [place] [address] [place] [id number] [address] [place] [address] 16 Jul, 2017 Chronic fatigue R53.82 ; Hyp ertension, benign I10 ; Family history of early CAD Z82.49 and Coronary artery disease of [place] artery of [place] heart with stable angina pectoris I25.118 [facility] [address] [facility] [id number] [address] [place] [address] 15 Jul, 2017 Chronic fatigue R53.82 [place] [address] [facility] [id number] [address] [place] [address] 15 Jul, 2017 Chronic fatigue R53.82 ; Hyp ertension, benign I10 ; Family history of early CAD Z82.49 and Coronary artery disease of [place] artery of [place] heart with stable angina pectoris I25.118 [facility] [address] [id number] [address] [place] [id number] Jul, Dental examination Z01.20 an d Dental caries K02.9 [facility] [address] [facility] [id number] [address] [place] [phone] Jul, [facility] [address] [facility] [id number] [address] [place] [phone] Jul, [facility] [address] [address] Jul, Acute non-recurrent maxillar y sinusitis J01.00 [facility] [address] [facility] [id number] [address] [place] [phone] Jul, [facility] [address] [facility] [id number] [address] [place] [phone] Jun, [facility] [address] [place] [id number] [address] [place] [address] Jun, [facility] [address] [id number] [address] [place] [address] Jun, Acute non-recurrent maxillar y sinusitis J01.00 [facility] [address] [place] [address] Jun, Anxiety F41.9 ; Bronchitis J 40 ; Tobacco abuse Z72.0 ; Tobacco abuse counseling Z71.6 and Acute left ankle pain M25.572 [facility] [address] [facility] [id number] [address] [place] [phone] May, Cough R05 and COPD exacerbat ion J44.1 [facility] [address] [facility] [id number] [address] [place] [address] May, [facility] [address] [place] [phone] May, [facility] [address] [place] [id number] [address] [place] [address] May, Acute non-recurrent maxillar y sinusitis J01.00 [facility] [address] [facility] [id number] [address] [place] [address] Apr, Acute non-recurrent maxillar y sinusitis J01.00 ; Anxiety F41.9 ; Acute right-sided low back pain with right-sided sciatica M54.41 and Thoracic neuritis M54.14 IMMUNIZATIONS No Known Immunizations SOCIAL HISTORY Never Assessed REASON FOR VISIT eye exam PLAN OF CARE VITAL SIGNS MEDICATIONS Unknown Medications RESULTS No Results PROCEDURES No Known procedures INSTRUCTIONS MEDICATIONS ADMINISTERED No Known Medications MEDICAL (GENERAL) HISTORY Type Description Date Medical History COPD Surgical History mass removed from right breast
--- OUTSIDE RECORDS SUMMARY | 2019-12-17 16:12 | XMS REPORT ---
Author Author Pepper MCKEON Organization [facility] Address [address] [place] [address] Care Team Providers Care Family Living Educator Name Role Phone DEVEN MCKEON Unavailable PROBLEMS Type Condition ICD9-CM Code [id number] Code Onset Dates Condition S tatus SNOMED Code Problem Acute right-sided low back pain with right-sided sciatica M54.41 Active 283790623 Problem COPD exacerbation J44.1 Active 29 0027532355007 Problem Anxiety F41.9 Active 69099943 Problem Mood disorder F39 Active 499891 05 Problem Injury of right shoulder, initial encounter S49.91 XA Active 004124988 Problem Chronic fatigue R53.82 Active 8422 9001 Problem Stable angina pectoris I20.8 Active 999799613 Problem 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 Active 467977203763 7 Problem Hypertension, benign I10 Active 43499377 Problem Panlobular emphysema J43.1 Active 1029595 Problem Lumbago with sciatica, left side M54.42 Active 000166373 Problem Lumbago with sciatica, right side M54.41 Active 138606697983110 Problem Functional constipation K59.04 Active 486801168 Problem Other chronic pain G89.29 Active 8 6938352 ALLERGIES Substance Reaction Event Type Date Status PredniSONE Unknown Drug Allergy Jul, Active Lyrica Unknown Drug Allergy Jul, Active ENCOUNTERS Encounter Location Date Diagnosis [facility] [address] [facility] [id number] [address] [place] [phone] Dec, [facility] [address] [facility] [id number] [address] [place] [phone] Nov, [facility] [address] [facility] [id number] [address] [place] [phone] Nov, Acute non-recurrent maxillar y sinusitis J01.00 [place] [id number] [id number] [address] [place] [phone] Nov, [place] [address] [facility] [id number] [address] [place] [phone] Nov, Thoracic neuritis M54.14 ; A cute pain of right shoulder M25.511 ; Mood disorder F39 ; Pain in right ankle and joints of right foot M25.571 and Other chronic pain G89.29 [place] [address] [facility] [id number] [address] [place] [phone] Nov, [facility] [address] [id number] [address] [place] [phone] Nov, Injury of right shoulder, in itial encounter S49.91XA [place] [address] [address] [place] [id number] [address] [place] [phone] Nov, Panlobular emphysema J43.1 [place] [address] [facility] [id number] [address] [place] [phone] Nov, Acute non-recurrent maxillar y sinusitis J01.00 [place] [address] [facility] [id number] [address] [place] [phone] October, Acute non-recurrent maxillar y sinusitis J01.00 [place] [address] [facility] [id number] [address] [place] [phone] Sep, Contusion of right upper ext remity, initial encounter S40.021A [facility] [address] [facility] [id number] [address] [place] [phone] Sep, Right forearm pain M79.631 [place] [address] [facility] [id number] [address] [place] [phone] Sep, Acute non-recurrent maxillar y sinusitis J01.00 [place] [address] [facility] [id number] [address] [place] [phone] Aug, Stable angina pectoris I20.8 [place] [address] [address] [facility] [id number] [address] [place] [phone] 14 Aug, 2017 Chronic fatigue R53.82 [place] [address] [address] [facility] [id number] [address] [place] [phone] 14 Aug, 2017 [place] [address] [facility] [id number] [address] [place] [phone] 14 Aug, 2017 Stable angina pectoris I20.8 and Chronic fatigue R53.82 [place] [address] [facility] [id number] [address] [place] [phone] 09 Aug, 2017 Acute non-recurrent maxillar y sinusitis J01.00 [place] [address] [facility] [id number] [address] [place] [phone] 26 Jul, 2017 Chronic fatigue R53.82 ; Hyp ertension, benign I10 ; Family history of early CAD Z82.49 and Coronary artery disease of [place] artery of [place] heart with stable angina pectoris I25.118 [place] [address] [address] [place] [id number] [address] [place] [phone] 26 Jul, 2017 Family history of early CAD Z82.49 [place] [address] [address] [place] [id number] [address] [place] [phone] 16 Jul, 2017 Family history of early CAD Z82.49 [place] [address] [address] [place] [id number] [address] [place] [phone] 16 Jul, 2017 Chronic fatigue R53.82 ; Hyp ertension, benign I10 ; Family history of early CAD Z82.49 and Coronary artery disease of [place] artery of [place] heart with stable angina pectoris I25.118 [place] [address] [facility] [id number] [address] [place] [phone] 15 Jul, 2017 Chronic fatigue R53.82 [place] [address] [facility] [id number] [address] [place] [phone] 15 Jul, 2017 Chronic fatigue R53.82 ; Hyp ertension, benign I10 ; Family history of early CAD Z82.49 and Coronary artery disease of [place] artery of [place] heart with stable angina pectoris I25.118 [facility] [address] [id number] [address] [place] [id number] Jul, Dental examination Z01.20 an d Dental caries K02.9 [facility] [address] [id number] [address] [place] [phone] Jul, [facility] [address] [id number] [address] [place] [phone] Jul, [facility] [address] [id number] [address] [place] [phone] Jul, Acute non-recurrent maxillar y sinusitis J01.00 [facility] [address] [id number] [address] [place] [phone] Jul, [facility] [address] [facility] [id number] [address] [place] [phone] Jun, [facility] [address] [id number] [address] [place] [phone] Jun, [facility] [address] [facility] [id number] [address] [place] [phone] Jun, Acute non-recurrent maxillar y sinusitis J01.00 [facility] [address] [facility] [id number] [address] [place] [phone] Jun, Anxiety F41.9 ; Bronchitis J 40 ; Tobacco abuse Z72.0 ; Tobacco abuse counseling Z71.6 and Acute left ankle pain M25.572 [facility] [address] [id number] [address] [place] [phone] May, Cough R05 and COPD exacerbat ion J44.1 [facility] [address] [facility] [id number] [address] [place] [phone] 15 May, 2017 [facility] [address] [facility] [id number] [address] [place] [phone] May, [facility] [address] [facility] [id number] [address] [place] [phone] 13 May, 2017 Acute non-recurrent maxillar y sinusitis J01.00 [facility] [address] [facility] [id number] [address] [place] [phone] 17 Apr, 2017 Acute non-recurrent maxillar y sinusitis J01.00 ; Anxiety F41.9 ; Acute right-sided low back pain with right-sided sciatica M54.41 and Thoracic neuritis M54.14 IMMUNIZATIONS No Known Immunizations SOCIAL HISTORY Never Assessed REASON FOR VISIT Pain mgmt. Elevated BP, PT also says she has no energy-[place] ma PLAN OF CARE Activity Details Future/Pending Procedure EKG, TRACING (IN-HOUSE) VITAL SIGNS Height 67 in 2017-08-07 Weight 185.0 lbs 2017-08-07 Temperature 98.5 degrees Fahrenheit 2017-08-07 Heart Rate 78 bpm 2017-08-07 Respiratory Rate 20 2017-08-07 BMI 28.97 kg/m2 2017-08-07 Blood pressure systolic 98 mmHg 2017-08-07 Blood pressure diastolic 62 mmHg 2017-08-07 MEDICATIONS Medication Instructions Dosage Frequency Start Date End Date Duration S tatus Zanaflex 4 MG Orally 2 times a day 1 tablet as needed 12h 30 Active Xanax 0.5 MG Orally Twice a day 1 tablet 12h 28 days Active Spiriva HandiHaler 18 MCG Inhalation Once a day 1 capsule 24h 16 Jun Not-Taking Chantix 1 MG Orally Twice a day 1 tablet 12h 04 Jun, 2017 14 Au g, 2017 30 day(s) Active Hydrocodone-Acetaminophen 10-325 MG Orally every 6 hrs 1 tablet as needed 6h 12 Jul, 2017 28 days Active Detrol [place] 4 MG Orally Once a day 1 capsule 24h 15 Jul, 2017 16 M ay, 2017 30 day(s) Active Nitroglycerin Active Albuterol Sulfate (2.5 MG/3ML) 0.083% Inhalation every 6 hrs 3 ml a s needed 6h May, 0 days Active ProAir HFA 108 (90 Base) MCG/ACT Inhalation every 6 hrs 2 puffs as needed 6h May, Active RESULTS No Results PROCEDURES Procedure Date Ordered Result Body Site ELECTROCARDIOGRAM, TRACING Aug 07, 2017 INSTRUCTIONS MEDICATIONS ADMINISTERED No Known Medications MEDICAL (GENERAL) HISTORY Type Description Date Medical History COPD Surgical History mass removed from right breast
--- OUTSIDE RECORDS SUMMARY | 2019-12-17 16:12 | XMS REPORT ---
Author Author Juan C NUNN Organization [facility] Address [address] [place] [address] Care Team Providers Care Card Room Manager Name Role Phone LAYO NUNN Unavailable PROBLEMS Type Condition ICD9-CM Code [id number] Code Onset Dates Condition S tatus SNOMED Code Problem Acute right-sided low back pain with right-sided sciatica M54.41 Active 989881119 Problem COPD exacerbation J44.1 Active 29 4060621819600 Problem Anxiety F41.9 Active 60631989 Problem Mood disorder F39 Active 129488 05 Problem Injury of right shoulder, initial encounter S49.91 XA Active 151877271 Problem Chronic fatigue R53.82 Active 8422 9001 Problem Stable angina pectoris I20.8 Active 155440282 Problem 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 Active 501779180884 7 Problem Hypertension, benign I10 Active 25569770 Problem Panlobular emphysema J43.1 Active 3479817 Problem Lumbago with sciatica, left side M54.42 Active 535885054 Problem Lumbago with sciatica, right side M54.41 Active 305417122870451 Problem Functional constipation K59.04 Active 440700129 Problem Other chronic pain G89.29 Active 8 4054330 ALLERGIES Substance Reaction Event Type Date Status PredniSONE Unknown Drug Allergy May, Active Lyrica Unknown Drug Allergy May, Active ENCOUNTERS Encounter Location Date Diagnosis [facility] [address] [facility] [id number] [address] [place] [phone] Dec, [facility] [address] [facility] [id number] [address] [place] [phone] Nov, [facility] [address] [facility] [id number] [address] [place] [phone] Nov, Acute non-recurrent maxillar y sinusitis J01.00 [facility] [address] [id number] [address] [place] [phone] Nov, [place] [address] [address] [facility] [id number] [address] [place] [phone] Nov, Thoracic neuritis M54.14 ; A cute pain of right shoulder M25.511 ; Mood disorder F39 ; Pain in right ankle and joints of right foot M25.571 and Other chronic pain G89.29 [place] [address] [id number] [address] [place] [phone] Nov, [facility] [address] [facility] [id number] [address] [place] [phone] Nov, Injury of right shoulder, in itial encounter S49.91XA [place] [address] [address] [place] [id number] [address] [place] [phone] Nov, Panlobular emphysema J43.1 [place] [address] [address] [facility] [id number] [address] [place] [phone] Nov, Acute non-recurrent maxillar y sinusitis J01.00 [place] [address] [address] [facility] [id number] [address] [place] [phone] October, Acute non-recurrent maxillar y sinusitis J01.00 [place] [address] [address] [facility] [id number] [address] [place] [phone] Sep, Contusion of right upper ext remity, initial encounter S40.021A [facility] [address] [facility] [id number] [address] [place] [phone] Sep, Right forearm pain M79.631 [place] [address] [address] [facility] [id number] [address] [place] [phone] Sep, Acute non-recurrent maxillar y sinusitis J01.00 [place] [address] [address] [facility] [id number] [address] [place] [phone] Aug, Stable angina pectoris I20.8 [place] [address] [address] [facility] [id number] [address] [place] [phone] 14 Aug, 2017 Chronic fatigue R53.82 [facility] [address] [facility] [id number] [address] [place] [phone] 14 Aug, 2017 [place] [address] [address] [facility] [id number] [address] [place] [phone] Aug, Stable angina pectoris I20.8 and Chronic fatigue R53.82 [place] [address] [address] [facility] [id number] [address] [place] [phone] 09 Aug, 2017 Acute non-recurrent maxillar y sinusitis J01.00 [place] [address] [address] [facility] [id number] [address] [place] [phone] 26 Jul, 2017 Chronic fatigue R53.82 ; Hyp ertension, benign I10 ; Family history of early CAD Z82.49 and Coronary artery disease of [place] artery of [place] heart with stable angina pectoris I25.118 [place] [id number] [place] [phone] 26 Jul, 2017 Family history of early CAD Z82.49 [place] [address] [facility] [id number] [address] [place] [phone] 16 Jul, 2017 Family history of early CAD Z82.49 [place] [address] [facility] [id number] [address] [place] [phone] 16 Jul, 2017 Chronic fatigue R53.82 ; Hyp ertension, benign I10 ; Family history of early CAD Z82.49 and Coronary artery disease of [place] artery of [place] heart with stable angina pectoris I25.118 [place] [address] [facility] [id number] [address] [place] [id number] 15 Jul, 2017 Chronic fatigue R53.82 [place] [address] [facility] [id number] [address] [place] [phone] 15 Jul, 2017 Chronic fatigue R53.82 ; Hyp ertension, benign I10 ; Family history of early CAD Z82.49 and Coronary artery disease of [place] artery of [place] heart with stable angina pectoris I25.118 [facility] [address] [id number] [address] [place] [id number] Jul, Dental examination Z01.20 an d Dental caries K02.9 [facility] [address] [facility] [id number] [address] [place] [phone] Jul, [facility] [address] [facility] [id number] [address] [place] [phone] Jul, [facility] [address] [place] [id number] [place] [phone] Jul, Acute non-recurrent maxillar y sinusitis J01.00 [facility] [address] [facility] [id number] [address] [place] [phone] Jul, [facility] [address] [place] [id number] [address] [place] [phone] Jun, [facility] [address] [facility] [id number] [address] [place] [phone] Jun, [facility] [address] [phone] Jun, Acute non-recurrent maxillar y sinusitis J01.00 [facility] [address] [place] [id number] [address] [place] [phone] Jun, Anxiety F41.9 ; Bronchitis J 40 ; Tobacco abuse Z72.0 ; Tobacco abuse counseling Z71.6 and Acute left ankle pain M25.572 [facility] [address] [facility] [id number] [address] [place] [phone] May, Cough R05 and COPD exacerbat ion J44.1 [facility] [address] [facility] [id number] [address] [place] [phone] May, [facility] [address] [place] [id number] [place] [phone] May, [facility] [address] [facility] [id number] [address] [place] [phone] May, Acute non-recurrent maxillar y sinusitis J01.00 [facility] [address] [facility] [id number] [address] [place] [phone] 17 Apr, 2017 Acute non-recurrent maxillar y sinusitis J01.00 ; Anxiety F41.9 ; Acute right-sided low back pain with right-sided sciatica M54.41 and Thoracic neuritis M54.14 IMMUNIZATIONS No Known Immunizations SOCIAL HISTORY Never Assessed REASON FOR VISIT Cough and runny nose x3 weeks- coughing spells will last about 1 hour [employer] N PLAN OF CARE Activity Details Follow Up prn Reason: VITAL SIGNS Height 67 in 2017-06-21 Weight 183 lbs 2017-06-21 Temperature 98.0 degrees Fahrenheit 2017-06-21 Heart Rate 90 bpm 2017-06-21 Respiratory Rate 20 2017-06-21 BMI 28.66 kg/m2 2017-06-21 Blood pressure systolic 122 mmHg 2017-06-21 Blood pressure diastolic 78 mmHg 2017-06-21 MEDICATIONS Medication Instructions Dosage Frequency Start Date End Date Duration S tatus Hydrocodone-Acetaminophen 10-325 MG Orally every 6 hrs 1 tablet as needed 6h 14 May, 2017 Active Anoro Ellipta 62.5-25 MCG/INH Inhalation Once a day 1 puff 24h 15 D 2016 Active Zanaflex 4 MG Orally 2 times a day 1 tablet as needed 12h 17 Apr, 17 Active Albuterol Sulfate (2.5 MG/3ML) 0.083% Inhalation every 6 hrs 3 ml a s needed 6h May, 0 days Active Xanax 0.5 MG Orally Twice a day 1 tablet 12h Active Azithromycin 250 MG Orally Once a day 2 tablets on the rst day, then 1 tablet daily for 4 days 24h May, Jun, 5 day(s) Active ProAir HFA 108 (90 Base) MCG/ACT Inhalation every 6 hrs 2 puffs as needed 6h May, Active Promethazine-Codeine 6.25-10 MG/5ML Orally every 6 hrs 5 ml as need ed 6h May, Jun, 05 days Active Bevespi Aerosphere 9-4.8 MCG/ACT Inhalation Twice a day 2 puffs 12h May, May, 0 days Active RESULTS No Results PROCEDURES No Known procedures INSTRUCTIONS MEDICATIONS ADMINISTERED No Known Medications MEDICAL (GENERAL) HISTORY Type Description Date Medical History COPD Surgical History mass removed from right breast
--- OUTSIDE RECORDS SUMMARY | 2019-12-17 16:12 | XMS REPORT ---
Author Author Pepper MCKEON Organization [facility] Address [address] [place] [address] Care Team Providers Care Supervisor Type Disk Quality Control Name Role Phone DEVEN MCKEON Unavailable PROBLEMS Type Condition ICD9-CM Code [id number] Code Onset Dates Condition S tatus SNOMED Code Problem Acute right-sided low back pain with right-sided sciatica M54.41 Active 443401931 Problem COPD exacerbation J44.1 Active 29 5946646050925 Problem Anxiety F41.9 Active 99277886 Problem Mood disorder F39 Active 222998 05 Problem Injury of right shoulder, initial encounter S49.91 XA Active 359702271 Problem Chronic fatigue R53.82 Active 8422 9001 Problem Stable angina pectoris I20.8 Active 413031875 Problem 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 Active 498498531923 7 Problem Hypertension, benign I10 Active 54536789 Problem Panlobular emphysema J43.1 Active 0471138 Problem Lumbago with sciatica, left side M54.42 Active 510609901 Problem Lumbago with sciatica, right side M54.41 Active 594304509400888 Problem Functional constipation K59.04 Active 412276252 Problem Other chronic pain G89.29 Active 8 [id number] ALLERGIES No Information ENCOUNTERS Encounter Location Date Diagnosis [facility] [address] [facility] [id number] [address] [place] [phone] Dec, [facility] [address] [facility] [id number] [address] [place] [phone] Nov, [facility] [address] [facility] [id number] [address] [place] [phone] Nov, Acute non-recurrent maxillar y sinusitis J01.00 [facility] [address] [facility] [id number] [address] [place] [phone] Nov, [facility] [address] [facility] [id number] [address] [place] [phone] Nov, Thoracic neuritis M54.14 ; A cute pain of right shoulder M25.511 ; Mood disorder F39 ; Pain in right ankle and joints of right foot M25.571 and Other chronic pain G89.29 [place] [address] [facility] [id number] [address] [place] [phone] Nov, [facility] [address] [facility] [id number] [address] [place] [phone] Nov, Injury of right shoulder, in itial encounter S49.91XA [place] [address] [place] [id number] [address] [place] [phone] Nov, Panlobular emphysema J43.1 [place] [address] [place] [id number] [address] [place] [phone] Nov, Acute non-recurrent maxillar y sinusitis J01.00 [place] [address] [place] [id number] [address] [place] [phone] October, Acute non-recurrent maxillar y sinusitis J01.00 [place] [address] [place] [id number] [address] [place] [phone] Sep, Contusion of right upper ext remity, initial encounter S40.021A [facility] [address] [facility] [id number] [address] [place] [phone] Sep, Right forearm pain M79.631 [place] [address] [facility] [id number] [address] [place] [id number] Sep, Acute non-recurrent maxillar y sinusitis J01.00 [place] [address] [facility] [id number] [address] [place] [phone] Aug, Stable angina pectoris I20.8 [place] [address] [facility] [id number] [address] [place] [phone] Aug, Chronic fatigue R53.82 [facility] [address] [facility] [id number] [address] [place] [phone] 14 Aug, 2017 [facility] [address] [facility] [id number] [address] [place] [id number] 14 Aug, 2017 Stable angina pectoris I20.8 and Chronic fatigue R53.82 [facility] [address] [facility] [id number] [address] [place] [phone] 09 Aug, 2017 Acute non-recurrent maxillar y sinusitis J01.00 [facility] [address] [facility] [id number] [address] [place] [id number] 26 Jul, 2017 Chronic fatigue R53.82 ; Hyp ertension, benign I10 ; Family history of early CAD Z82.49 and Coronary artery disease of [place] artery of [place] heart with stable angina pectoris I25.118 [place] [id number] [place] [phone] 26 Jul, 2017 Family history of early CAD Z82.49 [place] [address] [place] [id number] [address] [place] [id number] 16 Jul, 2017 Family history of early CAD Z82.49 [place] [address] [place] [id number] [address] [place] [id number] 16 Jul, 2017 Chronic fatigue R53.82 ; Hyp ertension, benign I10 ; Family history of early CAD Z82.49 and Coronary artery disease of [place] artery of [place] heart with stable angina pectoris I25.118 [facility] [address] [facility] [id number] [address] [place] [phone] 15 Jul, 2017 Chronic fatigue R53.82 [place] [address] [facility] [id number] [address] [place] [phone] 15 Jul, 2017 Chronic fatigue R53.82 ; Hyp ertension, benign I10 ; Family history of early CAD Z82.49 and Coronary artery disease of [place] artery of [place] heart with stable angina pectoris I25.118 [facility] [address] [id number] [address] [place] [id number] Jul, Dental examination Z01.20 an d Dental caries K02.9 [facility] [address] [facility] [id number] [address] [place] [phone] Jul, [facility] [address] [facility] [id number] [address] [place] [phone] Jul, [facility] [address] [phone] Jul, Acute non-recurrent maxillar y sinusitis J01.00 [facility] [address] [facility] [id number] [address] [place] [phone] Jul, [facility] [address] [facility] [id number] [address] [place] [phone] Jun, [facility] [address] [place] [id number] [address] [place] [phone] Jun, [facility] [address] [place] [id number] [address] [place] [phone] Jun, Acute non-recurrent maxillar y sinusitis J01.00 [facility] [id number] [place] [phone] Jun, Anxiety F41.9 ; Bronchitis J 40 ; Tobacco abuse Z72.0 ; Tobacco abuse counseling Z71.6 and Acute left ankle pain M25.572 [facility] [address] [facility] [id number] [address] [place] [phone] May, Cough R05 and COPD exacerbat ion J44.1 [facility] [address] [facility] [id number] [address] [place] [phone] May, [facility] [id number] [place] [phone] May, [facility] [address] [place] [id number] [address] [place] [phone] May, Acute non-recurrent maxillar y sinusitis J01.00 [facility] [address] [facility] [id number] [address] [place] [address] Apr, Acute non-recurrent maxillar y sinusitis J01.00 ; Anxiety F41.9 ; Acute right-sided low back pain with right-sided sciatica M54.41 and Thoracic neuritis M54.14 IMMUNIZATIONS No Known Immunizations SOCIAL HISTORY Never Assessed REASON FOR VISIT controlled refill request PLAN OF CARE VITAL SIGNS MEDICATIONS Unknown Medications RESULTS No Results PROCEDURES No Known procedures INSTRUCTIONS MEDICATIONS ADMINISTERED No Known Medications MEDICAL (GENERAL) HISTORY Type Description Date Medical History COPD Surgical History mass removed from right breast
--- OUTSIDE RECORDS SUMMARY | 2019-12-17 16:12 | XMS REPORT ---
Author Author Pepper MCKEON Organization [facility] Address [address] [place] [address] Care Team Providers Care Electrical Installer Name Role Phone DEVEN MCKEON Unavailable PROBLEMS Type Condition ICD9-CM Code [id number] Code Onset Dates Condition S tatus SNOMED Code Problem Acute right-sided low back pain with right-sided sciatica M54.41 Active 915879601 Problem COPD exacerbation J44.1 Active 29 4550804300570 Problem Anxiety F41.9 Active 06551358 Problem Mood disorder F39 Active 187968 05 Problem Injury of right shoulder, initial encounter S49.91 XA Active 777986269 Problem Chronic fatigue R53.82 Active 8422 9001 Problem Stable angina pectoris I20.8 Active 750905858 Problem 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 Active 097451011561 7 Problem Hypertension, benign I10 Active 74798848 Problem Panlobular emphysema J43.1 Active 1026950 Problem Lumbago with sciatica, left side M54.42 Active 627114717 Problem Lumbago with sciatica, right side M54.41 Active 077347440355560 Problem Functional constipation K59.04 Active 148619067 Problem Other chronic pain G89.29 Active 8 [id number] ALLERGIES No Information ENCOUNTERS Encounter Location Date Diagnosis [facility] [address] [facility] [id number] [address] [place] [phone] Dec, [facility] [address] [facility] [id number] [address] [place] [phone] Dec, [facility] [address] [facility] [id number] [address] [place] [phone] Dec, [facility] [address] [facility] [id number] [address] [place] [phone] Dec, Panlobular emphysema J43.1 [facility] [address] [id number] [address] [place] [phone] Nov, [facility] [address] [facility] [id number] [address] [place] [phone] Nov, Acute non-recurrent maxillar y sinusitis J01.00 [facility] [address] [facility] [id number] [address] [place] [phone] Nov, [facility] [address] [facility] [id number] [address] [place] [phone] Nov, Thoracic neuritis M54.14 ; A cute pain of right shoulder M25.511 ; Mood disorder F39 ; Pain in right ankle and joints of right foot M25.571 and Other chronic pain G89.29 [place] [address] [place] [id number] [address] [place] [phone] Nov, [facility] [address] [facility] [id number] [address] [place] [phone] Nov, Injury of right shoulder, in itial encounter S49.91XA [place] [address] [place] [id number] [address] [place] [phone] Nov, Panlobular emphysema J43.1 [place] [address] [place] [id number] [address] [place] [phone] Nov, Acute non-recurrent maxillar y sinusitis J01.00 [facility] [address] [facility] [id number] [address] [place] [phone] October, Acute non-recurrent maxillar y sinusitis J01.00 [place] [address] [facility] [id number] [address] [place] [phone] Sep, Contusion of right upper ext remity, initial encounter S40.021A [facility] [address] [facility] [id number] [address] [place] [phone] Sep, Right forearm pain M79.631 [place] [address] [facility] [id number] [address] [place] [phone] Sep, Acute non-recurrent maxillar y sinusitis J01.00 [facility] [address] [facility] [id number] [address] [place] [phone] 19 Aug, 2017 Stable angina pectoris I20.8 [place] [address] [facility] [id number] [address] [place] [phone] 14 Aug, 2017 Chronic fatigue R53.82 [place] [address] [facility] [id number] [address] [place] [phone] 14 Aug, 2017 [place] [address] [facility] [id number] [address] [place] [phone] Aug, Stable angina pectoris I20.8 and Chronic fatigue R53.82 [place] [address] [facility] [id number] [address] [place] [phone] 09 Aug, 2017 Acute non-recurrent maxillar y sinusitis J01.00 [place] [address] [facility] [id number] [address] [place] [phone] 26 Jul, 2017 Chronic fatigue R53.82 ; Hyp ertension, benign I10 ; Family history of early CAD Z82.49 and Coronary artery disease of [place] artery of [place] heart with stable angina pectoris I25.118 [place] [address] [facility] [id number] [address] [place] [phone] 26 Jul, 2017 Family history of early CAD Z82.49 [place] [address] [facility] [id number] [address] [place] [phone] 16 Jul, 2017 Family history of early CAD Z82.49 [place] [address] [facility] [id number] [address] [place] [phone] 16 Jul, 2017 Chronic fatigue R53.82 ; Hyp ertension, benign I10 ; Family history of early CAD Z82.49 and Coronary artery disease of [place] artery of [place] heart with stable angina pectoris I25.118 [place] [address] [facility] [id number] [address] [place] [phone] Jul, Chronic fatigue R53.82 [facility] [address] [facility] [id number] [address] [place] [address] Jul, Chronic fatigue R53.82 ; Hyp ertension, benign I10 ; Family history of early CAD Z82.49 and Coronary artery disease of [place] artery of [place] heart with stable angina pectoris I25.118 [facility] [address] [id number] [address] [place] [id number] Jul, Dental examination Z01.20 an d Dental caries K02.9 [facility] [address] [facility] [id number] [address] [place] [phone] Jul, [facility] [address] [facility] [id number] [address] [place] [phone] Jul, [facility] [address] [facility] [id number] [address] [place] [phone] Jul, Acute non-recurrent maxillar y sinusitis J01.00 [facility] [address] [facility] [id number] [address] [place] [phone] Jul, [facility] [address] [facility] [id number] [address] [place] [phone] Jun, [facility] [address] [facility] [id number] [address] [place] [phone] Jun, [facility] [address] [place] [id number] [address] [place] [phone] Jun, Acute non-recurrent maxillar y sinusitis J01.00 [facility] [address] [facility] [id number] [address] [place] [phone] Jun, Anxiety F41.9 ; Bronchitis J 40 ; Tobacco abuse Z72.0 ; Tobacco abuse counseling Z71.6 and Acute left ankle pain M25.572 [facility] [address] [facility] [id number] [address] [place] [phone] May, Cough R05 and COPD exacerbat ion J44.1 [facility] [address] [facility] [id number] [address] [place] [phone] 15 May, 2017 [facility] [address] [facility] [id number] [address] [place] [phone] 14 May, 2017 [facility] [address] [facility] [id number] [address] [place] [phone] 13 May, 2017 Acute non-recurrent maxillar y sinusitis J01.00 [facility] [address] [facility] [id number] [address] [place] [phone] 17 Apr, 2017 Acute non-recurrent maxillar y sinusitis J01.00 ; Anxiety F41.9 ; Acute right-sided low back pain with right-sided sciatica M54.41 and Thoracic neuritis M54.14 IMMUNIZATIONS No Known Immunizations SOCIAL HISTORY Never Assessed REASON FOR VISIT Xray (walk-in) MHill RT(R) PLAN OF CARE VITAL SIGNS MEDICATIONS Unknown Medications RESULTS Name Result Date Reference Range Xray : Chest 2 View (IN HOUSE) 2017-08-18 PROCEDURES Procedure Date Ordered Result Body Site X-RAY EXAM CHEST 2 VIEWS Aug 18, 2017 INSTRUCTIONS MEDICATIONS ADMINISTERED No Known Medications MEDICAL (GENERAL) HISTORY Type Description Date Medical History COPD Surgical History mass removed from right breast
[2019-12-17 16:13] LABS: BILIRUBIN,TOTAL 0.3 MG/DL (0.1-1.0)
--- OUTSIDE RECORDS SUMMARY | 2019-12-17 16:13 | XMS REPORT ---
Author Author Pepper MCKEON Organization [facility] Address [address] [place] [address] Care Team Providers Care Mba Internship Name Role Phone DEVEN MCKEON Unavailable PROBLEMS Type Condition ICD9-CM Code KTH58-HY Code Onset Dates Condition S tatus SNOMED Code Problem Lumbago with sciatica, right side M54.41 Active 422613582602505 Problem Acute right-sided low back pain with right-sided sciatica M54.41 Active 795882340 Problem Other chronic pain G89.29 Active 8 5377534 Problem Functional constipation K59.04 Active 622592811 Problem Panlobular emphysema J43.1 Active 6077897 Problem Lumbago with sciatica, left side M54.42 Active 300446549 Problem Hypertension, benign I10 Active 31812961 Problem Chronic fatigue R53.82 Active 8422 9001 Problem COPD exacerbation J44.1 Active 29 2430504151640 Problem Anxiety F41.9 Active 05014787 Problem 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 Active 784922307211 7 Problem Stable angina pectoris I20.8 Active 322217547 ALLERGIES No Information ENCOUNTERS Encounter Location Date Diagnosis [facility] [address] [facility] [id number] [address] [place] [phone] Dec, [facility] [address] [facility] [id number] [address] [place] [phone] Nov, Panlobular emphysema J43.1 [facility] [address] [facility] [id number] [address] [place] [phone] Nov, Acute non-recurrent maxillar y sinusitis J01.00 [facility] [address] [facility] [id number] [address] [place] [address] October, Acute non-recurrent maxillar y sinusitis J01.00 [facility] [address] [id number] [address] [place] [phone] Sep, Contusion of right upper ext remity, initial encounter S40.021A [facility] [address] [id number] [address] [place] [phone] Sep, Right forearm pain M79.631 [facility] [address] [facility] [id number] [address] [place] [phone] Sep, Acute non-recurrent maxillar y sinusitis J01.00 [facility] [address] [facility] [id number] [address] [place] [phone] Aug, Stable angina pectoris I20.8 [facility] [address] [facility] [id number] [address] [place] [phone] Aug, Chronic fatigue R53.82 [facility] [address] [place] [id number] [address] [place] [phone] Aug, [facility] [address] [facility] [id number] [address] [place] [address] Aug, Stable angina pectoris I20.8 and Chronic fatigue R53.82 [facility] [address] [facility] [id number] [address] [place] [phone] Aug, Acute non-recurrent maxillar y sinusitis J01.00 [facility] [address] [facility] [id number] [address] [place] [id number] Jul, Chronic fatigue R53.82 ; Hyp ertension, benign I10 ; Family history of early CAD Z82.49 and Coronary artery disease of [place] artery of [place] heart with stable angina pectoris I25.118 [place] [address] [facility] [id number] [address] [place] [address] Jul, Family history of early CAD Z82.49 [facility] [address] [place] [id number] [address] [place] [phone] Jul, Family history of early CAD Z82.49 [place] [address] [id number] [address] [place] [phone] 16 Jul, 2017 Chronic fatigue R53.82 ; Hyp ertension, benign I10 ; Family history of early CAD Z82.49 and Coronary artery disease of [place] artery of [place] heart with stable angina pectoris I25.118 [facility] [address] [id number] [address] [place] [phone] 15 Jul, 2017 Chronic fatigue R53.82 [facility] [address] [id number] [address] [place] [phone] 15 Jul, 2017 Chronic fatigue R53.82 ; Hyp ertension, benign I10 ; Family history of early CAD Z82.49 and Coronary artery disease of [place] artery of [place] heart with stable angina pectoris I25.118 [facility] [address] [id number] [address] [place] [id number] 12 Jul, 2017 Dental examination Z01.20 an d Dental caries K02.9 [facility] [address] [id number] [address] [place] [phone] Jul, [facility] [address] [id number] [address] [place] [phone] Jul, [facility] [address] [id number] [address] [place] [phone] Jul, Acute non-recurrent maxillar y sinusitis J01.00 [facility] [address] [id number] [address] [place] [phone] Jul, [facility] [address] [id number] [address] [place] [phone] Jun, [facility] [address] [id number] [address] [place] [phone] Jun, [facility] [address] [id number] [address] [place] [address] Jun, Acute non-recurrent maxillar y sinusitis J01.00 [facility] [id number] [place] [address] Jun, Anxiety F41.9 ; Bronchitis J 40 ; Tobacco abuse Z72.0 ; Tobacco abuse counseling Z71.6 and Acute left ankle pain M25.572 [facility] [address] [place] [id number] [address] [place] [phone] May, Cough R05 and COPD exacerbat ion J44.1 [facility] [address] [address] May, [facility] [address] [address] May, [place] [address] [address] May, Acute non-recurrent maxillar y sinusitis J01.00 [facility] [address] [address] Apr, Acute non-recurrent maxillar y sinusitis J01.00 ; Anxiety F41.9 ; Acute right-sided low back pain with right-sided sciatica M54.41 and Thoracic neuritis M54.14 IMMUNIZATIONS No Known Immunizations SOCIAL HISTORY Never Assessed REASON FOR VISIT prior auth / PLAN OF CARE VITAL SIGNS MEDICATIONS Unknown Medications RESULTS No Results PROCEDURES No Known procedures INSTRUCTIONS MEDICATIONS ADMINISTERED No Known Medications MEDICAL (GENERAL) HISTORY Type Description Date Medical History COPD Surgical History mass removed from right breast
--- OUTSIDE RECORDS SUMMARY | 2019-12-17 16:13 | XMS REPORT ---
Author Author Pepper MCKEON Organization [facility] Address [address] [place] [address] Care Team Providers Care Handbook Writer Name Role Phone DEVNE MCKEON Unavailable PROBLEMS Type Condition ICD9-CM Code KJC60-AM Code Onset Dates Condition S tatus SNOMED Code Problem Lumbago with sciatica, right side M54.41 Active 086883504470398 Problem Acute right-sided low back pain with right-sided sciatica M54.41 Active 211244295 Problem Other chronic pain G89.29 Active 8 1846910 Problem Functional constipation K59.04 Active 892297299 Problem Panlobular emphysema J43.1 Active 7942776 Problem Lumbago with sciatica, left side M54.42 Active 286491062 Problem Hypertension, benign I10 Active 04409660 Problem Chronic fatigue R53.82 Active 8422 9001 Problem COPD exacerbation J44.1 Active 29 9470789372685 Problem Anxiety F41.9 Active 76328913 Problem 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 Active 476875735091 7 Problem Stable angina pectoris I20.8 Active 386370854 ALLERGIES No Information ENCOUNTERS Encounter Location Date Diagnosis [facility] [address] [facility] [id number] [address] [place] [phone] Dec, [facility] [address] [facility] [id number] [address] [place] [phone] Nov, Panlobular emphysema J43.1 [facility] [address] [facility] [id number] [address] [place] [phone] Nov, Acute non-recurrent maxillar y sinusitis J01.00 [facility] [address] [facility] [id number] [address] [place] [phone] October, Acute non-recurrent maxillar y sinusitis J01.00 [facility] [address] [id number] [address] [place] [phone] Sep, Contusion of right upper ext remity, initial encounter S40.021A [facility] [address] [id number] [address] [place] [address] Sep, Right forearm pain M79.631 [facility] [address] [facility] [id number] [address] [place] [address] Sep, Acute non-recurrent maxillar y sinusitis J01.00 [facility] [address] [facility] [id number] [address] [place] [address] Aug, Stable angina pectoris I20.8 [facility] [address] [facility] [id number] [address] [place] [phone] Aug, Chronic fatigue R53.82 [facility] [address] [place] [id number] [address] [place] [phone] Aug, [facility] [address] [facility] [id number] [address] [place] [phone] Aug, Stable angina pectoris I20.8 and Chronic fatigue R53.82 [facility] [address] [facility] [id number] [address] [place] [address] Aug, Acute non-recurrent maxillar y sinusitis J01.00 [facility] [address] [facility] [id number] [address] [place] [id number] Jul, Chronic fatigue R53.82 ; Hyp ertension, benign I10 ; Family history of early CAD Z82.49 and Coronary artery disease of [place] artery of [place] heart with stable angina pectoris I25.118 [place] [address] [facility] [id number] [address] [place] [address] Jul, Family history of early CAD Z82.49 [facility] [address] [place] [id number] [address] [place] [phone] Jul, Family history of early CAD Z82.49 [place] [address] [id number] [address] [place] [id number] 16 Jul, 2017 Chronic fatigue R53.82 ; Hyp ertension, benign I10 ; Family history of early CAD Z82.49 and Coronary artery disease of [place] artery of [place] heart with stable angina pectoris I25.118 [facility] [address] [id number] [address] [place] [phone] 15 Jul, 2017 Chronic fatigue R53.82 [facility] [address] [id number] [address] [place] [phone] 15 Jul, 2017 Chronic fatigue R53.82 ; Hyp ertension, benign I10 ; Family history of early CAD Z82.49 and Coronary artery disease of [place] artery of [place] heart with stable angina pectoris I25.118 [facility] [address] [id number] [address] [place] [id number] 12 Jul, 2017 Dental examination Z01.20 an d Dental caries K02.9 [facility] [address] [id number] [address] [place] [phone] Jul, [facility] [address] [id number] [address] [place] [phone] Jul, [facility] [address] [id number] [address] [place] [phone] Jul, Acute non-recurrent maxillar y sinusitis J01.00 [facility] [address] [id number] [address] [place] [phone] Jul, [facility] [address] [id number] [address] [place] [phone] Jun, [facility] [address] [id number] [address] [place] [phone] Jun, [facility] [address] [id number] [address] [place] [phone] Jun, Acute non-recurrent maxillar y sinusitis J01.00 [facility] [address] [id number] [address] [place] [id number] Jun, Anxiety F41.9 ; Bronchitis J 40 ; Tobacco abuse Z72.0 ; Tobacco abuse counseling Z71.6 and Acute left ankle pain M25.572 [facility] [address] [place] [id number] [address] [place] [phone] May, Cough R05 and COPD exacerbat ion J44.1 [facility] [address] [place] [id number] [address] [place] [phone] May, [facility] [address] [address] May, [facility] [address] [place] [id number] [address] [place] [address] May, Acute non-recurrent maxillar y sinusitis J01.00 [facility] [id number] [place] [address] Apr, Acute non-recurrent maxillar y sinusitis J01.00 ; Anxiety F41.9 ; Acute right-sided low back pain with right-sided sciatica M54.41 and Thoracic neuritis M54.14 IMMUNIZATIONS No Known Immunizations SOCIAL HISTORY Never Assessed REASON FOR VISIT Controlled Med Refill 07/03 PLAN OF CARE VITAL SIGNS MEDICATIONS Medication Instructions Dosage Frequency Start Date End Date Duration S tatus Zanaflex 4 MG Orally 2 times a day 1 tablet as needed 12h 17 Apr, Active Xanax 0.5 MG Orally Twice a day 1 tablet 12h Active Hydrocodone-Acetaminophen 10-325 MG Orally every 6 hrs 1 tablet as needed 6h Jun, Active RESULTS No Results PROCEDURES No Known procedures INSTRUCTIONS MEDICATIONS ADMINISTERED No Known Medications MEDICAL (GENERAL) HISTORY Type Description Date Medical History COPD Surgical History mass removed from right breast
--- OUTSIDE RECORDS SUMMARY | 2019-12-17 16:13 | XMS REPORT | Continuity of Care Document ---
Author Organization Unknown Address Unknown Phone Unavailable Allergies Active Description Code Type Severity Reaction Onset Reported/Identified Relationship to Patient Clinical Status Yes No Allergy Information Available [id number] Drug Allergy Unknown N/A 018 Medications There is no data. Problems Date Dx Coded Attending Type Code Diagnosis Diagnosed By 02/11/2018 Ot G47.50 PAR ASOMNIA, UNSPECIFIED 02/12/2018 LIOR BARKER INGOT BUGGY OPERATOR Ot J45.909 UNSPECIFIED ASTHMA, UNCOMPLICATED 02/13/2018 GARLAND BARKERINE E INGOT BUGGY OPERATOR Ot J45.909 UNSPECIFIED ASTHMA, UNCOMPLICATED 02/13/2018 Ot G47.50 PAR ASOMNIA, UNSPECIFIED 02/17/2018 GARLAND BARKERINE E INGOT BUGGY OPERATOR Ot 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 DEPENDENCE, UNSPECIFIED, UNCOMP 02/17/2018 GARLAND BARKERINE Faizan INGOT BUGGY OPERATOR Ot J43.9 EMPHYSEMA, UNSPECIFIED 02/17/2018 MJGARLAND XAVIERINE Faizan INGOT BUGGY OPERATOR Ot J98.4 OTHER DISORDERS OF LUNG 02/26/2018 GARLAND BARKERINE Faizan INGOT BUGGY OPERATOR Ot J45.909 UNSPECIFIED ASTHMA, UNCOMPLICATED 02/26/2018 GARLAND BARKERINE Faizan INGOT BUGGY OPERATOR Ot 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 DEPENDENCE, UNSPECIFIED, UNCOMP 02/26/2018 GARLAND BARKERINE Faizan INGOT BUGGY OPERATOR Ot J43.9 EMPHYSEMA, UNSPECIFIED 02/26/2018 MJGARLAND XAVIERINE Faizan INGOT BUGGY OPERATOR Ot J98.4 OTHER DISORDERS OF LUNG 03/21/2018 JERAMY DEL ROSARIO INGOT BUGGY OPERATOR Ot Z12.31 ENCNTR SCREEN MAMMOGRAM FOR MALIGNANT NE 02/23/2019 GARLAND BARKERINE Faizan INGOT BUGGY OPERATOR Ot 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 DEPENDENCE, UNSPECIFIED, UNCOMP 02/23/2019 GARLAND BARKERINE E INGOT BUGGY OPERATOR Ot J43.9 EMPHYSEMA, UNSPECIFIED 02/23/2019 MJGARLAND XAVIERINE E INGOT BUGGY OPERATOR Ot J98.4 OTHER DISORDERS OF LUNG 02/23/2019 MJGARLAND XAVIERINE E INGOT BUGGY OPERATOR Ot J45.909 UNSPECIFIED ASTHMA, UNCOMPLICATED 02/23/2019 JERAMY DEL ROSARIO INGOT BUGGY OPERATOR Ot Z12.31 ENCNTR SCREEN MAMMOGRAM FOR MALIGNANT NE 02/25/2019 MJ, LIOR E INGOT BUGGY OPERATOR Ot 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 DEPENDENCE, UNSPECIFIED, UNCOMP 02/25/2019 MJ, LIOR E INGOT BUGGY OPERATOR Ot G47.34 IDIO SLEEP RELATED NONOBSTRUCTIVE ALVEOL 02/25/2019 MJ, LIOR E INGOT BUGGY OPERATOR Ot G47.50 PARASOMNIA, UNSPECIFIED 02/25/2019 MJ LIOR E INGOT BUGGY OPERATOR Ot J42 UNSPECIFIED CHRONIC BRONCHITIS 02/25/2019 MJ LIOR E INGOT BUGGY OPERATOR Ot J45.909 UNSPECIFIED ASTHMA, UNCOMPLICATED 02/25/2019 MJ, LIOR E INGOT BUGGY OPERATOR Ot K76.89 OTHER SPECIFIED DISEASES OF LIVER 04/16/2019 MJ LIOR E INGOT BUGGY OPERATOR Ot 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 DEPENDENCE, UNSPECIFIED, UNCOMP 04/16/2019 MJ, LIOR E INGOT BUGGY OPERATOR Ot J43.9 EMPHYSEMA, UNSPECIFIED 04/16/2019 MJ, LIOR E INGOT BUGGY OPERATOR Ot J98.4 OTHER DISORDERS OF LUNG 04/16/2019 MJ, LIOR E INGOT BUGGY OPERATOR Ot J45.909 UNSPECIFIED ASTHMA, UNCOMPLICATED 04/16/2019 JERAMY DEL ROSARIO INGOT BUGGY OPERATOR Ot Z12.31 ENCNTR SCREEN MAMMOGRAM FOR MALIGNANT NE 04/16/2019 GARLAND BARKERINE E INGOT BUGGY OPERATOR Ot 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 DEPENDENCE, UNSPECIFIED, UNCOMP 04/16/2019 MJ, LIOR E INGOT BUGGY OPERATOR Ot G47.34 IDIO SLEEP RELATED NONOBSTRUCTIVE ALVEOL 04/16/2019 MJ, LIOR E INGOT BUGGY OPERATOR Ot G47.50 PARASOMNIA, UNSPECIFIED 04/16/2019 MJ, LIOR E INGOT BUGGY OPERATOR Ot J42 UNSPECIFIED CHRONIC BRONCHITIS 04/16/2019 MJ, LIOR E INGOT BUGGY OPERATOR Ot J45.909 UNSPECIFIED ASTHMA, UNCOMPLICATED 04/16/2019 MJ, LIOR E INGOT BUGGY OPERATOR Ot K76.89 OTHER SPECIFIED DISEASES OF LIVER 04/20/2019 LEDA STEPHENS, WILVER Reeves (NELIA) Ot M46.97 UNSPECIFIED INFLAMMATORY SPONDYLOPATHY, 04/20/2019 WILVER TOMPKINS MD (NELIA) Ot M51.36 OTHER INTERVERTEBRAL DISC DEGENERATION, 04/20/2019 WILVER TOMPKINS MD (DDU) Ot Z02.71 ENCOUNTER FOR DISABILITY DETERMINATION 05/04/2019 WILVER TOMPKINS MD (DDU) Ot M46.97 UNSPECIFIED INFLAMMATORY SPONDYLOPATHY, 05/04/2019 WILVER TOMPKINS MD (DDU) Ot M51.36 OTHER INTERVERTEBRAL DISC DEGENERATION, 05/04/2019 WILVER TOMPKINS MD (DDU) Ot Z02.71 ENCOUNTER FOR DISABILITY DETERMINATION Procedures There is no data. Results Test Result Range TSH - 08/08/17 08:37 TSH 4.40 mIU/L NRG BNP - 08/08/17 08:37 B TYPE NATRIURETIC PEPTIDE (BNP) 17 pg/mL <100 TROPONIN I - 09/08/17 17:35 TROPONIN I <0.01 ng/mL < OR = 0.05 TSH - 02/12/18 15:41 TSH 5.42 mIU/L NRG [id number] - 02/13/18 12:31 Serum or plasma urea nitrogen measurement (mass/volume ) 7 mg/dL 7-18 Serum or plasma creatinine measurement (mass/volume) 0.93 mg/dL 0.60-1.30 Serum or plasma urea nitrogen/creatinine mass ratio 8 NRG Serum or plasma creatinine measurement w ith calculation of estimated glomerular filtration rate > NRG PDM - 09 PANEL (PROFILE 1) - 03/18/18 15 :15 Prescribed Drug 1 Hydrocodone NRG Creatinine 31.6 mg/dL > or = 20.0 pH 6.51 4.5 - 9.0 Oxidant NEGATIVE mcg/mL <200 Amphetamines NEGATIVE ng/mL <500 medMATCH Amphetamines CONSISTENT NRG Benzodiazepines POSITIVE ng/mL <100 Marijuana Metabolite NEGATIVE ng/mL <20 medMATCH Marijuana Metab CONSISTENT NRG Cocaine Metabolite NEGATIVE ng/mL <150 medMATCH Cocaine Metab CONSISTENT NRG Opiates POSITIVE ng/mL <100 Oxycodone NEGATIVE ng/mL <100 medMATCH Oxycodone CONSISTENT NRG COMMENT NRG Alphahydroxyalprazolam 71 ng/mL <25 medMATCH aOH alprazolam CONSISTENT NRG Alphahydroxymidazolam NEGATIVE ng/mL < 50 medMATCH aOH midazolam CONSISTENT NRG Alphahydroxytriazolam NEGATIVE ng/mL < 50 medMATCH aOH triazolam CONSISTENT NRG Aminoclonazepam NEGATIVE ng/mL <25 medMATCH Aminoclonazepam CONSISTENT NRG Hydroxyethylflurazepam NEGATIVE ng/mL <50 medMATCH OH,Et flurazepam CONSISTENT NR G Lorazepam NEGATIVE ng/mL <50 medMATCH Lorazepam CONSISTENT NRG Nordiazepam NEGATIVE ng/mL <50 medMATCH Nordiazepam CONSISTENT NRG Oxazepam NEGATIVE ng/mL <50 medMATCH Oxazepam CONSISTENT NRG Temazepam NEGATIVE ng/mL <50 medMATCH Temazepam CONSISTENT NRG Codeine NEGATIVE ng/mL <50 medMATCH Codeine CONSISTENT NRG Hydrocodone 2276 ng/mL <50 medMATCH Hydrocodone CONSISTENT NRG Hydromorphone INTERFERENCE ng/mL <50 Morphine NEGATIVE ng/mL <50 medMATCH Morphine CONSISTENT NRG Norhydrocodone 2205 ng/mL <50 medMATCH Norhydrocodone CONSISTENT NRG Prescribed Drug 2 Xanax(TM) NRG Barbiturates NEGATIVE ng/mL <300 medMATCH Barbiturates CONSISTENT NRG Methadone Metabolite NEGATIVE ng/mL <100 medMATCH Methadone Metab CONSISTENT NRG Phencyclidine NEGATIVE ng/mL <25 medMATCH Phencyclidine CONSISTENT NRG MAGNESIUM SERUM - 11/09/18 13:08 MAGNESIUM 2.1 mg/dL 1.5-2.5 Arterial blood gas measurement - 9 11:00 Blood pCO2 44 mm[Hg] 35-45 Blood pO2 76 mm[Hg] 79-93 Arterial blood bicarbonate measurement (moles/volume) 26 mmol/L 23-27 Arterial blood base excess by calculation 1.2 mmol /L -2.5-2.5 Arterial blood oxygen saturation measurement 97 % 94-100 * Inhaled oxygen flow rate ROOM AIR NRG Arterial blood pH measurement with patient temperature correction 7.38 7.37-7.43 Arterial blood carbon dioxide, total measurement (mole s/volume) 26.9 mmol/L 21.0-31.0 Body site LT RAD NRG Assessment of wrist artery patency prior to arterial p uncture YES-POS NRG Setting of ventilation mode NO NR G Measurement of body temperature 99.2 NRG LIPID PANEL - 07/08/19 14:20 CHOLESTEROL, TOTAL 196 mg/dL <200 HDL CHOLESTEROL 47 mg/dL >50 TRIGLYCERIDES 151 mg/dL <150 LDL-CHOLESTEROL 123 mg/dL (calc) NRG CHOL/HDLC RATIO 4.2 (calc) <5.0 NON HDL CHOLESTEROL 149 mg/dL (calc) <13 0 CMP - 07/08/19 14:20 GLUCOSE 81 mg/dL 65-99 UREA NITROGEN (BUN) 8 mg/dL 7-25 CREATININE 0.86 mg/dL 0.50-1.05 eGFR NON-AFR. MALTESE 78 mL/min/1.73m2 > OR = 60 eGFR 91 mL/min/1.73m2 > OR = 60 BUN/CREATININE RATIO NOT APPLICABLE (calc) 6-22 SODIUM 139 mmol/L 135-146 POTASSIUM 5.0 mmol/L 3.5-5.3 CHLORIDE 103 mmol/L 98-110 CARBON DIOXIDE 30 mmol/L 20-32 CALCIUM 10.4 mg/dL 8.6-10.4 PROTEIN, TOTAL 7.1 g/dL 6.1-8.1 ALBUMIN 4.6 g/dL 3.6-5.1 GLOBULIN 2.5 g/dL (calc) 1.9-3.7 ALBUMIN/GLOBULIN RATIO 1.8 (calc) 1.0-2. 5 BILIRUBIN, TOTAL 0.4 mg/dL 0.2-1.2 ALKALINE PHOSPHATASE 115 U/L 33-130 AST 13 U/L 10-35 ALT 13 U/L 6-29 CBC - 07/08/19 14:20 WHITE BLOOD CELL COUNT 7.4 Thousand/uL 3 .8-10.8 RED BLOOD CELL COUNT 5.18 Million/uL 3.8 0-5.10 HEMOGLOBIN 16.5 g/dL 11.7-15.5 HEMATOCRIT 48.0 % 35.0-45.0 MCV 92.7 fL 80.0-100.0 MCH 31.9 pg 27.0-33.0 MCHC 34.4 g/dL 32.0-36.0 RDW 11.9 % 11.0-15.0 PLATELET COUNT 231 Thousand/uL 140-400 MPV 10.3 fL 7.5-12.5 ABSOLUTE NEUTROPHILS 4151 cells/uL 1500- 7800 ABSOLUTE LYMPHOCYTES 2575 cells/uL 850-3 900 ABSOLUTE MONOCYTES 511 cells/uL 200-950 ABSOLUTE EOSINOPHILS 104 cells/uL 15-500 ABSOLUTE BASOPHILS 59 cells/uL 0-200 NEUTROPHILS 56.1 % NRG LYMPHOCYTES 34.8 % NRG MONOCYTES 6.9 % NRG EOSINOPHILS 1.4 % NRG BASOPHILS 0.8 % NRG TSH - 07/08/19 14:20 TSH 3.06 mIU/L NRG Encounters ACCT No. Visit Date/Time Discharge Status Pt. Type Provider Facility Loc./Unit Complaint [id number] 08/02/2019 18:00:00 08/02/2019 23:59: 59 CLS Outpatient [facility] [id number] 07/08/2019 11:20:00 Document Registration [id number] 11/09/2018 12:20:00 Document Registration [id number] 03/18/2018 14:20:00 Document Registration [id number] 02/12/2018 14:20:00 Document Registration [id number] 09/08/2017 17:20:00 Document Registration [id number] 08/08/2017 08:40:00 Document Registration [id number] 04/16/2019 13:47:00 23:59:59 CLS Outpatient LEDA STEPHENS, WILVER Reeves (DDU) [facility] RT COPD [id number] 02/23/2019 10:48:00 23:59:59 CLS Outpatient LIOR BARKER INGOT BUGGY OPERATOR [facility] RT J45.909,G47.34 [id number] 06/22/2018 09:45:00 23:59:59 CLS Preadmit LIOR BARKER INGOT BUGGY OPERATOR [facility] RAD LIVER NODULE [id number] 03/24/2018 08:24:00 23:59:59 CLS Preadmit JERAMY DEL ROSARIO INGOT BUGGY OPERATOR [facility] RAD RIGHT BREAST MA SS [id number] 03/20/2018 13:14:00 018 23:59:59 CLS Outpatient JERAMY DEL ROSARIO INGOT BUGGY OPERATOR [facility] RAD SCREENING [id number] 03/19/2018 12:37:00 018 23:59:59 CLS Preadmit LIOR BARKER INGOT BUGGY OPERATOR [facility] RT LIVER NODULE,SOB,ASTHMA,TOBACCO DEPENDENCE [id number] 03/19/2018 12:37:00 018 23:59:59 CLS Preadmit LIOR BARKER APRN [facility] RT LIVER NODULE,SOB,ASTHMA,TOBACCO DEPENDENCE [id number] 02/13/2018 12:26:00 018 23:59:59 CLS Outpatient LIOR BARKER INGOT BUGGY OPERATOR [facility] RAD ASTHMA [id number] 02/09/2018 15:31:00 018 23:59:59 CLS Outpatient LIOR BARKER APRN [facility] RT J45.909 [id number] 02/13/2018 12:37:00 Document Registration [id number] 02/11/2018 14:00:00 Document Registration
--- OUTSIDE RECORDS SUMMARY | 2019-12-17 16:13 | XMS REPORT ---
Author Author Pepper MCKEON Organization [facility] Address [address] [place] [address] Care Team Providers Care Dietetics Teacher Name Role Phone DEVEN MCKEON Unavailable PROBLEMS Type Condition ICD9-CM Code HGS52-RC Code Onset Dates Condition S tatus SNOMED Code Problem Lumbago with sciatica, right side M54.41 Active [id number] Problem Acute right-sided low back pain with right-sided sciatica M54.41 Active 167872801 Problem Other chronic pain G89.29 Active 8 9368492 Problem Functional constipation K59.04 Active 923549919 Problem Panlobular emphysema J43.1 Active 4109755 Problem Lumbago with sciatica, left side M54.42 Active 943392879 Problem Hypertension, benign I10 Active 72341214 Problem Chronic fatigue R53.82 Active 8422 9001 Problem COPD exacerbation J44.1 Active 29 0108863121902 Problem Anxiety F41.9 Active 99568405 Problem 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 Active [id number] 7 Problem Stable angina pectoris I20.8 Active 896146053 ALLERGIES No Information ENCOUNTERS Encounter Location Date Diagnosis [facility] [address] [facility] [id number] [address] [place] [phone] Nov, [facility] [address] [facility] [id number] [address] [place] [phone] Nov, Acute non-recurrent maxillar y sinusitis J01.00 [facility] [address] [place] [id number] [address] [place] [phone] October, Acute non-recurrent maxillar y sinusitis J01.00 [facility] [address] [facility] [id number] [address] [place] [phone] Sep, Contusion of right upper ext remity, initial encounter S40.021A [facility] [address] [id number] [address] [place] [phone] Sep, Right forearm pain M79.631 [facility] [address] [id number] [address] [place] [phone] Sep, Acute non-recurrent maxillar y sinusitis J01.00 [facility] [address] [facility] [id number] [address] [place] [phone] Aug, Stable angina pectoris I20.8 [facility] [address] [id number] [address] [place] [phone] Aug, Chronic fatigue R53.82 [facility] [address] [facility] [id number] [address] [place] [phone] Aug, [facility] [address] [facility] [id number] [address] [place] [phone] Aug, Stable angina pectoris I20.8 and Chronic fatigue R53.82 [facility] [address] [facility] [id number] [address] [place] [phone] Aug, Acute non-recurrent maxillar y sinusitis J01.00 [facility] [address] [facility] [id number] [address] [place] [phone] Jul, Chronic fatigue R53.82 ; Hyp ertension, benign I10 ; Family history of early CAD Z82.49 and Coronary artery disease [place] artery [place] heart with stable angina pectoris I25.118 [facility] [address] [id number] [address] [place] [phone] Jul, Family history of early CAD Z82.49 [facility] [address] [facility] [id number] [address] [place] [phone] Jul, Family history of early CAD Z82.49 [facility] [address] [facility] [id number] [address] [place] [phone] Jul, Chronic fatigue R53.82 ; Hyp ertension, benign I10 ; Family history of early CAD Z82.49 and Coronary artery disease [place] artery [place] heart with stable angina pectoris I25.118 [facility] [address] [id number] [address] [place] [phone] 15 Jul, 2017 Chronic fatigue R53.82 [facility] [address] [id number] [address] [place] [phone] 15 Jul, 2017 Chronic fatigue R53.82 ; Hyp ertension, benign I10 ; Family history of early CAD Z82.49 and Coronary artery disease [place] artery [place] heart with stable angina pectoris I25.118 [facility] [address] [id number] [address] [place] [id number] 12 Jul, 2017 Dental examination Z01.20 an d Dental caries K02.9 [facility] [address] [id number] [address] [place] [phone] Jul, [facility] [address] [id number] [address] [place] [phone] Jul, [facility] [address] [id number] [address] [place] [phone] Jul, Acute non-recurrent maxillar y sinusitis J01.00 [facility] [address] [id number] [address] [place] [phone] Jul, [facility] [address] [id number] [address] [place] [phone] Jun, [facility] [address] [id number] [address] [place] [phone] Jun, [facility] [address] [id number] [address] [place] [phone] Jun, Acute non-recurrent maxillar y sinusitis J01.00 [facility] [address] [id number] [address] [place] [phone] Jun, Anxiety F41.9 ; Bronchitis J 40 ; Tobacco abuse Z72.0 ; Tobacco abuse counseling Z71.6 and Acute left ankle pain M25.572 [facility] [id number] [place] [phone] May, Cough R05 and COPD exacerbat ion J44.1 [facility] [address] [place] [id number] [address] [place] [phone] May, [facility] [address] [phone] May, [facility] [address] [place] [address] [id number] [address] [place] [phone] May, Acute non-recurrent maxillar y sinusitis J01.00 [facility] [address] [id number] [address] [place] [phone] Apr, Acute non-recurrent maxillar y sinusitis J01.00 ; Anxiety F41.9 ; Acute right-sided low back pain with right-sided sciatica M54.41 and Thoracic neuritis M54.14 IMMUNIZATIONS No Known Immunizations SOCIAL HISTORY Never Assessed REASON FOR VISIT Requests return call PLAN OF CARE VITAL SIGNS MEDICATIONS Medication Instructions Dosage Frequency Start Date End Date Duration S tatus Anoro Ellipta 62.5-25 MCG/INH Inhalation Once a day 1 puff 24h 15 D 2016 Active ProAir HFA 108 (90 Base) MCG/ACT Inhalation every 6 hrs 2 puffs as needed 6h 15 May, 2017 Active RESULTS No Results PROCEDURES No Known procedures INSTRUCTIONS MEDICATIONS ADMINISTERED No Known Medications MEDICAL (GENERAL) HISTORY Type Description Date Medical History COPD Surgical History mass removed from right breast
--- OUTSIDE RECORDS SUMMARY | 2019-12-17 16:13 | XMS REPORT ---
Author Author Pepper MCKEON Organization [facility] Address [address] [place] [address] Care Team Providers Care Drafter Marine Name Role Phone DEVEN MCKEON Unavailable PROBLEMS Type Condition ICD9-CM Code AZZ80-EY Code Onset Dates Condition S tatus SNOMED Code Problem Other chronic pain G89.29 Active 8 3769146 Problem Anxiety F41.9 Active 42207764 Problem Acute right-sided low back pain with right-sided sciatica M54.41 Active 769112789 Problem Functional constipation K59.04 Active 481414602 Problem Panlobular emphysema J43.1 Active 5108644 Problem Lumbago with sciatica, left side M54.42 Active 684076600 Problem Lumbago with sciatica, right side M54.41 Active 821038765423702 Problem Injury of right shoulder, initial encounter S49.91 XA Active 728075970 Problem 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 Active 189342954062 7 Problem Stable angina pectoris I20.8 Active 099439726 Problem COPD exacerbation J44.1 Active 29 6332499705356 Problem Hypertension, benign I10 Active 89963679 Problem Chronic fatigue R53.82 Active 8422 9001 ALLERGIES No Information ENCOUNTERS Encounter Location Date Diagnosis [facility] [address] [facility] [id number] [address] [place] [phone] Dec, [facility] [address] [facility] [id number] [address] [place] [phone] Nov, [facility] [address] [facility] [id number] [address] [place] [phone] Nov, [facility] [address] [facility] [id number] [address] [place] [phone] Nov, Injury of right shoulder, in itial encounter S49.91XA [facility] [address] [id number] [address] [place] [phone] Nov, Panlobular emphysema J43.1 [facility] [address] [facility] [id number] [address] [place] [id number] Nov, Acute non-recurrent maxillar y sinusitis J01.00 [facility] [address] [facility] [id number] [address] [place] [phone] October, Acute non-recurrent maxillar y sinusitis J01.00 [facility] [address] [id number] [address] [place] [phone] Sep, Contusion of right upper ext remity, initial encounter S40.021A [facility] [address] [facility] [id number] [address] [place] [phone] Sep, Right forearm pain M79.631 [place] [address] [facility] [id number] [address] [place] [phone] Sep, Acute non-recurrent maxillar y sinusitis J01.00 [facility] [address] [id number] [address] [place] [phone] Aug, Stable angina pectoris I20.8 [facility] [address] [facility] [id number] [address] [place] [phone] Aug, Chronic fatigue R53.82 [facility] [address] [facility] [id number] [address] [place] [phone] Aug, [facility] [address] [facility] [id number] [address] [place] [phone] Aug, Stable angina pectoris I20.8 and Chronic fatigue R53.82 [facility] [address] [facility] [id number] [address] [place] [phone] Aug, Acute non-recurrent maxillar y sinusitis J01.00 [facility] [address] [facility] [id number] [address] [place] [id number] Jul, Chronic fatigue R53.82 ; Hyp ertension, benign I10 ; Family history of early CAD Z82.49 and Coronary artery disease of [place] artery of [place] heart with stable angina pectoris I25.118 [place] [address] [facility] [id number] [address] [place] [phone] 26 Jul, 2017 Family history of early CAD Z82.49 [place] [address] [facility] [id number] [address] [place] [phone] 16 Jul, 2017 Family history of early CAD Z82.49 [place] [address] [id number] [address] [place] [phone] 16 Jul, 2017 Chronic fatigue R53.82 ; Hyp ertension, benign I10 ; Family history of early CAD Z82.49 and Coronary artery disease of [place] artery of [place] heart with stable angina pectoris I25.118 [place] [address] [facility] [id number] [address] [place] [phone] 15 Jul, 2017 Chronic fatigue R53.82 [place] [address] [facility] [id number] [address] [place] [phone] 15 Jul, 2017 Chronic fatigue R53.82 ; Hyp ertension, benign I10 ; Family history of early CAD Z82.49 and Coronary artery disease of [place] artery of [place] heart with stable angina pectoris I25.118 [facility] [address] [id number] [address] [place] [id number] 12 Jul, 2017 Dental examination Z01.20 an d Dental caries K02.9 [place] [address] [facility] [id number] [address] [place] [phone] Jul, [place] [address] [facility] [id number] [address] [place] [phone] Jul, [place] [address] [facility] [id number] [address] [place] [phone] Jul, Acute non-recurrent maxillar y sinusitis J01.00 [place] [address] [facility] [id number] [address] [place] [phone] Jul, [facility] [id number] [place] [phone] Jun, [facility] [address] [place] [id number] [address] [place] [address] Jun, [facility] [address] [phone] Jun, Acute non-recurrent maxillar y sinusitis J01.00 [facility] [address] [address] Jun, Anxiety F41.9 ; Bronchitis J 40 ; Tobacco abuse Z72.0 ; Tobacco abuse counseling Z71.6 and Acute left ankle pain M25.572 [facility] [address] [place] [id number] [address] [place] [phone] May, Cough R05 and COPD exacerbat ion J44.1 [place] [address] [phone] May, [place] [address] [address] May, [place] [address] [place] [id number] [address] [place] [address] May, Acute non-recurrent maxillar y sinusitis J01.00 [place] [address] [address] Apr, Acute non-recurrent maxillar y sinusitis J01.00 [...]
--- OUTSIDE RECORDS SUMMARY | 2019-12-17 16:13 | XMS REPORT ---
Author Author Pepper MCKEON Organization [facility] Address [address] [place] [address] Care Team Providers Care Assembly Machine Feeder Name Role Phone DEVEN MCKEON Unavailable PROBLEMS Type Condition ICD9-CM Code HFW93-MR Code Onset Dates Condition S tatus SNOMED Code Problem Lumbago with sciatica, right side M54.41 Active [id number] Problem Acute right-sided low back pain with right-sided sciatica M54.41 Active 624030423 Problem Other chronic pain G89.29 Active 8 4376054 Problem Functional constipation K59.04 Active 876761084 Problem Panlobular emphysema J43.1 Active 2906130 Problem Lumbago with sciatica, left side M54.42 Active 388145688 Problem Hypertension, benign I10 Active 23092469 Problem Chronic fatigue R53.82 Active 8422 9001 Problem COPD exacerbation J44.1 Active 29 1227732011550 Problem Anxiety F41.9 Active 12277955 Problem 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 Active 643614597586 7 Problem Stable angina pectoris I20.8 Active 976250690 ALLERGIES No Information ENCOUNTERS Encounter Location Date Diagnosis [facility] [address] [facility] [facility] [id number] [address] [place] [phone] Nov, [facility] [address] [facility] [place] [facility] [id number] [address] [place] [phone] Nov, Acute non-recurrent maxillar y sinusitis J01.00 [facility] [address] [place] [id number] [address] [place] [phone] October, Acute non-recurrent maxillar y sinusitis J01.00 [facility] [address] [facility] [place] [id number] [address] [place] [phone] Sep, Contusion of right upper ext remity, initial encounter S40.021A [facility] [address] [id number] [address] [place] [phone] Sep, Right forearm pain M79.631 [facility] [address] [id number] [address] [place] [phone] Sep, Acute non-recurrent maxillar y sinusitis J01.00 [facility] [address] [facility] [place] [facility] [id number] [address] [place] [phone] Aug, Stable angina pectoris I20.8 [facility] [address] [id number] [address] [place] [phone] Aug, Chronic fatigue R53.82 [facility] [address] [facility] [place] [facility] [id number] [address] [place] [phone] Aug, [facility] [address] [facility] [facility] [id number] [address] [place] [phone] Aug, Stable angina pectoris I20.8 and Chronic fatigue R53.82 [facility] [address] [facility] [facility] [id number] [address] [place] [phone] Aug, Acute non-recurrent maxillar y sinusitis J01.00 [facility] [address] [facility] [place] [id number] [address] [place] [phone] Jul, Chronic fatigue R53.82 ; Hyp ertension, benign I10 ; Family history of early CAD Z82.49 and Coronary artery disease of [place] artery of [place] heart with stable angina pectoris I25.118 [facility] [address] [id number] [address] [place] [phone] Jul, Family history of early CAD Z82.49 [facility] [address] [facility] [place] [id number] [address] [place] [phone] Jul, Family history of early CAD Z82.49 [facility] [address] [facility] [place] [id number] [address] [place] [phone] Jul, Chronic fatigue R53.82 ; Hyp ertension, benign I10 ; Family history of early CAD Z82.49 and Coronary artery disease of [place] artery of [place] heart with stable angina pectoris I25.118 [facility] [address] [id number] [address] [place] [phone] 15 Jul, 2017 Chronic fatigue R53.82 [facility] [address] [id number] [address] [place] [phone] 15 Jul, 2017 Chronic fatigue R53.82 ; Hyp ertension, benign I10 ; Family history of early CAD Z82.49 and Coronary artery disease of [place] artery of [place] heart with stable angina pectoris I25.118 [facility] [address] [id number] [address] [place] [id number] Jul, 2017 Dental examination Z01.20 an d Dental caries K02.9 [facility] [address] [id number] [address] [place] [phone] Jul, [facility] [address] [id number] [address] [place] [phone] Jul, [facility] [address] [id number] [address] [place] [phone] Jul, Acute non-recurrent maxillar y sinusitis J01.00 [facility] [address] [id number] [address] [place] [phone] Jul, [facility] [address] [id number] [address] [place] [phone] Jun, [facility] [address] [id number] [address] [place] [phone] Jun, [facility] [address] [id number] [address] [place] [phone] Jun, Acute non-recurrent maxillar y sinusitis J01.00 [facility] [address] [id number] [address] [place] [address] Jun, Anxiety F41.9 ; Bronchitis J 40 ; Tobacco abuse Z72.0 ; Tobacco abuse counseling Z71.6 and Acute left ankle pain M25.572 [facility] [address] [facility] [facility] [id number] [address] [place] [phone] 30 May, 2017 Cough R05 and COPD exacerbat ion J44.1 [facility] [address] [facility] [facility] [id number] [address] [place] [phone] May, [facility] [address] [place] [phone] May, [facility] [address] [place] [id number] [address] [place] [phone] May, Acute non-recurrent maxillar y sinusitis J01.00 [facility] [address] [place] [id number] [address] [place] [phone] Apr, Acute non-recurrent maxillar y sinusitis J01.00 ; Anxiety F41.9 ; Acute right-sided low back pain with right-sided sciatica M54.41 and Thoracic neuritis M54.14 IMMUNIZATIONS No Known Immunizations SOCIAL HISTORY Never Assessed REASON FOR VISIT Controlled med refills 06/06/17 PLAN OF CARE VITAL SIGNS MEDICATIONS Medication Instructions Dosage Frequency Start Date End Date Duration S tatus Hydrocodone-Acetaminophen 10-325 MG Orally every 6 hrs 1 tablet as needed 6h 14 May, 2017 Active Zanaflex 4 MG Orally 2 times a day 1 tablet as needed 12h Apr, Active Xanax 0.5 MG Orally Twice a day 1 tablet 12h Active RESULTS No Results PROCEDURES No Known procedures INSTRUCTIONS MEDICATIONS ADMINISTERED No Known Medications MEDICAL (GENERAL) HISTORY Type Description Date Medical History COPD Surgical History mass removed from right breast
[2019-12-17 16:14] LABS: ALKALINE PHOSPHATASE 115 U/L (40-136)
[2019-12-17 16:15] LABS: CREATININE SERUM 0.85 MG/DL (0.60-1.30); GFR ESTIMATED > 60
[2019-12-17 16:16] LABS: BUN/CREATININE RATIO 6
[2019-12-17 16:18] LABS: ALANINE AMINOTRANSFERASE 10 U/L (0-55); MAGNESIUM 2.3 MG/DL (1.6-2.4)
[2019-12-17 16:19] LABS: LIPASE 47 U/L (8-78)
--- NOTE | 2019-12-17 16:36 | Diagnostic Imaging Report ---
INDICATION: Chest pain. COMPARISON: CT chest is 02/13/2018. EXAMINATION: Portable chest. FINDINGS: The lungs are well-aerated and clear. The heart is mildly enlarged. There is no pulmonary edema. No hilar adenopathy. No pneumothorax. IMPRESSION: Cardiomegaly without acute changes. Dictated by: Dictated on workstation # [id number]
[2019-12-17 16:54] VITALS: BP 130/78
--- NOTE | 2019-12-17 16:55 | NUR ---
Patient sleeping. No signs of distress present.
[2019-12-17 17:08] VITALS: BP 130/74
== END 2019-12-17 17:12 | disposition home or self-care (01) ==
LOC: EDUNIT# 15:35 → ER 15:36
DX: B34.9 Viral infection, unspecified (principal); R07.9 Chest pain, unspecified
CPT/HCPCS: 36415; 71045; 80053; 83690; 83735; 83874; 83880; 84484; 85025; 85379; 85610; 85730; 93041

== ENCOUNTER → 2020-03-20 | Outpatient (CLI) | payer MEDICAID ==
[~2020-03-20] MED LIST changes: +CATHETER FLUSH 10 ML SYR IV PRN; +HOLD METFORMIN - RECEIVED CONTRAST 20 ML VIAL IV SCH; +IOHEXOL 350 MG/ML 100 ML (OMNIPAQUE 350) VIAL IV ONE; +NS 100 ML (IVPB) BAG IV ONE; -RT-ALBUTEROL SULF 2.5 MG/3 ML PRE-MIX VIAL INH ONE; -RT-ALBUTEROL SULF 2.5 MG/3 ML PRE-MIX VIAL ONE
[2020-03-20 14:08] LABS: ALANINE AMINOTRANSFERASE 13 U/L (0-55); ALBUMIN 4.1 GM/DL (3.2-4.5); ALKALINE PHOSPHATASE 110 U/L (40-136); BILIRUBIN,TOTAL 0.2 MG/DL (0.1-1.0); BUN/CREATININE RATIO 15; CALCIUM 9.7 MG/DL (8.5-10.1); CARBON DIOXIDE 24 MMOL/L (21-32); CHLORIDE 106 MMOL/L (98-107); CREATININE SERUM 0.78 MG/DL (0.60-1.30); GFR ESTIMATED > 60; GLUCOSE 118 MG/DL (70-105); POTASSIUM 4.4 MMOL/L (3.6-5.0); SODIUM 137 MMOL/L (135-145); TOTAL PROTEIN 7.1 GM/DL (6.4-8.2)
--- NOTE | 2020-03-20 15:34 | Diagnostic Imaging Report ---
PROCEDURE: CT abdomen and pelvis with contrast. TECHNIQUE: Multiple contiguous axial images were obtained through the abdomen and pelvis after administration of intravenous contrast. Auto Exposure Controls were utilized during the CT exam to meet ALARA standards for radiation dose reduction. INDICATION: Left lower quadrant pain. COMPARISON: There are no prior studies available for comparison. FINDINGS: The images through the pelvis do show that there is diverticulosis of the sigmoid and descending colon. However, there is no distortion of the pericolonic fat in this area to suggest acute diverticulitis. There does seem to be generalized thickening of the wall of the transverse colon. This may be secondary to incomplete distention as opposed to colitis. Even so, clinical follow-up is recommended. There is no pelvic mass or free fluid collection identified either. The uterus is surgically absent. The urinary bladder is only partially distended and consequently difficult to assess. The appendix was visualized and does not seem to be abnormally thickened. The liver is homogeneous and does not appear to be enlarged. The prior CTA chest exam of 02/13/2018 noted a 2.7 x 1.2 cm nodule along the dome of the liver near midline. That finding is again evident and does not appear to have changed significantly. While the precise etiology of this density is not certain, its stability over a greater than two-year period would suggest that it is not related to an aggressive neoplastic process. The spleen, pancreas, adrenals, gallbladder, kidneys, aorta and inferior vena cava, and portal vein show no sign of an acute abnormality. The stomach is partially filled with fluid and consequently difficult to assess. The lung bases are clear. The bone windows are unremarkable for a fracture or for a destructive lesion. IMPRESSION: 1. There is diverticulosis of the sigmoid and descending colon but there is no evidence for acute diverticulitis. 2. The generalized thickening of the wall of the transverse colon may be secondary to incomplete distention. There could also be an element of mild colitis present. Clinical follow-up is recommended. 3. There is no acute abnormality of the abdomen or pelvis noted, otherwise. 4. The nodule along the dome of the liver seen previously is again evident and appears stable. Dictated by: Dictated on workstation # [id number]
== END ==
LOC: RAD 14:15
DX: K57.30 Diverticulosis of large intestine without perforation or abscess without bleeding (principal); K76.89 Other specified diseases of liver; Z90.710 Acquired absence of both cervix and uterus
CPT/HCPCS: 36415; 74177; 80053

== ENCOUNTER → 2020-09-25 | Outpatient (CLI) | payer MEDICAID ==
--- NOTE | 2020-09-25 14:56 | Diagnostic Imaging Report ---
INDICATION: Prior history of excisional biopsy in the right breast. COMPARISON: 10/20/2008. TECHNIQUE: 2D and 3D bilateral diagnostic mammography was performed with CAD. FINDINGS: Both breasts are heterogeneously dense, limiting the sensitivity of mammography. No mass or malignant appearing microcalcifications are seen. There are benign calcifications. The axillae are unremarkable. IMPRESSION: No mammographic features suspicious for malignancy are identified. ACR BI-RADS Category 2: Benign findings. Result letter will be mailed to the patient. Note: At least 10% of breast cancer is not imaged by mammography. Dictated by: Dictated on workstation # [id number]
== END ==
LOC: RAD 13:20
PROVIDERS: ATTEND Nurse Practitioner
DX: Z98.890 Other specified postprocedural states (principal)
CPT/HCPCS: 77066; G0279; 77062

== ENCOUNTER 2021-05-15 19:05 | Inpatient (IN) | payer MEDICAID ==
[~2021-05-15] VITALS: Ht 167.7 cm; Wt 92.1 kg
[2021-05-15] MEDS ORDERED: RT-ALBUTEROL SULF 2.5 MG/3 ML PRE-MIX VIAL INH STA (19:15)
[2021-05-15] MEDS ORDERED: RT-ALBUTEROL/IPRATROPIUM 3 ML (DUONEB) VIAL INH ONE (19:15)
--- NOTE | 2021-05-15 19:24 | ED Respiratory ---
General Chief Complaint: Respiratory Problems Stated Complaint: COPD EXACERBATION Nursing Triage Note: PT AMB TO [facility] FROM [facility]. PT REPORTS SOA, COUGH, AND CHEST TIGHTNESS X3-4 DAYS. PT TESTED COVID NEGATIVE AT [facility] [employer] [facility]. PT A&OX4. Source: patient (LIMITED HISTORIAN) History of Present Illness Date Seen by Provider: May 15, 2021 Time Seen by Provider: 19:11 Initial Comments PT ARRIVES VIA POV--SENT HERE FROM [facility] C/O SHORTNESS OF BREATH FOR THE LAST 3-4 DAYS HAS HAD A NON-PRODUCTIVE COUGH STATES SHE COUGHS, GAGS AND SPITS UP MUCOUS BUT NOT ACTUALLY SPUTUM OR VOMIT STATES THE SIDES OF HER RIBS HURT FROM COUGHING C/O CHEST TIGHTNESS NO FEVER NO SWEATS NO SWELLING IN LEGS/FEET OR PAIN IN CALVES NO NAUSEA/VOMITING HAS COPD--USED NEBULIZER X 1 AT 11:00 AM TODAY, AND HAD XOPENEX TREATMENT AT [facility]--NO IMPROVEMENT PT DOES NOT HAVE HOME O2 O2 SATS LOW 90'S AT REST, DROPPED TO 80'S WITH MINIMAL EXERTION AT [facility] PT CONTINUES TO SMOKE--UP TO 06/24 PPD COVID-19 TEST WAS NEGATIVE AT [facility]ALK IN [facility]IC TODAY. PT HAS HAD [facility] COVID-19 VACCINE X 2, WELL FLU SHOT FOR THIS SEASON MULTIPLE SICK CONTACTS WITH SIMILAR SYMPTOMS PT WANTING MULTIPLE THINGS LITERALLY SOON SHE ARRIVES--BEFORE SHE EVEN GETS TO ROOM WANTING A BLANKET, WANTING HER SPIRIVA, XANAX AND HYDROCODONE SOON SHE ARRIVES. ALSO WANTING SOMEONE TO GO GET HER A CHEESEBURGER FROM [facility] RIGHT NOW. HAS NOT ATTEMPTED TO USE HER SPIRIVA AT ANY TIME TODAY PT STATES SHE IS "ALLERGIC TO STEROIDS" --STATES "THEY MAKE ME STOP BREATHING" PCP: [facility] Allergies and Home Medications Allergies Uncoded Allergies: STEROIDS (Allergy, Unknown, 05/15/21) "MAKE ME STOP BREATHING" Patient Home Medication List Home Medication List Reviewed: Yes Review of Systems Review of Systems Constitutional: no symptoms reported EENTM: no symptoms reported Respiratory: see HPI, cough, dyspnea on exertion; No phlegm; short of breath Cardiovascular: see HPI, chest pain; No edema, No syncope Gastrointestinal: no symptoms reported Genitourinary: no symptoms reported Musculoskeletal: see HPI Skin: no symptoms reported Psychiatric/Neurological: No Symptoms Reported Hematologic/Lymphatic: No Symptoms Reported Immunological/Allergic: no symptoms reported Past Qklofss-Xduhnf-Ohiqtg Hx Patient Social History Tobacco Use?: Yes Tobacco type used: Cigarettes Smoking Status: Current Everyday Smoker Use of E-Cig and/or Vaping dev: No Substance use?: No Alcohol Use?: No Immunizations Up To Date Tetanus Booster (TDap): Unknown First/Initial COVID19 Vaccinat: 2020 Second COVID19 Vaccination Antolin: 2020 COVID19 Vaccine Sports Psychologist: [facility] Past Medical History Respiratory: Yes COPD Cardiac: Yes Angina Musculoskeletal: Yes Chronic Back Pain Psychosocial: Yes Anxiety Physical Exam Vital Signs - First Documented 05/15/21 19:10 Temp 36.0 Pulse 84 Resp 28 B/P (MAP) 122/82 (95) Pulse Ox 94 O2 Delivery Room Air Capillary Refill : Less Than 3 Seconds Height: '" Weight: lbs. oz. 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 II-XII nml as tested, no motor/sensory deficits, alert, normal mood/affect, oriented x 3 Skin: normal color, warm/dry Focused Exam Lactate Level 05/15/21 19:19: Lactic Acid Level 1.00 Lactic Acid Level Laboratory Tests Test 05/15/21 19:19 Lactic Acid Level 1.00 MMOL/L (0.50-2.00) Progress/Results/Core Measures Suspected Sepsis SIRS Temperature: Pulse: 84 Respiratory Rate: 28 Laboratory Tests 05/15/21 19:19: White Blood Count 8.3 Blood Pressure 122 /82 Mean: 95 05/15/21 19:19: Lactic Acid Level 1.00 Laboratory Tests 05/15/21 19:19: Creatinine 0.79, INR Comment 1.0, Platelet Count 209, Total Bilirubin 0.4 Results/Orders Lab Results Laboratory Tests Test 05/15/21 19:19 05/15/21 19:28 Range/Units White Blood Count 8.3 4.3-11.0 10^3/uL Red Blood Count 5.11 3.80-5.11 10^6/uL Hemoglobin 15.9 11.5-16.0 g/dL Hematocrit 47 35-52 % Mean Corpuscular Volume 93 80-99 fL Mean Corpuscular Hemoglobin 31 25-34 pg Mean Corpuscular Hemoglobin Concent 34 32-36 g/dL Red Cell Distribution Width 12.4 10.0-14.5 % Platelet Count 209 130-400 10^3/uL Mean Platelet Volume 9.6 9.0-12.2 fL Immature Granulocyte % (Auto) 0 % Neutrophils (%) (Auto) 58 42-75 % Lymphocytes (%) (Auto) 31 12-44 % Monocytes (%) (Auto) 9 0-12 % Eosinophils (%) (Auto) 1 0-10 % Basophils (%) (Auto) 1 0-10 % Neutrophils # (Auto) 4.8 1.8-7.8 10^3/uL Lymphocytes # (Auto) 2.6 1.0-4.0 10^3/uL Monocytes # (Auto) 0.8 0.0-1.0 10^3/uL Eosinophils # (Auto) 0.1 0.0-0.3 10^3/uL Basophils # (Auto) 0.1 0.0-0.1 10^3/uL Immature Granulocyte # (Auto) 0.0 0.0-0.1 10^3/uL Erythrocyte Sedimentation Rate 2 0-30 MM/HR Prothrombin Time 13.4 12.2-14.7 SEC INR Comment 1.0 0.8-1.4 Activated Partial Thromboplast Time 32 24-35 SEC D-Dimer <= 0.27 0.00-0.49 UG/ML Sodium Level 138 135-145 MMOL/L Potassium Level 4.0 3.6-5.0 MMOL/L Chloride Level 104 98-107 MMOL/L Carbon Dioxide Level 25 21-32 MMOL/L Anion Gap 9 5-14 MMOL/L Blood Urea Nitrogen 5 L 7-18 MG/DL Creatinine 0.79 0.60-1.30 MG/DL Estimat Glomerular Filtration Rate 76 BUN/Creatinine Ratio 6 Glucose Level 106 H 70-105 MG/DL Lactic Acid Level 1.00 0.50-2.00 MMOL/L Calcium Level 10.1 8.5-10.1 MG/DL Corrected Calcium 10.2 H 8.5-10.1 MG/DL Magnesium Level 2.2 1.6-2.4 MG/DL Total Bilirubin 0.4 0.1-1.0 MG/DL Aspartate Amino Transf (AST/SGOT) 19 5-34 U/L Alanine Aminotransferase (ALT/SGPT) 25 0-55 U/L Alkaline Phosphatase 94 40-136 U/L Lactate Dehydrogenase 175 125-220 U/L Total Creatine Kinase 80 29-168 U/L Creatine Kinase MB 1.4 <6.6 NG/ML Myoglobin 85.4 10.0-92.0 NG/ML Troponin I < 0.028 <0.028 NG/ML C-Reactive Protein High Sensitivity 3.53 H 0.00-0.50 MG/DL B-Type Natriuretic Peptide < 10.0 <100.0 PG/ML Total Protein 6.8 6.4-8.2 GM/DL Albumin 3.9 3.2-4.5 GM/DL Procalcitonin 0.03 <0.10 NG/ML Influenza Type A (RT-PCR) Not Detected Not Detecte Influenza Type B (RT-PCR) Not Detected Not Detecte SARS-CoV-2 RNA (RT-PCR) Not Detected Not Detecte Blood Gas Puncture Site LFT RAD Blood Gas Patient Temperature 36.0 Arterial Blood pH 7.44 H 7.37-7.43 Arterial Blood Partial Pressure CO2 39 35-45 MMHG Arterial Blood Partial Pressure O2 62 L 79-93 MMHG Arterial Blood HCO3 26 23-27 MMOL/L Arterial Blood Total CO2 27.5 21.0-31.0 MMOL/L Arterial Blood Oxygen Saturation 93 L 94-100 % Arterial Blood Base Excess 2.2 -2.5-2.5 MMOL/L Claude Test POS Blood Gas Ventilator Setting NO Blood Gas Inspired Oxygen ROOM AIR My Orders Orders - CAROLE ESPINOZA DO Ed Iv/Invasive Line Start (05/15/21 19:15) Ekg Tracing (05/15/21:15) O2 (05/15/21:15) Monitor-Rhythm Ecg Trace Only (05/15/21:) Arterial Blood Gas (05/15/21 19:28) BNP (05/15/21:) Cbc With Automated Diff (11/23/21 19:15) Comprehensive Metabolic Panel (05/15/21 19:15) Creatine Kinase (05/15/21 19:15) Creatine Kinase Mb (05/15/21 19:15) Hs C Reactive Protein (05/15/21 19:15) Fibrin Degradation Products (05/15/21 19:15) Lactic Acid Analyzer (05/15/21 19:15) Magnesium (05/15/21 19:15) Protime With Inr (05/15/21:15) Partial Thromboplastin Time (05/15/21 19:15) Ua Culture If Indicated (05/15/21 19:15) Blood Culture (05/15/21 19:15) Influenza A And B By Pcr (05/15/21:15) Erythrocyte Sedimentation Rate (05/15/21:15) Myoglobin Serum (05/15/21 19:15) Troponin I (05/15/21 19:15) Chest 1 View, Ap/Pa Only (05/15/21 19:15) Procalcitonin (Pct) (05/15/21:15) LDH (05/15/21 19:15) Covid 19 Inhouse Test (05/15/21 19:15) Urine Culture (05/15/21 19:15) Ed Iv/Invasive Line Start (05/15/21 19:15) Vital Signs Adult Sepsis Patie Q15M (05/15/21 19:15) Remove Rings In Anticipation O (05/15/21 19:15) Albuterol Pre-Mix Nebs (Rt) (Proventil (05/15/21 19:15) Albuterol/Ipra Inhalation Soln (Duoneb I (05/15/21 19:15) Rt Request For Service (05/15/21 19:15) Svn Small Volume Nebulizer (05/15/21 19:15) Svn Small Volume Nebulizer (05/15/21 19:15) Tiotropium Inhaler (Spiriva Inhaler) (05/16/21 08:00) Mdi Treatment (05/15/21 19:30) Tiotropium Inhaler (Spiriva Inhaler) (05/15/21 20:00) Medications Given in ED Current Medications Medications Dose Ordered Sig/Zulema Route Start Time Stop Time Status Last Admin Dose Admin Albuterol/ Ipratropium 3 ml ONCE ONCE INH 05/15/21 19:15 05/15/21 19:19 DC 05/15/21 19:46 3 ML Vital Signs/I&O 05/15/21 05/15/21 19:10 20:04 Temp 36.0 Pulse 84 Resp 28 B/P (MAP) 122/82 (95) Pulse Ox 94 92 O2 Delivery Room Air Room Air Capillary Refill : Less Than 3 Seconds Blood Pressure Mean: 95 Progress Note : Progress Note O2 SATS 92-93% ON ARRIVAL PLACED ON O2 AT 2L/NC AND SATS UP TO 95-96% GIVEN HOUR LONG NEB TREATMENT WITH IMPROVEMENT IN SYMPTOMS, INCREASED AERATION AND DECREASED WHEEZING JUST PRIOR TO ADMIT. PT NOW STATES SHE WAS SEEING DR. 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 FELIX HAS SINCE LEFT THE AREA. OF NOTE, PT'S /MALE S.O. HAS BROUGHT PT A LARGE BAG OF FOOD FROM [facility] ALONG WITH A LARGE REGULAR SODA. PT WAS ADVISED THAT SHE COULD NOT EAT AT THIS TIME, AND CANNOT HAVE OUTSIDE FOOD. ECG Initial ECG Impression Date: May 15, 2021 Initial ECG Impression Time: 19:20 Initial ECG Rate: 90 Initial ECG Rhythm: Normal Sinus Initial ECG Impression: Normal Diagnostic Imaging Comments CXR--PER RADIOLOGIST REPORT AT 2015 FINDINGS: The lung volumes are normal. No focal consolidation is seen. No large pleural effusion or pneumothorax is seen. The cardiomediastinal silhouette is normal in size and contour. No acute osseous abnormality is seen. IMPRESSION: No acute pulmonary abnormality seen. Reviewed: Reviewed by Me Departure Communication (Admissions) 2016--SPOKE WITH DR. OLIVO, ACCEPTS PT FOR ADMIT. Impression Primary Impression: COPD exacerbation Additional Impression: Smoker Disposition: ADMITTED INPATIENT Condition: Improved Admissions Decision to Admit Reason: Admit from ER (General) Decision to Admit/Date: May 15, 2021 Time/Decision to Admit Time: 20:20 Departure-Patient Inst. Referrals: [facility] (PCP/Family) Primary Care Physician CAROLE ESPINOZA DO May 15, 2021 19:24
[2021-05-15 19:29] LABS: BASOPHILS # (AUTO) 0.1 10^3/uL (0.0-0.1); BASOPHILS % (AUTO) 1 % (0-10); EOSINOPHILS # (AUTO) 0.1 10^3/uL (0.0-0.3); EOSINOPHILS % (AUTO) 1 % (0-10); HEMATOCRIT 47 % (35-52); HEMOGLOBIN 15.9 g/dL (11.5-16.0); LYMPHOCYTES # (AUTO) 2.6 10^3/uL (1.0-4.0); LYMPHOCYTES % (AUTO) 31 % (12-44); MEAN CORPUSCULAR HEMOGLOBIN 31 pg (25-34); MEAN CORPUSCULAR HGB CONC 34 g/dL (32-36); MEAN CORPUSCULAR VOLUME 93 fL (80-99); MEAN PLATELET VOLUME 9.6 fL (9.0-12.2); MONOCYTES # (AUTO) 0.8 10^3/uL (0.0-1.0); MONOCYTES % (AUTO) 9 % (0-12); NEUTROPHILS # (AUTO) 4.8 10^3/uL (1.8-7.8); NEUTROPHILS % (AUTO) 58 % (42-75); PLATELET COUNT 209 10^3/uL (130-400); WHITE BLOOD COUNT 8.3 10^3/uL (4.3-11.0)
[2021-05-15 19:38] LABS: ABG BASE EXCESS 2.2 MMOL/L (-2.5-2.5); ABG OXYGEN SATURATION 93 % (94-100); ABG PCO2 39 MMHG (35-45); ABG PH 7.44 (7.37-7.43); ABG PO2 62 MMHG (79-93); ABG TCO2 27.5 MMOL/L (21.0-31.0)
[2021-05-15 19:41] LABS: ALLENS TEST POS; INSPIRED O2 ROOM AIR; VENTILATOR NO
[2021-05-15 19:47] LABS: FIBRIN DEGRADATION PRODUCTS <= 0.27 UG/ML (0.00-0.49); PARTIAL THROMBOPLASTIN TIME 32 SEC (24-35); PROTHROMBIN TIME PATIENT 13.4 SEC (12.2-14.7)
--- NOTE | 2021-05-15 20:04 | Diagnostic Imaging Report ---
PATIENT HISTORY: DYSPNEA, COUGH. TECHNIQUE: Single frontal view of the chest. COMPARISON: 12/17/2019 FINDINGS: The lung volumes are normal. No focal consolidation is seen. No large pleural effusion or pneumothorax is seen. The cardiomediastinal silhouette is normal in size and contour. No acute osseous abnormality is seen. IMPRESSION: No acute pulmonary abnormality seen. Dictated by: Dictated on workstation # [id number]
[2021-05-15 20:11] LABS: ALANINE AMINOTRANSFERASE 25 U/L (0-55); ALBUMIN 3.9 GM/DL (3.2-4.5); ALKALINE PHOSPHATASE 94 U/L (40-136); BILIRUBIN,TOTAL 0.4 MG/DL (0.1-1.0); BUN/CREATININE RATIO 6; CALCIUM 10.1 MG/DL (8.5-10.1); CARBON DIOXIDE 25 MMOL/L (21-32); CREATINE KINASE 80 U/L (29-168); CREATINE KINASE MB 1.4 NG/ML (<6.6); CREATININE SERUM 0.79 MG/DL (0.60-1.30); GFR ESTIMATED 76; GLUCOSE 106 MG/DL (70-105); TOTAL PROTEIN 6.8 GM/DL (6.4-8.2)
[2021-05-15 20:21] LABS: CHLORIDE 104 MMOL/L (98-107); SODIUM 138 MMOL/L (135-145)
[2021-05-15 20:22] LABS: ERYTHROCYTE SEDIMENTATION RATE 2 MM/HR (0-30)
[2021-05-15 20:28] LABS: MAGNESIUM 2.2 MG/DL (1.6-2.4)
[2021-05-15] MEDS ORDERED: cefTRIAXone 1 GM PRE-MIX 50 ML IV ONE (20:45)
[2021-05-15] MEDS ORDERED: AZITHROMYCIN INJECTION 500 MG in NS (IVPB) 250 ML IV ONE (20:45)
[2021-05-15 21:22] LABS: BILIRUBIN,URINE NEGATIVE (NEGATIVE); CLARITY,URINE CLEAR; COLOR,URINE YELLOW; GLUCOSE, URINE (UA) NEGATIVE (NEGATIVE); KETONES,URINE NEGATIVE (NEGATIVE); LEUKOCYTE ESTERASE ,URINE NEGATIVE (NEGATIVE); NITRITE,URINE NEGATIVE (NEGATIVE); PH,URINE 6.5 (5-9); PROTEIN,URINE NEGATIVE (NEGATIVE)
[2021-05-15 21:36] LABS: BACTERIA,URINE NEGATIVE /HPF; SQUAMOUS EPITHELIAL CELL,UR 0-2 /HPF
[2021-05-15] MEDS: TIOTROPIUM BROMIDE (SPIRIVA) 5'S INHALER IH SCH (21:52)
[2021-05-15 22:07] LABS: AMPHETAMINE SCREEN, URINE NEGATIVE (NEGATIVE); BENZODIAZEPINES SCREEN URINE NEGATIVE (NEGATIVE); CANNABINOID SCREEN, URINE NEGATIVE (NEGATIVE); COCAINE SCREEN URINE NEGATIVE (NEGATIVE); METHAMPHETAMINE SCREEN URINE S NEGATIVE (NEGATIVE)
[2021-05-15 22:08] LABS: BARBITURATE SCREEN URINE NEGATIVE (NEGATIVE); METHADONE STAT NEGATIVE (NEGATIVE); OPIATE SCREEN URINE POSITIVE (NEGATIVE); OXYCODONE STAT NEGATIVE (NEGATIVE); PROPOXYPHENE STAT NEGATIVE (NEGATIVE); TRICYCLIC ANTIDEPRESSANTS SCRE NEGATIVE (NEGATIVE)
[2021-05-15 23:59] VITALS: BP 97/60
[2021-05-16] MEDS ORDERED: ONDANSETRON 4 MG/2 ML (SDV) Z0FRAN IVP PRN (00:45)
[2021-05-16] MEDS ORDERED: NICOTINE 21 MG (NICODERM) PATCH TD SCH (00:49)
[2021-05-16] MEDS: ACETAMINOPHEN 500 MG TAB (TYLENOL) PO PRN ×2 (01:30→12:40)
[2021-05-16] MEDS: RT-ALBUTEROL/IPRATROPIUM 3 ML (DUONEB) VIAL INH PRN ×2 (02:30→08:08)
[2021-05-16 03:57] VITALS: BP 108/67
[2021-05-16 06:09] LABS: BASOPHILS % (AUTO) 1 % (0-10); EOSINOPHILS # (AUTO) 0.1 10^3/uL (0.0-0.3); EOSINOPHILS % (AUTO) 2 % (0-10); HEMATOCRIT 44 % (35-52); HEMOGLOBIN 14.4 g/dL (11.5-16.0); LYMPHOCYTES # (AUTO) 2.4 10^3/uL (1.0-4.0); LYMPHOCYTES % (AUTO) 32 % (12-44); MEAN CORPUSCULAR HEMOGLOBIN 31 pg (25-34); MEAN CORPUSCULAR HGB CONC 33 g/dL (32-36); MEAN CORPUSCULAR VOLUME 95 fL (80-99); MEAN PLATELET VOLUME 9.9 fL (9.0-12.2); MONOCYTES # (AUTO) 0.7 10^3/uL (0.0-1.0); MONOCYTES % (AUTO) 9 % (0-12); NEUTROPHILS # (AUTO) 4.3 10^3/uL (1.8-7.8); NEUTROPHILS % (AUTO) 56 % (42-75); PLATELET COUNT 200 10^3/uL (130-400); WHITE BLOOD COUNT 7.6 10^3/uL (4.3-11.0)
[2021-05-16 06:27] LABS: POTASSIUM 3.8 MMOL/L (3.6-5.0)
[2021-05-16 06:29] LABS: CALCIUM 9.6 MG/DL (8.5-10.1)
[2021-05-16 06:33] LABS: CREATININE SERUM 0.82 MG/DL (0.60-1.30)
[2021-05-16 08:00] VITALS: BP 122/77
[2021-05-16] MEDS ORDERED: TIOTROPIUM BROMIDE (SPIRIVA) 5'S INHALER IH SCH (08:00)
[2021-05-16] MEDS ORDERED: RT--FLUTICASONE/SALMETEROL 232-14 (AIRDUO RespiCLICK) IH SCH (08:00)
[2021-05-16] MEDS: RT-ALBUTEROL/IPRATROPIUM 3 ML (DUONEB) VIAL INH SCH ×3 (08:04→15:18)
[2021-05-16] MEDS: CATHETER FLUSH 10 ML SYR IV SCH ×2 (08:19→14:09)
[2021-05-16] MEDS ORDERED: FLUT1BLS12 INH (09:54)
[2021-05-16] MEDS ORDERED: TIOT18CA2 INH (09:54)
[2021-05-16] MEDS ORDERED: HYDR-3817 PO (09:54)
[2021-05-16] MEDS ORDERED: LINA290C PO (09:54)
[2021-05-16] MEDS ORDERED: BACL20TA PO (09:54)
[2021-05-16] MEDS ORDERED: ASPI-1238 PO (09:54)
[2021-05-16] MEDS ORDERED: FLUO40CA PO (09:54)
[2021-05-16] MEDS ORDERED: AZIT250T PO (09:54)
[2021-05-16] MEDS ORDERED: ALPR0.254 PO (09:54)
[2021-05-16] MEDS ORDERED: ALBU2.5V4 NEB (09:54)
[2021-05-16] MEDS ORDERED: ALBU18HF2 INH (09:54)
[2021-05-16] MEDS ORDERED: IBUP-1780 PO (09:54)
[2021-05-16] MEDS: TIOTROPIUM BROMIDE (SPIRIVA) 5'S INHALER IH SCH (12:19)
[2021-05-16 12:29] VITALS: BP 117/74
--- NOTE | 2021-05-16 14:46 | Short Stay Summary ---
BALDEV URIAS MD 05/16/21 1446: HPI History of Present Illness: 55 year old female with history of tobacco use, COPD on 3 L previously, but patient lost access to her oxygen earlier this year, presenting for dyspnea. 3-4 days prior to admission after being exposed to her sick daughter, she developed nonproductive cough, shortness of breath and wheezing. She had no fevers, abdominal pain, N/V/C/D. She took her daily advair as well as spiriva and used albuterol once, but her symptoms did not improve. She ultimately went to [facility] urgent care where she was found to desaturate to 80s on ambulation, so she was instructed to come to the ED. Here, her basic labs were unremarkable with negative procalcitonin and negative D-Dimer. No infiltrate on CXR. She was given breathing treatments and antibiotics, but no steroids as she reports a history of having her "throat close" when given steroids before. Source: patient Exam Limitations: no limitations Date seen by provider: May 16, 2021 Time Seen by Provider: 07:55 Attending Physician Venessa Gaines MD PCP Center/[facility] Consult Date of Admission May 15, 2021 at 20:20 Home Medications Home Medications Reviewed patient Home Medication Reconciliation performed by pharmacy medication reconciliations budget technician and/or nursing. Patients Allergies have been reviewed. Allergies Coded Allergies: pregabalin (Verified Allergy, Unknown, 05/16/21) Uncoded Allergies: STEROIDS (Allergy, Unknown, 05/15/21) "MAKE ME STOP BREATHING" [id number] Hx Patient Social History Smoking Status: Current Everyday Smoker 2nd Hand Smoke Exposure: Yes Alcohol Use?: No Tobacco type used: Cigarettes Have you traveled recently?: No Immunizations Up To Date Tetanus Booster (TDap): Unknown Family Medical History Significant Family History: COPD Review of Systems ([facility]) Constitutional: No chills, No fever EENTM: No nose congestion Respiratory: cough, dyspnea on exertion, short of breath, wheezing Cardiovascular: No chest pain, No edema Gastrointestinal: No abdominal pain, No diarrhea, No nausea, No vomiting Genitourinary: No dysuria Reviewed Test Results Reviewed Test Results Lab CBC wnl BMP wnl UDS + THC and opioids Radiology CXR wnl Physical Exam-([facility]) Physical Exam Vital Signs VS - Last 72 Hours, by Label 05/15/21 05/15/21 05/15/21 05/15/21 19:10 20:04 21:05 21:56 Temp 36.0 Pulse 84 92 Resp 28 22 B/P (MAP) 122/82 (95) 129/70 Pulse Ox 94 92 94 93 O2 Delivery Room Air Room Air Nasal Cannula Nasal Cannula O2 Flow Rate 2.00 3.00 05/15/21 05/15/21 05/16/21 05/16/21 23:30 23:59 02:10 02:30 Temp 36.7 Pulse 99 100 Resp 20 B/P (MAP) 97/60 (72) Pulse Ox 94 95 95 O2 Delivery Nasal Cannula Nasal Cannula Nasal Cannula O2 Flow Rate 2.00 3.00 3.00 05/16/21 05/16/21 05/16/21 05/16/21 03:57 07:00 08:00 08:00 Temp 36.4 36.4 Pulse 89 74 80 Resp 20 20 B/P (MAP) 108/67 (81) 122/77 (92) Pulse Ox 94 94 O2 Delivery Nasal Cannula Nasal Cannula Nasal Cannula O2 Flow Rate 3.00 2.00 3.00 05/16/21 05/16/21 05/16/21 05/16/21 08:08 11:56 12:19 12:29 Temp 36.2 Pulse 83 Resp 20 B/P (MAP) 117/74 (88) Pulse Ox 94 92 94 93 O2 Delivery Nasal Cannula Nasal Cannula Nasal Cannula Nasal Cannula O2 Flow Rate 3.00 3.00 2.00 2.00 05/16/21 13:00 Pulse 90 Capillary Refill : Less Than 3 Seconds General Appearance: WD/WN, no apparent distress HEENT: other (MMM) Neck: non-tender, full range of motion Respiratory: no respiratory distress, wheezing (Diminished lung sounds, diffuse end-expiratory wheezing. ) Cardiovascular: normal peripheral pulses, regular rate, rhythm, no edema Gastrointestinal: normal bowel sounds, non tender, soft Neurologic/Psychiatric: alert, normal mood/affect, oriented x 3 Skin: normal color, warm/dry Short Stay Diagnosis Discharge Diagnosis-Short Stay Admission Diagnosis Acute Hypoxic Respiratory Failure COPD Exacerbation Final Discharge Diagnosis Acute Hypoxic Respiratory Failure COPD Exacerbation Conclusion Plan History of COPD previously on 3 L baseline, off recently after moving and losing access to her oxygen. History and exam consistent with COPD exacerbation, treated with scheduled advair, spiriva, duonebs and azithromycin. 6 minute walk test revealed that patient needed 2 L oxygen at rest and 4 L with exertion, with which she was discharged to continue scheduled breathing treatments until shortness of breath improves. Assessment/Plan Assessment/Plan Admission Dx COPD Exacerbation Admission Status: Observation (1) Acute and chronic respiratory failure with hypoxia Status: Acute Assessment & Plan: History of COPD previously on 3 L baseline, off recently after moving and losing access to her oxygen. History and exam consistent with COPD exacerbation, treated as described below. 6 minute walk test revealed that patient needed 2 L oxygen at rest and 4 L with exertion, with which she was discharged to continue scheduled breathing treatments until shortness of breath improves. (2) COPD exacerbation Status: Acute Assessment & Plan: History of COPD here with cough and dyspnea x 3 days. Placed on oxygen with advair, spiriva and scheduled duonebs as well as azithromycin at discharge. No steroids per patient preference given reported history of allergy. Patient to follow up with PCP. (3) Tobacco use Assessment & Plan: Counseled on cessation. VENESSA GAINES MD 05/16/21 191: Home Medications Allergies Coded Allergies: pregabalin (Verified Allergy, Unknown, 05/16/21) Uncoded Allergies: STEROIDS (Allergy, Unknown, 05/15/21) "MAKE ME STOP BREATHING" Supervisory-Addendum Brief Supervisory Addendum I personally have seen and evaluated the patient and performed my own physical exam. I agree with assessment and plan as documented by PGY3 MD BRIDGETT Blake JONATHAN C MD May 16, 2021 14:46 VENESSA GAINES MD May 16, 2021 19:17
[2021-05-16 15:49] VITALS: BP 135/81
[2021-05-16] MEDS ORDERED: AZITHROMYCIN 500 MG/NS 250 ML IVPB IV SCH ×2 (21:00)
[2021-05-16] MEDS ORDERED: cefTRIAXone 1,000 MG VIAL IV SCH (21:00)
== END 2021-05-16 17:20 | disposition home or self-care (01) | DRG 189 ==
LOC: EDUNIT# 19:05 → ER 19:07 → 4TH 20:20
PROVIDERS: ADMIT Family Medicine; ATTEND Family Medicine
DX: J96.01 Acute respiratory failure with hypoxia (principal); J44.1 Chronic obstructive pulmonary disease with (acute) exacerbation; F17.210 Nicotine dependence, cigarettes, uncomplicated; G89.29 Other chronic pain; M54.9 Dorsalgia, unspecified; F41.9 Anxiety disorder, unspecified; Z20.822 Contact with and (suspected) exposure to COVID-19
CPT/HCPCS: 36415; 71045; 80048; 80053; 80306; 81000; 82550; 82553; 82805; 83605; 83615; 83735; 83874; 83880; 84145; 84484; 85025; 85379; 85610; 85652; 85730; 86141; 87040; 87088; 87636; 93005; 93041; 94640; 94760; 94761; 96365; 96375

== ENCOUNTER 2021-10-04 18:14 | Observation (INO) | payer MEDICAID ==
[~2021-10-04] VITALS: Ht 172.7 cm; Wt 98.0 kg
[~2021-10-04 18:14] MED LIST changes: -CEFD300C3 PO; -CETI10TA17 PO; -CNC1KV IM; -FLUO20CA48 PO; -IPRA3AMP31 NEB; -LEVO50TA PO; -PRED10TA22 PO; -SODI30SP2 NS; -UMEC62.5 IH; -diphenhydrAMINE 50 MG/ML INJ (BENADRYL) ONE
[2021-10-04 18:41] LABS: ABG BASE EXCESS 1.3 MMOL/L (-2.5-2.5); ABG OXYGEN SATURATION 95 % (94-100); ABG PCO2 42 MMHG (35-45); ABG PO2 66 MMHG (79-93); ABG TCO2 26.8 MMOL/L (21.0-31.0)
[2021-10-04 18:44] LABS: ALLENS TEST POSITIVE; PATIENT TEMP 37; VENTILATOR NO
[2021-10-04] MEDS ORDERED: HYDROcodone/APAP 7.5 MG/325 MG (LORTAB, LORCET PLUS) TABLET PO ONE (18:45)
[2021-10-04] MEDS ORDERED: NS IV 1000 ML 1,000 ML IV SCH ×2 (18:45→19:15)
[2021-10-04] MEDS ORDERED: CEFEPIME INJECTION 1,000 MG in NS (IVPB) 50 ML IV ONE (18:45)
--- NOTE | 2021-10-04 18:45 | ED Respiratory ---
General Chief Complaint: Respiratory Problems Stated Complaint: RESP DISTRESS Nursing Triage Note: after 3 rounds of antibiotics and steroids patient continues breathing issues. arrives from [facility] care. hx of copd and anxiety. has been taking breathing treatments at home as well. uses home o2 at 2.5L however currently is out. Source: patient Exam Limitations: other (Difficult historian) History of Present Illness Date Seen by Provider: Oct 04, 2021 Time Seen by Provider: 18:26 Initial Comments Patient to ER by private conveyance from [facility] where she was seen about an hour prior to arrival with a follow-up appointment for her shortness of air which seems to been going on for least the last week. She started having shortness of air significantly bad today as well as a productive cough couple days ago. She is on her apparent third round of steroids and antibiotics. They feel she has interstitial lung disease and have referred her to a handle maker which she will see in about 2 to 3 weeks. She is previously a pack-a-day smoker however for the past week she has faithfully been wearing a patch or nicotine replacement. She does have home O2 for use at home however si nce quitting smoking she has not needed it even for sleep. She came by private vehicle and has a history of COPD, anxiety. No history of pain in her chest. She does have chronic low back pain. On her way out of the clinic she had a fall and brushed up both of her knees as well as hurt her low back pain. No history of heart disease although she has been given nitroglycerin in the past and told to use it if she has chest pain. Her productive cough has green phlegm for the past couple days. She has not had any fevers or chills, nausea or vomiting. When she initially gets on the steroid she says she feels a little better but once she is done with them her symptoms continue. She had negative COVID and flu swab at the clinic today. Allergies and Home Medications Allergies Coded Allergies: pregabalin (Verified Allergy, Unknown, 05/16/21) Uncoded Allergies: STEROIDS (Allergy, Unknown, 05/15/21) "MAKE ME STOP BREATHING" Patient Home Medication List Home Medication List Reviewed: Yes ALPRAZolam (ALPRAZolam) 0.25 Mg Tablet, 0.25 MG PO BID, (Reported) Entered as Reported by: EDA LOYOLA on 05/16/21953 Albuterol Sulfate (Albuterol Sulfate) 2.5 Mg/3 Ml Vial.neb, 3 ML NEB Q6H PRN for SHORTNESS OF BREATH, (Reported) Entered as Reported by: EDA LOYOLA on 05/16/21953 Albuterol Sulfate (Ventolin Hfa) 18 Gm Hfa.aer.ad, 2 PUFF INH Q6H PRN for SHORTNESS OF BREATH, (Reported) Entered as Reported by: EDA LOYOLA on 05/16/21953 Aspirin (Aspirin EC) 81 Mg Tablet.dr, 81 MG PO Q48H, (Reported) Entered as Reported by: EDA LOYOLA on 05/16/21953 Azithromycin (Zithromax) 250 Mg Tablet, MG PO UD, (Reported) Entered as Reported by: EDA LOYOLA on 05/16/21953 Baclofen (Baclofen) 20 Mg Tablet, 20 MG PO BID PRN for MUSCLE SPASMS, (Reported) Entered as Reported by: EDA LOYOLA on 05/16/21953 Fluoxetine HCl (Fluoxetine HCl) 40 Mg Capsule, 40 MG PO HS, (Reported) Entered as Reported by: EDA LOYOLA on 05/16/21953 Fluticasone Propion/Salmeterol (Fluticasone-Salmeterol 250-50) 1 Each Blst.w.dev, 1 PUFF INH BID, (Reported) Entered as Reported by: EDA LOYOLA on 05/16/21953 Hydrocodone/Acetaminophen (Hydrocodone-Acetamin 7.5-325) 1 Each Tablet, 1 EA PO BID PRN for PAIN-MODERATE (5-7), (Reported) Entered as Reported by: EDA LOYOLA on 05/16/21953 Ibuprofen (Ibuprofen) 800 Mg Tablet, 800 MG PO Q8H PRN for PAIN-MILD (1-4), (Reported) Entered as Reported by: EDA LOYOLA on 05/16/21953 Linaclotide (Linzess) 290 Mcg Capsule, 290 MCG PO Q48H PRN for CONSTIPATION, (Reported) Entered as Reported by: EDA LOYOLA on 05/16/21953 Tiotropium [place] (Spiriva) 1 Inh Aerp, 1 PUFF INH DAILY, (Reported) Entered as Reported by: EDA LOYOLA on 05/16/21 0954 Review of Systems Review of Systems Constitutional: No chills, No diaphoresis EENTM: No ear discharge, No ear pain Respiratory: cough, dyspnea on exertion, phlegm, short of breath Cardiovascular: No chest pain Gastrointestinal: No abdominal pain, No constipation, No diarrhea, No nausea Genitourinary: No discharge, No dysuria Musculoskeletal: No back pain, No joint pain Psychiatric/Neurological: Denies Anxiety, Denies Depressed All Other Systems Reviewed Negative Unless Noted: Yes Past Onbremo-Nmdeif-Lbstxi Hx Patient Social History Tobacco Use?: Yes Tobacco type used: Cigarettes Smoking Status: Current Everyday Smoker (1/2 to 1 pack/day) Use of E-Cig and/or Vaping dev: No Substance use?: No Immunizations Up To Date Tetanus Booster (TDap): Unknown First/Initial COVID19 Vaccinat: March 27, 2021 Second COVID19 Vaccination Antolin: march Past Medical History Respiratory: Yes COPD Cardiac: Yes Angina Musculoskeletal: Yes Chronic Back Pain Psychosocial: Yes Anxiety Family Medical History COPD Physical Exam Vital Signs - First Documented Capillary Refill : Less Than 3 Seconds Height: '" Weight: lbs. oz. kg; 31.00 BMI Method: General Appearance: WD/WN, mild distress Eyes: Bilateral Eye Normal Inspection, Bilateral Eye PERRL, Bilateral Eye EOMI HEENT: PERRL/EOMI, normal ENT inspection, TMs normal, pharynx normal Neck: non-tender, full range of motion, supple, normal inspection Respiratory: lungs clear, respiratory distress (Mild with respiratory rate of 26 breaths/min while at rest after walking in from the lobby.), decreased breath sounds; No crackles, No wheezing Cardiovascular: normal peripheral pulses, regular rate, rhythm, no edema, no murmur, tachycardia (111) Gastrointestinal: normal bowel sounds, non tender, soft Extremities: normal inspection, normal capillary refill Neurologic/Psychiatric: alert, normal mood/affect, oriented x 3 Skin: normal color, warm/dry Focused Exam Sepsis Stage: Severe Sepsis Possible Source: Pulmonary Lactate Level 10/04/21 18:35: Lactic Acid Level 3.33*H Time of Focused Exam: 20:13 Respiratory: Lungs Clear, No Accessory Muscle Use, Decreased Breath Sounds, Respiratory Distress (Mild breathing about 22 to 24 breaths/min on room air 93 to 94% sat. We put her on 2 L by nasal cannula.) Cardiovascular: Regular Rate, Rhythm, Normal Peripheral Pulses Capillary Refill: Less Than 3 Seconds Peripheral Pulses: 2+ Radial Pulses (R), 2+ Radial Pulses (L) Skin: normal color, warm/dry Lactic Acid Level Laboratory Tests Test 10/04/21 18:35 Lactic Acid Level 3.33 MMOL/L (0.50-2.00) *H Within 3hrs of presentation: Admin fluids, Admin ABX, Blood cultures prior to ABX's, Focus exam, Lactate level Progress/Results/Core Measures Suspected Sepsis SIRS Temperature: Pulse: 104 Respiratory Rate: 24 Laboratory Tests 10/04/21 18:35: White Blood Count 13.1H Blood Pressure 142 /96 Mean: 111 10/04/21 18:35: Lactic Acid Level 3.33*H Laboratory Tests 10/04/21 18:35: Creatinine 0.65, INR Comment 1.0, Platelet Count 259, Total Bilirubin 0.2 Results/Orders Lab Results Laboratory Tests Test 10/04/21 18:35 10/04/21 18:40 Range/Units White Blood Count 13.1 H 4.3-11.0 10^3/uL Red Blood Count 5.25 H 3.80-5.11 10^6/uL Hemoglobin 16.0 11.5-16.0 g/dL Hematocrit 49 35-52 % Mean Corpuscular Volume 93 80-99 fL Mean Corpuscular Hemoglobin 31 25-34 pg Mean Corpuscular Hemoglobin Concent 33 32-36 g/dL Red Cell Distribution Width 12.8 10.0-14.5 % Platelet Count 259 130-400 10^3/uL Mean Platelet Volume 9.8 9.0-12.2 fL Immature Granulocyte % (Auto) 0 % Neutrophils (%) (Auto) 82 H 42-75 % Lymphocytes (%) (Auto) 14 12-44 % Monocytes (%) (Auto) 3 0-12 % Eosinophils (%) (Auto) 0 0-10 % Basophils (%) (Auto) 0 0-10 % Neutrophils # (Auto) 10.8 H 1.8-7.8 10^3/uL Lymphocytes # (Auto) 1.9 1.0-4.0 10^3/uL Monocytes # (Auto) 0.4 0.0-1.0 10^3/uL Eosinophils # (Auto) 0.0 0.0-0.3 10^3/uL Basophils # (Auto) 0.0 0.0-0.1 10^3/uL Immature Granulocyte # (Auto) 0.1 0.0-0.1 10^3/uL Prothrombin Time 13.3 12.2-14.7 SEC INR Comment 1.0 0.8-1.4 Activated Partial Thromboplast Time 30 24-35 SEC D-Dimer < 0.27 0.00-0.49 UG/ML Blood Gas Puncture Site RIGHT RADIAL Blood Gas Patient Temperature 37 Arterial Blood pH 7.40 7.37-7.43 Arterial Blood Partial Pressure CO2 42 35-45 MMHG Arterial Blood Partial Pressure O2 66 L 79-93 MMHG Arterial Blood HCO3 26 23-27 MMOL/L Arterial Blood Total CO2 26.8 21.0-31.0 MMOL/L Arterial Blood Oxygen Saturation 95 94-100 % Arterial Blood Base Excess 1.3 -2.5-2.5 MMOL/L Claude Test POSITIVE Blood Gas Ventilator Setting NO Blood Gas Inspired Oxygen N/A Sodium Level 141 135-145 MMOL/L Potassium Level 4.2 3.6-5.0 MMOL/L Chloride Level 102 98-107 MMOL/L Carbon Dioxide Level 22 21-32 MMOL/L Anion Gap 17 H 5-14 MMOL/L Blood Urea Nitrogen 8 7-18 MG/DL Creatinine 0.65 0.60-1.30 MG/DL Estimat Glomerular Filtration Rate 105 BUN/Creatinine Ratio 12 Glucose Level 187 H 70-105 MG/DL Lactic Acid Level 3.33 *H 0.50-2.00 MMOL/L Calcium Level 10.6 H 8.5-10.1 MG/DL Corrected Calcium 10.8 H 8.5-10.1 MG/DL Total Bilirubin 0.2 0.1-1.0 MG/DL Aspartate Amino Transf (AST/SGOT) 6 5-34 U/L Alanine Aminotransferase (ALT/SGPT) 10 0-55 U/L Alkaline Phosphatase 84 40-136 U/L Troponin I < 0.028 <0.028 NG/ML C-Reactive Protein High Sensitivity 0.74 H 0.00-0.50 MG/DL Total Protein 5.9 L 6.4-8.2 GM/DL Albumin 3.7 3.2-4.5 GM/DL Procalcitonin 0.01 <0.10 NG/ML Influenza Type A (RT-PCR) Not Detected Not Detecte Influenza Type B (RT-PCR) Not Detected Not Detecte SARS-CoV-2 RNA (RT-PCR) Not Detected Not Detecte My Orders Orders - MARTHA TRENT Arterial Blood Gas (10/04/21 18:36) Cbc With Automated Diff (10/04/21 18:37) Comprehensive Metabolic Panel (10/04/21 18:37) Blood Culture (10/04/21 18:37) Sputum Culture (10/04/21 18:37) Urinalysis (10/04/21 18:37) Urine Culture (10/04/21 18:37) Protime With Inr (10/04/21 18:) Partial Thromboplastin Time (10/04/21 18:37) Ed Iv/Invasive Line Start (10/04/21 18:37) Ed Iv/Invasive Line Start (10/04/21 18:37) Ekg Tracing (10/04/21 18:37) Troponin I Esmeralda (10/04/21 18:37) Vital Signs Adult Sepsis Patie Q15M (10/04/21 18:37) O2 (10/04/21 18:37) Remove Rings In Anticipation O (10/04/21 18:37) Lactic Acid Analyzer (10/04/21 18:37) Influenza A And B By Pcr (10/04/21 18:37) Ns Iv 1000 Ml (Sodium Chloride 0.9%) (10/04/21 18:45) Cefepime Injection (Maxipime Injection) (10/04/21 18:45) Vancomycin Injection (Vancomycin Injecti (10/04/21 18:45) Covid 19 Inhouse Test (10/04/21 18:37) Chest Pa/Lat (2 View) (10/04/21 18:37) Hs C Reactive Protein (10/04/21 18:37) Procalcitonin (Pct) (10/04/21 18:37) Fibrin Degradation Products (10/04/21 18:37) Hydrocodone/Apap 7.5/325 Tab (Lortab 7. (10/04/21 18:45) Ed Iv/Invasive Line Start (10/04/21 19:12) Ns Iv 1000 Ml (Sodium Chloride 0.9%) (10/04/21 19:15) Ns Iv 1000 Ml (Sodium Chloride 0.9%) (10/04/21 19:15) Medications Given in ED Current Medications Medications Dose Ordered Sig/Zulema Route Start Time Stop Time Status Last Admin Dose Admin Acetaminophen/ Hydrocodone Bitart 1 ea ONCE ONCE PO 10/04/21 18:45 10/04/21 18:46 DC 10/04/21 19:30 1 EA Cefepime HCl 1000 mg/Sodium Chloride 50 ml @ 100 mls/hr ONCE ONCE IV 10/04/21 18:45 10/04/21 19:14 DC 10/04/21 19:31 100 MLS/HR Sodium Chloride 1,000 ml @ 0 mls/hr Q0M ONCE IV 10/04/21 19:15 10/04/21 19:16 DC 10/04/21 19:58 1,000 MLS/HR Vital Signs/I&O 10/04/21 10/04/21 18:26 18:26 Temp 36.8 Pulse 104 Resp 24 B/P (MAP) 142/96 (111) Pulse Ox 96 O2 Delivery Room Air Room Air Capillary Refill : Less Than 3 Seconds Blood Pressure Mean: 111 Progress Note : Time: 18:48 Progress Note Exertional dyspnea without any wheezing heard. Although she does use albuterol and more recently ipratropium in addition to this. She is under the influence of steroids so she may have a marginal elevation in her white count. We will initiate a septic work-up based on her tachycardia and tachypnea which could also just be caused by her shortness of air from interstitial lung disease or similar diagnosis. She is maintaining oxygen saturations 95 to 96% on room air on arrival. ECG Initial ECG Impression Date: Oct 04, 2021 Initial ECG Impression Time: 18:42 Initial ECG Rate: 101 Initial ECG Rhythm: S.Tach Initial ECG Intervals: Normal Initial ECG Impression: Normal Initial ECG Comparisson: Unchanged Comment Sinus tachycardia without clinically relevant ST changes. Unchanged from previ ous EKGs. Diagnostic Imaging Diagonstic Imaging: Xray Plain Films/CT/US/NM/MRI: chest (2v) Comments [facility], [place] NAME: PAZ [facility] REC#: [id number] PT STATUS: REG ER : 1965 PHYSICIAN: MARTHA TRENT MD ADMIT DATE: 10/04/21/ER Draft Date of Exam:10/04/21 CHEST PA/LAT (2 VIEW) INDICATION: Shortness of breath. COMPARISON: 05/15/2021. EXAMINATION: Frontal and lateral views of the chest. FINDINGS: Clear lungs, bilaterally. The heart is normal. There is no pneumothorax but osseous structures are normal. IMPRESSION: Negative chest. Dictated on workstation # [id number] Dict: 10/04/211943 Trans: 10/04/211944 [facility] [id number] Interpreted by: GABRIELLE RAMON Electronically signed by: Reviewed: Reviewed by Me Departure Communication (Admissions) Time/Spoke to Admitting Phy: 20:10 Dr Gaines: Agrees to admit the patient to the floor and she will put in orders. We did discuss the patient's desire to have her Xanax, hydrocodone, Advair and Spiriva continued. Impression Primary Impression: Pneumonia Qualified Codes: J18.9 - Pneumonia, unspecified organism Additional Impression: Severe sepsis Disposition: ADMITTED INPATIENT Condition: Stable Admissions Decision to Admit Reason: Admit from ER (General) Decision to Admit/Date: Oct 04, 2021 Time/Decision to Admit Time: 20:10 Departure-Patient Inst. Referrals: [facility] [place] (PCP/Family) Primary Care Physician MARTHA TRENT Oct 04, 2021 18:45
[2021-10-04 18:54] LABS: BASOPHILS % (AUTO) 0 % (0-10); EOSINOPHILS % (AUTO) 0 % (0-10); HEMATOCRIT 49 % (35-52); LYMPHOCYTES # (AUTO) 1.9 10^3/uL (1.0-4.0); LYMPHOCYTES % (AUTO) 14 % (12-44); MEAN CORPUSCULAR HEMOGLOBIN 31 pg (25-34); MEAN CORPUSCULAR HGB CONC 33 g/dL (32-36); MEAN CORPUSCULAR VOLUME 93 fL (80-99); MEAN PLATELET VOLUME 9.8 fL (9.0-12.2); MONOCYTES # (AUTO) 0.4 10^3/uL (0.0-1.0); MONOCYTES % (AUTO) 3 % (0-12); NEUTROPHILS # (AUTO) 10.8 10^3/uL (1.8-7.8); NEUTROPHILS % (AUTO) 82 % (42-75); PLATELET COUNT 259 10^3/uL (130-400); WHITE BLOOD COUNT 13.1 10^3/uL (4.3-11.0)
[2021-10-04 19:13] LABS: ALANINE AMINOTRANSFERASE 10 U/L (0-55); ALBUMIN 3.7 GM/DL (3.2-4.5); ALKALINE PHOSPHATASE 84 U/L (40-136); BILIRUBIN,TOTAL 0.2 MG/DL (0.1-1.0); BUN/CREATININE RATIO 12; CARBON DIOXIDE 22 MMOL/L (21-32); CREATININE SERUM 0.65 MG/DL (0.60-1.30); GFR ESTIMATED 105; GLUCOSE 187 MG/DL (70-105); TOTAL PROTEIN 5.9 GM/DL (6.4-8.2)
[2021-10-04] MEDS ORDERED: NS IV 1000 ML 1,000 ML IV ONE (19:15)
[2021-10-04 19:27] LABS: CALCIUM 10.6 MG/DL (8.5-10.1); POTASSIUM 4.2 MMOL/L (3.6-5.0); SODIUM 141 MMOL/L (135-145)
[2021-10-04 19:30] LABS: CHLORIDE 102 MMOL/L (98-107)
[2021-10-04 19:33] LABS: FIBRIN DEGRADATION PRODUCTS < 0.27 UG/ML (0.00-0.49); PARTIAL THROMBOPLASTIN TIME 30 SEC (24-35); PROTHROMBIN TIME PATIENT 13.3 SEC (12.2-14.7)
--- NOTE | 2021-10-04 19:46 | Diagnostic Imaging Report ---
INDICATION: Shortness of breath. COMPARISON: 05/15/2021. EXAMINATION: Frontal and lateral views of the chest. FINDINGS: Clear lungs, bilaterally. The heart is normal. There is no pneumothorax but osseous structures are normal. IMPRESSION: Negative chest. Dictated by: Dictated on workstation # [id number]
[2021-10-04] MEDS: VANCOMYCIN INJECTION 1,000 MG in NS (IVPB) 250 ML IV SCH ×2 (20:02→20:55)
[2021-10-04 20:57] LABS: BILIRUBIN,URINE NEGATIVE (NEGATIVE); CLARITY,URINE CLEAR; COLOR,URINE YELLOW; GLUCOSE, URINE (UA) NEGATIVE (NEGATIVE); KETONES,URINE NEGATIVE (NEGATIVE); LEUKOCYTE ESTERASE ,URINE NEGATIVE (NEGATIVE); NITRITE,URINE NEGATIVE (NEGATIVE); PROTEIN,URINE NEGATIVE (NEGATIVE)
[2021-10-04] MEDS ORDERED: RT-ALBUTEROL/IPRATROPIUM 3 ML (DUONEB) VIAL INH ONE (21:00)
[2021-10-04] MEDS ORDERED: NALOXONE 0.4 MG/ML 1 ML (NARCAN) VIAL IV PRN (21:00)
[2021-10-04] MEDS ORDERED: IBUPROFEN 600 MG (MOTRIN) TAB PO PRN (21:00)
[2021-10-04] MEDS ORDERED: PATIENT MAY USE OWN MEDS, ALL PO SCH (21:00)
[2021-10-04] MEDS ORDERED: CALCIUM CARBONATE 500 MG (TUMS) TAB.CHEW PO PRN (21:00)
[2021-10-04] MEDS ORDERED: ONDANSETRON 4 MG (ZOFRAN) ORAL DISSOLVE TAB PO PRN (21:00)
[2021-10-04 21:04] LABS: BACTERIA,URINE TRACE /HPF; RBC,URINE RARE /HPF
[2021-10-04] MEDS ORDERED: diphenhydrAMINE 50 MG/ML INJ (BENADRYL) IVP ONE (21:45)
[2021-10-04 22:08] VITALS: BP 139/79
[2021-10-04] MEDS ORDERED: NICOTINE 21 MG (NICODERM) PATCH ONE (23:23)
[2021-10-04] MEDS: BACLOFEN 10 MG (LIORESAL) TAB PO SCH (23:28)
[2021-10-04] MEDS: CEFDINIR 300 MG (OMNICEF) CAP PO SCH (23:28)
[2021-10-04] MEDS: ALPRAZolam 0.25 MG (XANAX) TAB PO SCH (23:28)
[2021-10-04] MEDS: NICOTINE 21 MG (NICODERM) PATCH TD SCH (23:29)
[2021-10-05] VITALS: BP 123/57
[2021-10-05] MEDS: RT-ALBUTEROL SULF 2.5 MG/3 ML PRE-MIX VIAL INH SCH ×2 (02:11→02:12)
[2021-10-05] MEDS: RT-ALBUTEROL/IPRATROPIUM 3 ML (DUONEB) VIAL IH SCH ×7 (02:12→21:57)
[2021-10-05 04:06] VITALS: BP 125/68
[2021-10-05 05:49] LABS: HEMATOCRIT 44 % (35-52); HEMOGLOBIN 14.2 g/dL (11.5-16.0); MEAN CORPUSCULAR HEMOGLOBIN 31 pg (25-34); MEAN CORPUSCULAR HGB CONC 32 g/dL (32-36); MEAN CORPUSCULAR VOLUME 97 fL (80-99); MEAN PLATELET VOLUME 9.9 fL (9.0-12.2); PLATELET COUNT 208 10^3/uL (130-400); WHITE BLOOD COUNT 11.5 10^3/uL (4.3-11.0)
[2021-10-05 06:11] LABS: POTASSIUM 4.3 MMOL/L (3.6-5.0)
[2021-10-05 06:12] LABS: CALCIUM 9.7 MG/DL (8.5-10.1)
[2021-10-05 06:16] LABS: CREATININE SERUM 0.75 MG/DL (0.60-1.30)
[2021-10-05] MEDS: LEVOTHYROXINE 50 MCG (LEVOTHROID) TAB PO SCH (06:30)
[2021-10-05] MEDS: HYDROcodone/APAP 7.5 MG/325 MG (LORTAB, LORCET PLUS) TABLET PO PRN ×2 (08:05→14:55)
[2021-10-05] MEDS: ENOXAPARIN 40 MG/0.4 ML (LOVENOX) SYR SC SCH (08:42)
[2021-10-05] MEDS: FLUoxetine HCL 20 MG (PROzac) CAP PO SCH (08:43)
[2021-10-05] MEDS: BACLOFEN 10 MG (LIORESAL) TAB PO SCH ×2 (08:43→19:42)
[2021-10-05] MEDS: CEFDINIR 300 MG (OMNICEF) CAP PO SCH ×2 (08:43→19:42)
[2021-10-05] MEDS: predniSONE 20 MG TAB PO SCH (08:43)
[2021-10-05] MEDS: ALPRAZolam 0.25 MG (XANAX) TAB PO SCH ×2 (08:43→19:42)
[2021-10-05] MEDS: NICOTINE 21 MG (NICODERM) PATCH TD SCH (08:43)
[2021-10-05] MEDS ORDERED: NON-FORMULARY MEDICATION 1 EA EA (Linaclotide (Linzess) 290 MCG) PO PRN (08:45)
[2021-10-05 08:49] VITALS: BP 130/63
[2021-10-05] MEDS ORDERED: RT-ALBUTEROL SULF 2.5 MG/3 ML PRE-MIX VIAL INH PRN (09:15)
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
[2021-10-05] MEDS: UMECLIDINIUM BROMIDE (INCRUSE ELLIPTA) 7'S IH SCH (10:30)
[2021-10-05] MEDS ORDERED: IPRA3AMP31 NEB (10:46)
[2021-10-05] MEDS ORDERED: CETI10TA17 PO (10:46)
[2021-10-05] MEDS ORDERED: CNC1KV IM (10:46)
[2021-10-05 11:30] VITALS: BP 124/75
[2021-10-05 16:00] VITALS: BP 120/73
[2021-10-05 19:33] VITALS: BP 135/64
[2021-10-05] MEDS: ACETAMINOPHEN 325 MG TABLET PO PRN (19:42)
[2021-10-05] MEDS ORDERED: NON-FORMULARY MEDICATION 1 EA EA (Fluticasone Propion/Salmeterol (Fluticasone-Salmeterol 2 INH SCH (21:00)
[2021-10-06 00:31] VITALS: BP 122/71
[2021-10-06] MEDS: HYDROcodone/APAP 7.5 MG/325 MG (LORTAB, LORCET PLUS) TABLET PO PRN ×3 (00:32→15:43)
[2021-10-06] MEDS: RT-ALBUTEROL/IPRATROPIUM 3 ML (DUONEB) VIAL IH SCH ×3 (02:02→11:04)
[2021-10-06 04:00] VITALS: BP 124/74
[2021-10-06] MEDS: LEVOTHYROXINE 50 MCG (LEVOTHROID) TAB PO SCH (05:32)
[2021-10-06 05:34] LABS: HEMATOCRIT 43 % (35-52); HEMOGLOBIN 14.3 g/dL (11.5-16.0); MEAN CORPUSCULAR HEMOGLOBIN 31 pg (25-34); MEAN CORPUSCULAR HGB CONC 33 g/dL (32-36); MEAN CORPUSCULAR VOLUME 95 fL (80-99); MEAN PLATELET VOLUME 9.8 fL (9.0-12.2); PLATELET COUNT 212 10^3/uL (130-400); WHITE BLOOD COUNT 9.2 10^3/uL (4.3-11.0)
[2021-10-06 05:55] LABS: POTASSIUM 3.9 MMOL/L (3.6-5.0)
[2021-10-06 05:56] LABS: CALCIUM 9.8 MG/DL (8.5-10.1)
[2021-10-06 06:00] LABS: CREATININE SERUM 0.75 MG/DL (0.60-1.30)
--- NOTE | 2021-10-06 06:13 | Progress Note - Hospitalist ---
Subjective HPI/CC On Admission Date Seen by Provider: Oct 06, 2021 Focused Exam Lactate Level 10/04/21 18:35: Lactic Acid Level 3.33*H 10/04/21 21:12: Lactic Acid Level 0.96 Time of Focused Exam: 20:13 Objective Exam Vital Signs Vital Signs Date Time Temp Pulse Resp B/P (MAP) Pulse Ox O2 Delivery O2 Flow Rate FiO2 10/06/21 07:56 36.5 85 20 125/74 (91) 97 Nasal Cannula 2.00 10/04/21 23:04 28 Capillary Refill : Less Than 3 Seconds Results/Procedures Lab Laboratory Tests 10/06/21 05:26 Patient resulted labs reviewed. SWATI RODRÍGUEZ DO Oct 06, 2021 06:13
[2021-10-06 07:56] VITALS: BP 125/74
[2021-10-06] MEDS ORDERED: RT--FLUTICASONE/SALMETEROL 113-14 (AIRDUO RespiCLICK) IH SCH (08:00)
[2021-10-06] MEDS: predniSONE 20 MG TAB PO SCH (09:44)
[2021-10-06] MEDS: BACLOFEN 10 MG (LIORESAL) TAB PO SCH (09:45)
[2021-10-06] MEDS: NICOTINE 21 MG (NICODERM) PATCH TD SCH (09:45)
[2021-10-06] MEDS: CEFDINIR 300 MG (OMNICEF) CAP PO SCH (09:45)
[2021-10-06] MEDS: FLUoxetine HCL 20 MG (PROzac) CAP PO SCH (09:45)
[2021-10-06] MEDS: ALPRAZolam 0.25 MG (XANAX) TAB PO SCH (09:45)
[2021-10-06] MEDS: ENOXAPARIN 40 MG/0.4 ML (LOVENOX) SYR SC SCH (09:46)
[2021-10-06] MEDS: ACETAMINOPHEN 325 MG TABLET PO PRN (09:47)
[2021-10-06] MEDS: UMECLIDINIUM BROMIDE (INCRUSE ELLIPTA) 7'S IH SCH (11:04)
[2021-10-06] MEDS ORDERED: FLUO20CA48 PO (12:03)
[2021-10-06] MEDS ORDERED: UMEC62.5 IH (12:03)
[2021-10-06] MEDS ORDERED: LEVO50TA PO (12:03)
[2021-10-06] MEDS ORDERED: PRED10TA22 PO (12:03)
[2021-10-06] MEDS ORDERED: CEFD300C3 PO (12:03)
[2021-10-06] MEDS ORDERED: SODI30SP2 NS (12:03)
--- NOTE | 2021-10-06 12:04 | Discharge Summary ---
Discharge Summary Hospital Course Problems/Dx: (1) Acute and chronic respiratory failure with hypoxia Status: Acute (2) COPD exacerbation Status: Acute (3) Smoker Status: Acute (4) Pneumonia Status: Acute Qualifiers: Qualified Codes: J18.9 - Pneumonia, unspecified organism (5) Chronic pain Status: Chronic (6) Depression Status: Chronic (7) Anxiety Status: Chronic Hospital Course Date of Admission: Oct 04, 2021 at 20:26 Admission Diagnosis : Family Physician/Provider: [place] [place] Date of Discharge: 10/06/21 Discharge Diagnosis: Acute on chronic hypoxic respiratory failure, anemia, smoker, exacerbation of COPD Hospital Course: Patient had an uncomplicated hospital course which started with acute hypoxic respiratory failure with exacerbation of COPD. Patient had aggressive treatment along with oxygen supplementation and nebulizer treatments and had dramatic improvement after being able to go home Labs and Pending Lab Test: Laboratory Tests 10/06/21 05:26: White Blood Count 9.2, Red Blood Count 4.58, Hemoglobin 14.3, Hematocrit 43, Mean Corpuscular Volume 95, Mean Corpuscular Hemoglobin 31, Mean Corpuscular Hemoglobin Concent 33, Red Cell Distribution Width 12.6, Platelet Count 212, Mean Platelet Volume 9.8, Sodium Level 141, Potassium Level 3.9, Chloride Level 105, Carbon Dioxide Level 23, Anion Gap 13, Blood Urea Nitrogen 10, Creatinine 0.75, Estimat Glomerular Filtration Rate 95, BUN/Creatinine Ratio 13, Glucose Level 91, Calcium Level 9.8 Microbiology 10/04/21 Urine Culture - Final, Complete NO GROWTH 10/04/21 Blood Culture - Preliminary, Resulted No growth Home Meds Active Prednisone 10 Mg Tab.ds.pk 10 Mg PO DAILY Take 6 tabs(60mg)daily,decrease by 1 tab(10MG)daily. Saline Nasal [place] (Sodium Chloride) 30 Ml [place] 0.5 Ml NS TID Synthroid (Levothyroxine Sodium) 50 Mcg Tablet 50 Mcg PO DAILY@0630 Fluoxetine HCl 20 Mg Capsule 40 Mg PO DAILY Incruse Ellipta (Umeclidinium [place]) 62.5 Mcg Blst.w.dev 0 Inh IH DAILY@0800 Cefdinir 300 Mg Capsule 300 Mg PO BID Reported Cyanocobalamin Injection (Cyanocobalamin) 1,000 Mcg/Ml Inj 1,000 Mcg IM EVERY OTHER MONTH Iprat-Albut 0.5-3(2.5) mg/3 ml (Ipratropium/Albuterol Sulfate) 3 Ml Ampul.neb 3 Ml NEB Q6H PRN Cetirizine HCl 10 Mg Tablet 10 Mg PO HS Aspirin EC (Aspirin) 81 Mg Tablet.dr 81 Mg PO Q48H Baclofen 20 Mg Tablet 20 Mg PO BID PRN Ventolin Hfa (Albuterol Sulfate) 18 Gm Hfa.aer.ad 2 Puff INH Q6H PRN Linzess (Linaclotide) 290 Mcg Capsule 290 Mcg PO Q48H Ibuprofen 800 Mg Tablet 800 Mg PO Q8H PRN Spiriva (Tiotropium [place]) 1 Inh Aerp 1 Puff INH HS Fluticasone-Salmeterol 250-50 (Fluticasone Propion/Salmeterol) 1 Each Blst.w.dev 1 Puff INH BID Hydrocodone-Acetamin 7.5-325 (Hydrocodone/Acetaminophen) 1 Each Tablet 1 Ea PO TID PRN ALPRAZolam 0.25 Mg Tablet 0.25 Mg PO BID PRN Assessment/Pt Instructions PCP in 1 week Discharge Planning: <30 minutes discharge planning Discharge Physical Examination Vital Signs Vital Signs Date Time Temp Pulse Resp B/P (MAP) Pulse Ox O2 Delivery O2 Flow Rate FiO2 10/06/21 07:56 36.5 85 20 125/74 (91) 97 Nasal Cannula 2.00 10/04/21 23:04 28 General Appearance: No Apparent Distress, WD/WN, Chronically ill, Obese Respiratory: No Accessory Muscle Use, No Respiratory Distress, Decreased Breath Sounds Allergies: Coded Allergies: pregabalin (Verified Allergy, Unknown, 05/16/21) Uncoded Allergies: STEROIDS (Allergy, Unknown, 05/15/21) "MAKE ME STOP BREATHING" Discharge Summary Date of Admission Oct 04, 2021 at 20:26 Date of Discharge Discharge Date: Oct 06, 2021 SWATI RODRÍGUEZ DO Oct 06, 2021 12:04
[2021-10-06 14:00] VITALS: BP 125/74
== END 2021-10-06 17:30 | disposition home or self-care (01) ==
LOC: EDUNIT# 18:14 → ER 18:17 → 4TH 20:26 → INTOOBSV 20:26
PROVIDERS: ADMIT Family Medicine; ATTEND Internal Medicine
DX: J44.1 Chronic obstructive pulmonary disease with (acute) exacerbation (principal); J44.0 Chronic obstructive pulmonary disease with (acute) lower respiratory infection; J18.9 Pneumonia, unspecified organism; J96.01 Acute respiratory failure with hypoxia; M54.50 Low back pain, unspecified; G89.29 Other chronic pain; F41.9 Anxiety disorder, unspecified; F32.A Depression, unspecified; D64.9 Anemia, unspecified; Z79.82 Long term (current) use of aspirin; F17.210 Nicotine dependence, cigarettes, uncomplicated; Z79.899 Other long term (current) drug therapy
CPT/HCPCS: 71046; 80048 ×2; 80053; 81000; 82805; 83605; 84145; 84484; 85025; 85027 ×2; 85379; 85610; 85730; 86141; 87040; 87088; 87636; 93005; 94640 ×2; 94664; 94760 ×2; 96372; 99285; G0378; 36415

== ENCOUNTER → 2021-10-04 | Emergency (ER) | payer MEDICAID ==
[~2021-10-04] MED LIST changes: +ALBU18HF2 INH; +ALBU2.5V4 NEB; +ALPR0.254 PO; +ASPI-1238 PO; +AZIT250T PO; +BACL20TA PO; -CATHETER FLUSH 10 ML SYR IV PRN; +CEFD300C3 PO; +CETI10TA17 PO; +CNC1KV IM; +FLUO20CA48 PO; +FLUO40CA PO; +FLUT1BLS12 INH; -HOLD METFORMIN - RECEIVED CONTRAST 20 ML VIAL IV SCH; +HYDR-3817 PO; +IBUP-1780 PO; -IOHEXOL 350 MG/ML 100 ML (OMNIPAQUE 350) VIAL IV ONE; +IPRA3AMP31 NEB; +LEVO50TA PO; +LINA290C PO; -NS 100 ML (IVPB) BAG IV ONE; +PRED10TA22 PO; +SODI30SP2 NS; +TIOT18CA2 INH; +UMEC62.5 IH; +diphenhydrAMINE 50 MG/ML INJ (BENADRYL) ONE
== END ==
LOC: EDUNIT# 17:20 → ER 17:22
DX: R06.03 Acute respiratory distress (principal)

== ENCOUNTER 2021-11-13 18:58 | Emergency (ER) | payer MEDICAID ==
[~2021-11-13] VITALS: Ht 170.2 cm; Wt 98.0 kg
[~2021-11-13 18:58] MED LIST changes: +CEFD300C3 PO; +CETI10TA17 PO; +CNC1KV IM; +FLUO20CA48 PO; +IPRA3AMP31 NEB; +LEVO50TA PO; +PRED10TA22 PO; +SODI30SP2 NS; +UMEC62.5 IH
[2021-11-13] MEDS ORDERED: methylPREDNISolone 125 MG (Solu-MEDROL) VIAL IV STA (19:12)
[2021-11-13 19:22] LABS: BASOPHILS # (AUTO) 0.1 10^3/uL (0.0-0.1); BASOPHILS % (AUTO) 1 % (0-10); EOSINOPHILS % (AUTO) 0 % (0-10); HEMATOCRIT 52 % (35-52); LYMPHOCYTES # (AUTO) 1.5 10^3/uL (1.0-4.0); LYMPHOCYTES % (AUTO) 20 % (12-44); MEAN CORPUSCULAR HEMOGLOBIN 30 pg (25-34); MEAN CORPUSCULAR HGB CONC 33 g/dL (32-36); MEAN CORPUSCULAR VOLUME 92 fL (80-99); MEAN PLATELET VOLUME 9.5 fL (9.0-12.2); MONOCYTES # (AUTO) 0.6 10^3/uL (0.0-1.0); MONOCYTES % (AUTO) 8 % (0-12); NEUTROPHILS # (AUTO) 5.1 10^3/uL (1.8-7.8); NEUTROPHILS % (AUTO) 70 % (42-75); PLATELET COUNT 290 10^3/uL (130-400); WHITE BLOOD COUNT 7.3 10^3/uL (4.3-11.0)
--- NOTE | 2021-11-13 19:30 | ED Respiratory ---
General Chief Complaint: Respiratory Problems Stated Complaint: SOB Nursing Triage Note: TO ED VIA POV AND AMBULATORY TO ROOM 9 FROM [facility] WITH INCREASING SOA. DC'D FROM HOSPITAL WITH PNEUMONIA DX AT END OF SEPTEMBER. HX COPD AND USES INHALERS. 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 HAS NOT HAD F/U WITH PHARMACIST MANAGER. HOME O2 AT [facility] AND PR[facility]. Source: patient Exam Limitations: no limitations History of Present Illness Date Seen by Provider: November 13, 2021 Time Seen by Provider: 19:22 Initial Comments This is a 55-year-old female who presented to the ER via POV with complaints of shortness of air. States that she went to [facility] because she woke this morning and was having increasing difficulty breathing. She does have a history of COPD states that she did an albuterol treatment prior to going to [facility] and she received another treatment with ipratropium at [facility]. After receiving breathing treatments she was still really tight with some expiratory wheezing so the provider referred her to the emergency department for further evaluation. In September she was admitted at this facility and treated for pneumonia, denies any recent use of steroids or antibiotics since that admission. Allergies and Home Medications Allergies Coded Allergies: pregabalin (Verified Allergy, Unknown, 05/16/21) Uncoded Allergies: STEROIDS (Allergy, Unknown, 05/15/21) "MAKE ME STOP BREATHING" Patient Home Medication List ALPRAZolam (ALPRAZolam) 0.25 Mg Tablet, 0.25 MG PO BID PRN for ANXIETY, (Reported) Entered as Reported by: EDA LOYOLA on 05/16/21 0954 Albuterol Sulfate (Ventolin Hfa) 18 Gm Hfa.aer.ad, 2 PUFF INH Q6H PRN for SHORTNESS OF BREATH, (Reported) Entered as Reported by: EDA LOYOLA on 05/16/21 0954 Aspirin (Aspirin EC) 81 Mg Tablet.dr, 81 MG PO Q48H, (Reported) Entered as Reported by: EAD LOYOLA on 05/16/21 0954 Azithromycin (Azithromycin) 500 Mg Tablet, 500 MG PO DAILY Prescribed by: KENNY YOO on 11/13/211947 Baclofen (Baclofen) 20 Mg Tablet, 20 MG PO BID PRN for MUSCLE SPASMS, (Reported) Entered as Reported by: EDA LOYOLA on 05/16/21 0954 Cefdinir (Cefdinir) 300 Mg Capsule, 300 MG PO BID Prescribed by: SWATI RODRÍGUEZ on 10/06/21 1203 Cetirizine HCl (Cetirizine HCl) 10 Mg Tablet, 10 MG PO HS, (Reported) Entered as Reported by: EDA LOYOLA on 10/05/21 1046 Cyanocobalamin (Cyanocobalamin Injection) 1,000 Mcg/Ml Inj, 1,000 MCG IM EVERY OTHER MONTH, (Reported) Entered as Reported by: EDA LOYOLA on 10/05/21 1046 Fluoxetine HCl (Fluoxetine HCl) 20 Mg Capsule, 40 MG PO DAILY Prescribed by: SWATI RODRÍGUEZ on 10/06/21 120 Fluticasone Propion/Salmeterol (Fluticasone-Salmeterol 250-50) 1 Each Blst.w.dev, 1 PUFF INH BID, (Reported) Entered as Reported by: EDA LOYOLA on 05/16/21 0954 Hydrocodone/Acetaminophen (Hydrocodone-Acetamin 7.5-325) 1 Each Tablet, 1 EA PO TID PRN for PAIN-MODERATE (5-7), (Reported) Entered as Reported by: EDA LOYOLA on 05/16/21 0954 Ibuprofen (Ibuprofen) 800 Mg Tablet, 800 MG PO Q8H PRN for PAIN-MILD (1-4), (Reported) Entered as Reported by: EDA LOYOLA on 05/16/21 0954 Ipratropium/Albuterol Sulfate (Iprat-Albut 0.5-3(2.5) mg/3 ml) 3 Ml Ampul.neb, 3 ML NEB Q6H PRN for SHORTNESS OF BREATH, (Reported) Entered as Reported by: EDA LOYOLA on 10/05/21 1046 Levothyroxine Sodium (Synthroid) 50 Mcg Tablet, 50 MCG PO DAILY@0630 Prescribed by: SWATI RODRÍGUEZ on 10/06/21 1203 Linaclotide (Linzess) 290 Mcg Capsule, 290 MCG PO Q48H, (Reported) Entered as Reported by: EDA LOYOLA on 05/16/21 0954 Prednisone (Prednisone) 10 Mg Tab.ds.pk, 10 MG PO DAILY Prescribed by: SWATI RODRÍGUEZ on 10/06/21 1203 Prednisone (Prednisone) 50 Mg Tab, 50 MG PO DAILY Prescribed by: KENNY YOO on 11/13/211947 Sodium Chloride (Saline Nasal [place]) 30 Ml [place], 0.5 ML NS TID Prescribed by: SWATI RODRÍGUEZ on 10/06/21 120 Umeclidinium [place] (Incruse Ellipta) 62.5 Mcg Blst.w.dev, 0 INH IH DAILY@0800 Prescribed by: SWATI RODRÍGUEZ on 10/06/21 1203 Past Ttlggqs-Tnrezz-Hhgblq Hx Patient Social History Tobacco Use?: Yes Smoking Status: Former Smoker Substance use?: No Alcohol Use?: No Immunizations Up To Date Tetanus Booster (TDap): Unknown Influenza Vaccine Up-to-Date: Yes; Up-to-Date First/Initial COVID19 Vaccinat: March 27, 2021 Second COVID19 Vaccination Antolin: march COVID19 Vaccine Citrus Picker: Hypejar Past Medical History Surgery/Hospitalization HX: COPD, angina, CHRONIC BACK PAIN, ANXIETY Respiratory: Yes COPD Cardiac: Yes Angina Musculoskeletal: Yes Chronic Back Pain Psychosocial: Yes Anxiety Family Medical History COPD Physical Exam Vital Signs - First Documented 11/13/21 19:10 Temp 36.0 Pulse 96 Resp 24 B/P (MAP) 141/79 (99) Pulse Ox 94 O2 Delivery Room Air Capillary Refill : Less Than 3 Seconds Height: '" Weight: lbs. oz. kg; 33.00 BMI Method: Progress/Results/Core Measures Suspected Sepsis SIRS Temperature: Pulse: 96 Respiratory Rate: 24 Laboratory Tests 11/13/21 19:12: White Blood Count 7.3 Blood Pressure 141 /79 Mean: 99 Laboratory Tests 11/13/21 19:12: Platelet Count 290, Total Bilirubin 0.2 Results/Orders Lab Results Laboratory Tests Test 11/13/21 19:12 11/13/21 19:25 11/13/21 19:30 Range/Units White Blood Count 7.3 4.3-11.0 10^3/uL Red Blood Count 5.64 H 3.80-5.11 10^6/uL Hemoglobin 17.0 H 11.5-16.0 g/dL Hematocrit 52 35-52 % Mean Corpuscular Volume 92 80-99 fL Mean Corpuscular Hemoglobin 30 25-34 pg Mean Corpuscular Hemoglobin Concent 33 32-36 g/dL Red Cell Distribution Width 12.2 10.0-14.5 % Platelet Count 290 130-400 10^3/uL Mean Platelet Volume 9.5 9.0-12.2 fL Immature Granulocyte % (Auto) 0 % Neutrophils (%) (Auto) 70 42-75 % Lymphocytes (%) (Auto) 20 12-44 % Monocytes (%) (Auto) 8 0-12 % Eosinophils (%) (Auto) 0 0-10 % Basophils (%) (Auto) 1 0-10 % Neutrophils # (Auto) 5.1 1.8-7.8 10^3/uL Lymphocytes # (Auto) 1.5 1.0-4.0 10^3/uL Monocytes # (Auto) 0.6 0.0-1.0 10^3/uL Eosinophils # (Auto) 0.0 0.0-0.3 10^3/uL Basophils # (Auto) 0.1 0.0-0.1 10^3/uL Immature Granulocyte # (Auto) 0.0 0.0-0.1 10^3/uL D-Dimer 0.29 0.00-0.49 UG/ML Carbon Dioxide Level 25 21-32 MMOL/L Blood Urea Nitrogen 6 L 7-18 MG/DL Glucose Level 104 70-105 MG/DL Calcium Level 10.2 H 8.5-10.1 MG/DL Corrected Calcium 10.0 8.5-10.1 MG/DL Total Bilirubin 0.2 0.1-1.0 MG/DL Aspartate Amino Transf (AST/SGOT) 17 5-34 U/L Alanine Aminotransferase (ALT/SGPT) 12 0-55 U/L Alkaline Phosphatase 124 40-136 U/L Total Creatine Kinase 38 29-168 U/L Creatine Kinase MB 0.6 <6.6 NG/ML Myoglobin 38.2 10.0-92.0 NG/ML Troponin I < 0.028 <0.028 NG/ML B-Type Natriuretic Peptide 17.7 <100.0 PG/ML Total Protein 6.9 6.4-8.2 GM/DL Albumin 4.2 3.2-4.5 GM/DL Influenza Type A (RT-PCR) Not Detected Not Detecte Influenza Type B (RT-PCR) Not Detected Not Detecte SARS-CoV-2 RNA (RT-PCR) Not Detected Not Detecte Blood Gas Puncture Site LEFT RADIAL Blood Gas Patient Temperature 36.0 Arterial Blood pH 7.44 H 7.37-7.43 Arterial Blood Partial Pressure CO2 35 35-45 MMHG Arterial Blood Partial Pressure O2 69 L 79-93 MMHG Arterial Blood HCO3 24 23-27 MMOL/L Arterial Blood Total CO2 24.7 21.0-31.0 MMOL/L Arterial Blood Oxygen Saturation 96 94-100 % Arterial Blood Base Excess 0.0 -2.5-2.5 MMOL/L Claude Test POSITIVE Blood Gas Ventilator Setting NO Blood Gas Inspired Oxygen RA My Orders Orders - KENNY YOO APRN Rt Request For Service (11/13/21 19:12) Methylprednisolone Sod Succ (Solu-Medrol (11/13/21 19:12) Cbc With Automated Diff (11/13/21 19:12) Comprehensive Metabolic Panel (11/13/21 19:12) Ekg Tracing (11/13/21 19:12) Bnp Agusto (11/13/21 19:12) Fibrin Degradation Products (11/13/21 19:12) Troponin I Agusto (11/13/21 19:12) Myoglobin Serum (11/13/21 19:12) Creatine Kinase Mb (11/13/21 19:12) Creatine Kinase (11/13/21 19:12) Covid 19 Inhouse Test (11/13/21 19:12) Influenza A And B By Pcr (11/13/21 19:12) Arterial Blood Gas (11/13/21 19:32) Chest 1 View, Ap/Pa Only (11/13/21 20:15) Vital Signs/I&O 11/13/21 11/13/21 19:10 19:10 Temp 36.0 Pulse 96 Resp 24 B/P (MAP) 141/79 (99) Pulse Ox 94 O2 Delivery Room Air Simple Mask Capillary Refill : Less Than 3 Seconds Blood Pressure Mean: 99 Departure Impression Primary Impression: COPD exacerbation Departure-Patient Inst. Referrals: [facility] (PCP) Primary Care Physician Patient Instructions: COPD Exacerbation, Adult ED Add. Discharge Instructions: Plan: 1. Call your primary care provider to schedule close follow up. 2. Take steroids daily with food as directed. 3. Use your Albuterol every 4 hours as needed for shortness of breath. 4. Take antibiotics daily as directed. 5. Return to ER for any new, concerning, worsening symptoms. All discharge instructions reviewed with patient and/or family. Voiced understanding. Scripts Azithromycin (Azithromycin) 500 Mg Tablet 500 MG PO DAILY for 5 Days, #5 TAB 0 Refills Prov: KENNY YOO APRN 11/13/21 Prednisone (Prednisone) 50 Mg Tab 50 MG PO DAILY for 5 Days, #5 TAB 0 Refills Prov: KENNY YOO RAWHIDE TRIMMER 11/13/21 KENNY YOO APRN November 13, 2021 19:30
[2021-11-13 19:40] LABS: ABG PCO2 35 MMHG (35-45); ABG PH 7.44 (7.37-7.43); ABG PO2 69 MMHG (79-93)
[2021-11-13 19:41] LABS: ABG OXYGEN SATURATION 96 % (94-100); ABG TCO2 24.7 MMOL/L (21.0-31.0); ALLENS TEST POSITIVE; INSPIRED O2 RA; VENTILATOR NO
[2021-11-13] MEDS ORDERED: PRD50T PO (19:48)
[2021-11-13] MEDS ORDERED: AZIT500T9 PO (19:48)
[2021-11-13 20:14] LABS: ALBUMIN 4.2 GM/DL (3.2-4.5)
[2021-11-13 20:16] LABS: CALCIUM 10.2 MG/DL (8.5-10.1)
[2021-11-13 20:17] LABS: GLUCOSE 104 MG/DL (70-105); TOTAL PROTEIN 6.9 GM/DL (6.4-8.2)
[2021-11-13 20:18] LABS: CARBON DIOXIDE 25 MMOL/L (21-32)
[2021-11-13 20:19] LABS: BILIRUBIN,TOTAL 0.2 MG/DL (0.1-1.0)
[2021-11-13 20:20] LABS: ALKALINE PHOSPHATASE 124 U/L (40-136)
[2021-11-13 20:24] LABS: ALANINE AMINOTRANSFERASE 12 U/L (0-55); CREATINE KINASE 38 U/L (29-168)
--- NOTE | 2021-11-13 20:38 | Diagnostic Imaging Report ---
EXAMINATION: Chest 1 view HISTORY: SOA COMPARISON: 05/15/2021 FINDINGS: Heart size and pulmonary vasculature are normal. The lungs are clear without consolidation, pleural effusion, or pneumothorax. The osseous structures are intact. IMPRESSION: 1. No acute radiographic abnormality in the chest. Dictated by: Dictated on workstation # [id number]
[2021-11-13 20:53] LABS: CREATINE KINASE MB 0.6 NG/ML (<6.6)
[2021-11-13] MEDS ORDERED: HYDROcodone/APAP 5 MG/325 MG (LORTAB) TAB PO ONE (21:00)
[2021-11-13 21:03] VITALS: BP 109/68
[2021-11-13 21:07] LABS: CHLORIDE 101 MMOL/L (98-107); POTASSIUM 4.2 MMOL/L (3.6-5.0); SODIUM 140 MMOL/L (135-145)
[2021-11-13 21:10] LABS: BUN/CREATININE RATIO 8; CREATININE SERUM 0.78 MG/DL (0.60-1.30); GFR ESTIMATED 91
== END 2021-11-13 21:04 | disposition home or self-care (01) ==
LOC: EDUNIT# 18:58 → ER 19:01
DX: J44.1 Chronic obstructive pulmonary disease with (acute) exacerbation (principal); Z87.891 Personal history of nicotine dependence; Z79.899 Other long term (current) drug therapy; Z20.822 Contact with and (suspected) exposure to COVID-19
CPT/HCPCS: 36415; 71045; 80053; 82550; 82553; 82805; 83874; 83880; 84484; 85025; 85379; 87636; 93005